=== PATIENT | male | born 1955 | race Caucasian/White ===

== ENCOUNTER 2017-06-12 09:38 | Inpatient (IN) | payer OTHER ==
[2017-06-12] MEDS ORDERED: MORPHINE SULFATE 4 MG/ML SYRINGE IV ONE (10:16)
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
[2017-06-12] MEDS ORDERED: LIDOCAINE 5% PATCH TOPICAL ONE (11:16)
[2017-06-12 11:45] LABS: Basophils # (A) 0.1 k/uL (0-0.2); Basophils % (A) 0 %; CH 30.8; Eosinophils # (A) 0.1 k/uL (0-0.7); Eosinophils % (A) 1 %; HCT 45.9 % (39.0-53.0); HDW 2.65; HGB 16.4 gm/dL (13.0-17.5); Luc # (Auto) 0.07; Luc % (Auto) 0; Lymphocytes # (A) 2.7 k/uL (1.0-4.8); Lymphocytes % (A) 15 %; MCH 31.5 pg (25.0-35.0); MCHC 35.7 g/dL (31.0-37.0); MCV 88.3 fL (80.0-100.0); Mean Platelet Volume 7.1; Monocytes # (A) 0.7 k/uL (0-1.0); Monocytes % (A) 4 %; Neutrophils # (A) 14.3 k/uL (1.3-7.7); Neutrophils % (A) 80 %; RBC 5.19 m/uL (4.30-5.90); RDW 13.2 % (11.5-15.5); WBC 17.8 k/uL (3.8-10.6); WBC (Perox) 17.15
[2017-06-12 11:48] LABS: AST 35 U/L (17-59); Alcohol <10 mg/dL; Alkaline Phosphatase 69 U/L (38-126); Anion Gap 11 mmol/L; Blood Urea Nitrogen 14 mg/dL (9-20); Calcium 9.3 mg/dL (8.4-10.2); Carbon Dioxide 24 mmol/L (22-30); Chloride 107 mmol/L (98-107); Glucose 148 mg/dL (74-99); Non-African American GFR(MDRD) >60 (>60 ml/min/1.73 sqM); Potassium 3.6 mmol/L (3.5-5.1); Sodium 142 mmol/L (137-145); Total Bilirubin 0.6 mg/dL (0.2-1.3); Total Protein 7.2 g/dL (6.3-8.2)
[2017-06-12 11:53] LABS: ALT 57 U/L (21-72)
[2017-06-12 11:55] LABS: Prothrombin Time 10.4 sec (9.0-12.0)
[2017-06-12] MEDS ORDERED: HYDROcodone/APAP 5-325MG 1 EACH TAB PO STA (12:07)
[2017-06-12 12:23] LABS: Partial Thromboplastin Time 20.5 sec (22.0-30.0)
[2017-06-12 12:57] LABS: Appearance,Urine Cloudy (Clear); Bacteria,Urine Rare /hpf; Bilirubin,Urine Negative (Negative); Glucose,Urine (UA) Negative (Negative); Ketones,Urine Negative (Negative); Leukocyte Esterase,Urine Negative (Negative); Mucus,Urine Moderate /hpf; Nitrite,Urine Negative (Negative); PH, Urine 5.5 (5.0-8.0); Particle Count 9436; Protein,Urine 2+ (Negative); RBC,Urine 83 /hpf (0-5); Specific Gravity,Urine 1.019 (1.001-1.035); UA Billing (MACRO vs. MICRO) MICRO; Urobilinogen,Urine <2.0 mg/dL (<2.0); WBC,Urine 5 /hpf (0-5)
[2017-06-12] MEDS ORDERED: ONDANSETRON 4 MG/2 ML VIAL IVP STA (14:08)
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
[2017-06-12] MEDS ORDERED: NALOXONE 0.4 MG/ML 1 ML VIAL IV PRN (15:45)
[2017-06-12] MEDS: MORPHINE SULFATE 4 MG/ML SYRINGE IV PRN ×2 (16:00→19:54)
[2017-06-12 16:11] LABS: Creatine Kinase 115 U/L (55-170)
[2017-06-12 16:25] LABS: Creatine Kinase MB 1.1 ng/mL (0.0-2.4); Troponin I <0.012 ng/mL (0.000-0.034)
[2017-06-12] MEDS: DEXTROSE 5%-0.45% NACL 1,000 ML IV SCH (17:11)
[2017-06-12] MEDS: HYDROcodone/APAP 5-325MG 1 EACH TAB PO PRN (17:39)
[2017-06-12] MEDS: HEPARIN SODIUM,PORCINE 5,000 UNIT/ML 1 ML VIAL SQ SCH (18:02)
[2017-06-12] MEDS: FAMOTIDINE 20 MG TAB PO SCH (19:56)
[2017-06-12 22:03] LABS: Basophils # (A) 0.1 k/uL (0-0.2); Basophils % (A) 0 %; CH 30.5; CHCM 33.3; Eosinophils % (A) 0 %; HCT 42.9 % (39.0-53.0); HDW 2.48; HGB 14.7 gm/dL (13.0-17.5); Luc # (Auto) 0.05; Luc % (Auto) 0; Lymphocytes # (A) 1.6 k/uL (1.0-4.8); Lymphocytes % (A) 12 %; MCH 31.6 pg (25.0-35.0); MCHC 34.4 g/dL (31.0-37.0); MCV 91.9 fL (80.0-100.0); Monocytes # (A) 0.5 k/uL (0-1.0); Monocytes % (A) 4 %; Neutrophils # (A) 11.1 k/uL (1.3-7.7); Neutrophils % (A) 84 %; RBC 4.67 m/uL (4.30-5.90); RDW 12.9 % (11.5-15.5); WBC 13.2 k/uL (3.8-10.6); WBC (Perox) 12.29
[2017-06-13] MEDS: MORPHINE SULFATE 4 MG/ML SYRINGE IV PRN ×6 (00:05→22:12)
[2017-06-13] MEDS: HEPARIN SODIUM,PORCINE 5,000 UNIT/ML 1 ML VIAL SQ SCH ×3 (00:06→20:56)
[2017-06-13] MEDS: HYDROcodone/APAP 5-325MG 1 EACH TAB PO PRN ×3 (01:48→13:30)
[2017-06-13] MEDS: DEXTROSE 5%-0.45% NACL 1,000 ML IV SCH ×2 (01:50→12:30)
[2017-06-13 06:51] LABS: Basophils % (A) 0 %; CH 30.7; CHCM 33.2; Eosinophils % (A) 0 %; HCT 42.4 % (39.0-53.0); HDW 2.48; HGB 14.3 gm/dL (13.0-17.5); Luc # (Auto) 0.09; Luc % (Auto) 1; Lymphocytes # (A) 2.3 k/uL (1.0-4.8); Lymphocytes % (A) 18 %; MCH 31.3 pg (25.0-35.0); MCHC 33.7 g/dL (31.0-37.0); MCV 92.9 fL (80.0-100.0); Mean Platelet Volume 6.9; Monocytes # (A) 0.7 k/uL (0-1.0); Monocytes % (A) 5 %; Neutrophils # (A) 9.3 k/uL (1.3-7.7); Neutrophils % (A) 75 %; RBC 4.56 m/uL (4.30-5.90); WBC 12.4 k/uL (3.8-10.6); WBC (Perox) 12.79
[2017-06-13 07:08] LABS: Partial Thromboplastin Time 22.5 sec (22.0-30.0); Prothrombin Time 10.5 sec (9.0-12.0)
[2017-06-13 07:09] LABS: ALT 53 U/L (21-72); AST 33 U/L (17-59); Alkaline Phosphatase 56 U/L (38-126); Anion Gap 10 mmol/L; Blood Urea Nitrogen 18 mg/dL (9-20); Carbon Dioxide 27 mmol/L (22-30); Chloride 100 mmol/L (98-107); Glucose 117 mg/dL (74-99); Non-African American GFR(MDRD) >60 (>60 ml/min/1.73 sqM); Potassium 4.3 mmol/L (3.5-5.1); Sodium 137 mmol/L (137-145); Total Bilirubin 0.8 mg/dL (0.2-1.3); Total Protein 6.5 g/dL (6.3-8.2)
--- NOTE | 2017-06-13 07:18 | XR ---
EXAMINATION TYPE: XR chest 2V DATE OF EXAM: 06/13/2017 COMPARISON: Chest x-ray from yesterday. HISTORY: Chest and back pain. TECHNIQUE: Frontal and lateral views of the chest are obtained. FINDINGS: There is worsening bibasilar atelectasis and/or infiltrate. Low lung volumes are redemonst rated. No large pleural effusion or pneumothorax is seen bilaterally. The cardiac silhouette size rem ains enlarged. Right-sided mid rib fractures are redemonstrated. IMPRESSION: Lung volumes and cardiomegaly redemonstrated with increasing bilateral lower lung atelec tasis and/or infiltrate seen.
[2017-06-13] MEDS: FAMOTIDINE 20 MG TAB PO SCH ×2 (08:04→20:56)
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
[2017-06-13] MEDS: LIDOCAINE 5% PATCH TOPICAL SCH (13:34)
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
[2017-06-13] MEDS: IPRATROPIUM-ALBUTEROL 3 ML NEB INHALATION SCH ×2 (15:47→19:53)
[2017-06-13] MEDS: BACLOFEN 10 MG TAB PO PRN (16:19)
[2017-06-13] MEDS: LISINOPRIL 10 MG TAB PO SCH (18:05)
[2017-06-13] MEDS: HYDROcodone/APAP 10-325MG 1 EACH TAB PO PRN (19:37)
[2017-06-13] MEDS: BUDESONIDE 0.5 MG/2 ML NEBU INHALATION SCH (19:53)
[2017-06-13] MEDS: ATORVASTATIN 20 MG TAB PO SCH (20:56)
[2017-06-13] MEDS: BISACODYL 5 MG TABLET.DR PO SCH (20:57)
[2017-06-14] MEDS: DEXTROSE 5%-0.45% NACL 1,000 ML IV SCH ×2 (01:07→07:17)
[2017-06-14] MEDS: HYDROcodone/APAP 10-325MG 1 EACH TAB PO PRN ×5 (02:16→23:56)
[2017-06-14] MEDS: LEVOTHYROXINE 50 MCG TAB PO SCH (06:37)
[2017-06-14 06:48] LABS: Basophils # (A) 0.1 k/uL (0-0.2); Basophils % (A) 1 %; CHCM 33.2; Eosinophils % (A) 0 %; HDW 2.57; HGB 14.2 gm/dL (13.0-17.5); Luc # (Auto) 0.09; Luc % (Auto) 1; Lymphocytes % (A) 9 %; MCV 93.9 fL (80.0-100.0); Mean Platelet Volume 7.2; Monocytes # (A) 0.5 k/uL (0-1.0); Monocytes % (A) 5 %; Neutrophils # (A) 8.8 k/uL (1.3-7.7); Neutrophils % (A) 84 %; RBC 4.58 m/uL (4.30-5.90); RDW 13.2 % (11.5-15.5); WBC 10.5 k/uL (3.8-10.6); WBC (Perox) 10.49
[2017-06-14 07:03] LABS: ALT 49 U/L (21-72); AST 38 U/L (17-59); Alkaline Phosphatase 59 U/L (38-126); Anion Gap 9 mmol/L; Blood Urea Nitrogen 13 mg/dL (9-20); Calcium 9.2 mg/dL (8.4-10.2); Carbon Dioxide 29 mmol/L (22-30); Chloride 98 mmol/L (98-107); Glucose 137 mg/dL (74-99); Non-African American GFR(MDRD) >60 (>60 ml/min/1.73 sqM); Potassium 5.1 mmol/L (3.5-5.1); Sodium 136 mmol/L (137-145); Total Bilirubin 0.9 mg/dL (0.2-1.3); Total Protein 6.7 g/dL (6.3-8.2)
[2017-06-14] MEDS: BISACODYL 5 MG TABLET.DR PO SCH ×2 (08:19→23:56)
[2017-06-14] MEDS: HEPARIN SODIUM,PORCINE 5,000 UNIT/ML 1 ML VIAL SQ SCH ×2 (08:19→21:38)
[2017-06-14] MEDS: FAMOTIDINE 20 MG TAB PO SCH ×2 (08:19→21:38)
[2017-06-14] MEDS: amLODIPine 5 MG TAB PO SCH (08:19)
[2017-06-14] MEDS: LIDOCAINE 5% PATCH TOPICAL SCH (08:19)
[2017-06-14] MEDS: PANTOPRAZOLE 40 MG TABLET PO SCH (08:20)
[2017-06-14] MEDS: BUDESONIDE 0.5 MG/2 ML NEBU INHALATION SCH ×2 (08:35→19:56)
[2017-06-14] MEDS: IPRATROPIUM-ALBUTEROL 3 ML NEB INHALATION SCH ×4 (08:36→19:56)
[2017-06-14] MEDS: BACLOFEN 10 MG TAB PO PRN ×3 (10:35→23:56)
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
--- NOTE | 2017-06-14 11:53 | XR ---
EXAMINATION TYPE: XR lumbar spine 2 or 3V DATE OF EXAM: 06/14/2017 CLINICAL HISTORY: Back pain after fall injury 2 days ago. TECHNIQUE: Frontal and lateral images of the lumbar spine are obtained. COMPARISON: CT abdomen and pelvis September 08, 2011 FINDINGS: There are 6 lumbar type vertebral bodies redemonstrated. The lumbar spine shows satisfact ory alignment without evidence of acute fracture or dislocation. There is mild disc space narrowing L 6 S1 level otherwise the Vertebral body heights and disk space heights are within normal limits. Fair ly moderate multilevel anterior and lateral spurring is present. The overlying soft tissue appears un remarkable. IMPRESSION: No acute fracture or dislocation is seen in the lumbar spine.
[2017-06-14] MEDS: GABAPENTIN 100 MG CAP PO SCH ×2 (12:11→21:39)
--- NOTE | 2017-06-14 13:51 | XR ---
EXAMINATION TYPE: XR chest 2V DATE OF EXAM: 06/14/2017 COMPARISON: 06/13/2017 HISTORY: Short of breath TECHNIQUE: Frontal and lateral views of the chest are obtained. FINDINGS: There is a poor aspiration with patchy atelectasis in the mid and lower lung porter. There are chest leads. There is mild pulmonary congestion. IMPRESSION: Moderate bilateral patchy atelectasis. Mild heart failure cannot be excluded. Inspiratio n is worse than last exam.
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
[2017-06-14] MEDS: MORPHINE SULFATE 4 MG/ML SYRINGE IV PRN ×3 (14:34→21:36)
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
[2017-06-14] MEDS: ATORVASTATIN 20 MG TAB PO SCH (21:38)
[2017-06-15] MEDS: BACLOFEN 10 MG TAB PO PRN ×3 (05:19→21:54)
[2017-06-15] MEDS: MORPHINE SULFATE 4 MG/ML SYRINGE IV PRN ×4 (05:20→23:56)
[2017-06-15] MEDS: LEVOTHYROXINE 50 MCG TAB PO SCH (06:51)
--- NOTE | 2017-06-15 07:43 | XR ---
EXAMINATION TYPE: XR chest 2V DATE OF EXAM: 06/15/2017 COMPARISON: 06/14/2017 HISTORY: Shortness of breath TECHNIQUE: Frontal and lateral views of the chest are obtained. FINDINGS: Scattered senescent parenchymal changes noted. Diminished lung volumes. No significant change in basilar atelectasis and/or infiltrates. Heart size is stable. Mediastinal structures are stable and grossly unremarkable. No evidence for hilar prominence. Degenerative changes dorsal spine. IMPRESSION: 1. No significant change in basilar atelectasis and/or infiltrates.
[2017-06-15] MEDS: LIDOCAINE 5% PATCH TOPICAL SCH (07:47)
[2017-06-15] MEDS: HEPARIN SODIUM,PORCINE 5,000 UNIT/ML 1 ML VIAL SQ SCH ×2 (07:48→21:54)
[2017-06-15] MEDS: LISINOPRIL 10 MG TAB PO SCH (07:49)
[2017-06-15] MEDS: GABAPENTIN 100 MG CAP PO SCH ×2 (07:49→21:54)
[2017-06-15] MEDS: PANTOPRAZOLE 40 MG TABLET PO SCH (07:49)
[2017-06-15] MEDS: FAMOTIDINE 20 MG TAB PO SCH ×2 (07:49→21:54)
[2017-06-15] MEDS: amLODIPine 5 MG TAB PO SCH (07:50)
[2017-06-15] MEDS: BISACODYL 5 MG TABLET.DR PO SCH ×2 (07:58→21:59)
[2017-06-15] MEDS: HYDROcodone/APAP 10-325MG 1 EACH TAB PO PRN ×3 (07:58→21:57)
[2017-06-15] MEDS: BUDESONIDE 0.5 MG/2 ML NEBU INHALATION SCH ×2 (08:50→20:49)
[2017-06-15] MEDS: IPRATROPIUM-ALBUTEROL 3 ML NEB INHALATION SCH ×4 (08:50→20:49)
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
[2017-06-15] MEDS: ATORVASTATIN 20 MG TAB PO SCH (21:53)
[2017-06-16] MEDS: HYDROcodone/APAP 10-325MG 1 EACH TAB PO PRN ×2 (03:06→08:34)
[2017-06-16] MEDS: LEVOTHYROXINE 50 MCG TAB PO SCH (05:49)
[2017-06-16] MEDS: MORPHINE SULFATE 4 MG/ML SYRINGE IV PRN (05:49)
[2017-06-16 07:05] VITALS: BP 162/87; TEMP 98
[2017-06-16] MEDS: IPRATROPIUM-ALBUTEROL 3 ML NEB INHALATION SCH ×2 (08:00→12:06)
[2017-06-16] MEDS: BUDESONIDE 0.5 MG/2 ML NEBU INHALATION SCH (08:00)
[2017-06-16] MEDS: HEPARIN SODIUM,PORCINE 5,000 UNIT/ML 1 ML VIAL SQ SCH (08:29)
[2017-06-16] MEDS: amLODIPine 5 MG TAB PO SCH (08:29)
[2017-06-16] MEDS: GABAPENTIN 100 MG CAP PO SCH (08:30)
[2017-06-16] MEDS: PANTOPRAZOLE 40 MG TABLET PO SCH (08:30)
[2017-06-16] MEDS: LISINOPRIL 10 MG TAB PO SCH (08:30)
[2017-06-16] MEDS: FAMOTIDINE 20 MG TAB PO SCH (08:30)
[2017-06-16] MEDS: BISACODYL 5 MG TABLET.DR PO SCH (08:34)
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
[2017-06-16 11:12] VITALS: RESP 16
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
--- NOTE | 2017-06-16 11:49 | P.DS ---
Providers Date of admission: 06/12/17 15:45 Attending physician: Elvia Soria Consults: 06/12/17 15:32 Consult Physician Routine Consulting Provider: Chun Osullivan Consult Reason/Comments: multiple rib fractures Do you want consulting provider notified?: Yes 06/13/17 08:41 Consult Physician Routine Consulting Provider: Felipe Dubon Consult Reason/Comments: Medical management Do you want consulting provider notified?: Yes Primary care physician: Umberto Urena Patient Condition at Discharge: Good Plan - Discharge Summary New Discharge Prescriptions: No Action Lidocaine 5% Patch [Lidoderm] 1 patch TOPICAL DAILY amLODIPine BESYLATE/BENAZEPRIL [Amlodipine-Benazepril 5-10 mg] 1 cap PO DAILY Pantoprazole Sodium 40 mg PO QAM Levothyroxine Sodium [Synthroid] 50 mcg PO QAM Simvastatin [Zocor] 40 mg PO HS Hydrocodone/Acetaminophen [[place] 10-325] 1 tab PO Q6H PRN PRN Reason: Pain Ibuprofen [Motrin] 800 mg PO Q8H PRN PRN Reason: Pain SUMAtriptan SUCCINATE [Imitrex] 100 mg PO DAILY PRN PRN Reason: Migraine Headache Discharge Medication List Levothyroxine Sodium [Synthroid] 50 mcg PO QAM 03/14/15 [History] Lidocaine 5% Patch [Lidoderm] 1 patch TOPICAL DAILY 03/14/15 [History] Pantoprazole Sodium 40 mg PO QAM 03/14/15 [History] Simvastatin [Zocor] 40 mg PO HS 03/14/15 [History] amLODIPine BESYLATE/BENAZEPRIL [Amlodipine-Benazepril 5-10 mg] 1 cap PO DAILY [History] Hydrocodone/Acetaminophen [[place] 10-325] 1 tab PO Q6H PRN 06/12/17 [History] Ibuprofen [Motrin] 800 mg PO Q8H PRN 06/12/17 [History] SUMAtriptan SUCCINATE [Imitrex] 100 mg PO DAILY PRN 06/12/17 [History] Follow up Appointment(s)/Referral(s): Umberto Urena DO [Primary Care Provider] - 1 Week Chun Osullivan DO [Doctor of Osteopathic Medicine] - 1 Week Elvia Soria MD [Emergency Provider] - 1 Week Activity/Diet/Wound Care/Special Instructions: use incentive spiromety Q 1 hour while awake dc if ok with medicine, and pulmonary do not drive until cleared by surgery or if taking narcotics Discharge Disposition: HOME SELF-CARE
[2017-06-16 12:10] VITALS: PULSE 84
[2017-06-16] MEDS: LIDOCAINE 5% PATCH TOPICAL SCH (12:27)
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
== END 2017-06-16 13:55 | disposition home or self-care (01) | DRG 184 ==
LOC: EC 09:38 → 6SEL 15:45 → 4MS4W 06-15 19:58
PROVIDERS: ADMIT Surgery; ATTEND Surgery
DX: S22.41XA Multiple fractures of ribs, right side, initial encounter for closed fracture (principal); S06.0X9A Concussion with loss of consciousness of unspecified duration, initial encounter; S27.329A Contusion of lung, unspecified, initial encounter; J98.11 Atelectasis; E03.9 Hypothyroidism, unspecified; E78.5 Hyperlipidemia, unspecified; I10 Essential (primary) hypertension; J44.9 Chronic obstructive pulmonary disease, unspecified; K21.9 Gastro-esophageal reflux disease without esophagitis; R09.02 Hypoxemia; G43.909 Migraine, unspecified, not intractable, without status migrainosus; M19.90 Unspecified osteoarthritis, unspecified site; M54.5 Low back pain; Z79.899 Other long term (current) drug therapy; Z87.891 Personal history of nicotine dependence; Z82.49 Family history of ischemic heart disease and other diseases of the circulatory system; W03.XXXA Other fall on same level due to collision with another person, initial encounter; Y92.007 Garden or yard of unspecified non-institutional (private) residence as the place of occurrence of the external cause
CPT/HCPCS: 36415; 70450; 71020; 72100; 72125; 80053; 80306; 80320; 81001; 82550; 82553; 84484; 85025; 85610; 85730; 86850; 86900; 86901; 93005; 94640; 94760; 96374; 96375; 96376; 99285

== ENCOUNTER → 2018-02-02 | Outpatient (CLI) | payer MEDICARE ==
[2018-02-02 11:10] LABS: Basophils # (A) 0.1 k/uL (0-0.2); Basophils % (A) 1 %; Eosinophils # (A) 0.4 k/uL (0-0.7); Eosinophils % (A) 4 %; HCT 44.5 % (39.0-53.0); HGB 15.4 gm/dL (13.0-17.5); Lymphocytes # (A) 3.1 k/uL (1.0-4.8); Lymphocytes % (A) 35 %; MCH 31.7 pg (25.0-35.0); MCHC 34.5 g/dL (31.0-37.0); MCV 91.7 fL (80.0-100.0); Mean Platelet Volume 6.5; Monocytes # (A) 0.3 k/uL (0-1.0); Monocytes % (A) 3 %; Neutrophils # (A) 4.8 k/uL (1.3-7.7); Neutrophils % (A) 56 %; Platelet Count 243 k/uL (150-450); RBC 4.85 m/uL (4.30-5.90); RDW 13.1 % (11.5-15.5); WBC 8.7 k/uL (3.8-10.6)
== END | disposition home or self-care (01) ==
LOC: LABWHC1 10:49
PROVIDERS: ATTEND Family Medicine
DX: R60.9 Edema, unspecified (principal)
CPT/HCPCS: 36415; 83880; 85025

== ENCOUNTER → 2018-02-09 | Outpatient (CLI) | payer MEDICARE ==
--- NOTE | 2018-02-09 15:24 | CT ---
EXAMINATION TYPE: CT chest w con DATE OF EXAM: 02/09/2018 COMPARISON: NONE HISTORY: SOB and cough x4 months CT DLP: 587 mGycm Automated exposure control for dose reduction was used. CONTRAST: CT scan of the chest is performed with IV Contrast, patient injected with 100 mL of Omnipaque 350. FINDINGS: LUNGS: The lungs are grossly clear, there is no concerning parenchymal mass or nodule identified. T here is no pleural effusion or pneumothorax seen. The tracheobronchial tree is patent. MEDIASTINUM: There are no greater than 1 cm hilar or mediastinal lymph nodes. No pericardial effusi on is seen. Thoracic aorta is of normal caliber. The heart is not enlarged. UPPER ABDOMEN: There is evidence of hepatic steatosis. OTHER: No additional significant abnormality is seen. IMPRESSION: 1. No evidence for underlying pneumonia, pulmonary nodule or mass.
== END | disposition home or self-care (01) ==
LOC: RADCTMAIN 14:30
PROVIDERS: ATTEND Family Medicine
DX: J18.9 Pneumonia, unspecified organism (principal)
CPT/HCPCS: 71260; Q9967

== ENCOUNTER → 2018-04-07 | Outpatient (CLI) | payer MEDICARE | END | disposition home or self-care (01) | LOC: LABWHC1 09:02 | PROVIDERS: ATTEND Family Medicine | DX: R60.9 Edema, unspecified (principal) | CPT/HCPCS: 36415; 85379 ==

== ENCOUNTER → 2018-04-22 | Outpatient (CLI) | payer MEDICARE ==
--- NOTE | 2018-04-22 15:11 | US ---
EXAMINATION TYPE: US venous doppler duplex LE DATE OF EXAM: 04/22/2018 2:38 PM COMPARISON: NONE CLINICAL HISTORY: M79.605 Pain In Left Leg. sob, left leg pain SIDE PERFORMED: bilateral TECHNIQUE: The lower extremity deep venous system is examined utilizing real time linear array sonog beni with graded compression, doppler sonography and color-flow sonography. VESSELS IMAGED: External Iliac Vein (EIV) Common Femoral Vein Deep Femoral Vein Greater Saphenous Vein * Femoral Vein Popliteal Vein Small Saphenous Vein * Proximal Calf Veins (* superficial vessels) Grayscale, color doppler, spectral doppler imaging performed of the deep veins of the lower extremiti es. There is normal flow, compressibility, vascular waveforms. Right Leg: neg for RLE dvt Left Leg: neg for LLE dvt IMPRESSION: No sonographic evidence of deep venous thrombosis within either lower extremity.
== END | disposition home or self-care (01) ==
LOC: RADUSWWP 14:10
PROVIDERS: ATTEND Family Medicine
DX: M79.605 Pain in left leg (principal)
CPT/HCPCS: 93970

== ENCOUNTER → 2019-04-11 | Outpatient (CLI) | payer MEDICARE ==
--- NOTE | 2019-04-11 09:49 | XR ---
EXAMINATION TYPE: XR chest 2V DATE OF EXAM: 04/11/2019 COMPARISON: 07/10/2017 TECHNIQUE: PA and lateral views submitted. HISTORY: Chest pain FINDINGS: Heart is enlarged. There is subsegmental changes involving both lungs. No pneumothorax. Biapical pleu ral thickening. Chronic rib deformities on the right. No pneumothorax. IMPRESSION: 1. Bilateral subsegmental areas of consolidation and atelectasis favored over infiltrate.
== END | disposition home or self-care (01) ==
LOC: RADXRMAIN 09:32
PROVIDERS: ATTEND Family Medicine
DX: R91.8 Other nonspecific abnormal finding of lung field (principal); J44.0 Chronic obstructive pulmonary disease with (acute) lower respiratory infection; I10 Essential (primary) hypertension; Z99.81 Dependence on supplemental oxygen
CPT/HCPCS: 71046

== ENCOUNTER → 2019-09-21 | Outpatient (CLI) | payer MEDICARE ==
--- NOTE | 2019-09-21 15:04 | CT ---
EXAMINATION TYPE: CT abdomen pelvis w con DATE OF EXAM: 09/21/2019 COMPARISON: CT 09/08/2011 HISTORY: Vomiting, nausea CT DLP: 1862 mGycm Automated exposure control for dose reduction was used. TECHNIQUE: Helical acquisition of images from the lung bases through the pelvis have been completed. CONTRAST: Performed with Oral Contrast and with IV Contrast, patient injected with 100 ml mL of Isovue 300. FINDINGS: There are some coronary artery calcifications present. Large calvarial fat pads are present . Patient is morbidly obese. LUNG BASES: No significant abnormality is appreciated. AORTA: No significant abnormality is appreciated. LIVER/GB: Liver shows low attenuation consistent with hepatic steatosis, the gallbladder is normal. PANCREAS: No significant abnormality is seen. SPLEEN: No significant abnormality is seen. ADRENALS: No significant abnormality is seen. KIDNEYS: No significant abnormality is seen. REPRODUCTIVE ORGANS: Prostate appears enlarged. BOWEL: No significant abnormality is seen. Previously identified appendicitis is no longer seen, gali pect interval appendectomy. FREE AIR: No Free Air visible. ASCITES: None visible. PELVIC ADENOPATHY: None visualized. RETROPERITONEAL ADENOPATHY: No Retroperitoneal Adenopathy visible. URINARY BLADDER: No significant abnormality is seen. OSSEOUS STRUCTURES: No significant abnormality is seen. IMPRESSION: NONSPECIFIC FINDINGS ABOVE, HEPATIC STEATOSIS, OBESITY, NO EVIDENT BOWEL OBSTRUCTION. POSTOP CHANGE. ADDITIONAL FINDINGS ABOVE.
== END | disposition home or self-care (01) ==
LOC: RADCTMAIN 12:55
PROVIDERS: ATTEND Family Medicine
DX: R11.10 Vomiting, unspecified (principal); R11.0 Nausea; K76.0 Fatty (change of) liver, not elsewhere classified
CPT/HCPCS: 74177; Q9967

== ENCOUNTER 2020-03-29 15:50 | Inpatient (IN) | payer MEDICARE ==
[2020-03-29] MEDS ORDERED: LORazepam 2 MG/ML INJ IV STA (15:53)
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
[2020-03-29 16:07] LABS: Basophils # (A) 0.1 k/uL (0-0.2); Basophils % (A) 1 %; Eosinophils # (A) 0.3 k/uL (0-0.7); Eosinophils % (A) 3 %; HCT 45.7 % (39.0-53.0); HGB 14.8 gm/dL (13.0-17.5); Lymphocytes # (A) 4.8 k/uL (1.0-4.8); Lymphocytes % (A) 38 %; MCH 31.8 pg (25.0-35.0); MCHC 32.4 g/dL (31.0-37.0); MCV 98.1 fL (80.0-100.0); Mean Platelet Volume 6.9; Monocytes # (A) 0.4 k/uL (0-1.0); Monocytes % (A) 3 %; Neutrophils # (A) 6.8 k/uL (1.3-7.7); Neutrophils % (A) 54 %; Platelet Count 340 k/uL (150-450); RBC 4.66 m/uL (4.30-5.90); RDW 14.3 % (11.5-15.5); WBC 12.5 k/uL (3.8-10.6)
[2020-03-29 16:21] LABS: ALT 49 U/L (4-49); AST 38 U/L (17-59); African American GFR (CKD) >90 (>60 ml/min/1.73 sqM); Albumin 3.9 g/dL (3.5-5.0); Alkaline Phosphatase 71 U/L (38-126); Anion Gap 6 mmol/L; Blood Urea Nitrogen 12 mg/dL (9-20); Calcium 9.1 mg/dL (8.4-10.2); Carbon Dioxide 32 mmol/L (22-30); Chloride 96 mmol/L (98-107); Creatine Kinase 48 U/L (55-170); Glucose 161 mg/dL (74-99); Non-African American GFR(CKD) >90 (>60 ml/min/1.73 sqM); Potassium 3.5 mmol/L (3.5-5.1); Sodium 134 mmol/L (137-145); Total Protein 6.7 g/dL (6.3-8.2)
[2020-03-29 16:22] LABS: INR 0.9 (<1.2); Prothrombin Time 9.7 sec (9.0-12.0)
[2020-03-29 16:26] LABS: Partial Thromboplastin Time 21.2 sec (22.0-30.0)
--- NOTE | 2020-03-29 16:28 | CT ---
EXAMINATION TYPE: CT brain wo con for TPA DATE OF EXAM: 03/29/2020 COMPARISON: 06/12/2017 INDICATION: Left sided weakness and confusion. DLP: 1220.8 mGycm, Automated exposure control for dose reduction was used. CONTRAST: None CT of the brain is performed utilizing 3 mm thick sections through the posterior fossa and 3 mm thick sections through the remaining calvarium. Study is performed within 24 hours of arrival to the hosp ital. No abnormal hyperdensity is present to suggest an acute intracranial hemorrhage. No mass lesion is evident. No acute infarcts are evident. Ventricles and sulci are appropriate for the patient age. The nasal sinuses within the [id number] are clear. There is fluid within the right mastoid air mary ls. Correlate for right mastoiditis. Septal destruction is not identified. Left mastoid air cells are clear. IMPRESSIONS: 1. No acute intracranial abnormality. 2. Clinical correlation recommended for acute right mastoiditis.
--- NOTE | 2020-03-29 16:30 | XR ---
EXAMINATION TYPE: XR chest 1V portable DATE OF EXAM: 03/29/2020 COMPARISON: 04/11/2019 INDICATION: Altered mental status TECHNIQUE: Single frontal view of the chest is obtained. FINDINGS: The heart size is borderline in size. The pulmonary vasculature is normal. There is some streak opacity within the right hilar region extending towards periphery most likely on the basis of atelectasis. Minimal fluid within the minor fissure could be considered. Some mild plat e like atelectasis or scarring is at the left base, present previously. IMPRESSION: 1. Streak atelectasis perihilar regions. Scarring may be present on the left.
[2020-03-29 16:32] LABS: Creatine Kinase MB 2.7 ng/mL (0.0-2.4); Troponin I <0.012 ng/mL (0.000-0.034)
--- NOTE | 2020-03-29 16:46 | CT ---
EXAMINATION TYPE: CT angio head neck DATE OF EXAM: 03/29/2020 HISTORY: Left sided weakness COMPARISON: None CT DLP: 760.8 mGycm. Automated Exposure Control for Dose Reduction was Utilized. TECHNIQUE: CTA scan of the neck is performed with IV Contrast, patient injected with 70 mL of Isovue 370, axial images are obtained, coronal and sagittal reformatted images are reviewed. Three-D recons tructed images are created on an independent workstation and reviewed. Source images are reviewed. FINDINGS: Carotid/Vascular Structures: There is a three-vessel arch. Vertebral arteries are codominant. Common carotid arteries bifurcate normally into internal and external carotid arteries. Internal carotid art eries are patent to the skull base Cervical of [place]: Vertebral basilar system appears normal. Posterior cerebral vasculature is unrema rkable. Internal carotid arteries bifurcate normally into A1 and M1 segments. A2 segments are normal. The anterior communicating artery appears patent.. Posterior communicating arteries are not clearly identified. IMPRESSION: 1. No flow-limiting stenosis bilateral carotid bifurcations. 2. Normal [place]
[2020-03-29] MEDS ORDERED: ASPIRIN 325 MG TAB PO STA (16:57)
[2020-03-29] MEDS: SODIUM CHLORIDE 0.9% 1,000 ML IV SCH (17:27)
[2020-03-29] MEDS: ACETAMINOPHEN TAB 325 MG TAB PO PRN (20:46)
[2020-03-29] MEDS ORDERED: BENZONATATE 100 MG CAP PO PRN (20:54)
[2020-03-29] MEDS ORDERED: LORATADINE 10 MG TAB PO PRN (20:54)
[2020-03-29] MEDS: FUROSEMIDE 40 MG TAB PO SCH (21:06)
[2020-03-29] MEDS: ATORVASTATIN 20 MG TAB PO SCH (21:06)
[2020-03-30] MEDS: SODIUM CHLORIDE 0.9% 1,000 ML IV SCH ×2 (02:59→08:40)
[2020-03-30] MEDS: LEVOTHYROXINE 50 MCG TAB PO SCH (06:16)
[2020-03-30] MEDS: PANTOPRAZOLE 40 MG TABLET PO SCH (06:16)
[2020-03-30 07:44] LABS: HGB 12.7 gm/dL (13.0-17.5); Hypochromasia Slight; MCH 31.3 pg (25.0-35.0); MCHC 31.1 g/dL (31.0-37.0); MCV 100.8 fL (80.0-100.0); Macrocytosis Slight; Mean Platelet Volume 6.7; Platelet Count 284 k/uL (150-450); RBC 4.06 m/uL (4.30-5.90); RDW 14.3 % (11.5-15.5); WBC 8.2 k/uL (3.8-10.6)
[2020-03-30 07:54] LABS: African American GFR (CKD) >90 (>60 ml/min/1.73 sqM); Anion Gap 5 mmol/L; Blood Urea Nitrogen 10 mg/dL (9-20); Calcium 8.3 mg/dL (8.4-10.2); Carbon Dioxide 33 mmol/L (22-30); Chloride 99 mmol/L (98-107); Cholesterol 180 mg/dL (<200); Glucose 121 mg/dL (74-99); HDL Cholesterol 44 mg/dL (40-60); LDL Cholesterol,Calculated 106 mg/dL (0-99); Non-African American GFR(CKD) >90 (>60 ml/min/1.73 sqM); Sodium 137 mmol/L (137-145); Triglycerides 152 mg/dL (<150)
[2020-03-30] MEDS ORDERED: LORazepam 2 MG/ML INJ IV STA (08:11)
[2020-03-30] MEDS: LOSARTAN 50 MG TAB PO SCH (08:39)
[2020-03-30] MEDS: POTASSIUM CHLORIDE ER 20 MEQ TAB.ER PO SCH (08:39)
[2020-03-30] MEDS: ACETAMINOPHEN TAB 325 MG TAB PO PRN (08:39)
[2020-03-30] MEDS: FUROSEMIDE 40 MG TAB PO SCH ×2 (08:40→21:02)
[2020-03-30] MEDS ORDERED: ASPIRIN 81 MG PO SCH (09:00)
--- NOTE | 2020-03-30 10:43 | ECHOF ---
Referral Reason:Thrombus MEASUREMENTS -------- HEIGHT: 175.3 cm WEIGHT: 113.9 kg BP: 125/75 RVIDd: 3.4 cm (< 3.3) IVSd: 1.4 cm (0.6 - 1.1) LVIDd: 3.9 cm (3.9 - 5.3) LVPWd: 1.3 cm (0.6 - 1.1) IVSs: 2.0 cm LVIDs: 2.5 cm LVPWs: 2.0 cm LA Diam: 3.6 cm (2.7 - 3.8) Ao Diam: 3.4 cm (2.0 - 3.7) AV Cusp: 2.1 cm (1.5 - 2.6) MV E Robb: 0.69 m/s MV DecT: 171 ms MV A Robb: 0.82 m/s MV E/A Ratio: 0.85 RAP: 5.00 mmHg RVSP: 27.32 mmHg FINDINGS -------- Sinus rhythm. This was a technically difficult study with suboptimal views. The left ventricular size is normal. There is moderate concentric left ventricular hypertrophy. O verall left ventricular systolic function is normal with, an EF between 60 - 65 %. The right ventricle is mildly enlarged. The left atrial size is normal. The right atrium is normal in size. 5.0mg of Lumason was utilized for enhancement of images The aortic valve is trileaflet and appears structurally normal. The mitral valve is normal. Mild tricuspid regurgitation present. Right ventricular systolic pressure is normal at < 35 mmHg. There is no pulmonic regurgitation present. The aortic root size is normal. The hepatic veins were not well visualized. There is no pericardial effusion. CONCLUSIONS -------- 1. Sinus rhythm. 2. This was a technically difficult study with suboptimal views. 3. The left ventricular size is normal. 4. There is moderate concentric left ventricular hypertrophy. 5. Overall left ventricular systolic function is normal with, an EF between 60 - 65 %. 6. The right ventricle is mildly enlarged. 7. The left atrial size is normal. 8. The right atrium is normal in size. 9. 5.0mg of Lumason was utilized for enhancement of images 10. The aortic valve is trileaflet and appears structurally normal. 11. The mitral valve is normal. 12. Mild tricuspid regurgitation present. 13. Right ventricular systolic pressure is normal at < 35 mmHg. 14. There is no pulmonic regurgitation present. 15. The aortic root size is normal. 16. The hepatic veins were not well visualized. 17. There is no pericardial effusion. ENGINE OILER: Xuan Riley RDCS
--- NOTE | 2020-03-30 11:54 | MR ---
EXAMINATION TYPE: MR brain wo con DATE OF EXAM: 03/30/2020 COMPARISON: CT brain dated 03/29/2020 and MRI dated 03/15/2015 HISTORY: Expressive aphasia, CVA/TIA TECHNIQUE: Multiplanar, multisequence images of the brain and brainstem is performed without IV contrast. FINDINGS: Diffusion weighted images demonstrate and punctate focus of restricted diffusion along the leroy-white matter interface of the right posterior parietal lobe. Focus of white matter changes seen at this location demonstrated as T2/FLAIR hyperintensity that is new from 2015. There is no extra-ax ial fluid collection. Mild FLAIR hyperintensity in the periventricular white matter most, and the bas is of chronic microangiopathy. The ventricular system and cisternal spaces are normal in size and iwona earance. The brain volume is age appropriate. Midline structures demonstrate normal morphology. The craniocervical junction appears within normal limits. The globes are intact. Near complete opacification of the right mastoid air cells, extensive with fluid seen in the right middle ear cavity. Partial opacification inferior aspect of the sphenoid air cells. Mild mucosal thickening in the maxillary sinuses seen on coronal T2 imaging. IMPRESSION: 1.There is a 6 mm focus of restricted diffusion and the leroy-white matter junction of the right poste rior parietal lobe indicating a punctate acute lacunar infarct. 2. Near complete opacification of the right mastoid air cells with fluid in the right middle ear cavi ty. Correlate for otomastoiditis. A Yellow level critical message alert has been initiated for Felipe Dubon MD via the [employer] Critical Results System on 03/30/2020 11:51 AM. This message alert has been sent to Felipe Dubon MD via the preferences provided by the clinician for the receipt of Radiology Critical Findings. Message ID [id number].
--- NOTE | 2020-03-30 12:38 | P.HPIM ---
History of Present Illness H&P Date: 03/30/20 Chief Complaint: aphasia This is a 65-year-old male patient of Dr. Urena with past medical history of hypertension, hyperlipidemia, hypothyroidism, gastroesophageal reflux disease, migraine headaches, remote history of tobacco use, chronic hypoxic respiratory failure. Patient states that he has chronic problems with insomnia and usually sleeps during the day. He states yesterday he went to bed at 5 in the morning and when he woke up at 2 in the afternoon he noticed that his speech was off and he was not able to open the refrigerator door. He was unable to use his hand. Patient denied having any balance issues. He denies having any one- sided weakness despite difficulty with using his hand. He states that he has had a headache for one week. He also states he has been off balance and fell getting out of the tub 2 days ago. He states he was able to catch himself and did not have any injuries. He does not have any history of TIA/CVA. His ended up calling ambulance and patient was brought in the hospital. Patient is also noted that for the past 6 months to one year he has had some memory loss. He had an episode of shortness of breath 2 nights ago and thought he needed to come in the hospital but this subsided on its own without treatment. He also states that for the past 2 weeks he has had trouble swallowing his pills. He has had no recent hospitalizations. Patient is on home O2 but denies COPD diagnosis. Patient presented to [facility] emergency center for evaluation. Patient was found to be afebrile, heart rate 104, blood pressure 140/83, pulse ox 94% on 2 L nasal cannula. EKG is a sinus tachycardia with no acute ST T wave changes. WBC 12.5, hemoglobin 14.8, platelet count 340, INR 0.9. Sodium 134, potassium 3.5, chloride 96, CO2 32, BUN 12 and creatinine 0.81. Troponin negative on 1 drug, CK 48. Triglycerides 152, cholesterol 180, LDL 106, HDL 44. Chest x-ray shows streaky atelectasis. Hilar region with scarring on the left side. CAT scan of the brain showed no acute intracranial abnormality. Possible acute right mastoiditis. CTA of the head and neck showed no flow limiting stenosis and bilateral carotid bifurcations. Normal [place] of [place]. Dr. Hairston was contacted. Patient was not a candidate for TPA. The patient had witnessed seizure activity involving the right upper extremity lasting approximately 1 minute while in the emergency center. He was noted to have expressive aphasia and slurred speech and complained of headache. Patient was admitted to the cardiac stepdown unit and consult with neurology, PT OT, speech therapy and echocardiogram ordered. Consult with cardiology added for TYSHAWN to rule out PFO. Echocardiogram reveals EF of 60-65%, mild tricuspid regurgitation. MRI of the brain reveals a 6 mm focus of restricted diffusion and leroy-white matter junction of the right posterior parietal lobe indicating a punctate acute lacunar infarct. Near complete face occasional the right mastoid. Review of Systems Constitutional: Reports daytime sleepiness, Reports fatigue, Reports weakness, Denies anorexia, Denies chills, Denies fever, Denies lethargy, Denies malaise, Denies poor appetite, Denies weight loss Eyes: denies blurred vision, denies pain Ears, nose, mouth and throat: Denies dysphagia, Denies headache, Denies nasal congestion, Denies nasal discharge, Denies sore throat, Denies vertigo Cardiovascular: Denies chest pain, Denies edema, Denies leg edema, Denies lightheadedness, Denies palpitations, Denies syncope Respiratory: Reports home oxygen, Denies cough, Denies cough with sputum, Denies dyspnea, Denies excessive sputum, Denies hemoptysis, Denies respiratory infections, Denies sleep apnea, Denies wheezing Gastrointestinal: Reports nausea, Denies abdominal pain, Denies diarrhea, Denies loss of appetite, Denies vomiting Genitourinary: Denies dysuria, Denies urinary frequency, Denies urinary retention Musculoskeletal: Reports gait dysfunction, Reports muscle weakness, Denies myalgias Integumentary: Denies pruritus, Denies rash, Denies wounds Neurological: Reports aphasia, Reports change in speech, Reports gait dysfunction, Reports seizures, Reports weakness, Denies change in mentation, Denies numbness, Denies syncope Psychiatric: Denies anxiety, Denies depression Endocrine: Denies fatigue, Denies weight change Past Medical History Past Medical History: Heart Failure, COPD, GERD/Reflux, Hyperlipidemia, Hypertension, Osteoarthritis (OA), Thyroid Disorder Additional Past Medical History / Comment(s): migraines, sinus problems, 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 2LNC home O2 r/t unknown lung disease History of Any Multi-Drug Resistant Organisms: None Reported Past Surgical History: Appendectomy, Hernia Repair, Orthopedic Surgery Additional Past Surgical History / Comment(s): rotator cuff x2 left side Past Anesthesia/Blood Transfusion Reactions: No Reported Reaction Additional Past Anesthesia/Blood Transfusion Reaction / Comment(s): clausterphobia-had to be sedated for mri Past Psychological History: No Psychological Hx Reported Additional Psychological History / Comment(s): pt lives with gavin in a single story home that has 2 proch steps. 2 pet cats. no medical equipment. no home care services. never served in the [employer]. 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 Patient uses lysis a cane for ambulation occasionally due to balance issues. Smoking Status: Former smoker Past Alcohol Use History: Occasional Additional Past Alcohol Use History / Comment(s): started smoking cigars at age 8 worked up to 6-7 per day and smoked for 25 years, quit february 2016. He drinks alcohol occasionally. He denies any marijuana or street drug use. Past Drug Use History: None Reported - Past Family History Father Family Medical History: Hyperlipidemia, Hypertension Additional Family Medical History / Comment(s): Father is alive at age 89 with no major medical problems. Mother Family Medical History: Cancer, Diabetes Mellitus, Hyperlipidemia, Hypertension, Thyroid Disorder Additional Family Medical History / Comment(s): Mother is from either a stomach or colon cancer. Brother(s) Additional Family Medical History / Comment(s): Patient has 2 brothers that have from's cystic fibrosis. One brother is alive with no major medical pr oblems. Sister(s) Additional Family Medical History / Comment(s): Patient has 2 sisters with no major medical problems. Daughter(s) Additional Family Medical History / Comment(s): Patient is total of 4 children with no major medical problems. Medications and Allergies Home Medications Medication Instructions Recorded Confirmed Type Levothyroxine Sodium [Synthroid] 50 mcg PO QAM 03/14/15 03/29/20 History Pantoprazole Sodium 40 mg PO QAM 03/14/15 03/29/20 History Simvastatin [Zocor] 40 mg PO HS 03/14/15 03/29/20 History Aspirin EC [Ecotrin Low Dose] 81 mg PO DAILY 03/29/20 03/29/20 History Benzonatate [Tessalon Perles] 100 mg PO TID PRN 03/29/20 03/29/20 History Cetirizine HCl 10 mg PO DAILY PRN 03/29/20 03/29/20 History Furosemide [Lasix] 40 mg PO BID 03/29/20 03/29/20 History LORazepam [Ativan] 1 mg PO TID PRN 03/29/20 03/29/20 History Losartan Potassium 100 mg PO DAILY 03/29/20 03/29/20 History Potassium Chloride [K-Tab ER] 20 meq PO DAILY 03/29/20 03/29/20 History predniSONE See Taper PO DAILY 03/29/20 03/29/20 History Allergies Allergy/AdvReac Type Severity Reaction Status Date / Time bee venom protein (honey bee) Allergy Anaphylaxis Verified 03/29/20 17:54 Physical Exam Vitals: Vital Signs Temp Pulse Pulse Resp BP BP Pulse Ox 03/30/20 03:05 98.7 F 82 16 125/75 97 03/29/20 23:00 98.1 F 87 18 106/67 94 L 03/29/20 20:00 98.4 F 99 18 122/78 97 03/29/20 19:00 91 18 110/75 93 L 03/29/20 18:46 98 F 98 18 105/85 93 L 03/29/20 18:22 96 18 110/82 94 L 03/29/20 18:00 96 18 112/66 94 L 03/29/20 17:00 104 H 18 116/75 92 L 03/29/20 16:14 98.8 F 103 H 18 136/84 93 L 03/29/20 15:53 98.8 F 104 H 18 140/93 94 L Intake and Output 03/29/20 03/30/20 03/30/20 22:59 06:59 14:59 Output Total 400 Balance -400 Output: Urine 400 Other: # Bowel Movements 1 Weight 111.584 kg 113.9 kg Gen: This is an obese 65-year-old male. Patient is resting in bed and appears to be comfortable and in no acute distress. HEENT: Head is atraumatic, normocephalic. Pupils equal, round. Sclerae is anicteric. NECK: Supple. No JVD. No lymphadenopathy. No thyromegaly. LUNGS: Clear to auscultation. No wheezes or rhonchi. No intercostal retractions. HEART: Regular rate and rhythm. Systolic murmur. ABDOMEN: Soft. Bowel sounds are present. No masses. No tenderness. EXTREMITIES: No pedal edema. No calf tenderness. NEUROLOGICAL: Patient is awake, alert and oriented x3. Cranial nerves 2 through 12 are grossly intact. Patient noted to have mild expressive aphasia. He states this is improved since admission. Weakness to the right upper and lower extremities noted 02/01. Results CBC & Chem 7: 03/30/20 07:03/30/20 07: Labs: Abnormal Lab Results - Last 24 Hours (Table) 03/29/20 03/29/20 03/29/20 Range/Units 16:01 16: 16: WBC 12.5 H (3.8-10.6) k/uL RBC (4.30-5.90) m/uL Hgb (13.0-17.5) gm/dL MCV (80.0-100.0) fL APTT (22.0-30.0) sec Sodium 134 L (137-145) mmol/L Chloride 96 L (98-107) mmol/L Carbon Dioxide 32 H (22-30) mmol/L Glucose 161 H (74-99) mg/dL Total Creatine Kinase 48 L (55-170) U/L CK-MB (CK-2) 2.7 H (0.0-2.4) ng/mL 03/29/20 03/30/20 Range/Units 16:01 07:01 WBC (3.8-10.6) k/uL RBC 4.06 L (4.30-5.90) m/uL Hgb 12.7 L (13.0-17.5) gm/dL MCV 100.8 H (80.0-100.0) fL APTT 21.2 L (22.0-30.0) sec Sodium (137-145) mmol/L Chloride (98-107) mmol/L Carbon Dioxide (22-30) mmol/L Glucose (74-99) mg/dL Total Creatine Kinase (55-170) U/L CK-MB (CK-2) (0.0-2.4) ng/mL Thrombosis Risk Factor Assmnt - DVT/VTE Prophylaxis DVT/VTE Prophylaxis: Pharmacologic Prophylaxis ordered - Choose All That Apply Any of the Below Risk Factors Present?: Yes Each Factor Represents 1 point: Abnormal pulmonary function (COPD), Obesity (BMI >25), Swollen legs (current) Each Risk Factor Represents 2 Points: Age 61-74 years Thrombosis Risk Factor Assessment Total Risk Factor Score: 5 Thrombosis Risk Factor Assessment Level: High Risk Assessment and Plan Plan: 1. Acute ischemic right lacunar CVA. Consult with neurology, echocardiogram as above, PT, OT, speech therapy evaluations. MRI of brain ordered. Continue aspirin, Lipitor. Consult with cardiology for TYSHAWN rule out PFO. Continue cardiac monitoring to rule out atrial fibrillation. 2. Witnessed seizure activity in the emergency center possibly due to CVA. EEG and neurology consult. 3. Hypertension. Lasix 40 mg twice daily, losartan 100 mg daily. 4. Hyperlipidemia. Continue statin. 5. Chronic headaches. 6. Gastroesophageal reflux disease and GI prophylaxis. Continue Protonix 40 mg daily 7. Hypothyroidism. Continue levothyroxine 50 g daily. Check TSH and free T4. 8. Chronic hypoxic respiratory failure most likely secondary to COPD the patient denies formal diagnosis. Continue oxygen therapy. 9. DVT prophylaxis. Heparin subcu. Patient will be admitted to the hospital for a minimum of 2 night stay. Discharge plan: Home with home care, Walker ordered per physical therapy recommendations Impression and plan of care have been directed as dictated by the signing physician. Kira Jara nurse practitioner acting as scribe for signing physician.
[2020-03-30] MEDS ORDERED: ASPIRIN 325 MG TAB PO SCH (17:00)
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
--- NOTE | 2020-03-30 20:53 | US ---
EXAMINATION TYPE: US venous doppler duplex LE DATE OF EXAM: 03/30/2020 6:48 PM COMPARISON: US 2018 CLINICAL HISTORY: eval for DVT bilaeral leg pain. Patient states no leg pain or swelling SIDE PERFORMED: Bilateral TECHNIQUE: The lower extremity deep venous system is examined utilizing real time linear array sonog beni with graded compression, doppler sonography and color-flow sonography. VESSELS IMAGED: External Iliac Vein (EIV) Common Femoral Vein Deep Femoral Vein Greater Saphenous Vein * Femoral Vein Popliteal Vein Small Saphenous Vein * Proximal Calf Veins (* superficial vessels) Right Leg: Appears negative for DVT Left Leg: Appears negative for DVT IMPRESSION: Normal exam. No sign of deep vein thrombosis in both legs.
[2020-03-30] MEDS: HEPARIN SODIUM,PORCINE 5,000 UNIT/ML 1 ML VIAL SQ SCH (21:02)
[2020-03-30] MEDS: ATORVASTATIN 20 MG TAB PO SCH (21:02)
--- NOTE | 2020-03-30 23:00 | EEG ---
ELECTROENCEPHALOGRAM REPORT DATE OF SERVICE: 03/30/2020 This is an inpatient EEG performed on a 65-year-old gentleman who for word- finding difficulty and while in the emergency room was thought to have had a brief seizure. However, his MRI confirmed that he had an acute ischemic infarct in the right parietal lobe. The patient has significant medical problems consisting of hypertension, dyslipidemia, untreated obstructive sleep apnea. The patient does not have any history for seizures. TECHNICAL REPORT: This is an inpatient EEG performed on the GeoIQ EEG monitor with electrodes placed according to the international 10-20 system and a single EKG channel. Simultaneous video EEG monitoring was performed. This EEG was reviewed in both longitudinal bipolar, common average referential and transverse montages. Photic stimulation was performed. Hyperventilation was not performed. The recording begins with the patient in quiet wakefulness. A well-modulated low to moderate amplitude, 9 to maximum 11 Hz posterior-dominant rhythm is present that attenuates with eye opening. Low amplitude beta activity is prominent over the anterior and central head regions. Intermittent muscle and movement artifacts contaminate the tracing along with frequent eye blinking. Photic stimulation was performed at various flash frequencies and fails to elicit consistent driving response. Following photic stimulation, the patient continues to transition between quiet wakefulness and drowsiness toward the end of the recording. Deeper stages of sleep were not achieved. Drowsiness consisted of the appearance of slow rolling eye movements and attenuation of the background rhythm into mixed theta frequencies between 6 and 7 Hz. Increase in beta was noted anteriorly and centrally. IMPRESSION: This is a normal wake drowsy only study. No epileptiform discharges, focal or hemispheric slowing was noted. No abnormalities were noted during photic stimulation. No abnormalities were noted in the EKG. CLINICAL CORRELATION: A normal wake drowsy EEG study does not preclude an underlying seizure tendency; thus further clinical correlation is needed. If clinically indicated, a more prolonged overnight study or serial EEGs could provide additional information. MMODL / IJN: [id number] / UYEN
[2020-03-31] MEDS: ACETAMINOPHEN TAB 325 MG TAB PO PRN ×2 (03:29→08:52)
[2020-03-31 03:41] VITALS: RESP 18
[2020-03-31] MEDS: LEVOTHYROXINE 50 MCG TAB PO SCH (06:28)
[2020-03-31] MEDS: PANTOPRAZOLE 40 MG TABLET PO SCH (06:28)
[2020-03-31 07:42] LABS: C Reactive Protein 12.1 mg/L (<10.0)
--- NOTE | 2020-03-31 08:31 | CT ---
EXAMINATION TYPE: CT mastoid wo con DATE OF EXAM: 03/31/2020 COMPARISON: HISTORY: Rt sided hearing loss and ear pain, abn CT and MR of mastoid, ostromastoiditis CT DLP: 312.3 mGycm. Automated Exposure Control for Dose Reduction was Utilized. TECHNIQUE: CT scan of internal auditory canal is performed without contrast, thin cut axial images ar e obtained, coronal reformatted images are also reviewed. FINDINGS: There is fluid throughout the right-sided mastoid air cells. No bony destruction is seen. T he left mastoids appear normal. The external auditory canal on the right is patent. There is fluid in the middle ear. Internal ear st ructures appear unremarkable. The ossicles are intact bilaterally. There is mild mucoperiosteal thickening involving the inferior aspect of the maxillary sinuses bilate rally. There is degenerative change in the temporomandibular joints, worse on the right than the left. IMPRESSION: 1. EVIDENCE OF ACUTE RIGHT-SIDED MASTOIDITIS. 2. EVIDENCE OF OTITIS MEDIA ON THE RIGHT. 3. EVIDENCE OF CHRONIC, BILATERAL, MAXILLARY SINUS MUCOSAL DISEASE. 4. DEGENERATIVE CHANGES IN THE TEMPOROMANDIBULAR JOINTS BILATERALLY, WORSE ON THE RIGHT THAN THE LEFT .
[2020-03-31] MEDS: POTASSIUM CHLORIDE ER 20 MEQ TAB.ER PO SCH (08:52)
[2020-03-31] MEDS: FUROSEMIDE 40 MG TAB PO SCH (08:52)
[2020-03-31] MEDS: LOSARTAN 50 MG TAB PO SCH (08:53)
[2020-03-31] MEDS: HEPARIN SODIUM,PORCINE 5,000 UNIT/ML 1 ML VIAL SQ SCH (08:53)
[2020-03-31] MEDS ORDERED: CLOPIDOGREL 75 MG TAB PO SCH (09:00)
[2020-03-31 10:24] LABS: Ferritin 411.3 ng/mL (22.0-322.0)
[2020-03-31 10:30] VITALS: BP 129/79; PULSE 81; TEMP 96.9
--- NOTE | 2020-03-31 11:17 | P.DS ---
Providers Date of admission: 03/29/20 16:58 Expected date of discharge: 03/31/20 Attending physician: Felipe Dubon Consults: 03/29/20 16:59 Consult Physician Urgent Consulting Provider: Laura Garcia Consult Reason/Comments: cva Do you want consulting provider notified?: Yes 03/30/20 08:52 Consult Physician Routine Consulting Provider: Ramírez Fan Consult Reason/Comments: TYSHAWN, CVA Do you want consulting provider notified?: Yes Primary care physician: Umberto Urena [facility] Course: This is a 65-year-old male patient of Dr. Urena with past medical history of hypertension, hyperlipidemia, hypothyroidism, gastroesophageal reflux disease, migraine headaches, remote history of tobacco use, chronic hypoxic respiratory failure. Patient states that he has chronic problems with insomnia and usually sleeps during the day. He states yesterday he went to bed at 5 in the morning and when he woke up at 2 in the afternoon he noticed that his speech was off and he was not able to open the refrigerator door. He was unable to use his hand. Patient denied having any balance issues. He denies having any one- sided weakness despite difficulty with using his hand. He states that he has had a headache for one week. He also states he has been off balance and fell getting out of the tub 2 days ago. He states he was able to catch himself and did not have any injuries. He does not have any history of TIA/CVA. His ended up calling ambulance and patient was brought in the hospital. Patient is also noted that for the past 6 months to one year he has had some memory loss. He had an episode of shortness of breath 2 nights ago and thought he needed to come in the hospital but this subsided on its own without treatment. He also states that for the past 2 weeks he has had trouble swallowing his pills. He has had no recent hospitalizations. Patient is on home O2 but denies COPD diagnosis. Patient presented to [facility] emergency center for evaluation. Patient was found to be afebrile, heart rate 104, blood pressure 140/83, pulse ox 94% on 2 L nasal cannula. EKG is a sinus tachycardia with no acute ST T wave changes. WBC 12.5, hemoglobin 14.8, platelet count 340, INR 0.9. Sodium 134, potassium 3.5, chloride 96, CO2 32, BUN 12 and creatinine 0.81. Troponin negative on 1 drug, CK 48. Triglycerides 152, cholesterol 180, LDL 106, HDL 44. Chest x-ray shows streaky atelectasis. Hilar region with scarring on the left side. CAT scan of the brain showed no acute intracranial abnormality. Possible acute right mastoiditis. CTA of the head and neck showed no flow limiting stenosis and bilateral carotid bifurcations. Normal [place] of [place]. Dr. Hairston was contacted. Patient was not a candidate for TPA. The patient had witnessed seizure activity involving the right upper extremity lasting approximately 1 minute while in the emergency center. He was noted to have expressive aphasia and slurred speech and complained of headache. Patient was admitted to the cardiac stepdown unit and consult with neurology, PT OT, speech therapy and echocardiogram ordered. Consult with cardiology added for TYSHAWN to rule out PFO. Echocardiogram reveals EF of 60-65%, mild tricuspid regurgitation. MRI of the brain reveals a 6 mm focus of restricted diffusion and leroy-white matter junction of the right posterior parietal lobe indicating a punctate acute lacunar infarct. Near complete face occasional the right mastoid. EEG was normal. Ultrasound of the bilateral lower extremity is negative for DVT 5/2: Patient has been started on Plavix by neurology and we will increase dose of simvastatin. Patient has been afebrile, heart rate 81, blood pressure 129/79, pulse ox 95% on 2 L nasal cannula. Sed rate 44, ferritin 411.3, C- reactive protein 12.1, vitamin D 13.9, TSH 2.120. PT has recommended home with homecare and [facility] home care has been arranged by manager rn case. Patient has a walker. Patient will be discharged home today in stable condition. Discharge diagnoses: 1. Acute ischemic right lacunar CVA. 2. Witnessed seizure activity in the emergency center possibly due to CVA. 3. Hypertension. 4. Hyperlipidemia. 5. Chronic headaches. 6. Gastroesophageal reflux disease. 7. Hypothyroidism. 8. Chronic hypoxic respiratory failure most likely secondary to COPD the patient denies formal diagnosis. Discharge plan: Home with home care, Walker ordered per physical therapy recommendations Impression and plan of care have been directed as dictated by the signing physician. Kira Jara nurse practitioner acting as scribe for signing physician. Plan - Discharge Summary Discharge Rx Participant: No New Discharge Prescriptions: New Clopidogrel [Plavix] 75 mg PO DAILY #30 tab Simvastatin 80 mg PO HS #30 tablet Continue Pantoprazole Sodium 40 mg PO QAM Levothyroxine Sodium [Synthroid] 50 mcg PO QAM Losartan Potassium 100 mg PO DAILY LORazepam [Ativan] 1 mg PO TID PRN PRN Reason: Anxiety Furosemide [Lasix] 40 mg PO BID Cetirizine HCl 10 mg PO DAILY PRN PRN Reason: allergies Benzonatate [Tessalon Perles] 100 mg PO TID PRN PRN Reason: Cough Potassium Chloride [K-Tab ER] 20 meq PO DAILY Discontinued Simvastatin [Zocor] 40 mg PO HS predniSONE See Taper PO DAILY Aspirin EC [Ecotrin Low Dose] 81 mg PO DAILY Discharge Medication List Levothyroxine Sodium [Synthroid] 50 mcg PO QAM 03/14/15 [History] Pantoprazole Sodium 40 mg PO QAM 03/14/15 [History] Benzonatate [Tessalon Perles] 100 mg PO TID PRN 03/29/20 [History] Cetirizine HCl 10 mg PO DAILY PRN 03/29/20 [History] Furosemide [Lasix] 40 mg PO BID 03/29/20 [History] LORazepam [Ativan] 1 mg PO TID PRN 03/29/20 [History] Losartan Potassium 100 mg PO DAILY 03/29/20 [History] Potassium Chloride [K-Tab ER] 20 meq PO DAILY 03/29/20 [History] Clopidogrel [Plavix] 75 mg PO DAILY #30 tab 03/31/20 [Rx] Simvastatin 80 mg PO HS #30 tablet 03/31/20 [Rx] Follow up Appointment(s)/Referral(s): Christiana Arellano MD [REFERRING] - 1 Week (Please call to make a follow up appointment when offices open Thursday) [facility], [NON-STAFF] - Umberto Urena DO [Primary Care Provider] - 1 Week (Please call to make a follow up appointment when offices open Thursday) Patient Instructions/Handouts: Ischemic Stroke (DC), Safe Use of Antiplatelet Medication (DC) Discharge Disposition: HOME WITH HOME HEALTH SERVICES
--- NOTE | 2020-03-31 13:18 | P.CRDCN ---
History of Present Illness Consult date: 03/31/20 Requesting physician: Felipe Dubon Chief complaint: Expressive aphasia and right-sided weakness History of present illness: This is a pleasant 65-year-old gentleman with documented history of hypertension, hyperlipidemia, hypothyroidism, GERD, history of migraines, history of nicotine dependence, insomnia, chronic respiratory failure, presented to the hospital with symptoms of expressive aphasia as well as inability to open the fridge door, he also had some right sided weakness, headache for approximately one week and felt off balance. A CAT scan of the brain did not reveal any acute findings, no evidence of bleed or midline shift. MRI of the brain showed a 6 mm focus of restricted diffusion at the posterior parietal lobe indicating an acute lacunar infarct. White blood cell count 12.5, hemoglobin 1 4.8, platelet count 340. Sed rate 44, sodium 137, potassium 4.0, chloride 99, CO2 33, BUN 10, creatinine 0.7. Troponins negative 3. CRP 12.1, Sahu virus not detected. Echocardiogram with Doppler study was performed which revealed a normal left ventricular systolic function. Blood pressure 130/78, heart rate in the 80s, 95% on 2 L of oxygen. At the time of my examination this morning, giuliana ent states that he still had some mild weakness on his right side and also felt mildly confused. But overall he states that he felt significantly better. A cardiology consultation was requested for a TYSHAWN. Based on the fact that this was a lacunar, likely secondary to small vessel disease. At this time we will not perform a TYSHAWN. We would recommend on discharge that the patient to have an event monitor for 30 days. We will follow him up in the office post discharge. 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 2LNC home O2 r/t unknown lung disease History of Any Multi-Drug Resistant Organisms: None Reported Past Surgical History: Appendectomy, Hernia Repair, Orthopedic Surgery Additional Past Surgical History / Comment(s): rotator cuff x2 left side Past Anesthesia/Blood Transfusion Reactions: No Reported Reaction Additional Past Anesthesia/Blood Transfusion Reaction / Comment(s): clausterphobia-had to be sedated for mri Past Psychological History: No Psychological Hx Reported Additional Psychological History / Comment(s): pt lives with gavin in a single story home that has 2 proch steps. 2 pet cats. no medical equipment. no home care services. never served in the [employer]. 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 Patient uses lysis a cane for ambulation occasionally due to balance issues. Smoking Status: Former smoker Past Alcohol Use History: Occasional Additional Past Alcohol Use History / Comment(s): started smoking cigars at age 8 worked up to 6-7 per day and smoked for 25 years, quit february 2016. He drinks alcohol occasionally. He denies any marijuana or street drug use. Past Drug Use History: None Reported - Past Family History Father Family Medical History: Hyperlipidemia, Hypertension Additional Family Medical History / Comment(s): Father is alive at age 89 with no major medical problems. Mother Family Medical History: Cancer, Diabetes Mellitus, Hyperlipidemia, Hypertension, Thyroid Disorder Additional Family Medical History / Comment(s): Mother is from either a stomach or colon cancer. Brother(s) Additional Family Medical History / Comment(s): Patient has 2 brothers that have from's cystic fibrosis. One brother is alive with no major medical problems. Sister(s) Additional Family Medical History / Comment(s): Patient has 2 sisters with no major medical problems. Daughter(s) Additional Family Medical History / Comment(s): Patient is total of 4 children with no major medical problems. Medications and Allergies Home Medications Medication Instructions Recorded Confirmed Type Levothyroxine Sodium [Synthroid] 50 mcg PO QAM 03/14/15 03/29/20 History Pantoprazole Sodium 40 mg PO QAM 03/14/15 03/29/20 History Benzonatate [Tessalon Perles] 100 mg PO TID PRN 03/29/20 03/29/20 History Cetirizine HCl 10 mg PO DAILY PRN 03/29/20 03/29/20 History Furosemide [Lasix] 40 mg PO BID 03/29/20 03/29/20 History LORazepam [Ativan] 1 mg PO TID PRN 03/29/20 03/29/20 History Losartan Potassium 100 mg PO DAILY 03/29/20 03/29/20 History Potassium Chloride [K-Tab ER] 20 meq PO DAILY 03/29/20 03/29/20 History Clopidogrel [Plavix] 75 mg PO DAILY #30 tab 03/31/20 Rx Simvastatin 80 mg PO HS #30 tablet 03/31/20 Rx Allergies Allergy/AdvReac Type Severity Reaction Status Date / Time bee venom protein (honey bee) Allergy Anaphylaxis Verified 03/29/20 17:54 Physical Exam Vitals: Vital Signs Temp Pulse Resp BP Pulse Ox 03/31/20 09:00 96.9 F L 81 18 129/79 95 03/31/20 03:39 97.8 F 88 18 125/69 94 L 03/31/20 00:00 98 F 87 20 98/70 93 L 03/30/20 20:00 97.6 F 98 20 115/71 94 L 03/30/20 16:00 97.6 F 93 18 115/64 96 03/30/20 15:06 85 18 03/30/20 15:04 98.1 F 18 96 Intake and Output 03/30/20 03/31/20 03/31/20 22:59 06:59 14:59 Intake Total 240 240 Output Total 275 300 Balance -35 -60 Intake: Oral 240 240 Output: Urine 275 300 Other: Voiding Method Toilet # Voids 1 1 1 # Bowel Movements 1 Weight 114.3 kg Gen: This is an obese 65-year-old male. Patient is resting in bed and appears to be comfortable and in no acute distress. HEENT: Head is atraumatic, normocephalic. Pupils equal, round. Sclerae is anicteric. NECK: Supple. No JVD. No lymphadenopathy. No thyromegaly. LUNGS: Clear to auscultation. No wheezes or rhonchi. No intercostal retractions. HEART: Regular rate and rhythm. Systolic murmur. ABDOMEN: Soft. Bowel sounds are present. No masses. No tenderness. EXTREMITIES: No pedal edema. No calf tenderness. NEUROLOGICAL: Patient is awake, alert and oriented x3. Cranial nerves 2 through 12 are grossly intact. Patient noted to have mild expressive aphasia. He states this is improved since admission. Weakness to the right upper and lower extremities noted 3/5. Results 03/30/20 07:01 03/30/20 07:01 Current Medications Generic Name Dose Route Start Last Admin Trade Name Freq PRN Reason Stop Dose Admin Acetaminophen 650 mg 03/29/20 20:35 03/31/20 08:52 Tylenol Tab PO 650 mg Q6HR PRN Administration Fever and/ or Pain Atorvastatin Calcium 20 mg 03/29/20 21:00 03/30/20 21:02 Lipitor PO 20 mg HS JENNIFER Administration Benzonatate 100 mg 03/29/20 20:54 Tessalon Perles PO TID PRN Cough Clopidogrel Bisulfate 75 mg 03/31/20 09:00 03/31/20 08:52 Plavix PO 75 mg DAILY JENNIFER Administration Furosemide 40 mg 03/29/20 21:00 03/31/20 08:52 Lasix PO 40 mg BID JENNIFER Administration Heparin Sodium (Porcine) 5,000 unit 03/30/20 21:00 03/31/20 08:53 Heparin SQ 5,000 unit Q12HR JENNIFER Administration Levothyroxine Sodium 50 mcg 03/30/20 06:30 03/31/20 06:28 Synthroid PO 50 mcg QAM@0630 JENNIFER Administration Loratadine 10 mg 03/29/20 20:54 Claritin PO DAILY PRN allergies Losartan Potassium 100 mg 03/30/20 09:00 03/31/20 08:53 Cozaar PO 100 mg DAILY JENNIFER Administration Pantoprazole Sodium 40 mg 03/30/20 07:30 03/31/20 06:28 Protonix PO 40 mg QAM@0730 JENNIFER Administration Potassium Chloride 20 meq 03/30/20 09:00 03/31/20 08:52 K-Dur 20 PO 20 meq DAILY JENNIFER Administration Intake and Output 03/30/20 03/31/20 03/31/20 22:59 06:59 14:59 Intake Total 240 240 Output Total 275 300 Balance -35 -60 Intake: Oral 240 240 Output: Urine 275 300 Other: Voiding Method Toilet # Voids 1 1 1 # Bowel Movements 1 Weight 114.3 kg 03/30/20 07:01 03/30/20 07:01 EKG Interpretations (text) EKG shows a normal sinus rhythm with no acute changes. Assessment and Plan Plan: Assessment and Plan: 1. Acute ischemic right lacunar CVA. 2. Chronic hypoxic respiratory failure 3. Hypertension. 4. Hyperlipidemia. 5. Chronic headaches. 6. Gastroesophageal reflux disease 7. Hypothyroidism. 8. History of nicotine dependence 9. Insomnia Plan Echocardiogram with Doppler study revealed a normal left ventricular systolic function. At this time it is our recommendation not to proceed with a transesophageal echocardiographic study, our recommendation would be that the patient be discharged home with a 30 day event monitor. Follow-up appointment in the office with Dr. Shen. DNP note has been reviewed, I agree with a documented findings and plan of care. Patient was seen and examined.
== END 2020-03-31 15:04 | disposition home health service (06) | DRG 65 ==
LOC: EC 15:50 → 3SCARD 16:58
PROVIDERS: ADMIT Internal Medicine Geriatric Medicine; ATTEND Internal Medicine Geriatric Medicine
DX: I63.81 Other cerebral infarction due to occlusion or stenosis of small artery (principal); G81.91 Hemiplegia, unspecified affecting right dominant side; J96.11 Chronic respiratory failure with hypoxia; J98.11 Atelectasis; R47.01 Aphasia; H70.90 Unspecified mastoiditis, unspecified ear; I11.0 Hypertensive heart disease with heart failure; I50.9 Heart failure, unspecified; R56.9 Unspecified convulsions; Z11.59 Encounter for screening for other viral diseases; R41.3 Other amnesia; R27.0 Ataxia, unspecified; R40.2363 Coma scale, best motor response, obeys commands, at hospital admission; R40.2133 Coma scale, eyes open, to sound, at hospital admission; R40.2253 Coma scale, best verbal response, oriented, at hospital admission; R29.707 NIHSS score 7; E03.9 Hypothyroidism, unspecified; E78.5 Hyperlipidemia, unspecified; G47.00 Insomnia, unspecified; G47.33 Obstructive sleep apnea (adult) (pediatric); I73.9 Peripheral vascular disease, unspecified; J44.9 Chronic obstructive pulmonary disease, unspecified; K21.9 Gastro-esophageal reflux disease without esophagitis; G43.909 Migraine, unspecified, not intractable, without status migrainosus; M19.90 Unspecified osteoarthritis, unspecified site; R13.10 Dysphagia, unspecified; I34.0 Nonrheumatic mitral (valve) insufficiency; E66.9 Obesity, unspecified; Z68.37 Body mass index [BMI] 37.0-37.9, adult; Z79.02 Long term (current) use of antithrombotics/antiplatelets; Z79.82 Long term (current) use of aspirin; Z79.890 Hormone replacement therapy; Z79.899 Other long term (current) drug therapy; Z91.030 Bee allergy status; Z90.49 Acquired absence of other specified parts of digestive tract; Z87.891 Personal history of nicotine dependence; Z99.81 Dependence on supplemental oxygen; Z80.0 Family history of malignant neoplasm of digestive organs; Z83.3 Family history of diabetes mellitus; Z82.49 Family history of ischemic heart disease and other diseases of the circulatory system; Z83.49 Family history of other endocrine, nutritional and metabolic diseases; Z84.89 Family history of other specified conditions
CPT/HCPCS: 36415; 70450; 70486; 70496; 70498; 70551; 71045; 80048; 80053; 80061; 82306; 82550; 82553; 82728; 84443; 84480; 84484; 85025; 85027; 85610; 85652; 85730; 86140; 87635; 93005; 93270; 93306; 93970; 95819; 96374; 99291

== ENCOUNTER 2020-04-24 14:23 | Emergency (ER) | payer MEDICARE ==
[2020-04-24] MEDS ORDERED: IPRATROPIUM-ALBUTEROL 3 ML NEB INHALATION STA ×2 (15:14→17:18)
--- NOTE | 2020-04-24 15:19 | ED ---
General Adult HPI - General Chief complaint: Shortness of Breath Stated complaint: Chest pain/SOB/Cough Time Seen by Provider: 04/24/20 14:57 Source: patient Mode of arrival: ambulatory - History of Present Illness Initial comments: Patient is 65-year-old male with history of heart failure, COPD and CVA presenting to the emergency department with a chief complaint of cough and shortness of breath and chest pain. States this started after he was discharged from the hospital (03/29/20) after having a stroke. Patient states symptoms have been gradually increasing in severity. Patient does report wheezing and increased shortness of breath on exertion. Patient states the cough exacerbates the sharp chest pain which she suspects the symptoms. No radiation of pain to the left upper extremity or any diaphoretic episodes. No lightheadedness or dizziness visual changes or headaches. Reports the cough has been progressively increasing severity and now she developed yellow/green sputum production. Denies any nausea vomiting diarrhea. Denies any night sweats fevers or chills. States he does use 2l of oxygen at home. - Related Data Home Medications Medication Instructions Recorded Confirmed Levothyroxine Sodium [Synthroid] 50 mcg PO QAM 03/14/15 03/29/20 Pantoprazole Sodium 40 mg PO QAM 03/14/15 03/29/20 Benzonatate [Tessalon Perles] 100 mg PO TID PRN 03/29/20 03/29/20 Cetirizine HCl 10 mg PO DAILY PRN 03/29/20 03/29/20 Furosemide [Lasix] 40 mg PO BID 03/29/20 03/29/20 LORazepam [Ativan] 1 mg PO TID PRN 03/29/20 03/29/20 Losartan Potassium 100 mg PO DAILY 03/29/20 03/29/20 Potassium Chloride [K-Tab ER] 20 meq PO DAILY 03/29/20 03/29/20 Previous Rx's Medication Instructions Recorded Clopidogrel [Plavix] 75 mg PO DAILY #30 tab 03/31/20 Simvastatin 80 mg PO HS #30 tablet 03/31/20 Allergies Allergy/AdvReac Type Severity Reaction Status Date / Time bee venom protein (honey bee) Allergy Anaphylaxis Verified 04/24/20 14:45 Review of Systems ROS Statement: Those systems with pertinent positive or pertinent negative responses have been documented in the HPI. ROS Other: All systems not noted in ROS Statement are negative. 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 2LNC home O2 r/t unknown lung disease History of Any Multi-Drug Resistant Organisms: None Reported Past Surgical History: Appendectomy, Hernia Repair, Orthopedic Surgery Additional Past Surgical History / Comment(s): rotator cuff x2 left side Past Anesthesia/Blood Transfusion Reactions: No Reported Reaction Additional Past Anesthesia/Blood Transfusion Reaction / Comment(s): clausterphobia-had to be sedated for mri Past Psychological History: No Psychological Hx Reported Smoking Status: Former smoker Past Alcohol Use History: Occasional Past Drug Use History: None Reported - Past Family History Father Family Medical History: Hyperlipidemia, Hypertension Additional Family Medical History / Comment(s): Father is alive at age 89 with no major medical problems. Mother Family Medical History: Cancer, Diabetes Mellitus, Hyperlipidemia, Hypertension, Thyroid Disorder Additional Family Medical History / Comment(s): Mother is from either a stomach or colon cancer. Brother(s) Additional Family Medical History / Comment(s): Patient has 2 brothers that have from's cystic fibrosis. One brother is alive with no major medical problems. Sister(s) Additional Family Medical History / Comment(s): Patient has 2 sisters with no major medical problems. Daughter(s) Additional Family Medical History / Comment(s): Patient is total of 4 children with no major medical problems. General Exam Limitations: no limitations General appearance: alert, in no apparent distress, obese Head exam: Present: atraumatic, normocephalic, normal inspection Eye exam: Present: normal appearance, PERRL, EOMI Pupils: Present: normal accommodation ENT exam: Present: normal exam, normal oropharynx, mucous membranes moist Neck exam: Present: normal inspection, full ROM Respiratory exam: Present: wheezes (Bilateral wheezing) Cardiovascular Exam: Present: regular rate, normal rhythm, normal heart sounds Extremities exam: Present: normal inspection, full ROM, pedal edema (+2 bila teral pitting edema). Absent: calf tenderness (Negative Homans bilaterally) Back exam: Present: normal inspection, full ROM Neurological exam: Present: alert, oriented X3 Psychiatric exam: Present: normal affect, normal mood Skin exam: Present: warm, dry, intact, normal color Course Vital Signs 04/24/20 04/24/20 04/24/20 14:40 16:14 16:22 Temperature 98.8 F Pulse Rate 98 97 106 H Respiratory 20 Rate Blood Pressure 135/78 O2 Sat by Pulse 97 Oximetry 04/24/20 04/24/20 04/24/20 17:01 17:48 17:59 Temperature Pulse Rate 92 100 104 H Respiratory 18 Rate Blood Pressure 146/89 O2 Sat by Pulse 98 Oximetry 04/24/20 20:10 Temperature 98.3 F Pulse Rate 93 Respiratory 20 Rate Blood Pressure 148/102 O2 Sat by Pulse 95 Oximetry Medical Decision Making - Medical Decision Making Patient is 65-year-old male with history of heart failure, COPD and CVA presenting to the emergency department with a chief complaint of cough, shortness of breath and chest pain. On exam patient has diffuse bilateral wheezing in continuous off with taking deep breaths or talking. Atypical chest pain. Considering the patient was hospitalized less than a month ago, d-dimer was obtained and was elevated 1.82. CT chest injury was obtained showing low probability for a pulmonary embolism, although due to patient positioning and ti me of injecting the contrast, the study cannot fully rule out a pulmonary embolism. VQ scan was obtained showing very low probability for PE. EKG shows a Q-wave in lead 3 which is similar to his most recent EKG. CBC and CMP are unremarkable. Initial troponin is unremarkable. Coags within normal limits. Patient was given 2 DuoNeb breathing treatments and 125 mg of Solu-Medrol. On reevaluation patient reports he is feeling much better, and is able to breathe and talk without coughing or shortness of breath. Patient is also clear on auscultation and the wheezing has resolved. Patient states he would like to go home. Return parameters were thoroughly discussed with patient was understa nding and agreeable. Case discussed with physician. - Lab Data Result diagrams: 04/24/20 15:04 04/24/20 15:04 Lab Results 04/24/20 04/24/20 04/24/20 Range/Units 15:04 15:04 15:04 WBC 9.7 (3.8-10.6) k/uL RBC 4.01 L (4.30-5.90) m/uL Hgb 13.1 (13.0-17.5) gm/dL Hct 38.5 L (39.0-53.0) % MCV 95.9 (80.0-100.0) fL MCH 32.6 (25.0-35.0) pg MCHC 34.0 (31.0-37.0) g/dL RDW 13.7 (11.5-15.5) % Plt Count 386 (150-450) k/uL Neutrophils % 66 % Lymphocytes % 24 % Monocytes % 4 % Eosinophils % 4 % Basophils % 1 % Neutrophils # 6.4 (1.3-7.7) k/uL Lymphocytes # 2.3 (1.0-4.8) k/uL Monocytes # 0.4 (0-1.0) k/uL Eosinophils # 0.4 (0-0.7) k/uL Basophils # 0.1 (0-0.2) k/uL PT 10.0 (9.0-12.0) sec INR 1.0 (<1.2) APTT 23.2 (22.0-30.0) sec D-Dimer 1.82 H (<0.60) mg/L FEU Sodium 134 L (137-145) mmol/L Potassium 3.8 (3.5-5.1) mmol/L Chloride 96 L (98-107) mmol/L Carbon Dioxide 30 (22-30) mmol/L Anion Gap 8 mmol/L BUN 10 (9-20) mg/dL Creatinine 0.67 (0.66-1.25) mg/dL Est GFR (CKD-EPI)AfAm >90 (>60 ml/min/1.73 sqM) Est GFR (CKD-EPI)NonAf >90 (>60 ml/min/1.73 sqM) Glucose 110 H (74-99) mg/dL Plasma Lactic Acid Joseph (0.7-2.0) mmol/L Calcium 9.4 (8.4-10.2) mg/dL Total Bilirubin 0.5 (0.2-1.3) mg/dL AST 40 (17-59) U/L ALT 39 (4-49) U/L Alkaline Phosphatase 53 (38-126) U/L Troponin I (0.000-0.034) ng/mL NT-Pro-B Natriuret Pep pg/mL Total Protein 6.6 (6.3-8.2) g/dL Albumin 4.0 (3.5-5.0) g/dL 04/24/20 04/24/20 04/24/20 Range/Units 15:04 15:04 15:24 WBC (3.8-10.6) k/uL RBC (4.30-5.90) m/uL Hgb (13.0-17.5) gm/dL Hct (39.0-53.0) % MCV (80.0-100.0) fL MCH (25.0-35.0) pg MCHC (31.0-37.0) g/dL RDW (11.5-15.5) % Plt Count (150-450) k/uL Neutrophils % % Lymphocytes % % Monocytes % % Eosinophils % % Basophils % % Neutrophils # (1.3-7.7) k/uL Lymphocytes # (1.0-4.8) k/uL Monocytes # (0-1.0) k/uL Eosinophils # (0-0.7) k/uL Basophils # (0-0.2) k/uL PT (9.0-12.0) sec INR (<1.2) APTT (22.0-30.0) sec D-Dimer (<0.60) mg/L FEU Sodium (137-145) mmol/L Potassium (3.5-5.1) mmol/L Chloride (98-107) mmol/L Carbon Dioxide (22-30) mmol/L Anion Gap mmol/L BUN (9-20) mg/dL Creatinine (0.66-1.25) mg/dL Est GFR (CKD-EPI)AfAm (>60 ml/min/1.73 sqM) Est GFR (CKD-EPI)NonAf (>60 ml/min/1.73 sqM) Glucose (74-99) mg/dL Plasma Lactic Acid Joseph 1.2 (0.7-2.0) mmol/L Calcium (8.4-10.2) mg/dL Total Bilirubin (0.2-1.3) mg/dL AST (17-59) U/L ALT (4-49) U/L Alkaline Phosphatase (38-126) U/L Troponin I <0.012 (0.000-0.034) ng/mL NT-Pro-B Natriuret Pep 37 pg/mL Total Protein (6.3-8.2) g/dL Albumin (3.5-5.0) g/dL Disposition Clinical Impression: Shortness of breath, COPD exacerbation, Cough Disposition: HOME SELF-CARE Condition: Good Instructions (If sedation given, give patient instructions): Pulmonary Embolism (ED), VQ Scan (Lung Ventilation and Perfusion) (DC) Additional Instructions: Follow-up with your field services manager or primary care doctor. Return to emergency department if symptoms worsen. Is patient prescribed a controlled substance at d/c from ED?: No Referrals: Umberto Urena DO [Primary Care Provider] - 1-2 days Time of Disposition: 20:28
[2020-04-24 15:25] LABS: Basophils # (A) 0.1 k/uL (0-0.2); Basophils % (A) 1 %; Eosinophils # (A) 0.4 k/uL (0-0.7); Eosinophils % (A) 4 %; HCT 38.5 % (39.0-53.0); HGB 13.1 gm/dL (13.0-17.5); Lymphocytes # (A) 2.3 k/uL (1.0-4.8); Lymphocytes % (A) 24 %; MCH 32.6 pg (25.0-35.0); MCV 95.9 fL (80.0-100.0); Monocytes # (A) 0.4 k/uL (0-1.0); Monocytes % (A) 4 %; Neutrophils # (A) 6.4 k/uL (1.3-7.7); Neutrophils % (A) 66 %; Platelet Count 386 k/uL (150-450); RBC 4.01 m/uL (4.30-5.90); RDW 13.7 % (11.5-15.5); WBC 9.7 k/uL (3.8-10.6)
[2020-04-24 15:31] LABS: ALT 39 U/L (4-49); AST 40 U/L (17-59); African American GFR (CKD) >90 (>60 ml/min/1.73 sqM); Alkaline Phosphatase 53 U/L (38-126); Anion Gap 8 mmol/L; Blood Urea Nitrogen 10 mg/dL (9-20); Calcium 9.4 mg/dL (8.4-10.2); Carbon Dioxide 30 mmol/L (22-30); Chloride 96 mmol/L (98-107); Glucose 110 mg/dL (74-99); Non-African American GFR(CKD) >90 (>60 ml/min/1.73 sqM); Potassium 3.8 mmol/L (3.5-5.1); Sodium 134 mmol/L (137-145); Total Bilirubin 0.5 mg/dL (0.2-1.3); Total Protein 6.6 g/dL (6.3-8.2)
--- NOTE | 2020-04-24 15:32 | XR ---
EXAMINATION TYPE: XR chest 2V DATE OF EXAM: 04/24/2020 COMPARISON: Prior chest 03/29/2020 HISTORY: Difficulty breathing, chest pain TECHNIQUE: Frontal and lateral views of the chest are obtained. FINDINGS: There is no interval change. Bandlike areas of increased attenuation likely reflects scarr ing. Cardiac mediastinal silhouette, pulmonary vascularity and fernanda are stable. Aorta is dense. No pn eumothorax or pleural effusion. IMPRESSION: No interval change, no acute abnormality evident
[2020-04-24 15:35] LABS: Partial Thromboplastin Time 23.2 sec (22.0-30.0)
[2020-04-24 15:39] LABS: D-Dimer 1.82 mg/L FEU (<0.60)
[2020-04-24] MEDS ORDERED: SODIUM CHLORIDE 0.9% 1,000 ML IV STA (15:46)
--- NOTE | 2020-04-24 17:04 | CT ---
EXAMINATION TYPE: CT chest angio for PE DATE OF EXAM: 04/24/2020 COMPARISON: NONE HISTORY: elevated d-dimer CT DLP: 831 mGycm. Automated Exposure Control for Dose Reduction was Utilized. CONTRAST: CTA scan of the thorax is performed with IV Contrast, patient injected with 75cc mL of Isovue 370, pu lmonary embolism protocol. MIP Images are created on CT scanner and reviewed. FINDINGS: Motion artifact limits the examination. LUNGS: Lingular nodular density measuring 1.2 cm is marked on image 86. There are multifocal areas of linear pleural parenchymal scarring and linear enhancing atelectasis in the right middle lobe. Subpl eural deposition of fat is seen along the posterior right upper lobe measuring 1.2 cm in greatest thi ckness. Subpleural deposition of fat is also seen at the left lung base. There is no pleural effusi on or pneumothorax seen. The tracheobronchial tree is patent. MEDIASTINUM: There is suboptimal enhancement of the pulmonary artery and its branches, there is no CT evidence for central pulmonary embolism. However there is equivocal evaluation of the segmental and subsegmental branches, particularly to the left lower lobe is marked on the images. There are no gre ater than 1 cm hilar or mediastinal lymph nodes. Prominent epicardial fat. No cardiomegaly or perica rdial effusion is seen. Mild coronary artery calcifications, limited by phase of contrast. No aneurys mal dilatation of the thoracic aorta. Mild atheromatous changes of the thoracic aorta. OTHER: Hepatic steatosis is seen, which limits evaluation for underlying hepatic masses. There is a s oft tissue attenuated structure in the left mid abdomen at the dorsal and inferior aspect of the panc reas. No current peripancreatic fat stranding change. This measures approximately 1.6 cm and appears new from the prior CT of 09/21/2019. Compression deformity of T5 is mild and overall age-indeterminat e but new from the prior of 02/09/2018. IMPRESSION: 1. No evidence of central pulmonary embolus. However there is limited evaluation of the segmental and subsegmental pulmonary arteries given patient motion and bolus timing, particularly of the left lowe r lobe. Correlate with d-dimer level, risk factors, and lower extremity ultrasound to determine the n eed for repeat bolus administration repeat scanning. 2. New soft tissue attenuated density dorsal and inferior to the pancreas. This could represent a austen ris-filled pseudocyst or new pancreatic mass. Follow-up [address] abdomen pancreatic mass protocol i s recommended for further evaluation on a nonemergent basis. 3. Lingular nodular density measuring 1.2 cm and may relate to atelectasis/pseudonodule or true pulmo nary nodule. This could be included in the follow-up suggested three-phase CT abdomen and reassessed. If improved this would favor atelectasis. 4. Age-indeterminate mild compression deformity of T5e. Correlate for point tenderness.
[2020-04-24] MEDS ORDERED: methylPREDNISolone SOD SUCCI 125 MG/2 ML VIAL IV STA (17:18)
--- NOTE | 2020-04-24 19:55 | NM ---
EXAMINATION TYPE: NM pul perfusion DATE OF EXAM: 04/24/2020 COMPARISON: Correlation radiograph and CT same day HISTORY: 65-year-old male positive dimer, indeterminate CT angiogram. TECHNIQUE: Following administration of 5.1 mCi Tc 99m MAA. Images obtained post injection. FINDINGS: There is normal perfusion throughout the lungs. No perfusion defects are identified. The patient was experiencing shortness of breath while lying flat and is claustrophobic. The patient chose to defer completion of the ventilation portion of the exam. IMPRESSION: Very low probability for pulmonary embolus based on the perfusion scan. The patient deferred the vent ilation portion of the exam due to claustrophobia and shortness of breath.
[2020-04-24 20:11] VITALS: BP 148/102; PULSE 93; RESP 20; TEMP 98.3
== END 2020-04-24 20:56 | disposition home or self-care (01) ==
LOC: EC 14:23
DX: J44.1 Chronic obstructive pulmonary disease with (acute) exacerbation (principal); I11.0 Hypertensive heart disease with heart failure; I50.9 Heart failure, unspecified; E07.9 Disorder of thyroid, unspecified; K21.9 Gastro-esophageal reflux disease without esophagitis; Z79.890 Hormone replacement therapy; Z79.899 Other long term (current) drug therapy; Z91.030 Bee allergy status; Z87.891 Personal history of nicotine dependence; Z86.73 Personal history of transient ischemic attack (TIA), and cerebral infarction without residual deficits
CPT/HCPCS: 36415; 94640; 93005; 85379; 83880; 80053; 83605; 84484; 85025; 85610; 85730; 71046; 71275; 78580; 99285; 96374; 96361; A9540; J2930; Q9967

== ENCOUNTER → 2020-05-30 | Outpatient (CLI) | payer MEDICARE | END | disposition home or self-care (01) | CPT/HCPCS: 94060; 94726; 94729 ==

== ENCOUNTER → 2020-05-31 | Outpatient (CLI) | payer MEDICARE ==
--- NOTE | 2020-05-31 10:05 | CT ---
EXAMINATION TYPE: CT chest abdomen w con DATE OF EXAM: 05/31/2020 COMPARISON: 04/24/2020 09/21/2019 HISTORY: Difficulty breathing and pancreatic mass. CT DLP: 1990.1 mGycm CONTRAST: CT scan of the chest, abdomen is performed without Oral Contrast and with IV Contrast, patient inject ed with 100 mL of Isovue 370. CT Chest: LUNGS: Pleural-based lingular nodule measures 1.4 cm versus 1.5 cm previously. Scattered areas of ate lectasis or parenchymal scarring. Mild bronchial wall thickening may reflect underlying bronchitis. N o focal pneumonia seen. No pleural effusion or CT evidence of interstitial lung disease. MEDIASTINUM: Thoracic aorta is of normal caliber. The heart is not enlarged. No evidence for media stinal mass or adenopathy. HILAR STRUCTURES: No evidence for mass. No hilar adenopathy is appreciated. OTHER: No significant abnormality. CONTRAST CT ABDOMEN AND PELVIS FINDINGS: LIVER/GB: There is fatty liver. No calcified gallstones. No space occupying hepatic lesion. Biliar y tree is of normal caliber. PANCREAS: 2 cm cystic lesion adjacent to the pancreatic tail may be of pancreatic origin. Cystic panc reatic neoplasm difficult to exclude versus pseudocyst. No additional pancreatic lesions seen. SPLEEN: No splenic enlargement. No lesion seen. ADRENALS: No nodule. No thickening. KIDNEYS/BLADDER: No hydronephrosis. No nephrolithiasis. No distinct renal mass. BOWEL: Normal appendix. Normal bowel caliber. No inflammation. GENITAL ORGANS: No gross abnormality. LYMPH NODES: No greater than 1cm abdominal or pelvic lymph nodes are appreciated. AORTA: No significant abnormality. OSSEOUS STRUCTURES: No significant abnormality is seen. OTHER: No significant additional abnormality is seen. IMPRESSION: 1. Cystic lesion adjacent to the pancreatic tail may reflect pancreatic neoplasm versus pseudocyst. C onsider MRI correlation. 2. Hepatic steatosis. 3. Stable pleural-based nodule left within the lingula. Continued follow-up in [address]
== END | disposition home or self-care (01) ==
LOC: RADCTMAIN 07:53
PROVIDERS: ATTEND Family Medicine
DX: R91.1 Solitary pulmonary nodule (principal); K86.2 Cyst of pancreas; K76.0 Fatty (change of) liver, not elsewhere classified; C25.4 Malignant neoplasm of endocrine pancreas
CPT/HCPCS: 82565; 84520; 71260; 74160; 36415; Q9967

== ENCOUNTER → 2020-08-13 | Day surgery (SDC) | payer MEDICARE ==
[2020-08-08 15:25] VITALS: BMI 33.2
[~2020-08-13] MED LIST: ACETAMINOPHEN TAB 325 MG TAB PO PRN; LIDOCAINE 1% INJ 10MG/ML (20 ML MDV) ONE; LIDOCAINE 1% INJ 10MG/ML (20 ML MDV) SQ ONE; MIDAZOLAM 2 MG/2 ML VIAL IV ONE; SODIUM CHLORIDE 0.9% 1,000 ML IV SCH; fentaNYL (PF) 50 MCG/ML 2 ML AMP IV ONE; fentaNYL (PF) 50 MCG/ML 2 ML AMP ONE
[2020-08-13 08:54] VITALS: BP 113/78; PULSE 90; RESP 18; TEMP 98.1
--- NOTE | 2020-08-13 09:25 | P.PCN ---
Date of Procedure: 08/13/20 Preoperative Diagnosis: Cryptogenic stroke Postoperative Diagnosis: The same Procedure(s) Performed: Loop recorder insertion Description of Procedure: This is a 65-year-old gentleman who recently had a stroke of uncertain etiology. Patient was felt to have cryptogenic stroke had event monitor as an outpatient which he did not reveal any evidence of atrial fibrillation. A loop recorder insertion is requested to assess and rule out possibility of atrial fibrillation as a cause of cryptogenic stroke. Patient was brought to the lab in a fasting state. He was prepped and draped in the usual fashion. He was given IV Versed 0.5 mg and fentanyl 12.5 g for sedation. The skin in the left third intercostal space was infiltrated with lidocaine. An incision was made with blade. The loop recorder was inserted in the usual fashion. Patient tolerated the procedure well. The incision was closed with single suture ensuing silk. Parameters: Bradycardia detection is programmed to a rate of below 30. Tachycardia detection is programmed to a rate of about 150. Pauses were programmed to be detected for more than 3 seconds. Patient tolerated the procedure well. No immediate complications. Patient will be discharged home in about a couple of hours. Follow-up in the office in one week. Patient will continue current medical therapy. He was given Keflex 500 mg to be taken 3 times a day along with home medications
== END | disposition home or self-care (01) ==
LOC: CATHEP 07:54
PROVIDERS: ATTEND Internal Medicine Cardiovascular Disease
DX: I63.9 Cerebral infarction, unspecified (principal); I10 Essential (primary) hypertension; E78.00 Pure hypercholesterolemia, unspecified; I27.81 Cor pulmonale (chronic); E78.5 Hyperlipidemia, unspecified; I47.1 Supraventricular tachycardia; Z86.73 Personal history of transient ischemic attack (TIA), and cerebral infarction without residual deficits; Z86.69 Personal history of other diseases of the nervous system and sense organs; Z79.02 Long term (current) use of antithrombotics/antiplatelets; Z79.899 Other long term (current) drug therapy; Z79.890 Hormone replacement therapy; Z82.49 Family history of ischemic heart disease and other diseases of the circulatory system
CPT/HCPCS: 33285; C1764; J2250; J0690; J2001; J3010

== ENCOUNTER → 2020-09-03 | Outpatient (CLI) | payer MEDICARE ==
[2020-09-03 12:01] LABS: African American GFR (CKD) >90 (>60 ml/min/1.73 sqM); Blood Urea Nitrogen 17 mg/dL (9-20); Non-African American GFR(CKD) 84 (>60 ml/min/1.73 sqM)
--- NOTE | 2020-09-03 12:55 | CT ---
EXAMINATION TYPE: CT abdomen w con DATE OF EXAM: 09/03/2020 COMPARISON: 05/31/2020 HISTORY: Pancreatic mass CT DLP: 1485 mGycm Automated exposure control for dose reduction was used. TECHNIQUE: Helical acquisition of images was performed from the lung bases through the top of iliac crest to include entire abdomen. CONTRAST: Performed with Oral Contrast and with IV Contrast, patient injected with 100 mL of Isovue 370. FINDINGS: LUNG BASES: Subsegmental changes at the lung bases. Typical of atelectasis. Nodular density in the li ngular segment left upper lobe subpleural is stable. LIVER/GB: Tiny hypodensities seen within the liver too small to characterize. They appear to be stabl e from prior exam. Changes of hepatic steatosis noted. PANCREAS: Stable 1.8 cm hypodensity within the pancreas too small to characterize. Does not meet the criteria of a simple cyst. Recommend MRI.. SPLEEN: No significant abnormality is seen. ADRENALS: No significant abnormality is seen. KIDNEYS: Subcentimeter hypodensity within the left kidney is too small to characterize but stable fro m prior exam. BOWEL: No significant abnormality is seen. LYMPH NODES: No significant abnormality is seen. OSSEOUS STRUCTURES: Diffuse osteopenia with degenerative changes spine. Chronic appearing endplate d eformity superiorly of L2. Right deformity of the rib cage. OTHER: Atherosclerotic changes aorta with no evidence of aneurysm. IMPRESSION: 1. Stable pancreatic lesion does not meet the criteria of a simple cyst. Recommend MRI. 2. Stable pleural-based nodule left upper lobe. 3. Stable tiny hepatic lesions too small to characterize but statistically most likely related to hep atic cysts.
== END | disposition home or self-care (01) ==
LOC: RADCTMAIN 11:21
PROVIDERS: ATTEND Family Medicine
DX: C25.4 Malignant neoplasm of endocrine pancreas (principal); K76.9 Liver disease, unspecified
CPT/HCPCS: 82565; 84520; 74160; 36415; Q9967

== ENCOUNTER → 2020-09-14 | Outpatient (CLI) | payer MEDICARE | END | disposition home or self-care (01) | LOC: LABWHC1 10:19 | PROVIDERS: ATTEND Family Medicine | DX: Z20.828 Contact with and (suspected) exposure to other viral communicable diseases (principal) | CPT/HCPCS: U0003; C9803 ==

== ENCOUNTER 2021-06-11 14:43 | Emergency (ER) | payer MEDICARE ==
[2021-06-11 14:48] VITALS: TEMP 97.2
[2021-06-11] MEDS ORDERED: SODIUM CHLORIDE 0.9% 500 ML 500 ML IV ONE (15:11)
--- NOTE | 2021-06-11 15:13 | ED ---
General Adult HPI - General Chief complaint: Recheck/Abnormal Lab/Rx Stated complaint: Low BP Time Seen by Provider: 06/11/21 14:45 Source: patient, RN notes reviewed, old records reviewed Mode of arrival: ambulatory Limitations: no limitations - History of Present Illness Initial comments: This is a 66-year-old male who presents emergency Department with a past medical history significant for high blood pressure and a previous stroke. Patient states today he had a low blood pressure reading at home and he was told to come to the emergency department to be evaluated. Patient states at the same time as low blood pressure reading he was lightheaded and also had a 6 out of 10 headache which is unusual for him. Patient states she did also have a headache yesterday as well. Patient denies any visual complaint. Patient denies any numbness or weakness. Patient denies any shortness of breath or chest pain. Patient said palpitations. Patient denies any recent fever chills or cough per patient denies any swelling to the legs or calf tenderness. Currently patient states she still has a little lightheadedness and headache. - Related Data Home Medications Medication Instructions Recorded Confirmed Levothyroxine Sodium [Synthroid] 50 mcg PO QAM 03/14/15 08/13/20 Pantoprazole Sodium 40 mg PO QAM 03/14/15 08/13/20 Losartan [Cozaar] 50 mg PO DAILY 08/08/20 08/13/20 Simvastatin 40 mg PO HS 08/08/20 08/13/20 Spironolactone 100 mg PO DAILY 08/08/20 08/13/20 Previous Rx's Medication Instructions Recorded Clopidogrel [Plavix] 75 mg PO DAILY #30 tab 03/31/20 Albuterol Nebulized [Ventolin 2.5 mg INHALATION QID PRN #125 nebu 04/24/20 Nebulized] Cephalexin [Keflex] 500 mg PO Q8HR 3 Days #9 cap 08/13/20 Allergies Allergy/AdvReac Type Severity Reaction Status Date / Time bee venom protein (honey bee) Allergy Anaphylaxis Verified 06/11/21 14:45 Review of Systems ROS Statement: Those systems with pertinent positive or pertinent negative responses have been documented in the HPI. ROS Other: All systems not noted in ROS Statement are negative. 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 2LNC home O2 around the clock, r/t unknown lung disease. Hx of fx ribs, lung "collapsed" states no chest tube History of Any Multi-Drug Resistant Organisms: None Reported Past Surgical History: Appendectomy, Hernia Repair, Orthopedic Surgery Additional Past Surgical History / Comment(s): rotator cuff x2 left shoulder, uvula removed Past Anesthesia/Blood Transfusion Reactions: Previous Problems w/ Anesthesia Additional Past Anesthesia/Blood Transfusion Reaction / Comment(s): woke up once during surgery, clausterphobia-had to be sedated for mri Past Psychological History: No Psychological Hx Reported Smoking Status: Former smoker Past Alcohol Use History: None Reported Past Drug Use History: None Reported - Past Family History Father Family Medical History: Hyperlipidemia, Hypertension Additional Family Medical History / Comment(s): Father is alive at age 89 with no major medical problems. Mother Family Medical History: Cancer, Diabetes Mellitus, Hyperlipidemia, Hypertension, Thyroid Disorder Additional Family Medical History / Comment(s): Mother is from either a stomach or colon cancer. Brother(s) Additional Family Medical History / Comment(s): Patient has 2 brothers that have from's cystic fibrosis. One brother is alive with no major medical problems. Sister(s) Additional Family Medical History / Comment(s): Patient has 2 sisters with no major medical problems. Daughter(s) Additional Family Medical History / Comment(s): Patient is total of 4 children with no major medical problems. General Exam - General Exam Comments Initial Comments: GENERAL: Patient is well-developed and well-nourished. Patient is nontoxic and well- hydrated and is in no acute distress. ENT: Neck is soft and supple. No significant lymphadenopathy is noted. Oropharynx is clear. Moist mucous membranes. Neck has full range of motion without eliciting any pain. EYES: The sclera were anicteric and conjunctiva were pink and moist. Extraocular movements were intact and pupils were equal round and reactive to light. Eyelids were unremarkable. PULMONARY: Unlabored respirations. Good breath sounds bilaterally. No audible rales rhonchi or wheezing was noted. CARDIOVASCULAR: There is a regular rate and rhythm without any murmurs gallops or rubs. ABDOMEN: Soft and nontender with normal bowel sounds. SKIN: Skin is clear with no lesions or rashes and otherwise unremarkable. NEUROLOGIC: Patient is alert and oriented x3. Cranial nerves II through XII are grossly intact. Motor and sensory are also intact. Normal speech, volume and content. Symmetrical smile. MUSCULOSKELETAL: Normal extremities with adequate strength and full range of motion. No lower extremity swelling or edema. No calf tenderness. LYMPHATICS: No significant lymphadenopathy is noted PSYCHIATRIC: Normal psychiatric evaluation. Limitations: no limitations Course Vital Signs 06/11/21 06/11/21 06/11/21 14:45 15:50 16:37 Temperature 97.2 F L Pulse Rate 111 H 96 90 Respiratory 16 20 18 Rate Blood Pressure 119/75 108/75 116/71 O2 Sat by Pulse 96 94 L 94 L Oximetry 06/11/21 18:22 Temperature Pulse Rate 98 Respiratory 18 Rate Blood Pressure 104/72 O2 Sat by Pulse 95 Oximetry Medical Decision Making - Medical Decision Making EKG shows sinus tachycardia at 106 bpm WI interval 142 QRS is 74 QT interval 316 QTC is 419. Patient's EKG shows no ST segment elevation or depression. The gifty mendoza's blood pressure throughout the ED stay was within normal range patient was much more asymptomatic as far as lightheadedness but still had a headache. Patient's CAT scan of the head showed no acute normalities. Dr. Urena will be seeing the patient tomorrow. Patient also has a stress test on with cardiology. Patient prefers to go home as opposed being in the hospital this evening. I instructed the patient to hold the blood pressure medication tomorrow was systolic blood pressure was above 150 - Lab Data Result diagrams: 06/11/21 15:14 06/11/21 15:14 Lab Results 06/11/21 06/11/21 06/11/21 Range/Units 15:14 15:14 16:34 WBC 16.7 H (3.8-10.6) k/uL RBC 5.11 (4.30-5.90) m/uL Hgb 15.8 (13.0-17.5) gm/dL Hct 47.4 (39.0-53.0) % MCV 92.7 (80.0-100.0) fL MCH 30.8 (25.0-35.0) pg MCHC 33.2 (31.0-37.0) g/dL RDW 14.4 (11.5-15.5) % Plt Count 318 (150-450) k/uL MPV 6.6 Neutrophils % 64 % Lymphocytes % 29 % Monocytes % 4 % Eosinophils % 1 % Basophils % 0 % Neutrophils # 10.7 H (1.3-7.7) k/uL Lymphocytes # 4.9 H (1.0-4.8) k/uL Monocytes # 0.7 (0-1.0) k/uL Eosinophils # 0.1 (0-0.7) k/uL Basophils # 0.1 (0-0.2) k/uL Sodium 134 L (137-145) mmol/L Potassium 5.2 H (3.5-5.1) mmol/L Chloride 102 (98-107) mmol/L Carbon Dioxide 22 (22-30) mmol/L Anion Gap 10 mmol/L BUN 30 H (9-20) mg/dL Creatinine 1.09 (0.66-1.25) mg/dL Est GFR (CKD-EPI)AfAm 81 (>60 ml/min/1.73 sqM) Est GFR (CKD-EPI)NonAf 70 (>60 ml/min/1.73 sqM) Glucose 124 H (74-99) mg/dL Calcium 9.4 (8.4-10.2) mg/dL Magnesium 1.9 (1.6-2.3) mg/dL Total Bilirubin 0.7 (0.2-1.3) mg/dL AST 29 (17-59) U/L ALT 31 (4-49) U/L Alkaline Phosphatase 65 (38-126) U/L Total Protein 6.7 (6.3-8.2) g/dL Albumin 4.1 (3.5-5.0) g/dL Urine Color Yellow Urine Appearance Clear (Clear) Urine pH 5.0 (5.0-8.0) Ur Specific Baxter 1.017 (1.001-1.035) Urine Protein Negative (Negative) Urine Glucose (UA) Negative (Negative) Urine Ketones Negative (Negative) Urine Blood Trace H (Negative) Urine Nitrite Negative (Negative) Urine Bilirubin Negative (Negative) Urine Urobilinogen <2.0 (<2.0) mg/dL Ur Leukocyte Esterase Negative (Negative) Urine RBC <1 (0-5) /hpf Urine WBC 1 (0-5) /hpf Hyaline Casts 8 H (0-2) /lpf Urine Mucus Rare H (None) /hpf Disposition Clinical Impression: Hypotension, Lightheadedness, Cephalgia Disposition: HOME SELF-CARE Condition: Good Instructions (If sedation given, give patient instructions): General Headache (ED) Is patient prescribed a controlled substance at d/c from ED?: No Referrals: Umberto Urena DO [Primary Care Provider] - 1-2 days Time of Disposition: 18:32
[2021-06-11 15:33] LABS: Basophils # (A) 0.1 k/uL (0-0.2); Basophils % (A) 0 %; Eosinophils # (A) 0.1 k/uL (0-0.7); Eosinophils % (A) 1 %; HCT 47.4 % (39.0-53.0); HGB 15.8 gm/dL (13.0-17.5); Lymphocytes # (A) 4.9 k/uL (1.0-4.8); Lymphocytes % (A) 29 %; MCH 30.8 pg (25.0-35.0); MCHC 33.2 g/dL (31.0-37.0); MCV 92.7 fL (80.0-100.0); Mean Platelet Volume 6.6; Monocytes # (A) 0.7 k/uL (0-1.0); Monocytes % (A) 4 %; Neutrophils # (A) 10.7 k/uL (1.3-7.7); Neutrophils % (A) 64 %; Platelet Count 318 k/uL (150-450); RBC 5.11 m/uL (4.30-5.90); RDW 14.4 % (11.5-15.5); WBC 16.7 k/uL (3.8-10.6)
[2021-06-11 15:45] LABS: Albumin 4.1 g/dL (3.5-5.0); Calcium 9.4 mg/dL (8.4-10.2); Magnesium 1.9 mg/dL (1.6-2.3); Potassium 5.2 mmol/L (3.5-5.1); Total Bilirubin 0.7 mg/dL (0.2-1.3); Total Protein 6.7 g/dL (6.3-8.2)
--- NOTE | 2021-06-11 16:05 | CT ---
EXAMINATION TYPE: CT brain wo con DATE OF EXAM: 06/11/2021 COMPARISON: CT brain 03/29/2020 HISTORY: headache, low blood pressure CT DLP: 1099.4 mGycm Automated exposure control for dose reduction was used. Helical imaging through the brain. FINDINGS: There is no interval change. Mild fluid attenuation noted in the mastoid air cells on the right simil ar to prior exam. Periventricular white matter shows patchy low attenuation. IMPRESSION: NO ACUTE BRAIN ABNORMALITY. Nonspecific white matter demyelination.
[2021-06-11 16:37] VITALS: RESP 18
--- NOTE | 2021-06-11 16:45 | XR ---
EXAMINATION TYPE: XR chest 2V DATE OF EXAM: 06/11/2021 COMPARISON: 04/24/2020. HISTORY: Difficulty breathing. TECHNIQUE: Frontal and lateral views of the chest are obtained. FINDINGS: There is no focal air space opacity, pleural effusion, or pneumothorax seen. The cardiac silhouette size is enlarged. The osseous structures are intact. Loop recorder is noted. IMPRESSION: No acute cardiopulmonary process.
[2021-06-11 17:07] LABS: Appearance,Urine Clear (Clear); Bilirubin,Urine Negative (Negative); Blood,Urine Trace (Negative); Color,Urine Yellow; Glucose,Urine (UA) Negative (Negative); Hyaline Casts,Urine 8 /lpf (0-2); Ketones,Urine Negative (Negative); Leukocyte Esterase,Urine Negative (Negative); Mucus,Urine Rare /hpf; Nitrite,Urine Negative (Negative); Protein,Urine Negative (Negative); RBC,Urine <1 /hpf (0-5); Specific Gravity,Urine 1.017 (1.001-1.035); Urobilinogen,Urine <2.0 mg/dL (<2.0); WBC,Urine 1 /hpf (0-5)
[2021-06-11 18:22] VITALS: BP 104/72; PULSE 98
== END 2021-06-11 18:42 | disposition home or self-care (01) ==
LOC: EC 14:43
DX: I95.9 Hypotension, unspecified (principal); R51.9 Headache, unspecified; E78.5 Hyperlipidemia, unspecified; K21.9 Gastro-esophageal reflux disease without esophagitis; M19.90 Unspecified osteoarthritis, unspecified site; Z86.73 Personal history of transient ischemic attack (TIA), and cerebral infarction without residual deficits; Z87.891 Personal history of nicotine dependence
CPT/HCPCS: 36415; 70450; 71046; 80053; 81001; 83735; 85025; 93005; 96360; 96361; 99285

== ENCOUNTER 2021-07-08 05:53 | Day surgery (SDC) | payer MEDICARE ==
[~2021-07-08 05:53] MED LIST changes: -ACETAMINOPHEN TAB 325 MG TAB PO PRN; +ALPRAZolam 0.25 MG TAB PO PRN; +ALPRAZolam 0.5 MG TAB PO PRN; -LIDOCAINE 1% INJ 10MG/ML (20 ML MDV) ONE; -LIDOCAINE 1% INJ 10MG/ML (20 ML MDV) SQ ONE; -MIDAZOLAM 2 MG/2 ML VIAL IV ONE; +NITROGLYCERIN SL TABS 0.4 MG TAB SUBLINGUAL PRN; -SODIUM CHLORIDE 0.9% 1,000 ML IV SCH; +SODIUM CHLORIDE 0.9% 1,000 ML in EMPTY BAG 1 BAG IV ONE; -fentaNYL (PF) 50 MCG/ML 2 ML AMP IV ONE; -fentaNYL (PF) 50 MCG/ML 2 ML AMP ONE
[2021-07-08 06:38] LABS: Basophils # (A) 0.1 k/uL (0-0.2); Basophils % (A) 1 %; Eosinophils # (A) 0.2 k/uL (0-0.7); Eosinophils % (A) 2 %; HCT 47.2 % (39.0-53.0); HGB 15.8 gm/dL (13.0-17.5); Lymphocytes # (A) 4.9 k/uL (1.0-4.8); Lymphocytes % (A) 34 %; MCH 32.4 pg (25.0-35.0); MCHC 33.4 g/dL (31.0-37.0); MCV 97.1 fL (80.0-100.0); Mean Platelet Volume 7.1; Monocytes # (A) 0.6 k/uL (0-1.0); Monocytes % (A) 4 %; Neutrophils # (A) 8.3 k/uL (1.3-7.7); Neutrophils % (A) 58 %; Platelet Count 345 k/uL (150-450); RBC 4.86 m/uL (4.30-5.90); RDW 14.8 % (11.5-15.5); WBC 14.3 k/uL (3.8-10.6)
[2021-07-08] MEDS ORDERED: ASPIRIN 325 MG TAB PO ONE (07:00)
[2021-07-08] MEDS ORDERED: HEPARIN SODIUM,PORCINE 2,500 UNIT in SODIUM CHLORIDE 0.9% 250 ML IRRIGATION PRN (07:00)
[2021-07-08] MEDS ORDERED: ATORVASTATIN 80 MG TAB PO ONE (07:00)
[2021-07-08] MEDS ORDERED: VERAPAMIL 2.5 MG/ML 2 ML AMP ONE (07:26)
[2021-07-08] MEDS ORDERED: LIDOCAINE 1% INJ 10MG/ML (20 ML MDV) ONE (07:26)
[2021-07-08] MEDS ORDERED: HEPARIN SODIUM 1,000 UN/ML (10ML VL) ONE (07:26)
[2021-07-08] MEDS ORDERED: fentaNYL (PF) 50 MCG/ML 2 ML AMP ONE (07:27)
[2021-07-08] MEDS: MIDAZOLAM 2 MG/2 ML VIAL IV ONE ×2 (07:48→08:21)
[2021-07-08] MEDS ORDERED: fentaNYL (PF) 50 MCG/ML 2 ML AMP IV ONE (07:48)
[2021-07-08] MEDS ORDERED: LIDOCAINE 1% INJ 10MG/ML (20 ML MDV) SQ ONE (07:50)
[2021-07-08] MEDS: VERAPAMIL SYRINGE (5 MG/10 ML) INTRAARTER ONE ×2 (07:57→08:34)
[2021-07-08] MEDS: HEPARIN SODIUM 1,000 UN/ML (10ML VL) IV ONE ×2 (07:59→08:19)
--- NOTE | 2021-07-08 08:22 | P.CARDCATH ---
Date of Procedure: 07/08/21 Preoperative Diagnosis: Positive stress test Postoperative Diagnosis: Critical lesion involving the circumflex Procedure(s) Performed: Left heart catheterization without left ventriculography Description of Procedure: HISTORY: This is a 66-year-old gentleman with history of hypertension, hyperlipidemia and family history of ischemic heart disease who had the pleasure stress test recently and was found to have ischemia in the lateral wall and anterolateral wall. Patient is advised to have cardiac catheterization for definitive diagnosis CONSENT:I have discussed the risks, benefits and alternative therapies for the above-mentioned procedure and for both sedation/analgesia as well as necessary blood product administration, if indicated, as they pertain to this patient. The patient has indicated understanding and acceptance of the risks and procedures discussed. PROCEDURE: Patient was brought to the lab in a fasting state. Patient was given some IV sedation. The right wrist is infiltrated with lidocaine and right radial artery was entered using Seldinger technique. A 6-Estonian catheter was left in place and selective coronary arteriography was performed. Patient tolerated the procedure well. Patient went on to have stent placement by Drs. Estrada. No immediate complications were noted and patient was transferred to [facility] in a stable condition Conscious Sedation: Versed 1mg Fentanyl 25 g Duration 20minutes HEMODYNAMICS: The aortic pressure 130/74. Left ventricle end-diastolic pressure is about 10. There was no gradient across the aortic valve SELECTIVE CORONARY ARTERIOGRAPHY: LEFT MAIN: Normal length and free of any occlusive disease THE LEFT ANTERIOR DESCENDING CORONARY ARTERY: Good caliber vessel giving rise to 2 diagonal and septal branches. There is mild intimal plaque in the LAD without any significant focal lesions THE LEFT CIRCUMFLEX AND IS CORONARY ARTERY:. This is a good caliber vessel with about 90% stenosis in the midportion of the first OM branch THE RIGHT CORONARY ARTERY:. This is dominant vessel giving rise good-sized PDA and PLV and free of any occlusive disease LEFT VENTRICULOGRAPHY:. Not performed FINAL IMPRESSION:. Critical lesion involving mid circumflex. Mild disease in the LAD PLAN: Stent placement of the circumflex to be done by Dr. Estrada PROGNOSIS: Fair
[2021-07-08] MEDS: NITROGLYCERIN 1000MCG/10ML SYRINGE INTRACORON ONE ×2 (08:27→08:34)
[2021-07-08] MEDS ORDERED: CLOPIDOGREL 75 MG TAB ONE (08:30)
[2021-07-08] MEDS ORDERED: CLOPIDOGREL 75 MG TAB PO ONE (08:33)
[2021-07-08] MEDS ORDERED: IOPAMIDOL-370 125ML BTL INJ ONE (08:35)
[2021-07-08] MEDS ORDERED: RX INFO: IV CONTRAST WAS GIVEN 1 EACH MISC MISCELLANE PRN (08:39)
[2021-07-08] MEDS ORDERED: MAG HYDROX/AL HYDROX/SIMETH 30 ML CUP PO PRN (08:39)
[2021-07-08] MEDS ORDERED: NITROGLYCERIN SL TABS 0.4 MG TAB SUBLINGUAL PRN (08:39)
[2021-07-08] MEDS ORDERED: ATROPINE SULFATE 0.1 MG/ML 10ML SYRINGE IV PRN (08:39)
[2021-07-08] MEDS ORDERED: SODIUM CHLORIDE 0.9% 1,000 ML IV SCH (08:45)
[2021-07-08] MEDS ORDERED: ONDANSETRON 4 MG/2 ML VIAL ONE (08:47)
--- NOTE | 2021-07-08 09:51 | PTCA ---
PERCUTANEOUSTRANS CORORONARY ANGIOGRAPHY DATE OF SERVICE: July 08, 2021 PERFORMING PHYSICIAN: Gurpreet Colin MD. PROCEDURE PERFORMED: Successful stenting of the mid left circumflex using 3.25 x 15 mm Xience drug-eluting stent with an excellent angiographic result and reduction of stenosis from 90% to 0%. INDICATION: This is a very pleasant 66-year-old gentleman who sees Dr. Shen in the office who was experiencing symptoms of chest discomfort and underwent myocardial perfusion imaging stress test and that came in to be abnormal showing lateral ischemia. He underwent a heart catheterization by Dr. Shen and was found to have critical disease involving the mid left circumflex coronary artery. APPROACH: Right radial artery. COMPLICATION: None. LEVEL OF SEDATION: Moderate with a sedation length of 17 minutes. PROCEDURE DESCRIPTION: Please refer to diagnostic heart catheterization that was performed by Dr. Shen earlier today. Anticoagulation was achieved using heparin with continuous ACT monitoring throughout the procedure. Subsequently, I did engage the left main using JL3.5 guiding catheter. I did wire the left circumflex using a Whisper wire. After that, I did balloon angioplasty using 2.5 x 12 mm balloon before I deployed 3. 25 x 15 mm Xience drug-eluting stent where the stent was positioned under fluoroscopy guidance and deployed under its nominal pressure. The following angiogram showed excellent angiographic results and the procedure was completed without any complication. POSTPROCEDURE MANAGEMENT: 1. Dual anti-platelet therapy. 2. Aggressive cholesterol control. 3. Risk factor modifications. 4. Follow up with the patient. MMODL / IJN: [id number] /
[2021-07-08 14:25] VITALS: BMI 34.0
[2021-07-08] MEDS ORDERED: ZOLPIDEM 5 MG TAB PO PRN (21:00)
[2021-07-08] MEDS ORDERED: LORATADINE 10 MG TAB PO SCH (21:00)
[2021-07-09] MEDS ORDERED: ACETAMINOPHEN TAB 325 MG TAB PO PRN (01:32)
[2021-07-09] MEDS ORDERED: LEVOTHYROXINE 50 MCG TAB PO SCH (06:30)
[2021-07-09 06:34] LABS: Basophils # (A) 0.1 k/uL (0-0.2); Basophils % (A) 1 %; Eosinophils # (A) 0.3 k/uL (0-0.7); Eosinophils % (A) 2 %; HCT 43.1 % (39.0-53.0); HGB 13.9 gm/dL (13.0-17.5); Lymphocytes # (A) 2.4 k/uL (1.0-4.8); Lymphocytes % (A) 22 %; MCH 32.2 pg (25.0-35.0); MCHC 32.4 g/dL (31.0-37.0); MCV 99.4 fL (80.0-100.0); Macrocytosis Slight; Mean Platelet Volume 6.8; Monocytes # (A) 0.5 k/uL (0-1.0); Monocytes % (A) 4 %; Neutrophils # (A) 7.6 k/uL (1.3-7.7); Neutrophils % (A) 70 %; Platelet Count 294 k/uL (150-450); RBC 4.33 m/uL (4.30-5.90); RDW 14.4 % (11.5-15.5); WBC 10.8 k/uL (3.8-10.6)
[2021-07-09 06:43] LABS: African American GFR (CKD) >90 (>60 ml/min/1.73 sqM); Anion Gap 8 mmol/L; Blood Urea Nitrogen 13 mg/dL (9-20); Calcium 8.9 mg/dL (8.4-10.2); Carbon Dioxide 25 mmol/L (22-30); Chloride 102 mmol/L (98-107); Glucose 124 mg/dL (74-99); Non-African American GFR(CKD) >90 (>60 ml/min/1.73 sqM); Potassium 3.9 mmol/L (3.5-5.1); Sodium 135 mmol/L (137-145)
[2021-07-09 07:56] VITALS: BP 109/77; PULSE 72; RESP 17; TEMP 97.6
[2021-07-09] MEDS ORDERED: CLOPIDOGREL 75 MG TAB PO SCH (09:00)
[2021-07-09] MEDS ORDERED: ASPIRIN 81 MG PO SCH (09:00)
[2021-07-09] MEDS ORDERED: PANTOPRAZOLE 40 MG TABLET PO SCH (09:00)
[2021-07-09] MEDS ORDERED: LOSARTAN 25 MG TAB PO SCH (09:00)
[2021-07-09] MEDS ORDERED: SPIRONOLACTONE 25 MG TAB PO SCH (09:00)
[2021-07-09] MEDS ORDERED: ATORVASTATIN 20 MG TAB PO SCH (21:00)
--- NOTE | 2021-07-11 08:30 | P.DS ---
Providers Date of admission: 07/08/2021 Attending physician: Mariann Shen Consults: 07/08/21 08:39 Consult Physician Routine Consulting Provider: [facility] Consult Reason/Comments: Post Interventional patient Do you want consulting provider notified?: Already Contacted Primary care physician: Umberto Urena - Discharge Diagnosis(es) (1) CAD (coronary artery disease) Status: Acute (2) S/P coronary artery stent placement Status: Acute (3) COPD (chronic obstructive pulmonary disease) Status: Acute Hospital Course: This 66-year-old gentleman was brought as an outpatient for cardiac catheterization because of positive stress test. He was found have a critical lesion in the circumflex system. Patient had successful stent placement by Dr. Estrada. Patient of mine stable. The puncture site is healing well and radial pulses bounding. Lungs are clear. Heart is regular. Patient is tolerating activity. He is being discharged home in stable condition. He'll continue Plavix and aspirin. Rest of the medication. He will provide any strenuous activity with the right wrist. Patient will followed in the office in one week. Plan - Discharge Summary Discharge Rx Participant: No New Discharge Prescriptions: New Nitroglycerin Sl Tabs [Nitrostat] 0.4 mg SUBLINGUAL Q5M PRN tab PRN Reason: Chest Pain Nitroglycerin Sl Tabs [Nitrostat] 0.4 mg SUBLINGUAL Q5M PRN 15 Days #15 tab PRN Reason: Chest Pain Aspirin 81 mg PO DAILY chew Continue Pantoprazole Sodium 40 mg PO QAM Levothyroxine Sodium [Synthroid] 50 mcg PO QAM Clopidogrel [Plavix] 75 mg PO DAILY #30 tab Losartan [Cozaar] 25 mg PO DAILY Spironolactone 100 mg PO DAILY Simvastatin 40 mg PO HS Cetirizine HCl [Zyrtec] 10 mg PO HS Discharge Medication List Levothyroxine Sodium [Synthroid] 50 mcg PO QAM 03/14/15 [History] Pantoprazole Sodium 40 mg PO QAM 03/14/15 [History] Clopidogrel [Plavix] 75 mg PO DAILY #30 tab 03/31/20 [Rx] Losartan [Cozaar] 25 mg PO DAILY 08/08/20 [History] Simvastatin 40 mg PO HS 08/08/20 [History] Spironolactone 100 mg PO DAILY 08/08/20 [History] Cetirizine HCl [Zyrtec] 10 mg PO HS 07/03/21 [History] Aspirin 81 mg PO DAILY chew 07/09/21 [Rx] Nitroglycerin Sl Tabs [Nitrostat] 0.4 mg SUBLINGUAL Q5M PRN tab 07/09/21 [Rx] Nitroglycerin Sl Tabs [Nitrostat] 0.4 mg SUBLINGUAL Q5M PRN 15 Days #15 tab 07/09/21 [Rx] Follow up Appointment(s)/Referral(s): Mariann Shen MD [STAFF PHYSICIAN] - 07/15/21 2:30 pm ([facility] LOCATION FOR APPOINTMENT.) Patient Instructions/Handouts: After Radial Heart Catheterization (GEN) Discharge Disposition: HOME SELF-CARE
== END 2021-07-09 14:10 | disposition home or self-care (01) ==
LOC: CATHCVL 05:53 → 6NMEDSUR 08:34 → CATHCVL 07-09 14:10
PROVIDERS: ATTEND Internal Medicine Cardiovascular Disease
DX: I25.10 Atherosclerotic heart disease of native coronary artery without angina pectoris (principal); I99.8 Other disorder of circulatory system; Z01.818 Encounter for other preprocedural examination
CPT/HCPCS: 93458; 80048; 85025 ×2; C9600; C1769; C1887; C1894; C1725; C1874; J2250; J2405; J2001; J3010; J1644; Q9967

== ENCOUNTER → 2022-03-14 | Outpatient (CLI) | payer MEDICARE | END | disposition home or self-care (01) | LOC: LABWHC1 09:12 | PROVIDERS: ATTEND Family Medicine | DX: J20.9 Acute bronchitis, unspecified (principal) | CPT/HCPCS: 36415; 83880; 85379 ==

== ENCOUNTER → 2022-03-18 | Outpatient (CLI) | payer MEDICARE ==
--- NOTE | 2022-03-18 11:16 | US ---
EXAMINATION TYPE: US venous doppler duplex LE DATE OF EXAM: 03/18/2022 11:03 AM COMPARISON: NONE CLINICAL HISTORY: R79.1 elevated d dimer. SIDE PERFORMED: TECHNIQUE: The lower extremity deep venous system is examined utilizing real time linear array sonog beni with graded compression, doppler sonography and color-flow sonography. VESSELS IMAGED: Common Femoral Vein Deep Femoral Vein Greater Saphenous Vein * Femoral Vein Popliteal Vein Small Saphenous Vein * Proximal Calf Veins (* superficial vessels) Technically difficult due to extensive swelling and poor venous return. Right Leg: Negative for DVT Left Leg: Negative for DVT IMPRESSION: 1. Bilateral lower extremity ultrasound negative for deep venous thrombosis.
== END | disposition home or self-care (01) ==
LOC: RADUSWWP 10:23
PROVIDERS: ATTEND Family Medicine
DX: R79.1 Abnormal coagulation profile (principal)
CPT/HCPCS: 93970

== ENCOUNTER → 2022-08-08 | Outpatient (CLI) | payer MEDICARE ==
--- NOTE | 2022-08-08 09:58 | XR ---
EXAMINATION TYPE: XR abdomen 1V DATE OF EXAM: 08/08/2022 COMPARISON: NONE HISTORY: Pain TECHNIQUE: One view abdominal series FINDINGS: The osseous structures are intact. The bowel gas pattern is nonspecific. Lung bases are clear. Mahesh l gas pattern demonstrates extensive retained fecal regions throughout the colon. Hypertrophic and de generative changes of the spine and arthropathy of the hips. Calcifications are likely vascular IMPRESSION: 1. Nonspecific abdomen. Correlate with patient. If symptoms persist consider CT scanning.
== END | disposition home or self-care (01) ==
LOC: RADXRMAIN 08:04
PROVIDERS: ATTEND Family Medicine
DX: R10.9 Unspecified abdominal pain (principal)
CPT/HCPCS: 74018

== ENCOUNTER → 2022-09-01 | Outpatient (CLI) | payer MEDICARE ==
[2022-09-01 10:56] LABS: ALT 29 U/L (10-49); AST 18 U/L (14-35); Chol/HDL Ratio 4.07 Ratio; LDL Cholesterol,Calculated 154.3 mg/dL (0.0-131.0)
== END | disposition home or self-care (01) ==
LOC: LABWHC1 07:10
PROVIDERS: ATTEND Internal Medicine
DX: E78.2 Mixed hyperlipidemia (principal)
CPT/HCPCS: 36415; 80061; 84450; 84460

== ENCOUNTER → 2022-10-09 | Outpatient (CLI) | payer MEDICARE ==
--- NOTE | 2022-10-09 09:26 | XR ---
EXAMINATION TYPE: XR chest 2V DATE OF EXAM: 10/09/2022 COMPARISON: 06/11/2021 TECHNIQUE: PA and lateral views submitted. HISTORY: Cough FINDINGS: The lungs are clear and there is no pneumothorax or pleural effusion. Bilateral subsegmental areas o f consolidation. Heart is prominent with no overt failure. Biapical pleural thickening. Hypertrophic changes of the spine correlated for dish. IMPRESSION: 1. Bilateral atelectasis or interval rate correlate clinically. 2. Cardiomegaly
== END | disposition home or self-care (01) ==
LOC: RADXRMAIN 08:51
PROVIDERS: ATTEND Family Medicine
DX: J98.11 Atelectasis (principal); J18.9 Pneumonia, unspecified organism; I51.7 Cardiomegaly
CPT/HCPCS: 71046

== ENCOUNTER → 2022-10-09 | Outpatient (CLI) | payer MEDICARE | END | disposition home or self-care (01) | LOC: LABWHC1 07:38 | PROVIDERS: ATTEND Family Medicine | DX: J18.9 Pneumonia, unspecified organism (principal) | CPT/HCPCS: 36415; 85379 ==

== ENCOUNTER 2022-10-29 10:27 | Emergency (ER) | payer MEDICARE ==
[2022-10-29 10:51] VITALS: TEMP 98.4
[2022-10-29] MEDS ORDERED: MORPHINE SULFATE 4 MG/ML SYRINGE IV STA (10:59)
[2022-10-29] MEDS ORDERED: KETOROLAC 15 MG/ML 1 ML VIAL IVP STA (10:59)
[2022-10-29] MEDS ORDERED: METOCLOPRAMIDE 5 MG/ML 2 ML VIAL IVP STA (10:59)
[2022-10-29] MEDS ORDERED: SODIUM CHLORIDE 0.9% 1,000 ML IV STA (10:59)
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
[2022-10-29 12:07] LABS: Basophils # (A) 0.1 k/uL (0-0.2); Basophils % (A) 0 %; Eosinophils # (A) 0.1 k/uL (0-0.7); Eosinophils % (A) 1 %; HCT 43.3 % (39.0-53.0); HGB 14.7 gm/dL (13.0-17.5); Lymphocytes # (A) 2.2 k/uL (1.0-4.8); Lymphocytes % (A) 16 %; MCH 31.8 pg (25.0-35.0); MCV 93.7 fL (80.0-100.0); Mean Platelet Volume 7.9; Monocytes # (A) 0.6 k/uL (0-1.0); Monocytes % (A) 4 %; Neutrophils # (A) 10.6 k/uL (1.3-7.7); Neutrophils % (A) 77 %; Platelet Count 287 k/uL (150-450); RBC 4.62 m/uL (4.30-5.90); RDW 14.4 % (11.5-15.5); WBC 13.8 k/uL (3.8-10.6)
[2022-10-29 12:25] LABS: Albumin 4.2 g/dL (3.5-5.0); Amylase 68 U/L (30-110); Anion Gap 9 mmol/L; Carbon Dioxide 29 mmol/L (22-30); Chloride 95 mmol/L (98-107); Glucose 113 mg/dL (74-99); Potassium 4.9 mmol/L (3.5-5.1); Sodium 133 mmol/L (137-145); Total Protein 6.6 g/dL (6.3-8.2)
[2022-10-29 12:26] LABS: ALT 41 U/L (4-49); AST 30 U/L (17-59); African American GFR (CKD) >90 (>60 ml/min/1.73 sqM); Alkaline Phosphatase 69 U/L (38-126); Blood Urea Nitrogen 32 mg/dL (9-20); Calcium 9.1 mg/dL (8.4-10.2); Lipase 212 U/L (23-300); Non-African American GFR(CKD) 88 (>60 ml/min/1.73 sqM); Total Bilirubin 0.9 mg/dL (0.2-1.3)
[2022-10-29 12:40] LABS: Appearance,Urine Cloudy (Clear); Bilirubin,Urine Negative (Negative); Blood,Urine Small (Negative); Color,Urine Yellow; Glucose,Urine (UA) Negative (Negative); Ketones,Urine 2+ (Negative); Leukocyte Esterase,Urine Negative (Negative); Mucus,Urine Rare /hpf; Nitrite,Urine Negative (Negative); PH, Urine 5.5 (5.0-8.0); Protein,Urine Trace (Negative); RBC,Urine 3 /hpf (0-5); Specific Gravity,Urine 1.024 (1.001-1.035); Urobilinogen,Urine <2.0 mg/dL (<2.0); WBC,Urine 1 /hpf (0-5)
--- NOTE | 2022-10-29 13:37 | CT ---
EXAMINATION TYPE: CT abdomen pelvis w con DATE OF EXAM: 10/29/2022 COMPARISON: CT abdomen 09/03/2020 HISTORY: 67-year-old male lower Abdominal pain. Additional back pain for one week. TECHNIQUE: Contiguous axial scanning of the abdomen and pelvis following administration of 100 ml Iso juliana 300 IV contrast. Delayed images through the kidneys and coronal/sagittal reconstructions perform ed. CT DLP: 3549.4 mGycm Automated exposure control for dose reduction was used. FINDINGS: Large patient body habitus. Heart normal size. Trace anterior pericardial fluid. Strandy atelectasis in the lower lungs. There may be some underlying scarring and mild basilar bronchiolectasis. Tiny 7 mm mid hepatic dome cyst. There may be mild fatty infiltration of the liver. Portal venous sy stem is patent. No biliary ductal dilatation. Mild hydropic gallbladder at 4.1 cm wide but without any wall thickening or surrounding inflammation. Adrenal glands, right kidney, spleen within normal limits. There is a 1.4 cm cortical cyst lower pole left kidney. Symmetric uptake and excretion of contrast fr om both kidneys. There is a nonspecific cystic appearing lesion measuring 8 mm at the junction of the pancreatic tail and body, axial image 22. Review of the patient's 09/03/2020 CT shows an adjacent exophytic nodular ar ea which has now resolved. Unclear if this is a new cystic lesion of the pancreas. Six-month follow-u p MRI recommended to reassess. Mild prostatic calcifications infrarenal abdominal aorta without aneurysm. No dilated small bowel, free fluid, or free air. No mesenteric or retroperitoneal lymphadenopathy. Some surgical material in the right lower quadrant suggesting prior appendectomy. There is mild stool burden. Occasional left-sided colonic diverticulosis. No pericolonic inflammatory change seen. Markedly protuberant abdomen secondary to extensive fat within the intra-abdominal cavity. Bladder partially distended. Pelvic phleboliths. Prostate gland mildly enlarged at 4.4 cm wide. Patul ous left inguinal canal. No abnormal fluid collection in the pelvis or pelvic lymphadenopathy. Bones: Mild degenerative change of the hips. Facet arthropathy mid to lower lumbar spine. Superior endplate deformity of T12 is new from 09/03/2020 but age indeterminate. Suspect either subacute or chronic given the lack of significant surrounding soft tissue swelling. Correlate for focal pain at this level. There is dish in the lower thoracic spi ne. IMPRESSION: 1. MILD SUPERIOR ENDPLATE DEFORMITY OF T12 IS NEW FROM 09/03/2020 BUT REMAINS AGE INDETERMINATE. SUSPE CT EITHER SUBACUTE OR CHRONIC ENDPLATE FRACTURE. CORRELATE FOR TENDERNESS AT THIS LEVEL. DISH IN THE LOWER THORACIC SPINE. 2. LARGE BODY HABITUS WITH SEVERE FAT DEPOSITION WITHIN THE INTRA-ABDOMINAL CAVITY. 3. SUSPECT SOME HEPATIC STEATOSIS. MILDLY HYDROPIC GALLBLADDER PROBABLY DUE TO FASTING STATE. NO ANCI LLARY FINDINGS OF ACUTE CHOLECYSTITIS. 4. AN 8 MM CYSTIC LESION AT THE JUNCTION OF THE PANCREATIC TAIL AND BODY NOT CLEARLY SEEN IN 2020. SI X-MONTH FOLLOW-UP PANCREAS MRI TO REASSESS. 5. OCCASIONAL LEFT-SIDED COLONIC DIVERTICULOSIS WITHOUT ACUTE DIVERTICULITIS.
[2022-10-29 14:15] VITALS: RESP 18
[2022-10-29 15:33] VITALS: BP 132/89; PULSE 97
== END 2022-10-29 15:33 | disposition home or self-care (01) ==
LOC: EC 10:27
DX: K59.00 Constipation, unspecified (principal); R00.0 Tachycardia, unspecified; K21.9 Gastro-esophageal reflux disease without esophagitis; I10 Essential (primary) hypertension; E78.5 Hyperlipidemia, unspecified; M19.90 Unspecified osteoarthritis, unspecified site; E07.9 Disorder of thyroid, unspecified; Z86.73 Personal history of transient ischemic attack (TIA), and cerebral infarction without residual deficits; Z87.891 Personal history of nicotine dependence; Z91.030 Bee allergy status; Z79.890 Hormone replacement therapy; Z79.899 Other long term (current) drug therapy
CPT/HCPCS: 51798; 36415; 93005; 80053; 82150; 83690; 84484; 85025; 81001; 74177; 99284; 96374; 96375; 96361; J2270; J2765; J1885; Q9967

== ENCOUNTER → 2022-11-17 | Outpatient (CLI) | payer MEDICARE | END | disposition home or self-care (01) | LOC: LABPAT 07:01 | PROVIDERS: ATTEND Orthopaedic Surgery | DX: Z01.812 Encounter for preprocedural laboratory examination (principal); Z22.322 Carrier or suspected carrier of Methicillin resistant Staphylococcus aureus ==

== ENCOUNTER 2022-11-25 07:15 | Inpatient (IN) | payer MEDICARE ==
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
[~2022-11-25 07:15] MED LIST changes: +ACETAMINOPHEN TAB 500 MG TAB PO PRN; -ALPRAZolam 0.25 MG TAB PO PRN; -ALPRAZolam 0.5 MG TAB PO PRN; +DEXAMETHASONE SOD PHOSPHATE 4 MG/ML 1 ML VIAL IV ONE; +GABAPENTIN 300 MG CAP PO PRN; +LIDOCAINE 1% (10MG/ML) FOR IV START INTRADERMA PRN; -NITROGLYCERIN SL TABS 0.4 MG TAB SUBLINGUAL PRN; +ONDANSETRON 4 MG/2 ML VIAL IVP ONE; +ONDANSETRON 4 MG/2 ML VIAL IVP PRN; -SODIUM CHLORIDE 0.9% 1,000 ML in EMPTY BAG 1 BAG IV ONE; +TRANEXAMIC ACID IN NACL,ISO-OS 1,000 MG in SALINE 1 100ML.BAG IVPB PRN
[2022-11-25] MEDS: LACTATED RINGERS 1,000 ML IV SCH (08:40)
[2022-11-25] MEDS ORDERED: PROPOFOL 10 MG/ML 20 ML VIAL IV ONE (10:26)
[2022-11-25] MEDS ORDERED: fentaNYL (PF) 50 MCG/ML 2 ML AMP ONE (10:26)
[2022-11-25] MEDS ORDERED: SUCCINYLCHOLINE CHLORIDE 200 MG/10 ML VIAL IV ONE (10:26)
[2022-11-25] MEDS ORDERED: PHENYLEPHRINE-0.9% NACL SYG 1,000 MCG/10 ML SYRINGE ONE (10:26)
[2022-11-25] MEDS ORDERED: LIDOCAINE 2% INJ 20 MG/ML (2 ML VIAL) ONE (10:26)
[2022-11-25] MEDS ORDERED: ePHEDrine 50 MG/ML 1 ML VIAL ONE (10:26)
[2022-11-25] MEDS ORDERED: TRANEXAMIC ACID IN NACL,ISO-OS 1,000 MG/100 ML BAG ONE (10:26)
[2022-11-25] MEDS ORDERED: MIDAZOLAM 2 MG/2 ML VIAL ONE (10:26)
[2022-11-25] MEDS ORDERED: IOPAMIDOL M200 10 ML VIAL MISCELLANE ONE (11:29)
[2022-11-25] MEDS ORDERED: LACTATED RINGERS 1,000 ML IV ONE (11:32)
[2022-11-25] MEDS ORDERED: HYDROmorphone 0.5 MG/0.5 ML SYRINGE IVP PRN (12:41)
[2022-11-25] MEDS ORDERED: HYDROcodone/APAP 5-325MG 1 EACH TAB PO PRN (12:41)
[2022-11-25] MEDS ORDERED: SENNOSIDES-DOCUSATE SODIUM 1 EACH TAB PO PRN (12:41)
[2022-11-25] MEDS ORDERED: MAGNESIUM HYDROXIDE 2,400 MG/10 ML CUP PO PRN (12:41)
[2022-11-25] MEDS: HYDROmorphone 0.5 MG/0.5 ML SYRINGE IVP PRN ×3 (13:12→14:41)
--- NOTE | 2022-11-25 13:18 | XR ---
EXAMINATION TYPE: XR thoracic spine 2V, FL guidance operating room DATE OF EXAM: 11/25/2022 COMPARISON: NONE HISTORY: 67-year-old male T12 kyphoplasty FINDINGS: Procedural fluoroscopy during T11-L1 fusion with T12 kyphoplasty. FLUOROSCOPY Fluoroscopy time of 1 minute 18 seconds seconds was used during lower thoracic kyphoplasty infusion. 7 image/s document/s the procedure. IMPRESSION: Procedural fluoroscopy as above.
[2022-11-25] MEDS: ACETAMINOPHEN TAB 325 MG TAB PO SCH (17:46)
[2022-11-25] MEDS ORDERED: NITROGLYCERIN SL TABS 0.4 MG TAB SUBLINGUAL PRN (18:00)
--- NOTE | 2022-11-25 18:10 | CT ---
EXAMINATION TYPE: CT thoracic spine wo con CT DLP: 2557.2 mGycm, Automated exposure control for dose reduction was used. DATE OF EXAM: 11/25/2022 5:16 PM COMPARISON: 10/29/2022 CLINICAL INDICATION:Male, 67 years old with history of, s/p thoracolumbar stabilization TECHNIQUE: Axial images of the thoracic spine were obtained without contrast. Coronal and sagittal re formats were performed. FINDINGS: Postsurgical changes at T12, L1 and L2. Vertebroplasty cement these levels is also present. Hardware appears intact. Subcutaneous gas in the surgical bed is present. The remainder of the thor acic vertebral bodies have preserved heights and alignment. Anterior wedging of the T4 vertebral body with at least 25% height loss anteriorly. No significant retropulsion. Remainder of the spinal canal and neural foramen appear patent. Scattered disc bulging and the visualized lumbar spine. I do not see any evidence of extradural defects nor significant spinal canal narrowing at any thoraci c vertebral body level. Bilateral streaky atelectasis present. Scattered atherosclerosis of the arterial vasculature. IMPRESSION: 1. Postsurgical changes with hardware in appropriate position. Hardware appears intact. Vertebroplas ty cement appears within the vertebral bodies. 2. Remote T4 compression fracture anteriorly with out significant spinal canal stenosis. 3. No evidence of significant spinal canal neural foraminal stenosis.
[2022-11-25 19:27] LABS: ALT 44 U/L (4-49); AST 34 U/L (17-59); African American GFR (CKD) >90 (>60 ml/min/1.73 sqM); Albumin 3.7 g/dL (3.5-5.0); Albumin/Globulin Ratio 1.6; Alkaline Phosphatase 94 U/L (38-126); Anion Gap 6 mmol/L; Blood Urea Nitrogen 15 mg/dL (9-20); Calcium 8.6 mg/dL (8.4-10.2); Carbon Dioxide 28 mmol/L (22-30); Chloride 97 mmol/L (98-107); Globulin 2.3 g/dL; Glucose 182 mg/dL (74-99); Non-African American GFR(CKD) >90 (>60 ml/min/1.73 sqM); Potassium 4.7 mmol/L (3.5-5.1); Sodium 131 mmol/L (137-145); Total Bilirubin 0.6 mg/dL (0.2-1.3)
[2022-11-25 19:46] LABS: Basophils % (A) 0 %; Eosinophils % (A) 0 %; HCT 39.8 % (39.0-53.0); HGB 13.3 gm/dL (13.0-17.5); Lymphocytes # (A) 0.5 k/uL (1.0-4.8); Lymphocytes % (A) 3 %; MCH 32.8 pg (25.0-35.0); MCHC 33.4 g/dL (31.0-37.0); MCV 98.2 fL (80.0-100.0); Mean Platelet Volume 8.3; Monocytes # (A) 0.5 k/uL (0-1.0); Monocytes % (A) 3 %; Neutrophils # (A) 16.5 k/uL (1.3-7.7); Neutrophils % (A) 94 %; Platelet Count 288 k/uL (150-450); RBC 4.06 m/uL (4.30-5.90); WBC 17.6 k/uL (3.8-10.6)
[2022-11-25] MEDS: LORATADINE 10 MG TAB PO SCH (20:22)
[2022-11-25] MEDS: METOPROLOL TARTRATE 25 MG TAB PO SCH (20:22)
[2022-11-25] MEDS: ATORVASTATIN 10 MG TAB PO SCH (20:22)
[2022-11-25] MEDS: POTASSIUM CHLORIDE ER 20 MEQ TAB.ER PO SCH (20:22)
[2022-11-25] MEDS: SPIRONOLACTONE 25 MG TAB PO SCH (20:26)
[2022-11-26] MEDS: ACETAMINOPHEN TAB 325 MG TAB PO SCH ×5 (00:08→22:59)
[2022-11-26] MEDS: CYCLOBENZAPRINE 5 MG TAB PO PRN ×2 (01:13→09:46)
[2022-11-26] MEDS: HYDROcodone/APAP 7.5-325MG 1 EACH TAB PO PRN ×4 (01:13→20:55)
--- NOTE | 2022-11-26 01:32 | CONS ---
CONSULTATION REASON FOR CONSULTATION: Advice regarding hypertension and multiple medical issues requested by Orthopedic surgery. HISTORY OF PRESENT ILLNESS: A 67-year-old gentleman with past medical history of hypertension and hyperlipidemia, multiple medical issues, underwent a T12 kyphoplasty. The patient has some tremors, feeling cold. There is no history of any fever, rigors, or chills at this time. The patient is hard of hearing on the right ear. PAST MEDICAL HISTORY: Reviewed, include hypertension, hyperlipidemia, DJD. The rest of the history and rest of the chart is reviewed. HOME MEDICATIONS: Reviewed include Lasix, doses and rest of medications reviewed. ALLERGIES: Bee venom. FAMILY HISTORY: Reviewed multiple including diabetes, hypertension, and hyperlipidemia. SOCIAL HISTORY: Previous history of smoking. REVIEW OF SYSTEMS: A 14-point review is negative as mentioned. PHYSICAL EXAMINATION: VITAL SIGNS: Pulse 103, blood pressure 119/80, and respirations 18. HEENT: Conjunctivae normal. NECK: No jugular venous distention. RESPIRATIONS: Breath sounds diminished at the bases. ABDOMEN: Soft, nontender. LEGS: No edema. No swelling. NERVOUS SYSTEM: No focal deficit. BACK: Status post surgery. LABORATORY DATA: Labs are not available. ASSESSMENT: 1. Status post T12 kyphoplasty. 2. Positive mild hypothermia. 3. Cerebrovascular accident. 4. Hypertension. 5. Hyperlipidemia. 6. History of degenerative joint disease. RECOMMENDATIONS: Recommended to continue current management and plan. Recommended stat labs and UA with micro, 1 blanket. Monitor IV fluids, monitor temperature closely. I would also recommend a TSH also. Further recommendations to follow. Resume rest of the home medications. MMODL / IJN: [id number] / UYEN
[2022-11-26] MEDS: LACTATED RINGERS 1,000 ML IV SCH (06:28)
[2022-11-26] MEDS: PANTOPRAZOLE 40 MG TABLET PO SCH (06:35)
[2022-11-26] MEDS: LEVOTHYROXINE 50 MCG TAB PO SCH (06:36)
--- NOTE | 2022-11-26 08:13 | P.OP ---
Date of Procedure: 11/25/22 Preoperative Diagnosis: 1. T12 progressive compression fracture, burst fracture 2. Mechanical back pain, inability to ambulate 3. Complex medical patient Postoperative Diagnosis: 1. T12 progressive compression fracture, burst fracture 2. Mechanical back pain, inability to ambulate 3. Complex medical patient Procedure(s) Performed: 1. ORIF and stabilization of T12 fracture (52106) 2. T11-L1 stabilization and fusion for T12 fracture (58191, 54126, 57730) 3. T12 kyphoplasty with biopsy (29801) 4. Needle localization of T12 for biopsy under flouroscopic guidance (35287) 4. Use of SentiOne 3D navigation for screw placement (57337) Use of IONM Implants: -Holt Imperial screw and hudson system -Holt Cement -MagnatOs Anesthesia: GETA Surgeon: Asif Tidwell Estimated Blood Loss (ml): 50 IV fluids (ml): 400 Urine output (ml): 320 Pathology: other (T12 Vertebral body) Condition: stable Disposition: PACU Indications for Procedure: Mr. Pelayo is presenting for evaluation of severe back pain and difficulty with ambulation. It was my pleasure to have seen and examined Mr. Pelayo. In our visit today we have had a chance to go over subjective complaints, physical examination findings and treatments including the natural course history without intervention and various interventional options. The patients imaging demonstrates [facility] of abdomen, pelvis, Lumbar, Thoracic/ Spine: Images reviewed with patient and demonstrated a T12 vertebral compression fracture which is 30% compressed wedge type anteriorly. It was read as age indeterminant, howevere minimal scleortic fatures about the fracture indicate that it is likey more acute. There is acute kyphosis at this level secondary to the fracture with a vertebral body height of around 17 mm. NO other fractures noted. Minimal if any retropulsion. XRay Thoracic AP/lateral 2 views taken at [facility] on 11/10/22 of Thoracic Spine: Images reviewedwith the patient shows acute progression of the T12 VCF to an unstable burst type fracture wth near 3 column involvement. There is now near 70% compression with a vertebral body height at most 12 mm. There is increased kyphosis about this area measuring around 36 deg now vs [address] scan. No other fractures noted. Flattened thoracic kyphosis noted. No lesions. . On physical exam, demonstrates exquisite tenderness over the fractured area midline with difficulty with ambulation near inability to ambulate secondary to pain.. I have explained to the patient that as their condition progresses it will cause further neurological deficits and eventual paralysis. Based on the patients imaging, physical exam, and the rapid progression and disabling nature of their symptoms, at this time I recommend surgery in the form or a: T12 kyphoplasty with T11 through L1 stabilization . I discussed the risk and benefits of this procedure at length with Mr. Pelayo. The patient [significant other] agreed to considered pursuing the procedure abovementioned. Prior to surgery, she should follow up with her PCP (Cardio, ID, IM etc) for clearance. Questions were invited and answered, and the patient wishes to proceed as outlined below. Currently, I am recommendin.URGENT T12 kyphoplasty with T11 through L1 stabilization Description of Procedure: The patient was seen and examined in the preoperative area. All preoperative protocols were followed. Informed consent was obtained risks and benefits of the procedure were discussed at length. Risks including bleeding infection damage to the surrounding tissue and risk of reoperation were discussed with the patient. Risk of anesthesia up to and including was a discussed with the patient. These are outlined in the risk review. They were willing to accept these risks and all of the risks of surgery. The patient was given a weight- based dose of antibiotics in the form of 2 g Ancef. The patient was seen and evaluated by the anesthesia team who deemed them fit for surgery. The site was marked, the patient was willing to proceed with the procedure. The patient was transferred to the operative suite by the Department of anesthesia. They were then drifted off to sleep by the department anesthesia and GETA was performed. The patient tolerated this well. [Darby catheter was placed by nursing staff, atraumatically]. Once confirmation of lines and ventilation the patient was transferred to a [prone Tani table very carefully]. All bony prominences including wrists, elbows, axilla, chest, hips, and thighs, and feet were padded very well. Special attention was paid to the genitalia and these were padded accordingly. SCDs were placed on bilateral lower extremities and were connected. Arms were well padded and placed [on arm boards up and out in the 90/90 position]. Once in position, again we confirmed good ventilation capabilities and that lines were running appropriately. The patient's thoracolumbar spine was then exposed. 1010s were placed outlining the incision site. Standard alcohol was used to clean the incision site and allowed to dry. C-arm was used to needle localized and then biomark the patient and conf irm level for incision which was marked with a skin marker. Operative briefing was performed with all teams and everyone in agreement to proceed. The patient was then prepped and draped in a normal sterile fashion. Timeout was then performed and all parties were in agreement with the procedure to be performed. needle was then placed again sterilely at the T12 region and skin were then made over the PSIS for the pins for the trackers these were drilled into the PSIS stabilized and the track was secured to this. It was then draped in a 3-D C-arm spent was obtained of the area of interest for Holt navigation. Once then was registered and confirmed to be accurate navigated Jamshidi was placed into bilateral pedicles at T11 followed by a wire and Jamshidi was removed we then placed him she is in to L1 bilaterally and then placed wires and the void. AP and lateral imaging confirmed good placement of wires. We then navigated screws over these wires into position in the levels indicated. The screws were tested and all tested above 20 mA. AP and lateral confirmed good placement of screws. We then proceeded with biopsy and kyphoplasty of T12 Burt was removed and a Jamshidi was introduced into T12 was advanced the vertebral body. We then performed a biopsy of the vertebral body using biopsy needle. We then performed drilling and curetting and balloon kyphoplasty of T12. We did obtain increase in the superior endplate was reduced 3-4 mm back in the position. We then fill this void with cement. All screws were then cemented into position through the cement cannulas. The patient remained stable throughout cementation and there was no cement extravasation angiogram a myelogram. We then sized and selected rods for the area rods were then placed subfascially through the tulips of each screw. Set screws were then placed and all screws to secure the rods bilaterally. Set screws were then final tightened and tabs broken off the screws. Final imaging confirmed good placement of rods and screws good reduction and stabilization. Posterior laterally we placed magna toss. We irrigated the wounds thoroughly with normal sterile saline. The deep fascia was closed with 0 Vicryl superficial subcu closed with 2-0 Vicryl and skin closed with skin harriet the wound edges approximated very well. wounds were then cleaned and sterilely dressed without dressings. The patient was transferred back to their hospital bed atraumatically. Patient was then awakened and extubated by the department of anesthesia having tolerated the procedure very well with no complications. They were transferred to the postoperative care unit in stable condition.
[2022-11-26 08:57] LABS: Basophils # (A) 0.02 X 10*3/uL (0.00-0.10); Basophils % (A) 0.1 %; Eosinophils # (A) 0 X 10*3/uL (0.04-0.35); Eosinophils % (A) 0 %; HCT 37.2 % (39.6-50.0); HGB 11.6 g/dL (13.0-17.0); Immature Grans, Automated 0.7 %; Lymphocytes # (A) 0.93 X 10*3/uL (0.90-5.00); Lymphocytes % (A) 6.8 %; MCH 31.7 pg (27.0-32.0); MCHC 31.2 g/dL (32.0-37.0); MCV 101.6 fL (80.0-97.0); Mean Platelet Volume 10.1 fL (9.5-12.2); Monocytes % (A) 6.6 %; NRBC Per 100 WBC 0 /100 WBCS (0.0-0.0); Neutrophils # (A) 11.73 X 10*3/uL (1.80-7.70); Neutrophils % (A) 85.8 %; Platelet Count 240 X 10*3/uL (140-440); RBC 3.66 X 10*6/uL (4.40-5.60); RDW 14.1 % (11.5-14.5); WBC 13.67 X 10*3/uL (4.50-10.00)
--- NOTE | 2022-11-26 08:57 | P.PN ---
Subjective Progress Note Date: 11/26/22 Principal diagnosis: Progression of T12 vertebral compression fracture Patient seen and examined this morning. Patient was resting in bed and tolerating breakfast well. Surgical dressing is clean dry and intact. Patient states he has not been up with physical therapy, yet today. Instructed patient that he needs to be up to chair for all meals. Informed him that PT OT will be in to work with him. Patient reports that he may need rehab. Patient denies any numbness tingling to bilateral upper or lower extremities. He has been afebrile, denies nausea/vomiting or chest pain. Objective - Vital Signs Vital signs: Vital Signs Temp 98.2 F 11/26/22 08:00 Pulse 93 11/26/22 08:00 Resp 15 11/26/22 08:00 BP 128/85 11/26/22 08:00 Pulse Ox 94 L 11/26/22 08:00 FiO2 Intake & Output 11/25/22 11/26/22 11/26/22 18:59 06:59 18:59 Intake Total 2650 Output Total 190 Balance 2460 Weight 105.9 kg Intake: IV 2650 Output: Urine 140 Estimated Blood Loss 50 Other: Voiding Method Indwelling Catheter Indwelling Catheter # Voids 4 - Exam Physical Examination General: The patient is awake and alert, in no acute distress Skin: Skin is warm and dry with no obvious rashes or lesions. Hairy patches absent, no dorsal skin dimples, no cafe au lait spots. Surgical incision to the thoracic region, Dressing CDI. Eye: Pupils are equal, round and reactive to light, extra-ocular movements are intact; there is normal conjunctiva bilaterally. Neck: The neck is supple, there is no tenderness and ROM intact. Cardiovascular: There is a regular rate and rhythm. No murmur, rub or gallop is appreciated. Respiratory: Lungs are clear to auscultation, respirations are non-labored, breath sounds are equal. Gastrointestinal: Soft, non-distended, non-tender abdomen. Back: There is no tenderness to palpation in the midline, paralumbar, pa rathoracic or buttocks region. There is no obvious deformity . Musculoskeletal: ROM limited secondary to pain and stiffness from surgical procedure. Muscle strength in all major muscle groups of bilateral upper extremities 5/5, bilateral lower extremities 4/5. Neurological: CN 2-12 intact. There are no obvious motor or sensory deficits. Movement and coordination equal and intact. Sensory exam to light touch intact C5-T1 and intact from L2-S1. Reflexes 2/4 in bilateral upper and lower extremiti es. Negative Hoffmans, babinski, and clonus signs. Psychiatric: Cooperative, appropriate mood & affect, normal judgment. - Labs CBC & Chem 7: 11/25/22 18:28 11/25/22 18:28 Labs: Abnormal Lab Results - Last 24 Hours (Table) 11/25/22 11/25/22 Range/Units 18:28 18:28 WBC 17.6 H (3.8-10.6) k/uL RBC 4.06 L (4.30-5.90) m/uL Neutrophils # 16.5 H (1.3-7.7) k/uL Lymphocytes # 0.5 L (1.0-4.8) k/uL Sodium 131 L (137-145) mmol/L Chloride 97 L (98-107) mmol/L Glucose 182 H (74-99) mg/dL Total Protein 6.0 L (6.3-8.2) g/dL Assessment and Plan Assessment: Post-Op Day 1: T12 kyphoplasty with T11-L1 stabilization Progression of T12 vertebral compression fracture Plan: -Appreciate [employer] consultant and team management. -Activity: Ambulate QID, OOB all meals, up and about, limit lifting bending twisting to less than 5 lbs. Use walker or cane if needed for stability. -Daily PT/OT, increase ambulation strength and balance. -Pain control: Adequate at this time -Meds: reviewed -GI ppx: senna, Miralax -DC daily when up and about, bedside commode if needed -DVT PPX: OK to restart Heparin tonight -Hygiene: Shower today. Maintain dressing clean and dry. -Encourage IS 10x/hr -Dispo: Anticipate discharge home tomorrow with homecare vs [facility] *I reviewed and discussed this case with my attending Dr. Tidwell, whom has reviewed this chart and films and is in agreement with assessment and plan of care as outlined above. I have personally seen and examined the patient, performed the documentation and the assessment and plan as written. Number of minutes spent on the visit: 15m.
[2022-11-26 09:23] LABS: African American GFR (CKD) 89.9 (60.0-200.0); Anion Gap 11.2 mmol/L (10.00-18.00); BUN/Creat Ratio 14.5 Ratio (12.00-20.00); Blood Urea Nitrogen 14.5 mg/dL (9.0-27.0); Calcium 8.6 mg/dL (8.7-10.3); Carbon Dioxide 23.8 mmol/L (20.0-27.5); Non-African American GFR(CKD) 77.5 (60.0-200.0); Potassium 5.2 mmol/L (3.5-5.5)
--- NOTE | 2022-11-26 09:29 | CDI ---
Documentation Clarification Form Date: 11/26/2022 09:16:16 AM From: Doris León RN CCDS Admit Date: 11/25/2022 07:15:00 AM Patient Name: Arcadio Pelayo Visit Number: [id number] Discharge Date: ATTENTION: The Clinical Documentation Specialists (CDI) and [facility] Coding Staff appreciate your assistance in clarifying documentation. Please respond to the clarification below the line at the bottom and electronically sign. The CDI & [facility] Coding staff will review the response and follow-up if needed. Please note: Queries are made part of the Legal Health Record. If you have any questions, please contact the author of this message via ITS. Dr. Mary Bray Your patient is receiving the following: Lasix, 11/26; Lopressor, 11/25; Aldactone 11/25 Please clarify what condition/diagnosis is being treated. History/Risk Factors:67-year-old male presents to [facility] for elective Kyphoplasty after a fall in the bathtub Thoracic T12 fracture. Medical History: HLD, HTN and DJD. Clinical Indicators: VS/Pulse OX: 11/25 B/P 123/73; HR 102; Temp 97% F Temporal; RR 16; sPo2 3l nc Echocardiogram Results: 03/30/2020 EF 60-65%; Right ventricle mildly enlarged. Mild tricuspid regurgitation. Treatment: 11/26 Lasix 20mg PO BID; 11/25 Lopressor 25mg PO BID; 11/25 Aldactone 100mg PO Daily What diagnosis are you treating with [treatment]? [ ] Chronic Diastolic Heart Failure (preserved EF) [ ] Other, please specify [ ] Unable to determine (Template Last Revised: December 2020) Unable to determine MTDD
[2022-11-26] MEDS: SPIRONOLACTONE 25 MG TAB PO SCH (09:45)
[2022-11-26] MEDS: ASPIRIN 81 MG PO SCH (09:45)
[2022-11-26] MEDS: POTASSIUM CHLORIDE ER 20 MEQ TAB.ER PO SCH ×2 (09:46→20:55)
[2022-11-26] MEDS: LOSARTAN 25 MG TAB PO SCH (09:46)
[2022-11-26] MEDS: METOPROLOL TARTRATE 25 MG TAB PO SCH ×2 (09:46→20:55)
[2022-11-26] MEDS: FUROSEMIDE 20 MG TAB PO SCH ×2 (09:46→15:36)
[2022-11-26 12:22] VITALS: BMI 34.4
[2022-11-26 20:16] LABS: Appearance,Urine Clear (Clear); Bilirubin,Urine Negative (Negative); Blood,Urine Trace (Negative); Color,Urine Colorless; Glucose,Urine (UA) Negative (Negative); Ketones,Urine Negative (Negative); Leukocyte Esterase,Urine Negative (Negative); Mucus,Urine Rare /hpf; Nitrite,Urine Negative (Negative); Protein,Urine Negative (Negative); RBC,Urine 2 /hpf (0-5); Specific Gravity,Urine 1.008 (1.001-1.035); Urobilinogen,Urine <2.0 mg/dL (<2.0); WBC,Urine 1 /hpf (0-5)
[2022-11-26] MEDS: LORATADINE 10 MG TAB PO SCH (20:55)
[2022-11-26] MEDS: ATORVASTATIN 10 MG TAB PO SCH (20:55)
[2022-11-26] MEDS: ONDANSETRON 4 MG/2 ML VIAL IVP PRN (23:40)
--- NOTE | 2022-11-27 01:30 | PN ---
PROGRESS NOTE DATE OF SERVICE: 11/26/2022 SUBJECTIVE: This 67-year-old gentleman, who was admitted after T12 kyphoplasty, is improving significantly. No chest pain. No palpitations. No fever. OBJECTIVE: VITAL SIGNS: Pulse is 93, blood pressure 118/82, respirations 15. CHEST: Clear to auscultation. CARDIOVASCULAR: S1, S2. ABDOMEN: Soft. NERVOUS SYSTEM: Nonfocal. LABORATORY DATA: Reviewed. ASSESSMENT: 1. Status post T12 kyphoplasty. 2. Mild hypothermia, postop improved. 3. Cerebrovascular accident. 4. Hypertension. 5. Hyperlipidemia. 6. History of degenerative joint disease. RECOMMENDATIONS: I recommend to continue current medications and symptomatic treatment. Otherwise, resume the home medications. Continue to monitor. White count is slightly elevated. I would recommend UA with micro also. Further recommendations to follow. MMODL / IJN: [id number] /
[2022-11-27] MEDS: LACTATED RINGERS 1,000 ML IV SCH (06:49)
[2022-11-27] MEDS: ACETAMINOPHEN TAB 325 MG TAB PO SCH ×3 (07:02→17:23)
[2022-11-27] MEDS: LEVOTHYROXINE 50 MCG TAB PO SCH (07:02)
[2022-11-27] MEDS: PANTOPRAZOLE 40 MG TABLET PO SCH (07:02)
[2022-11-27] MEDS: FUROSEMIDE 20 MG TAB PO SCH ×2 (08:26→15:48)
[2022-11-27] MEDS: CYCLOBENZAPRINE 5 MG TAB PO PRN (08:26)
[2022-11-27] MEDS: METOPROLOL TARTRATE 25 MG TAB PO SCH ×2 (08:26→20:55)
[2022-11-27] MEDS: ASPIRIN 81 MG PO SCH (08:26)
[2022-11-27] MEDS: SPIRONOLACTONE 25 MG TAB PO SCH (08:26)
[2022-11-27] MEDS: LOSARTAN 25 MG TAB PO SCH (08:26)
[2022-11-27] MEDS: POTASSIUM CHLORIDE ER 20 MEQ TAB.ER PO SCH ×2 (08:26→20:55)
[2022-11-27] MEDS: ONDANSETRON 4 MG/2 ML VIAL IVP PRN (08:26)
--- NOTE | 2022-11-27 09:20 | P.PN ---
Subjective Progress Note Date: 11/27/22 Principal diagnosis: Progression of T12 vertebral compression fracture Patient seen and examined this morning. Patient is sitting up in bed and tolerating breakfast. TLSO brace is present. Surgical dressing is clean dry and intact. Patient states that he worked with physical therapy yesterday, and he felt he was very shaky and weak in his lower extremities. Patient agrees that he will need to go to subacute rehab prior to going home. Patient may be discharged today when bed available. Prescriptions have been left in his chart. Patient denies any numbness tingling to bilateral upper or lower extremities. He has been afebrile, denies nausea/vomiting or chest pain. Objective - Vital Signs Vital signs: Vital Signs Temp 97.5 F L 11/27/22 01:44 Pulse 92 11/27/22 01:44 Resp 19 11/27/22 01:44 BP 133/82 11/27/22 01:44 Pulse Ox 95 11/27/22 01:44 FiO2 Intake & Output 11/26/22 11/27/22 11/27/22 18:59 06:59 18:59 Intake Total 50 Output Total 250 Balance -200 Weight 105.9 kg Intake: Intake, IV Titration 50 Amount ceFAZolin 2 gm In Sodium 50 Chloride 0.9% 50 ml @ 100 mls/hr IVPB Q8H [facility] Rx#: [id number] Output: Urine 250 Other: Voiding Method Indwelling Catheter Indwelling Catheter # Voids 5 - Exam Physical Examination General: The patient is awake and alert, in no acute distress Skin: Skin is warm and dry with no obvious rashes or lesions. Hairy patches absent, no dorsal skin dimples, no cafe au lait spots. Surgical incision to the thoracic region, Dressing CDI. Eye: Pupils are equal, round and reactive to light, extra-ocular movements are intact; there is normal conjunctiva bilaterally. Neck: The neck is supple, there is no tenderness and ROM intact. Cardiovascular: There is a regular rate and rhythm. No murmur, rub or gallop is appreciated. Respiratory: Lungs are clear to auscultation, respirations are non-labored, breath sounds are equal. Gastrointestinal: Soft, non-distended, non-tender abdomen. Back: There is no tenderness to palpation in the midline, paralumbar, parathoracic or buttocks region. There is no obvious deformity . Musculoskeletal: ROM limited secondary to pain and stiffness from surgical procedure. Muscle strength in all major muscle groups of bilateral upper extremities 5/5, bilateral lower extremities 4/5. Neurological: CN 2-12 intact. There are no obvious motor or sensory deficits. Movement and coordination equal and intact. Sensory exam to light touch intact C5-T1 and intact from L2-S1. Reflexes 2/4 in bilateral upper and lower extremities. Negative Hoffmans, babinski, and clonus signs. Psychiatric: Cooperative, appropriate mood & affect, normal judgment. - Labs CBC & Chem 7: 11/26/22 04:46 11/26/22 04:46 Labs: Abnormal Lab Results - Last 24 Hours (Table) 11/26/22 11/26/22 11/26/22 Range/Units 04:46 04:46 19:50 WBC 13.67 H (4.50-10.00) X 10*3/uL RBC 3.66 L (4.40-5.60) X 10*6/uL Hgb 11.6 L (13.0-17.0) g/dL Hct 37.2 L (39.6-50.0) % MCV 101.6 H (80.0-97.0) fL MCHC 31.2 L (32.0-37.0) g/dL Immature Gran # 0.09 H (0.00-0.04) X 10*3/uL Neutrophils # 11.73 H (1.80-7.70) X 10*3/uL Eosinophils # 0 L (0.04-0.35) X 10*3/uL Sodium 130 L (135-145) mmol/L Chloride 95 L (96-109) mmol/L Glucose 139 H (70-110) mg/dL Calcium 8.6 L (8.7-10.3) mg/dL Urine Blood Trace H (Negative) Urine Mucus Rare H (None) /hpf Assessment and Plan Assessment: Post-Op Day 2: T12 kyphoplasty with T11-L1 stabilization Progression of T12 vertebral compression fracture Plan: -Appreciate warehouse consultant and team management. -Activity: Ambulate QID, OOB all meals, up and about, limit lifting bending twisting to less than 5 lbs. Use walker or cane if needed for stability. -Daily PT/OT, increase ambulation strength and balance. -TLSO brace is needed when up and about, not needed in bed or chair. -Pain control: Adequate at this time -Meds: reviewed -GI ppx: senna, Miralax -DVT PPX: OK to restart Heparin tonight -Hygiene: Shower today. Maintain dressing clean and dry. -Encourage IS 10x/hr -Dispo: Anticipate discharge home today to [facility] when bed available *I reviewed and discussed this case with my attending Dr. Tidwell, whom has r eviewed this chart and films and is in agreement with assessment and plan of care as outlined above. I have personally seen and examined the patient, performed the documentation and the assessment and plan as written. Number of minutes spent on the visit: 15m.
--- NOTE | 2022-11-27 09:21 | P.DS ---
Providers Date of admission: 11/25/22 07:15 Expected date of discharge: 11/27/22 Attending physician: Asif Tidwell DO Consults: 11/25/22 12:43 Consult Physician Routine Consulting Provider: Mary Bray Reason/Comments: Medical Management Do you want consulting provider notified?: Yes Primary care physician: [facility] Course: Hospital Course: The patient was evaluated preoperatively and found to have the diagnosis of progression of T12 compression fracture. They underwent appropriate preoperative care and were willing to undergo the intended procedure. They underwent a successful T 12 kyphoplasty with T11-L1 stabilization, were recovered appropriately and sent to the floor. While on the floor they worked with physical therapy, occupational therapy and nursing to enhance their recovery experience. Their pain was well controlled through their stay and they were started on appropriate medications, DVT ppx modalities, activity and dietary needs. Daily labs were monitored closely, and transfusions were only used when necessary. Medicine as well as other consulting services have made their input and have helped with our team approach and multidisciplinary care. PT milestones have been met and passed and they have made the recommendation of subacute rehab for this patient and treating providers agree with this care path. The patient will be discharged home with appropriate medications, instructions and follow-up information and in stable condition. Patient Condition at Discharge: Good Plan - Discharge Summary Discharge Rx Participant: Yes New Discharge Prescriptions: New Cyclobenzaprine [Flexeril] 5 mg PO TID #90 tablet Sennosides/Docusate Sodium [Senna Plus 8.6-50 mg Tablet] 1 each PO DAILY PRN #20 tablet PRN Reason: Constipation cefaDROXiL [Duricef] 500 mg PO Q12HR 3 Days #6 cap Gabapentin 300 mg PO TID #90 cap HYDROcodone/APAP 7.5-325MG [Bovey 7.5] 1 each PO Q4-6H PRN #56 tab PRN Reason: Pain No Action Pantoprazole Sodium 40 mg PO DAILY Levothyroxine Sodium [Synthroid] 50 mcg PO DAILY Losartan [Cozaar] 25 mg PO DAILY Spironolactone 100 mg PO DAILY Cetirizine HCl [Zyrtec] 10 mg PO HS Nitroglycerin Sl Tabs [Nitrostat] 0.4 mg SUBLINGUAL Q5M PRN 15 Days #15 tab PRN Reason: Chest Pain Furosemide [Lasix] 20 mg PO BID Aspirin 81 mg PO DAILY chew Metoprolol Tartrate [Lopressor] 25 mg PO BID Potassium Chloride ER [K-Dur 20] 20 meq PO BID Rosuvastatin Calcium 5 mg PO HS Discharge Medication List Levothyroxine Sodium [Synthroid] 50 mcg PO DAILY 03/14/15 [History] Pantoprazole Sodium 40 mg PO DAILY 03/14/15 [History] Losartan [Cozaar] 25 mg PO DAILY 08/08/20 [History] Spironolactone 100 mg PO DAILY 08/08/20 [History] Cetirizine HCl [Zyrtec] 10 mg PO HS 07/03/21 [History] Aspirin 81 mg PO DAILY chew 07/09/21 [Rx] Nitroglycerin Sl Tabs [Nitrostat] 0.4 mg SUBLINGUAL Q5M PRN 15 Days #15 tab 07/09/21 [Rx] Furosemide [Lasix] 20 mg PO BID 10/29/22 [History] Metoprolol Tartrate [Lopressor] 25 mg PO BID 10/29/22 [History] Potassium Chloride ER [K-Dur 20] 20 meq PO BID 10/29/22 [History] Rosuvastatin Calcium 5 mg PO HS 10/29/22 [History] Cyclobenzaprine [Flexeril] 5 mg PO TID #90 tablet 11/27/22 [Rx] Gabapentin 300 mg PO TID #90 cap 11/27/22 [Rx] HYDROcodone/APAP 7.5-325MG [Bovey 7.5] 1 each PO Q4-6H PRN #56 tab 11/27/22 [Rx] Sennosides/Docusate Sodium [Senna Plus 8.6-50 mg Tablet] 1 each PO DAILY PRN #20 tablet 11/27/22 [Rx] cefaDROXiL [Duricef] 500 mg PO Q12HR 3 Days #6 cap 11/27/22 [Rx] Follow up Appointment(s)/Referral(s): Umberto Urena DO [Primary Care Provider] - 12/03/22 1:00 pm Asif Tidwell DO [Doctor of Osteopathic Medicine] - 12/11/22 11:00 am Activity/Diet/Wound Care/Special Instructions: Spine Discharge and Recovery Instructions Date of Surgery: 11/25/2022 Diagnosis: Progression of T12 compression fracture Procedure: T12 kyphoplasty with T11-L1 stabilization Medications: See medication list All medication refills should be obtained through your primary care doctor or your clinic spine surgeon. Please discuss prescription refills at your follow up appointment. Do not call the hospital for medication refills. Dressing: Leave your dressing in place for a total of 5 days post operatively. Then you may remove your dressing and leave open to air. Keep the area clean and if not able to keep area clean, then cover with sterile gauze and tape. Showering: You may shower 3 days after your procedure allowing soap and water to run over incision. Do not scrub. Do not soak. Blot dry. Follow up: Please confirm a follow up appointment with your surgeon 3 weeks post operatively. Please make an appointment to follow up with your PCP in 1-2 weeks after surgery for evaluation 3 phase, 3-week plan POST OP WEEKS 1-3 1. Lifting/carrying/pushing/pulling limited to less than 5 pounds. 2. Do not sit for longer than 15 minutes at one time. Get up and walk around. Prolonged sitting is NOT advised. If you lay down, see if you can tolerate laying down on you front (belly side) 3. Walk for periods of 15 minutes = 1 mile but no longer; do it multiple times times each day. 4. Ice your low back after activity. POST OP WEEKS 3-6 1. Lifting limited to less than 20 pounds. 2. Do not sit for longer than 30 minutes at a time. Frequently change positions. Use a sit-to stand workstation or take frequent breaks from sitting if you have returned to work. 3. Walk for 30 minutes each day. If possible, do these three or more times a day POST OP WEEKS 6+ At your 6-week appointment we will give you a physical therapy referral to focus on a core stabilization and strengthening program. You should also work on leg & buttock strengthening, hamstring & quadriceps stretching, and continue a low impact aerobic activity program such as swimming, walking, or riding a stationary bicycle. During the initial 6 weeks after your surgery, you are at the highest risk of re-injuring your spine. You should generally avoid BLTs (bending, lifting and twisting combination motions) and follow the above guidelines to reduce the chance of reinjury. You can anticipate post op appointments in our office at approximately 3 weeks and 6 weeks after your surgery. INCISION CARE: If your incision is not draining you do NOT need to cover it with a dressing. Keep your incision clean, dry and intact. In most cases, we apply skin glue, harriet or sutures to the incision at the time of surgery. This will be like a crust or have the appearance of a scab and will fall off in time on its own. The stitches or harriet need to be removed at 3 weeks post op appointment. You may begin to shower 3 days after surgery (this allows the glue to dominguez well). However, please avoid scrubbing the incision site or peeling off any of the skin glue. This will ensure optimal healing of your incision. Also, during this time avoid soaking the incision area in water - this includes swimming pools, hot tubs or baths. No ointments, lotions or oils on the incision until your surgeon allows. Leave harriet, sutures or glue in place. Neurological dysfunction that comes on suddenly can also be a sign of a stroke. Below some common symptoms of a stroke are listed: B - balance difficulty such as sudden onset walking or leaning to one side - NEW E - eye problem such as sudden double vision or trouble seeing on one side - NEW F - Facial weakness or numbness on one side - NEW A - Arm or leg weakness or numbness on one side - NEW S - Slurred speech or difficulty with word finding - NEW T - Time is BRAIN! Call 911 as soon as you recognize these symptoms Diet: Consume a regular diet rich in vegetables and lean protein such as chicken or fish. You should consume in a ratio of approximately 20% fats|40% carbohydrates|40%protein. Vegetables, sweet potatoes, brown rice or quinoa are examples of good carbohydrates. Chips, white bread, cookies and sweets/sugar are examples of bad carbohydrates. Limit your bad carbs, go wild with good carbs. "Life's Simple 7" Guidelines as per [place] [employer] These will help you reclaim your life after surgery and card cutter helper in your recovery, keeping in mind your restrictions. (1) Get Active. Physical activity can help people lose weight, control high blood pressure and cholesterol, feel emotionally better, and sleep better. (2) Control Cholesterol. Avoid a diet high in saturated fat, trans fat, & cholesterol. Limit whole milk & cream, ice cream, butter, egg yolks, processed meats (like sausage and hot dogs), and fatty meats. Choose healthy foods that are low in saturated fat, trans fat and cholesterol which include: Fruits and vegetables, fiber rich grain products (like whole grain pasta and brown rice), lean meat such as chicken, fish, nuts, seeds, and legumes. (3) Eat Better. Eat small portions. Shop at the grocery with a list and do not stray from it. Tips for a healthy diet include: Limit sodium intake to less than 1500mg daily, avoid prepackaged, processed, and fast foods, choose a diet rich in fruits, vegetables, and whole grain, high fiber foods, and limit saturated & cholesterol in your diet. (4) Manage Blood Pressure. If you have high blood pressure, you should have a cuff at home so that you can check your blood pressure regularly. Be sure you have a good cuff. An arm one is generally better than a wrist one. Bring the cuff to a doctor's appointment to validate that the measurements that your cuff are taking are accurate. Take your blood pressure twice daily when you are sitting down and relaxing. Record the numbers in a log and bring this log with you to your doctors' appointments. (5) Lose Weight if your BMI is above 25. A healthy BMI is between 19-25. To calculate Your BMI, you may use a Standard BMI Calculator on the NIH BMI website: <www.nhlbi.nih.gov/guidelines/obesity/BMI/bmicalc.htm>. Weigh oneself daily. If you are overweight, set a goal to lose weight. A pound a week loss if needed is a good target. (6) Reduce Blood Sugar. Limit foods and liquids with "added sugars." (Added sugars include sucrose, fructose, glucose, maltose, dextrose, high fructose corn syrup, corn syrup, concentrated fruit juice and honey). (7) Stop Smoking. If you smoke, quitting smoking is one of the best things that you can do for your health. Smoking increases your risk of heart attack, stroke, and peripheral vascular disease, which is a build-up of plaque in your arteries. Please discard all the cigarettes and lighters in your house. Have a plan for what you will do when you have the urge to smoke. Direct and second- hand smoke shortens your life as well as the lives of your family, friends and others around you. For your health and the health of those around you, please c onsider quitting! Proper Bending Body Mechanics: Maintain a wide stance with one foot slightly in front of the other. Keep your back straight. Bend utilizing the strength in your hips and knees. Do not bend at the waist. Maintain the lifted object at your waist-level close to your body. Avoid lifting weight that causes immediately pain or pain anywhere in the body afterwards. Smoking/Nicotine If there was ever one thing that you could do to increase your overall health, decrease your risk of cardiovascular problems by about 39% the second you make the choice, it is to STOP SMOKING. Your body's most instant gratification is the second you stop smoking. We have all heard the studies, read the articles but it is true, smoking is extremely bad for your overall health, and moreover it is detrimental to your bone health. Nicotine, IN ANY FORM, kills bone cells, prevents your body from healing fractures, and significantly prolongs healing after surgery. In spine surgery specifically, it increases your risk of not healing your bones to create a fusion and increases your risk of having a revision surgery due to this up to 60%. I know it is hard. I know it feels impossible. But there are ways. Take control of your life. We are here to help you through it. And when you are ready, ask us and we can direct you to help if you desire. Use the START Plan to Quit Smoking (please visit the Helpguide.org website listed below for more information): S = Set a quit date. Choose a date within the next 2 weeks, so you have enough time to prepare without losing your motivation to quit. If you mainly smoke at work, quit on the weekend, so you have a few days to adjust to the change. T = Tell family, friends, and co-workers that you plan to quit. Let your friends and family in on your plan to quit smoking and tell them you need their support and encouragement to stop. Look for a quit evelia who wants to stop smoking as well. You can help each other get through the rough times. A = Anticipate and plan for the challenges you'll face while quitting. Most people who begin smoking again do so within the first 3 months. You can help yourself make it through by preparing ahead for common challenges, such as nicotine withdrawal and cigarette cravings. R = Remove cigarettes and other tobacco products from your home, car, and work. Throw away all your cigarettes (no emergency pack!), lighters, ashtrays, and matches. Wash your clothes and freshen up anything that smells like smoke. Shampoo your car, clean your drapes and carpet, and steam your furniture. T = Talk to your doctor about getting help to quit. Your doctor can prescribe medication to help with withdrawal and suggest other alternatives. If you can't see a doctor, you can get many products over the counter at your local pharmacy or grocery store, including the nicotine patch, nicotine lozenges, and nicotine gum. Resources for Quitting Smoking: <https://www.[place].gov/documents/catholic health/Quit_Tobacco_Resources_for_patients_313 480_7.pdf> Supplementation: Take recommended dosages of Vitamin D and Calcium to help fortify your bones and help them to heal. See your health maintenance packet for dosages and rec ommended levels. DVT/VTE prophylaxis: You will be given compression stockings from the hospital. Wear these daily for the first two weeks after surgery. You may take them off at night. You may be prescribed a medication to help thin your blood. Take this as directed. If you are not prescribed this medication, early and frequent ambulation has been shown to be the best prophylaxis to deep vein thrombosis and sequelae related to this event. Discharge Disposition: TRANSFER TO SNF/ECF
--- NOTE | 2022-11-27 15:08 | P.PN ---
Subjective This is a pleasant 67 years old male with past medical history of hypertension, hyperlipidemia, osteoarthritis, GERD, CVA/TIA. Patient admitted under orthopedic service and he underwent kyphoplasty for T 11-L1, today is postop day #1. Patient clinically doing well, he complains from mild pain at the surgical site and constipation, no other complaint, no chest pain or dyspnea, no abdominal pain vomiting or diarrhea. No urinary complaints. Patient thinks his lower extremity weakness is improving but not completely resolved. Also he has some evidence of progression of T12 compression fracture. Patient has postop anemia which is expected with hemoglobin 11.6 also has mild leukocytosis which is trending down 17,000 down to 30,000 most likely reactive. Vital signs stable. Labs reviewed. Sodium 1:30, patient was counseled about fluid restriction and he agrees Upon discharge recommend patient follow up with PCP Dr. Urena in one week, patient was instructed with the same and he agrees Objective - Vital Signs Vital signs: Vital Signs Temp 97.6 F 11/27/22 08:00 Pulse 88 11/27/22 08:00 Resp 20 11/27/22 08:00 BP 125/85 11/27/22 08:00 Pulse Ox 96 11/27/22 08:00 FiO2 Intake & Output 11/26/22 11/27/22 11/27/22 18:59 06:59 18:59 Intake Total 50 50 Output Total 250 Balance -200 50 Weight 105.9 kg Intake: Intake, IV Titration 50 50 Amount ceFAZolin 2 gm In Sodium 50 50 Chloride 0.9% 50 ml @ 100 mls/hr IVPB Q8H [facility] Rx#: [id number] Output: Urine 250 Other: Voiding Method Indwelling Catheter Indwelling Catheter # Voids 5 - Exam GENERAL: The patient is alert and oriented x3, not in any acute distress. Well developed, well nourished. HEENT: Pupils are round and equally reacting to light. EOMI. No scleral icterus. No conjunctival pallor. Normocephalic, atraumatic. No pharyngeal erythema. No t hyromegaly. CARDIOVASCULAR: S1 and S2 present. No murmurs, rubs, or gallops. PULMONARY: Chest is clear to auscultation, no wheezing or crackles. ABDOMEN: Soft, nontender, nondistended, normoactive bowel sounds. No palpable organomegaly. -MUSCULOSKELETAL: No joint swelling or deformity. Back surgical wound with a Place, rest of exam was deferred to surgery team EXTREMITIES: No cyanosis, clubbing, or pedal edema. NEUROLOGICAL: Gross neurological examination did not reveal any focal deficits. SKIN: No rashes. no petechiae. - Labs CBC & Chem 7: 11/26/22 04:46 11/26/22 04:46 Labs: Abnormal Lab Results - Last 24 Hours (Table) 11/26/22 Range/Units 19:50 Urine Blood Trace H (Negative) Urine Mucus Rare H (None) /hpf Assessment and Plan Assessment: Progressive T12 progressive compression fraction is status post kyphoplasty of T11-L1 Postop anemia, expected Reactive leukocytosis, secondary to above. Improving. No evidence of infection, no need for antibiotics Constipation, could be related to pain medication. Hypertension Hyperlipidemia History of osteoarthritis Obesity with BMI of 34.5 Plan: Continue with home medication including oral Lasix Continue with pain medication and DVT prophylaxis per surgery team will follow the patient closely Monitored wbc, monitor hemoglobin Monitor sodium, patient was instructed for fluid restriction and he agrees. Patient is medically stable Labs and medication were reviewed.. Continue same treatment. Continue with symptomatic treatment. Resume home medication. Monitor labs and vitals. DVT and GI prophylaxis. Further recommendations as per clinical course of the patient DVT prophylaxis: Deferred to surgery team GI Prophylaxis: Ppi Thank you for consulting us, on follow-up with the
[2022-11-27] MEDS: ATORVASTATIN 10 MG TAB PO SCH (20:40)
[2022-11-27] MEDS: LORATADINE 10 MG TAB PO SCH (20:55)
[2022-11-27] MEDS: HYDROcodone/APAP 7.5-325MG 1 EACH TAB PO PRN (20:56)
[2022-11-28] MEDS: ACETAMINOPHEN TAB 325 MG TAB PO SCH ×3 (00:39→12:16)
[2022-11-28] MEDS: LEVOTHYROXINE 50 MCG TAB PO SCH (05:20)
[2022-11-28] MEDS: PANTOPRAZOLE 40 MG TABLET PO SCH (08:33)
[2022-11-28] MEDS: SPIRONOLACTONE 25 MG TAB PO SCH (08:33)
[2022-11-28] MEDS: METOPROLOL TARTRATE 25 MG TAB PO SCH (08:33)
[2022-11-28] MEDS: LOSARTAN 25 MG TAB PO SCH (08:33)
[2022-11-28] MEDS: POTASSIUM CHLORIDE ER 20 MEQ TAB.ER PO SCH (08:33)
[2022-11-28] MEDS: HYDROcodone/APAP 7.5-325MG 1 EACH TAB PO PRN (08:34)
[2022-11-28] MEDS: FUROSEMIDE 20 MG TAB PO SCH (08:34)
[2022-11-28] MEDS: ASPIRIN 81 MG PO SCH (08:34)
[2022-11-28 09:00] VITALS: BP 122/81; PULSE 91; RESP 19; TEMP 97.5
[2022-11-28] MEDS ORDERED: polyethylene glycoL 3350 17 GM POWD.PACK PO STA (09:26)
--- NOTE | 2022-11-28 12:30 | P.PN ---
Subjective This is a pleasant 67 years old male with past medical history of hypertension, hyperlipidemia, osteoarthritis, GERD, CVA/TIA. Patient admitted under orthopedic service and he underwent kyphoplasty for T 11-L1, today is postop day #1. Patient clinically doing well, he complains from mild pain at the surgical site and constipation, no other complaint, no chest pain or dyspnea, no abdominal pain vomiting or diarrhea. No urinary complaints. Patient thinks his lower extremity weakness is improving but not completely resolved. Also he has some evidence of progression of T12 compression fracture. Patient has postop anemia which is expected with hemoglobin 11.6 also has mild leukocytosis which is trending down 17,000 down to 30,000 most likely reactive. Vital signs stable. Labs reviewed. Sodium 1:30, patient was counseled about fluid restriction and he agrees Upon discharge recommend patient follow up with PCP Dr. Urena in one week, patient was instructed with the same and he agrees 11/28/2022 Patient sitting in chair looks comfortable with the brace on, reports improvement in his back pain type 5/10 today. Patient feels improvement in his legs after he had the back surgery however he still needs subacute rehab upon discharge and patient looks agreeable. A patient is on home oxygen at 3 L/m and currently he is saturating 94%, no dyspnea or chest pain or coughing. No other respiratory symptoms. His main complaint today is constipation, MiraLAX time on his provided for him He has some mild postoperative anemia and postop leukocytosis is improving, no signs or symptoms of infection, need for antibiotics for now however was still recommend close monitoring of WBC and hemoglobin. Objective - Vital Signs Vital signs: Vital Signs Temp 97.5 F L 11/28/22 07:16 Pulse 91 11/28/22 07:16 Resp 19 11/28/22 07:16 BP 122/81 11/28/22 07:16 Pulse Ox 94 L 11/28/22 08:30 FiO2 Intake & Output 11/27/22 11/28/22 11/28/22 18:59 06:59 18:59 Intake Total 50 Balance 50 Intake: Intake, IV Titration 50 Amount ceFAZolin 2 gm In Sodium 50 Chloride 0.9% 50 ml @ 100 mls/hr IVPB Q8H [facility] Rx#: [id number] Other: # Voids 7 1 - Exam GENERAL: The patient is alert and oriented x3, not in any acute distress. Well developed, well nourished. HEENT: Pupils are round and equally reacting to light. EOMI. No scleral icterus. No conjunctival pallor. Normocephalic, atraumatic. No pharyngeal erythema. No thyromegaly. CARDIOVASCULAR: S1 and S2 present. No murmurs, rubs, or gallops. PULMONARY: Chest is clear to auscultation, no wheezing or crackles. ABDOMEN: Soft, nontender, nondistended, normoactive bowel sounds. No palpable or ganomegaly. -MUSCULOSKELETAL: No joint swelling or deformity. Back surgical wound with a Place, rest of exam was deferred to surgery team EXTREMITIES: No cyanosis, clubbing, or pedal edema. NEUROLOGICAL: Gross neurological examination did not reveal any focal deficits. SKIN: No rashes. no petechiae. - Labs CBC & Chem 7: 11/26/22 04:46 11/26/22 04:46 Assessment and Plan Assessment: Progressive T12 progressive compression fraction is status post kyphoplasty of T11-L1 Postop anemia, expected Reactive leukocytosis, secondary to above. Improving. No evidence of infection, no need for antibiotics Constipation, could be related to pain medication. Hypertension Hyperlipidemia History of osteoarthritis Obesity with BMI of 34.5 Plan: Continue with home medication including oral Lasix Continue with pain medication and DVT prophylaxis per surgery team will follow the patient closely Monitored wbc, monitor hemoglobin MiraLAX time 1 Monitor sodium, patient was instructed for fluid restriction and he agrees. Patient is medically stable Labs and medication were reviewed.. Continue same treatment. Continue with symptomatic treatment. Resume home medication. Monitor labs and vitals. DVT and GI prophylaxis. Further recommendations as per clinical course of the patient DVT prophylaxis: Deferred to surgery team GI Prophylaxis: Ppi Thank you for consulting us, on follow-up with the recommend patient follow up with PCP Dr. Urena and one week, patient was instructed with the same
== END 2022-11-28 13:26 | DRG 478 ==
LOC: 2ORMAIN 07:15 → EEVIPCON 10:30 → 4SSUR 15:33
PROVIDERS: ADMIT Orthopaedic Surgery; ATTEND Orthopaedic Surgery
PROC: 0PS434Z Reposition Thoracic Vertebra with Internal Fixation Device, Percutaneous Approach (ICD-10-PCS; 2022-11-25)
PROC: 8E0WXBZ Computer Assisted Procedure of Trunk Region (ICD-10-PCS; 2022-11-25)
PROC: 0PB43ZX Excision of Thoracic Vertebra, Percutaneous Approach, Diagnostic (ICD-10-PCS; principal; 2022-11-25 10:30)
PROC: 0PU43JZ Supplement Thoracic Vertebra with Synthetic Substitute, Percutaneous Approach (ICD-10-PCS; 2022-11-25 10:30)
DX: S22.082A Unstable burst fracture of T11-T12 vertebra, initial encounter for closed fracture (principal); D62 Acute posthemorrhagic anemia; Z99.81 Dependence on supplemental oxygen; Z68.34 Body mass index [BMI] 34.0-34.9, adult; E66.9 Obesity, unspecified; I10 Essential (primary) hypertension; E78.5 Hyperlipidemia, unspecified; M40.204 Unspecified kyphosis, thoracic region; R25.1 Tremor, unspecified; H91.91 Unspecified hearing loss, right ear; R68.0 Hypothermia, not associated with low environmental temperature; M19.90 Unspecified osteoarthritis, unspecified site; K21.9 Gastro-esophageal reflux disease without esophagitis; J98.4 Other disorders of lung; D72.828 Other elevated white blood cell count; K59.03 Drug induced constipation; T40.605A Adverse effect of unspecified narcotics, initial encounter; W18.2XXA Fall in (into) shower or empty bathtub, initial encounter; Z87.891 Personal history of nicotine dependence; Z86.73 Personal history of transient ischemic attack (TIA), and cerebral infarction without residual deficits; Z89.421 Acquired absence of other right toe(s); Z79.899 Other long term (current) drug therapy; Z79.890 Hormone replacement therapy; Z79.82 Long term (current) use of aspirin; Z91.030 Bee allergy status; Z95.5 Presence of coronary angioplasty implant and graft; Z95.818 Presence of other cardiac implants and grafts
CPT/HCPCS: 72070; 72128; 80048; 80053; 81001; 84443; 85025; 86850; 86900; 86901; 87070; 88307; 94760

== ENCOUNTER 2022-12-10 09:30 | Inpatient (IN) | payer MEDICARE ==
[2022-12-10] MEDS ORDERED: SODIUM CHLORIDE 0.9% 1,000 ML IV STA ×2 (09:35→14:05)
[2022-12-10] MEDS ORDERED: SODIUM CHLORIDE 0.9% 500 ML 500 ML IV STA (09:35)
--- NOTE | 2022-12-10 09:38 | ED ---
Recheck HPI - General Chief Complaint: Recheck/Abnormal Lab/Rx Stated Complaint: abn labs Time Seen by Provider: 12/10/22 09:30 Source: patient, EMS, RN notes reviewed, old records reviewed Mode of arrival: EMS Limitations: physical limitation - History of Present Illness Initial Comments: 67-year-old male history of multiple medical issues including frequent falls and a recent T11-T12 fracture for which she is getting rehab at this time who is had frequent [facility] is at the last one being 2 days ago he normally is on 3 L of oxygen every day he refused uses CPAP at night who is brought in today because of a low sodium phone on a blood draw was done on the of this month. It was 109. Patient was awake and alert this morning somewhat somnolent per paramedics upon arrival. Patient does arouse to verbal stimulation and is conversant. No other current complaints modifying factors MD Complaint: abnormal lab - Related Data Home Medications Medication Instructions Recorded Confirmed Levothyroxine Sodium [Synthroid] 50 mcg PO DAILY@0600 03/14/15 12/10/22 Losartan [Cozaar] 25 mg PO DAILY 08/08/20 12/10/22 Cetirizine HCl [Zyrtec] 10 mg PO HS 07/03/21 12/10/22 Furosemide [Lasix] 20 mg PO DAILY 10/29/22 12/10/22 Metoprolol Tartrate [Lopressor] 25 mg PO BID 10/29/22 12/10/22 Potassium Chloride ER [K-Dur 20] 20 meq PO BID 10/29/22 12/10/22 Ammonium Lactate Cream [Lac-Hydrin 1 applic TOPICAL HS 12/10/22 12/10/22 12% Cream] Atorvastatin [Lipitor] 10 mg PO HS 12/10/22 12/10/22 Clotrimazole Cream [Lotrimin Cream] 1 applic TOPICAL BID 12/10/22 12/10/22 Cyclobenzaprine [Flexeril] 5 mg PO TID@0600,1400,2200 12/10/22 12/10/22 Gabapentin 300 mg PO TID@0600,1400,2200 12/10/22 12/10/22 HYDROcodone/APAP 7.5-325MG [[place] 1 tab PO Q4H PRN 12/10/22 12/10/22 7.5] Hydrocortisone Cream 0.5% 1 applic TOPICAL BID 12/10/22 12/10/22 Omeprazole [PriLOSEC] 20 mg PO DAILY@0600 12/10/22 12/10/22 Sennosides/Docusate Sodium [Senna 1 tab PO DAILY PRN 12/10/22 12/10/22 Plus 8.6-50 mg Tablet] Sennosides/Docusate Sodium [Senna 2 tab PO DAILY 12/10/22 12/10/22 Plus 8.6-50 mg Tablet] Spironolactone [Aldactone] 50 mg PO DAILY 12/10/22 12/10/22 Triad Cream 1 applic TOPICAL DAILY PRN 12/10/22 12/10/22 Triad Cream 1 applic TOPICAL Q12H 12/10/22 12/10/22 bisacodyL [Dulcolax] 10 mg RECTAL DAILY PRN 12/10/22 12/10/22 polyethylene glycoL 3350 [Miralax] 17 gm PO DAILY 12/10/22 12/10/22 Previous Rx's Medication Instructions Recorded Aspirin 81 mg PO DAILY chew 07/09/21 Nitroglycerin Sl Tabs [Nitrostat] 0.4 mg SUBLINGUAL Q5M PRN 15 Days 07/09/21 #15 tab Allergies Allergy/AdvReac Type Severity Reaction Status Date / Time bee venom protein (honey bee) Allergy Anaphylaxis Verified 12/10/22 10:29 Review of Systems ROS Statement: Those systems with pertinent positive or pertinent negative responses have been documented in the HPI. ROS Other: All systems not noted in ROS Statement are negative. 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 2LNC home O2 around the clock, r/t unknown lung disease. Hx of fx ribs, lung "collapsed" states no chest tube History of Any Multi-Drug Resistant Organisms: None Reported Past Surgical History: Appendectomy, Hernia Repair, Orthopedic Surgery Additional Past Surgical History / Comment(s): rotator cuff x2 left shoulder, uvula removed Past Anesthesia/Blood Transfusion Reactions: Previous Problems w/ Anesthesia Additional Past Anesthesia/Blood Transfusion Reaction / Comment(s): woke up once during surgery, clausterphobia-had to be sedated for mri Date of Last Stent Placement:: Jun 2021 Past Psychological History: No Psychological Hx Reported Past Drug Use History: None Reported - Past Family History Father Family Medical History: Diabetes Mellitus, Hyperlipidemia, Hypertension Additional Family Medical History / Comment(s): at age 86 Mother Family Medical History: Cancer, Diabetes Mellitus, Hyperlipidemia, Hypertension, Thyroid Disorder Additional Family Medical History / Comment(s): Mother is from either a stomach or colon cancer. Brother(s) Additional Family Medical History / Comment(s): Patient has 2 brothers that have from's cystic fibrosis. One brother is alive with no major medical problems. Sister(s) Additional Family Medical History / Comment(s): Patient has 2 sisters with no major medical problems. Daughter(s) Additional Family Medical History / Comment(s): Patient is total of 4 children with no major medical problems. General Exam - General Exam Comments Initial Comments: oriented 4 male Limitations: physical limitation General appearance: alert, lethargic Head exam: Present: atraumatic, normocephalic, normal inspection Eye exam: Present: normal appearance, PERRL, EOMI. Absent: scleral icterus, conjunctival injection, periorbital swelling ENT exam: Present: mucous membranes dry Neck exam: Present: normal inspection. Absent: tenderness, meningismus, lymph adenopathy Respiratory exam: Present: normal lung sounds bilaterally. Absent: respiratory distress, wheezes, rales, rhonchi, stridor Cardiovascular Exam: Present: regular rate, normal rhythm, normal heart sounds. Absent: systolic murmur, diastolic murmur, rubs, gallop, clicks GI/Abdominal exam: Present: soft, normal bowel sounds. Absent: distended, tenderness, guarding, rebound, rigid Extremities exam: Present: normal inspection, full ROM, normal capillary refill. Absent: tenderness, pedal edema, joint swelling, calf tenderness Back exam: Present: normal inspection Neurological exam: Present: alert, oriented X3, CN II-XII intact Psychiatric exam: Present: normal affect, normal mood Skin exam: Present: warm, dry, intact, normal color. Absent: rash Course Vital Signs 12/10/22 12/10/22 12/10/22 09:31 09:35 09:36 Temperature 98.3 F Pulse Rate 94 Pulse Rate [ 95 Metal Tester ] Respiratory 18 Rate Blood Pressure 126/81 O2 Sat by Pulse 97 96 Oximetry 12/10/22 12/10/22 12/10/22 09:40 09:50 10:00 Temperature Pulse Rate 102 H 101 H Pulse Rate [ Metal Tester ] Respiratory 18 16 Rate Blood Pressure 126/81 126/81 126/81 O2 Sat by Pulse 96 96 83 L Oximetry 12/10/22 12/10/22 12/10/22 10:10 10:30 10:40 Temperature Pulse Rate 100 102 H 99 Pulse Rate [ Metal Tester ] Respiratory 14 14 16 Rate Blood Pressure 126/81 126/81 126/81 O2 Sat by Pulse 98 98 Oximetry 12/10/22 12/10/22 12/10/22 10:50 11:00 11:10 Temperature Pulse Rate 100 96 101 H Pulse Rate [ Metal Tester ] Respiratory 18 16 18 Rate Blood Pressure 126/81 126/81 O2 Sat by Pulse 99 98 96 Oximetry 12/10/22 12/10/22 12/10/22 11:20 11:30 11:40 Temperature Pulse Rate 98 96 98 Pulse Rate [ Metal Tester ] Respiratory 18 18 18 Rate Blood Pressure 124/79 124/74 O2 Sat by Pulse 96 98 94 L Oximetry 12/10/22 12/10/22 12/10/22 11:50 12:00 12:10 Temperature Pulse Rate 102 H 99 Pulse Rate [ Metal Tester ] Respiratory 18 18 18 Rate Blood Pressure 124/79 111/66 111/66 O2 Sat by Pulse 96 99 98 Oximetry 12/10/22 12/10/22 12/10/22 12:20 12:30 12:40 Temperature Pulse Rate 102 H 105 H 103 H Pulse Rate [ Metal Tester ] Respiratory 18 14 16 Rate Blood Pressure 111/66 111/66 111/66 O2 Sat by Pulse 97 97 98 Oximetry 12/10/22 12/10/22 12:50 13:00 Temperature Pulse Rate 102 H 102 H Pulse Rate [ Metal Tester ] Respiratory 18 18 Rate Blood Pressure 111/66 111/66 O2 Sat by Pulse 97 96 Oximetry - Reevaluation(s) Reevaluation #1: 12/10/22 14:59 I did reevaluate patient on multiple occasions no clinical change noted. I did have multiple discussions with the patient's also. She relates that this for several days where he stated decreased mental status. He received for things that weren't there. Medical Decision Making - Medical Decision Making I did discuss findings with patient and with his family patient's clinical stat us has remained status quo. Patient does demonstrate hyponatremia and hypo- chloride. Patient be admitted ICU the case discussed with Dr. phillip who did come see the patient as well as with Dr. Smith and with Dr. Jang Was pt. sent in by a medical professional or institution (, PA, MICROBIOLOGICAL LAB TECHNICIAN, urgent care, hospital, or penitentiary...) When possible be specific @ S penitentiary -[No] Did you speak to anyone other than the patient for history (EMS, parent, family, police, friend...)? What history was obtained from this source @ -[No] Did you review nursing and triage notes (agree or disagree)? Why? @ Yes and agree-[I reviewed and agree with nursing and triage notes] Were old charts reviewed (outside hosp., previous admission, EMS record, old EKG, old radiological studies, urgent care reports/EKG's, penitentiary records)? Report findings @ Yes-[No old charts were reviewed] Differential Diagnosis (chest pain, altered mental status, abdominal pain women, abdominal pain men, vaginal bleeding, weakness, fever, dyspnea, syncope, headache, dizziness, GI bleed, back pain, seizure, CVA, palpatations, mental health)? @ EKG interpreted by me (3pts min.). @ Yes no acute process-[As above] X-rays interpreted by me (1pt min.). @ No acute process tenderness -[None done] CT interpreted by me (1pt min.). @ CT no acute process -[None done] U/S interpreted by me (1pt. min.). @ -[None done] What testing was considered but not performed or refused? (CT, X-rays, U/S, labs)? Why? @ -[None] What meds were considered but not given or refused? Why? @ -[None] Did you discuss the management of the patient with other professionals (professionals i.e. , PA, MICROBIOLOGICAL LAB TECHNICIAN, lab, RT, psych nurse, medical social worker, digital advertising specialist, teacher, bank secrecy act officer, case finisher)? Give summary @ Dr. phillip, Dr. Smith, Dr. Jang-[] Was smoking cessation discussed for >3mins.? @ -[No] Was critical care preformed (if so, how long)? @ Is 45 minutes-[No] Were there social determinants of health that impacted care today? How? (Homelessness, low income, unemployed, alcoholism, drug addiction, transportation, low edu. Level, literacy, decrease access to med. care, long term, rehab)? @ -[No] Was there de-escalation of care discussed even if they declined (Discuss DNR or withdrawal of care, Hospice)? DNR status @ -[No] What co-morbidities impacted this encounter? (DM, HTN, Smoking, COPD, CAD, Cancer, CVA, ARF, Chemo, Hep., AIDS, mental health diagnosis, sleep apnea, morbid obesity)? @ -[None] Was patient admitted / discharged? Hospital course, mention meds given and r oute, prescriptions, significant lab abnormalities, going to OR and other pertinent info. @ Patient was admitted to intensive care unit -[hospital course] Undiagnosed new problem with uncertain prognosis? @ -[No] Drug Therapy requiring intensive monitoring for toxicity (Heparin, Nitro, Insulin, Cardizem)? @ -[No] Were any procedures done? @ -[No] Diagnosis/symptom? @ Altered mental status, hyponatremia, hypochloremia, dehydration-[default] Acute, or Chronic, or Acute on Chronic? @ Acute -[default] Uncomplicated (without systemic symptoms) or Complicated (systemic symptoms)? @ Complicated was systemic symptoms of altered mental status-[default] Side effects of treatment? @ -[No] Exacerbation, Progression, or Severe Exacerbation? @ -[No] Poses a threat to life or bodily function? How? (Chest pain, [place], [place], pneumonia, PE, COPD, DKA, ARF, appy, cholecystitis, CVA, Diverticulitis, Homicidal, Suicidal, threat to staff... and all critical care pts) @ Yes if not treated-[No] - Lab Data Result diagrams: 12/10/22 10:06 12/10/22 10:06 Lab Results 12/10/22 12/10/22 12/10/22 Range/Units 09:47 10:06 10:06 WBC 13.5 H (3.8-10.6) k/uL RBC 4.12 L (4.30-5.90) m/uL Hgb 13.2 (13.0-17.5) gm/dL Hct 36.6 L (39.0-53.0) % MCV 88.9 D (80.0-100.0) fL MCH 32.0 (25.0-35.0) pg MCHC 35.9 (31.0-37.0) g/dL RDW 14.5 (11.5-15.5) % Plt Count 351 (150-450) k/uL MPV 7.2 Neutrophils % (Manual) 77 % Band Neuts % (Manual) 1 % Lymphocytes % (Manual) 10 % Monocytes % (Manual) 7 % Eosinophils % (Manual) 5 % Metamyelocytes % 2 % Myelocytes % 1 % Neutrophils # (Manual) 10.50 H (1.3-7.7) k/uL Lymphocytes # (Manual) 1.35 (1.0-4.8) k/uL Monocytes # (Manual) 0.95 (0-1.0) k/uL Eosinophils # (Manual) 0.68 (0-0.7) k/uL Metamyelocytes # (Man) 0.27 H (0) k/uL Myelocytes # (Manual) 0.14 H (0) k/uL Nucleated RBCs 0 (0-0) /100 WBC Manual Slide Review Performed Hyperchromasia Slight Anisocytosis (manual) Present PT 10.0 (9.0-12.0) sec INR 0.9 (<1.2) APTT 23.7 (22.0-30.0) sec Sodium (137-145) mmol/L Potassium (3.5-5.1) mmol/L Chloride (98-107) mmol/L Carbon Dioxide (22-30) mmol/L Anion Gap mmol/L BUN (9-20) mg/dL Creatinine (0.66-1.25) mg/dL Est GFR (CKD-EPI)AfAm (>60 ml/min/1.73 sqM) Est GFR (CKD-EPI)NonAf (>60 ml/min/1.73 sqM) Glucose (74-99) mg/dL POC Glucose (mg/dL) 194 H (70-110) mg/dL POC Glu Laboratory Tester ID Kishore Ambrocio Osmolality (280-301) mosm/kg Plasma Lactic Acid Joseph (0.7-2.0) mmol/L Calcium (8.4-10.2) mg/dL Magnesium (1.6-2.3) mg/dL Total Bilirubin (0.2-1.3) mg/dL AST (17-59) U/L ALT (4-49) U/L Alkaline Phosphatase (38-126) U/L Troponin I (0.000-0.034) ng/mL NT-Pro-B Natriuret Pep pg/mL Total Protein (6.3-8.2) g/dL Albumin (3.5-5.0) g/dL Urine Color Urine Appearance (Clear) Urine pH (5.0-8.0) Ur Specific [place] (1.001-1.035) Urine Protein (Negative) Urine Glucose (UA) (Negative) Urine Ketones (Negative) Urine Blood (Negative) Urine Nitrite (Negative) Urine Bilirubin (Negative) Urine Urobilinogen (<2.0) mg/dL Ur Leukocyte Esterase (Negative) 12/10/22 12/10/22 12/10/22 Range/Units 10:06 10:06 10:06 WBC (3.8-10.6) k/uL RBC (4.30-5.90) m/uL Hgb (13.0-17.5) gm/dL Hct (39.0-53.0) % MCV (80.0-100.0) fL MCH (25.0-35.0) pg MCHC (31.0-37.0) g/dL RDW (11.5-15.5) % Plt Count (150-450) k/uL MPV Neutrophils % (Manual) % Band Neuts % (Manual) % Lymphocytes % (Manual) % Monocytes % (Manual) % Eosinophils % (Manual) % Metamyelocytes % % Myelocytes % % Neutrophils # (Manual) (1.3-7.7) k/uL Lymphocytes # (Manual) (1.0-4.8) k/uL Monocytes # (Manual) (0-1.0) k/uL Eosinophils # (Manual) (0-0.7) k/uL Metamyelocytes # (Man) (0) k/uL Myelocytes # (Manual) (0) k/uL Nucleated RBCs (0-0) /100 WBC Manual Slide Review Hyperchromasia Anisocytosis (manual) PT (9.0-12.0) sec INR (<1.2) APTT (22.0-30.0) sec Sodium 105 L* (137-145) mmol/L Potassium 5.8 H (3.5-5.1) mmol/L Chloride 70 L* (98-107) mmol/L Carbon Dioxide 31 H (22-30) mmol/L Anion Gap 4 mmol/L BUN 9 (9-20) mg/dL Creatinine 0.74 (0.66-1.25) mg/dL Est GFR (CKD-EPI)AfAm >90 (>60 ml/min/1.73 sqM) Est GFR (CKD-EPI)NonAf >90 (>60 ml/min/1.73 sqM) Glucose 116 H (74-99) mg/dL POC Glucose (mg/dL) (70-110) mg/dL POC Glu Laboratory Tester ID Osmolality (280-301) mosm/kg Plasma Lactic Acid Joseph 1.0 (0.7-2.0) mmol/L Calcium 8.8 (8.4-10.2) mg/dL Magnesium 1.8 (1.6-2.3) mg/dL Total Bilirubin 0.8 (0.2-1.3) mg/dL AST 65 H (17-59) U/L ALT 70 H (4-49) U/L Alkaline Phosphatase 145 H (38-126) U/L Troponin I <0.012 (0.000-0.034) ng/mL NT-Pro-B Natriuret Pep pg/mL Total Protein 6.0 L (6.3-8.2) g/dL Albumin 3.7 (3.5-5.0) g/dL Urine Color Urine Appearance (Clear) Urine pH (5.0-8.0) Ur Specific [place] (1.001-1.035) Urine Protein (Negative) Urine Glucose (UA) (Negative) Urine Ketones (Negative) Urine Blood (Negative) Urine Nitrite (Negative) Urine Bilirubin (Negative) Urine Urobilinogen (<2.0) mg/dL Ur Leukocyte Esterase (Negative) 12/10/22 12/10/22 12/10/22 Range/Units 10:06 10:06 12:03 WBC (3.8-10.6) k/uL RBC (4.30-5.90) m/uL Hgb (13.0-17.5) gm/dL Hct (39.0-53.0) % MCV (80.0-100.0) fL MCH (25.0-35.0) pg MCHC (31.0-37.0) g/dL RDW (11.5-15.5) % Plt Count (150-450) k/uL MPV Neutrophils % (Manual) % Band Neuts % (Manual) % Lymphocytes % (Manual) % Monocytes % (Manual) % Eosinophils % (Manual) % Metamyelocytes % % Myelocytes % % Neutrophils # (Manual) (1.3-7.7) k/uL Lymphocytes # (Manual) (1.0-4.8) k/uL Monocytes # (Manual) (0-1.0) k/uL Eosinophils # (Manual) (0-0.7) k/uL Metamyelocytes # (Man) (0) k/uL Myelocytes # (Manual) (0) k/uL Nucleated RBCs (0-0) /100 WBC Manual Slide Review Hyperchromasia Anisocytosis (manual) PT (9.0-12.0) sec INR (<1.2) APTT (22.0-30.0) sec Sodium (137-145) mmol/L Potassium (3.5-5.1) mmol/L Chloride (98-107) mmol/L Carbon Dioxide (22-30) mmol/L Anion Gap mmol/L BUN (9-20) mg/dL Creatinine (0.66-1.25) mg/dL Est GFR (CKD-EPI)AfAm (>60 ml/min/1.73 sqM) Est GFR (CKD-EPI)NonAf (>60 ml/min/1.73 sqM) Glucose (74-99) mg/dL POC Glucose (mg/dL) (70-110) mg/dL POC Glu Laboratory Tester ID Osmolality 231 L* (280-301) mosm/kg Plasma Lactic Acid Joseph (0.7-2.0) mmol/L Calcium (8.4-10.2) mg/dL Magnesium (1.6-2.3) mg/dL Total Bilirubin (0.2-1.3) mg/dL AST (17-59) U/L ALT (4-49) U/L Alkaline Phosphatase (38-126) U/L Troponin I (0.000-0.034) ng/mL NT-Pro-B Natriuret Pep 97 pg/mL Total Protein (6.3-8.2) g/dL Albumin (3.5-5.0) g/dL Urine Color Yellow Urine Appearance Clear (Clear) Urine pH 6.0 (5.0-8.0) Ur Specific [place] 1.013 (1.001-1.035) Urine Protein Negative (Negative) Urine Glucose (UA) Negative (Negative) Urine Ketones 1+ H (Negative) Urine Blood Negative (Negative) Urine Nitrite Negative (Negative) Urine Bilirubin Negative (Negative) Urine Urobilinogen <2.0 (<2.0) mg/dL Ur Leukocyte Esterase Negative (Negative) - EKG Data -: EKG Interpreted by Me EKG Comments: EKG interpreted by me sinus rhythm of 96. Interval 1 69, P QRS 88 QT since QTC through 5 sensory 58 low-voltage no acute ST-T wave changes - Radiology Data Interpreted by me: Imaging interpreted by me no evidence of acute processes seen. Critical Care Time Critical Care Time: Yes Total Critical Care Time: 45 Disposition Clinical Impression: Altered mental status, Hyponatremia syndrome, Hypochloremia, Dehydration Disposition: ADMITTED IP TO THIS [facility] Condition: Critical Referrals: Umberto Urena DO [Primary Care Provider] - 1-2 days Decision Date: 12/10/22 Decision Time: 14:00
[2022-12-10 09:49] LABS: Glucose,Whole Blood 194 mg/dL (70-110)
[2022-12-10 10:23] LABS: HCT 36.6 % (39.0-53.0); HGB 13.2 gm/dL (13.0-17.5); Hyperchromasia Slight; MCHC 35.9 g/dL (31.0-37.0); Mean Platelet Volume 7.2; Platelet Count 351 k/uL (150-450); RBC 4.12 m/uL (4.30-5.90); RDW 14.5 % (11.5-15.5); WBC 13.5 k/uL (3.8-10.6)
--- NOTE | 2022-12-10 10:32 | XR ---
EXAMINATION TYPE: XR chest 2V DATE OF EXAM: 12/10/2022 COMPARISON: 10/09/2022 TECHNIQUE: PA and lateral views submitted. HISTORY: Shortness of breath FINDINGS: There is limited inspiration with changes of AC joint arthropathy. Bilateral areas of subsegmental co nsolidation are stable. No sizable pleural effusion or pneumothorax. Atherosclerotic change aorta. Po stoperative changes in the vertebral column. IMPRESSION: Bilateral areas of subsegmental atelectasis favored over pneumonia correlate clinically.
[2022-12-10 10:34] LABS: INR 0.9 (<1.2); Partial Thromboplastin Time 23.7 sec (22.0-30.0)
[2022-12-10 10:49] LABS: ALT 70 U/L (4-49); AST 65 U/L (17-59); African American GFR (CKD) >90 (>60 ml/min/1.73 sqM); Albumin 3.7 g/dL (3.5-5.0); Alkaline Phosphatase 145 U/L (38-126); Anion Gap 4 mmol/L; Blood Urea Nitrogen 9 mg/dL (9-20); Calcium 8.8 mg/dL (8.4-10.2); Carbon Dioxide 31 mmol/L (22-30); Glucose 116 mg/dL (74-99); Magnesium 1.8 mg/dL (1.6-2.3); Non-African American GFR(CKD) >90 (>60 ml/min/1.73 sqM); Potassium 5.8 mmol/L (3.5-5.1); Total Bilirubin 0.8 mg/dL (0.2-1.3)
[2022-12-10 11:09] LABS: Chloride 70 mmol/L (98-107); Sodium 105 mmol/L (137-145)
[2022-12-10 11:38] LABS: MCV 88.9 fL (80.0-100.0)
[2022-12-10 11:45] LABS: Band Neutrophils % 1 %; Eosinophils # (M) 0.68 k/uL (0-0.7); Lymphocytes # (M) 1.35 k/uL (1.0-4.8); Metamyelocytes # (M) 0.27 k/uL (0); Metamyelocytes % 2 %; Monocytes # (M) 0.95 k/uL (0-1.0); Myelocytes # (M) 0.14 k/uL (0); Myelocytes % 1 %; Neutrophils % (M) 77 %; Nucleated Red Blood Cells 0 /100 WBC (0-0); Total Cells Counted 200
[2022-12-10 11:46] LABS: Anisocytosis (M) Present
--- NOTE | 2022-12-10 11:52 | CT ---
EXAMINATION TYPE: CT brain wo con DATE OF EXAM: 12/10/2022 COMPARISON: 06/11/2021 INDICATION: Altered mental status DLP: 1247.4 mGycm, Automated exposure control for dose reduction was used. CONTRAST: None CT of the brain is performed utilizing 3 mm thick sections through the posterior fossa and 3 mm thick sections through the remaining calvarium. Study is performed within 24 hours of arrival to the hosp [place]. No abnormal hyperdensity is present to suggest an acute intracranial hemorrhage. No mass lesion is evident. No acute infarcts are evident. Minimal white matter change may remain present. No significant change from comparison is evident. Ventricles and sulci are appropriate for the patient age. Paranasal sinuses and mastoid air cells within the [id number] are clear. IMPRESSIONS: 1. No suspicious acute intracranial changes. Findings appear stable from comparison. Follow-up MRI can be performed as clinically indicated
[2022-12-10] MEDS ORDERED: SODIUM CHLORIDE 0.9% 500 ML 500 ML IV ONE (14:00)
[2022-12-10] MEDS: SODIUM CHLORIDE 0.9% 1,000 ML IV STA ×2 (14:15→17:08)
[2022-12-10 14:45] LABS: Appearance,Urine Clear (Clear); Bilirubin,Urine Negative (Negative); Blood,Urine Negative (Negative); Color,Urine Yellow; Glucose,Urine (UA) Negative (Negative); Ketones,Urine 1+ (Negative); Leukocyte Esterase,Urine Negative (Negative); Nitrite,Urine Negative (Negative); Protein,Urine Negative (Negative); Specific Gravity,Urine 1.013 (1.001-1.035); Urobilinogen,Urine <2.0 mg/dL (<2.0)
[2022-12-10] MEDS ORDERED: NALOXONE 0.4 MG/ML 1 ML VIAL IV PRN (15:06)
[2022-12-10 16:52] LABS: Glucose,Whole Blood 120 mg/dL (70-110)
[2022-12-10 17:11] LABS: ALT 60 U/L (4-49); AST 57 U/L (17-59); African American GFR (CKD) >90 (>60 ml/min/1.73 sqM); Albumin 2.9 g/dL (3.5-5.0); Alkaline Phosphatase 111 U/L (38-126); Anion Gap 4 mmol/L; Blood Urea Nitrogen 8 mg/dL (9-20); Calcium 7.8 mg/dL (8.4-10.2); Carbon Dioxide 27 mmol/L (22-30); Chloride 76 mmol/L (98-107); Glucose 103 mg/dL (74-99); Non-African American GFR(CKD) >90 (>60 ml/min/1.73 sqM); Potassium 5.6 mmol/L (3.5-5.1); Total Bilirubin 0.7 mg/dL (0.2-1.3)
[2022-12-10 17:19] LABS: Sodium 107 mmol/L (137-145)
[2022-12-10] MEDS: SODIUM CHLORIDE 3%(HYPERTONIC) 500 ML IV SCH (18:06)
[2022-12-10] MEDS ORDERED: NITROGLYCERIN SL TABS 0.4 MG TAB SUBLINGUAL PRN (18:28)
[2022-12-10] MEDS ORDERED: bisacodyL 10 MG SUPP RECTAL PRN (18:28)
[2022-12-10] MEDS ORDERED: HYDROcodone/APAP 7.5-325MG 1 EACH TAB PO PRN (18:28)
[2022-12-10] MEDS: LORATADINE 10 MG TAB PO SCH (22:08)
[2022-12-10] MEDS: METOPROLOL TARTRATE 25 MG TAB PO SCH (22:08)
[2022-12-10] MEDS: ATORVASTATIN 10 MG TAB PO SCH (22:08)
[2022-12-10] MEDS: GABAPENTIN 300 MG CAP PO SCH (22:08)
[2022-12-10] MEDS: CYCLOBENZAPRINE 5 MG TAB PO SCH (22:08)
[2022-12-10] MEDS: AMMONIUM LACTATE 12% CREAM 140 GM TUBE TOPICAL SCH (22:09)
[2022-12-11 03:58] LABS: Basophils # (A) 0.1 k/uL (0-0.2); Basophils % (A) 1 %; Eosinophils # (A) 0.3 k/uL (0-0.7); Eosinophils % (A) 4 %; HCT 34.8 % (39.0-53.0); HGB 12.1 gm/dL (13.0-17.5); Hyperchromasia Slight; Lymphocytes # (A) 1.2 k/uL (1.0-4.8); Lymphocytes % (A) 14 %; MCHC 34.8 g/dL (31.0-37.0); Mean Platelet Volume 6.9; Monocytes # (A) 0.7 k/uL (0-1.0); Monocytes % (A) 8 %; Neutrophils % (A) 72 %; Platelet Count 302 k/uL (150-450); RBC 3.91 m/uL (4.30-5.90); RDW 14.2 % (11.5-15.5); WBC 8.4 k/uL (3.8-10.6)
[2022-12-11 04:19] LABS: African American GFR (CKD) >90 (>60 ml/min/1.73 sqM); Anion Gap 3 mmol/L; Blood Urea Nitrogen 5 mg/dL (9-20); Calcium 7.6 mg/dL (8.4-10.2); Carbon Dioxide 29 mmol/L (22-30); Chloride 78 mmol/L (98-107); Glucose 92 mg/dL (74-99); Non-African American GFR(CKD) >90 (>60 ml/min/1.73 sqM); Potassium 5.2 mmol/L (3.5-5.1)
[2022-12-11 04:22] LABS: Sodium 110 mmol/L (137-145)
[2022-12-11] MEDS: GABAPENTIN 300 MG CAP PO SCH ×3 (06:45→20:05)
[2022-12-11] MEDS: LEVOTHYROXINE 50 MCG TAB PO SCH (06:45)
[2022-12-11] MEDS: PANTOPRAZOLE 40 MG TABLET PO SCH (06:45)
[2022-12-11] MEDS: CYCLOBENZAPRINE 5 MG TAB PO SCH ×3 (06:45→20:05)
--- NOTE | 2022-12-11 08:16 | P.CNOR ---
History of Present Illness - HPI Consult date: 12/11/22 History of present illness: 67 yo male on 11/26/22 underwent T11-L1 stabilization with T12 kyphoplasty for T12 fracture. He did well after surgery and has been in [facility]. He reported that he fell 1-2 times and this last time he fell and had bad shoulder pain in the left shoulder as well as back pain. He states right now his back feels OK. He states pain in his left shoulder. No radiation. No bowel or bladder issues. No other weaknesses. States he thing surgery was very successful and is happy with results so far. He is unsure why he fell. Denies any f/c/sob/cp/MORRELL/N/V. Review of Systems 14 points review of systems completed and as stated in HPI, all other systems reviewed are negative. 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 2[facility] home O2 around the clock, r/t unknown lung disease. Hx of fx ribs, lung "collapsed" states no chest tube History of Any Multi-Drug Resistant Organisms: None Reported Past Surgical History: Appendectomy, Hernia Repair, Orthopedic Surgery Additional Past Surgical History / Comment(s): rotator cuff x2 left shoulder, uvula removed Past Anesthesia/Blood Transfusion Reactions: Previous Problems w/ Anesthesia Additional Past Anesthesia/Blood Transfusion Reaction / Comm: woke up once during surgery, clausterphobia-had to be sedated for mri Date of Last Stent Placement:: Jun 2021 Past Psychological History: No Psychological Hx Reported Past Drug Use History: None Reported - Past Family History Father Family Medical History: Diabetes Mellitus, Hyperlipidemia, Hypertension Additional Family Medical History / Comment(s): at age 86 Mother Family Medical History: Cancer, Diabetes Mellitus, Hyperlipidemia, Hypertension, Thyroid Disorder Additional Family Medical History / Comment(s): Mother is from either a stomach or colon cancer. Brother(s) Additional Family Medical History / Comment(s): Patient has 2 brothers that have from's cystic fibrosis. One brother is alive with no major medical problems. Sister(s) Additional Family Medical History / Comment(s): Patient has 2 sisters with no major medical problems. Daughter(s) Additional Family Medical History / Comment(s): Patient is total of 4 children with no major medical problems. Medications and Allergies Home Medications Medication Instructions Recorded Confirmed Type Levothyroxine Sodium [Synthroid] 50 mcg PO DAILY@0600 03/14/15 12/10/22 History Losartan [Cozaar] 25 mg PO DAILY 08/08/20 12/10/22 History Cetirizine HCl [Zyrtec] 10 mg PO HS 07/03/21 12/10/22 History Aspirin 81 mg PO DAILY chew 07/09/21 12/10/22 Rx Nitroglycerin Sl Tabs [Nitrostat] 0.4 mg SUBLINGUAL Q5M PRN 15 Days 07/09/21 12/10/22 Rx #15 tab Furosemide [Lasix] 20 mg PO DAILY 10/29/22 12/10/22 History Metoprolol Tartrate [Lopressor] 25 mg PO BID 10/29/22 12/10/22 History Potassium Chloride ER [K-Dur 20] 20 meq PO BID 10/29/22 12/10/22 History Ammonium Lactate Cream [Lac-Hydrin 1 applic TOPICAL HS 12/10/22 12/10/22 History 12% Cream] Atorvastatin [Lipitor] 10 mg PO HS 12/10/22 12/10/22 History Clotrimazole Cream [Lotrimin Cream] 1 applic TOPICAL BID 12/10/22 12/10/22 History Cyclobenzaprine [Flexeril] 5 mg PO TID@0600,1400,2200 12/10/22 12/10/22 History Gabapentin 300 mg PO TID@0600,1400,2200 12/10/22 12/10/22 History HYDROcodone/APAP 7.5-325MG [[place] 1 tab PO Q4H PRN 12/10/22 12/10/22 History 7.5] Hydrocortisone Cream 0.5% 1 applic TOPICAL BID 12/10/22 12/10/22 History Omeprazole [PriLOSEC] 20 mg PO DAILY@0600 12/10/22 12/10/22 History Sennosides/Docusate Sodium [Senna 1 tab PO DAILY PRN 12/10/22 12/10/22 History Plus 8.6-50 mg Tablet] Sennosides/Docusate Sodium [[place]enna 2 tab PO DAILY 12/10/22 12/10/22 History Plus 8.6-50 mg Tablet] Spironolactone [Aldactone] 50 mg PO DAILY 12/10/22 12/10/22 History Triad Cream 1 applic TOPICAL DAILY PRN 12/10/22 12/10/22 History Triad Cream 1 applic TOPICAL Q12H 12/10/22 12/10/22 History bisacodyL [Dulcolax] 10 mg RECTAL DAILY PRN 12/10/22 12/10/22 History polyethylene glycoL 3350 [Miralax] 17 gm PO DAILY 12/10/22 12/10/22 History Allergies Allergy/AdvReac Type Severity Reaction Status Date / Time bee venom protein (honey bee) Allergy Anaphylaxis Verified 12/10/22 10:29 Physical Examination Osteopathic Statement: *. No significant issues noted on an osteopathic structural exam other than those noted in the History and Physical/Consult. Physical Exam: -Patient is alert and oriented 3 appears well-nourished well-hydrated is in no acute distress. They do not appear septic. -There is TTP about the left shoulder with pain with motion as well as around the incisions however minimal -Incision is CDI, no EEE, no drainage -Upper extremities show 4+ out of 5 strength in all major muscle groups. Left shoulder abduction due to pain -Lower extremities with 4- out of 5 strength in all major muscle groups -There is [FROM] that is [painless] of the b/l UE and LE in all major joints. Log roll negative bilaterally negative straight leg raise -They are intact to light touch sensation in C5 to T1 and L2 to S1 nerve distribution. -DTR [2]/4 all upper and lower extremities -Patient has palpable distal pulses all 4 ext -Compartments are soft and compressible. -Patient shows a negative Marilyn's [-Neg Hoffmans b/l] [-Neg Clonus b/l] [-Neg babinski b/l] Cranial nerves II through XII are grossly intact. Results X-rays of the lumbar and thoracic spine as well as left shoulder are pending - Labs Labs: Abnormal Lab Results - Last 24 Hours (Table) 12/10/22 12/10/22 12/10/22 Range/Units 09:47 10:06 10:06 WBC 13.5 H (3.8-10.6) k/uL RBC 4.12 L (4.30-5.90) m/uL Hgb (13.0-17.5) gm/dL Hct 36.6 L (39.0-53.0) % Neutrophils # (Manual) 10.50 H (1.3-7.7) k/uL Metamyelocytes # (Man) 0.27 H (0) k/uL Myelocytes # (Manual) 0.14 H (0) k/uL Sodium 105 L* (137-145) mmol/L Potassium 5.8 H (3.5-5.1) mmol/L Chloride 70 L* (98-107) mmol/L Carbon Dioxide 31 H (22-30) mmol/L BUN (9-20) mg/dL Creatinine (0.66-1.25) mg/dL Glucose 116 H (74-99) mg/dL POC Glucose (mg/dL) 194 H (70-110) mg/dL Osmolality (280-301) mosm/kg Calcium (8.4-10.2) mg/dL AST 65 H (17-59) U/L ALT 70 H (4-49) U/L Alkaline Phosphatase 145 H (38-126) U/L Total Protein 6.0 L (6.3-8.2) g/dL Albumin (3.5-5.0) g/dL Urine Ketones (Negative) 12/10/22 12/10/22 12/10/22 Range/Units 10:06 12:03 16:38 WBC (3.8-10.6) k/uL RBC (4.30-5.90) m/uL Hgb (13.0-17.5) gm/dL Hct (39.0-53.0) % Neutrophils # (Manual) (1.3-7.7) k/uL Metamyelocytes # (Man) (0) k/uL Myelocytes # (Manual) (0) k/uL Sodium 107 L* (137-145) mmol/L Potassium 5.6 H (3.5-5.1) mmol/L Chloride 76 L (98-107) mmol/L Carbon Dioxide (22-30) mmol/L BUN 8 L (9-20) mg/dL Creatinine 0.62 L (0.66-1.25) mg/dL Glucose 103 H (74-99) mg/dL POC Glucose (mg/dL) (70-110) mg/dL Osmolality 231 L* (280-301) mosm/kg Calcium 7.8 L (8.4-10.2) mg/dL AST (17-59) U/L ALT 60 H (4-49) U/L Alkaline Phosphatase (38-126) U/L Total Protein 5.0 L (6.3-8.2) g/dL Albumin 2.9 L (3.5-5.0) g/dL Urine Ketones 1+ H (Negative) 12/10/22 12/10/22 12/10/22 Range/Units 16:49 20:12 22:04 WBC (3.8-10.6) k/uL RBC (4.30-5.90) m/uL Hgb (13.0-17.5) gm/dL Hct (39.0-53.0) % Neutrophils # (Manual) (1.3-7.7) k/uL Metamyelocytes # (Man) (0) k/uL Myelocytes # (Manual) (0) k/uL Sodium 106 L* 109 L* (137-145) mmol/L Potassium (3.5-5.1) mmol/L Chloride (98-107) mmol/L Carbon Dioxide (22-30) mmol/L BUN (9-20) mg/dL Creatinine (0.66-1.25) mg/dL Glucose (74-99) mg/dL POC Glucose (mg/dL) 120 H (70-110) mg/dL Osmolality (280-301) mosm/kg Calcium (8.4-10.2) mg/dL AST (17-59) U/L ALT (4-49) U/L Alkaline Phosphatase (38-126) U/L Total Protein (6.3-8.2) g/dL Albumin (3.5-5.0) g/dL Urine Ketones (Negative) 12/10/22 12/11/22 12/11/22 Range/Units 23:51 01:52 03:44 WBC (3.8-10.6) k/uL RBC (4.30-5.90) m/uL Hgb (13.0-17.5) gm/dL Hct (39.0-53.0) % Neutrophils # (Manual) (1.3-7.7) k/uL Metamyelocytes # (Man) (0) k/uL Myelocytes # (Manual) (0) k/uL Sodium 108 L* 109 L* 110 L* (137-145) mmol/L Potassium 5.2 H (3.5-5.1) mmol/L Chloride 78 L (98-107) mmol/L Carbon Dioxide (22-30) mmol/L BUN 5 L (9-20) mg/dL Creatinine 0.61 L (0.66-1.25) mg/dL Glucose (74-99) mg/dL POC Glucose (mg/dL) (70-110) mg/dL Osmolality (280-301) mosm/kg Calcium 7.6 L (8.4-10.2) mg/dL AST (17-59) U/L ALT (4-49) U/L Alkaline Phosphatase (38-126) U/L Total Protein (6.3-8.2) g/dL Albumin (3.5-5.0) g/dL Urine Ketones (Negative) 12/11/22 12/11/22 Range/Units 03:44 07:05 WBC (3.8-10.6) k/uL RBC 3.91 L (4.30-5.90) m/uL Hgb 12.1 L (13.0-17.5) gm/dL Hct 34.8 L (39.0-53.0) % Neutrophils # (Manual) (1.3-7.7) k/uL Metamyelocytes # (Man) (0) k/uL Myelocytes # (Manual) (0) k/uL Sodium 111 L* (137-145) mmol/L Potassium (3.5-5.1) mmol/L Chloride (98-107) mmol/L Carbon Dioxide (22-30) mmol/L BUN (9-20) mg/dL Creatinine (0.66-1.25) mg/dL Glucose (74-99) mg/dL POC Glucose (mg/dL) (70-110) mg/dL Osmolality (280-301) mosm/kg Calcium (8.4-10.2) mg/dL AST (17-59) U/L ALT (4-49) U/L Alkaline Phosphatase (38-126) U/L Total Protein (6.3-8.2) g/dL Albumin (3.5-5.0) g/dL Urine Ketones (Negative) H & H 12/10/22 12/11/22 Range/Units 10:06 03:44 Hgb 13.2 12.1 L (13.0-17.5) gm/dL Hct 36.6 L 34.8 L (39.0-53.0) % Coagulation 12/10/22 Range/Units 10:06 INR 0.9 (<1.2) Result Diagrams: 12/11/22 03:44 12/11/22 07:05 Assessment and Plan Assessment: 67-year-old male status post T 11 to L1 stabilization with T12 kyphoplasty Status post multiple falls at rehab Left shoulder pain Plan: -Appreciate alliances consultant and team management. -Activity: Ambulate QID, OOB all meals, up and about, limit lifting bending twisting to less than 5 lbs. Use walker or cane if needed for stability. -Daily PT/OT, increase ambulation strength and balance. -Brace when up and about, not needed in bed or chair -Pain control: Adequate at this time -Meds: reviewed -GI ppx: senna, Miralax -DC daily when up and about, bedside commode if needed -DVT PPX: Okay for mechanical and chemo prophylaxis -Hygiene: Shower today. Maintain dressing clean and dry. Meticulous cleaning after BMs away from incision site -Xray of left shoulder and T/L spine due to fall and recent surgery with shoulder pain -Encourage IS 10x/hr -Dispo: Pending
[2022-12-11] MEDS ORDERED: PANTOPRAZOLE 40 MG/10 ML VIAL IV SCH (09:00)
[2022-12-11] MEDS: METOPROLOL TARTRATE 25 MG TAB PO SCH ×2 (09:11→20:05)
[2022-12-11] MEDS: ENOXAPARIN 40 MG/0.4 ML SYRINGE SQ SCH (09:11)
[2022-12-11] MEDS: ASPIRIN 81 MG PO SCH (09:11)
[2022-12-11] MEDS: SODIUM CHLORIDE 3%(HYPERTONIC) 500 ML IV SCH ×2 (09:12→23:14)
[2022-12-11] MEDS: LOSARTAN 25 MG TAB PO SCH (09:12)
[2022-12-11] MEDS ORDERED: FUROSEMIDE 10 MG/ML 2 ML VIAL IV ONE (10:19)
[2022-12-11] MEDS: MICONAZOLE NITRATE 2% CREAM 14 GM TUBE TOPICAL SCH ×2 (10:54→20:04)
--- NOTE | 2022-12-11 10:59 | P.NPCON ---
History of Present Illness - Reason for Consult hyponatremia - History of Present Illness Reason for consultation: Hyponatremia History of present illness: Patient is a 67-year-old male seen in consultation for hyponatremia. Patient had blood work done outpatient and was sent to the hospital due to low sodium level. Patient's sodium level as of 12/10/2022 at 12:15 AM was 107. Patient received 1 L bolus of normal saline and was then started on normal saline at 75 mL an hour. Sodium level dropped to 105-106 range and he was subsequently then started on 3% saline. Patient received 3% saline overnight for sodium level up to 111 this morning. Patient's resting in bed. Blood pressure stable. Non oliguric. GFR at baseline. He was taking Lasix as well as spironolactone outpatient. I don't see any nonsteroidals and his home medication list. Patient is currently resting in bed. He is quite lethargic. Not a reliable historian. Patient underwent T1 to L1 stabilization with T12 kyphoplasty and is currently residing at a rehab facility. Vital signs are stable. General: Resting in bed. HEENT: Head exam is unremarkable. On nasal cannula. LUNGS: Breath sounds decreased. HEART: Rate and Rhythm are regular. ABDOMEN: Soft, no distention. EXTREMITITES: No edema. 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 2[facility] home O2 around the clock, r/t unknown lung disease. Hx of fx ribs, lung "collapsed" states no chest tube History of Any Multi-Drug Resistant Organisms: None Reported Past Surgical History: Appendectomy, Hernia Repair, Orthopedic Surgery Additional Past Surgical History / Comment(s): rotator cuff x2 left shoulder, uvula removed Past Anesthesia/Blood Transfusion Reactions: Previous Problems w/ Anesthesia Additional Past Anesthesia/Blood Transfusion Reaction / Comment(s): woke up once during surgery, clausterphobia-had to be sedated for mri Date of Last Stent Placement:: Jun 2021 Past Psychological History: No Psychological Hx Reported Past Drug Use History: None Reported - Past Family History Father Family Medical History: Diabetes Mellitus, Hyperlipidemia, Hypertension Additional Family Medical History / Comment(s): at age 86 Mother Family Medical History: Cancer, Diabetes Mellitus, Hyperlipidemia, Hypertension, Thyroid Disorder Additional Family Medical History / Comment(s): Mother is from either a stomach or colon cancer. Brother(s) Additional Family Medical History / Comment(s): Patient has 2 brothers that have from's cystic fibrosis. One brother is alive with no major medical problems. Sister(s) Additional Family Medical History / Comment(s): Patient has 2 sisters with no major medical problems. Daughter(s) Additional Family Medical History / Comment(s): Patient is total of 4 children with no major medical problems. Medications and Allergies Home Medications Medication Instructions Recorded Confirmed Type Levothyroxine Sodium [Synthroid] 50 mcg PO DAILY@0600 03/14/15 12/10/22 History Losartan [Cozaar] 25 mg PO DAILY 08/08/20 12/10/22 History Cetirizine HCl [Zyrtec] 10 mg PO HS 07/03/21 12/10/22 History Aspirin 81 mg PO DAILY chew 07/09/21 12/10/22 Rx Nitroglycerin Sl Tabs [Nitrostat] 0.4 mg SUBLINGUAL Q5M PRN 15 Days 07/09/21 12/10/22 Rx #15 tab Furosemide [Lasix] 20 mg PO DAILY 10/29/22 12/10/22 History Metoprolol Tartrate [Lopressor] 25 mg PO BID 10/29/22 12/10/22 History Potassium Chloride ER [K-Dur 20] 20 meq PO BID 10/29/22 12/10/22 History Ammonium Lactate Cream [Lac-Hydrin 1 applic TOPICAL HS 12/10/22 12/10/22 History 12% Cream] Atorvastatin [Lipitor] 10 mg PO HS 12/10/22 12/10/22 History Clotrimazole Cream [Lotrimin Cream] 1 applic TOPICAL BID 12/10/22 12/10/22 History Cyclobenzaprine [Flexeril] 5 mg PO TID@0600,1400,2200 12/10/22 12/10/22 History Gabapentin 300 mg PO TID@0600,1400,2200 12/10/22 12/10/22 History HYDROcodone/APAP 7.5-325MG [[place] 1 tab PO Q4H PRN 12/10/22 12/10/22 History 7.5] Hydrocortisone Cream 0.5% 1 applic TOPICAL BID 12/10/22 12/10/22 History Omeprazole [PriLOSEC] 20 mg PO DAILY@0600 12/10/22 12/10/22 History Sennosides/Docusate Sodium [Senna 1 tab PO DAILY PRN 12/10/22 12/10/22 History Plus 8.6-50 mg Tablet] Sennosides/Docusate Sodium [Senna 2 tab PO DAILY 12/10/22 12/10/22 History Plus 8.6-50 mg Tablet] Spironolactone [Aldactone] 50 mg PO DAILY 12/10/22 12/10/22 History Triad Cream 1 applic TOPICAL DAILY PRN 12/10/22 12/10/22 History Triad Cream 1 applic TOPICAL Q12H 12/10/22 12/10/22 History bisacodyL [Dulcolax] 10 mg RECTAL DAILY PRN 12/10/22 12/10/22 History polyethylene glycoL 3350 [Miralax] 17 gm PO DAILY 12/10/22 12/10/22 History Allergies Allergy/AdvReac Type Severity Reaction Status Date / Time bee venom protein (honey bee) Allergy Anaphylaxis Verified 12/10/22 10:29 Physical Exam Vitals: Vital Signs Temp Pulse Resp BP Pulse Ox 12/11/22 10:00 83 13 119/59 91 L 12/11/22 09:00 98 14 110/65 94 L 12/11/22 08:00 99.0 F 105 H 18 90/68 95 12/11/22 07:00 101 H 17 113/72 96 12/11/22 06:00 98 19 119/72 94 L 12/11/22 05:00 98 15 101/73 94 L 12/11/22 04:00 98.5 F 98 16 103/78 97 12/11/22 03:00 93 14 110/76 97 12/11/22 02:00 93 22 121/81 95 12/11/22 01:00 88 15 120/77 97 12/11/22 00:00 98.8 F 86 17 106/78 98 12/10/22 23:00 87 20 126/79 98 12/10/22 22:00 99 20 114/77 96 12/10/22 21:00 96 13 121/71 95 12/10/22 20:00 98.7 F 102 H 17 129/70 93 L 12/10/22 19:00 100 21 95 12/10/22 18:30 101 H 19 125/74 92 L 12/10/22 18:00 99 18 125/74 96 12/10/22 17:30 102 H 18 121/72 94 L 12/10/22 17:00 97.9 F 101 H 17 137/77 95 12/10/22 13:00 102 H 18 111/66 96 12/10/22 12:50 102 H 18 111/66 97 12/10/22 12:40 103 H 16 111/66 98 12/10/22 12:30 105 H 14 111/66 97 12/10/22 12:20 102 H 18 111/66 97 12/10/22 12:10 18 111/66 98 12/10/22 12:00 99 18 111/66 99 12/10/22 11:50 102 H 18 124/79 96 12/10/22 11:40 98 18 124/74 94 L 12/10/22 11:30 96 18 98 12/10/22 11:20 98 18 124/79 96 12/10/22 11:10 101 H 18 96 12/10/22 11:00 96 16 126/81 98 12/10/22 10:50 100 18 126/81 99 Intake and Output 12/10/22 12/11/22 12/11/22 22:59 06:59 14:59 Intake Total 210 280 105 Output Total 265 375 110 Balance -55 -95 -5 Intake: IV 210 280 105 Sodium Chloride 0.9% 500 75 ml 500 ml @ 999 mls/hr IV .Q31M [facility] Rx#:[id number] Sodium Chloride 3%( 135 280 105 Hypertonic) 500 ml @ 35 mls/hr IV .[id number] [facility] Rx #:[id number] Output: Urine 265 375 110 Other: Voiding Method Indwelling Catheter Indwelling Catheter Indwelling Catheter Weight 107 kg 108 kg 108 kg Results - Lab Results Most recent lab results Calcium 7.6 mg/dL (8.4-10.2) L 12/11/22 03:44 Magnesium 1.8 mg/dL (1.6-2.3) 12/10/22 10:06 12/11/22 03:44 12/11/22 07:05 Assessment and Plan Plan: Assessment: 1. Hyponatremia. Patient appears fairly euvolemic. 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 Sodium level 107 dated 12/10/2022 at 12:15 AM. Currently maintained on 3% saline. Urine osmolality 592. TSH normal. 2. Status post T11 to L1 stabilization with T12 kyphoplasty on 11/18/2022. 3. Benign hypertension. Controlled. Plan: Maintain 3% saline. 20 mg IV Lasix once now. Follow-up urine sodium level. Check cortisol level. Goal rate of correction 6-8 mEq per 24 hours. Continue to monitor sodium level every 2 hours. Thank you for the consultation. I will continue to follow the patient with you during his hospital stay.
[2022-12-11 11:52] LABS: Glucose,Whole Blood 87 mg/dL (70-110)
--- NOTE | 2022-12-11 13:15 | P.CNPUL ---
History of Present Illness Consult date: 12/11/22 Requesting physician: Christine Meléndez Reason for consult: other (severe hyponatremia admitted to ICU) Chief complaint: recurrent falls History of present illness: this is a 67-year-old white male with history of multiple medical problems including hypertension, degenerative joint disease, hypothyroidism,previous CVA,recent T11-T12 fracture for which she had surgery, and he was sent to rehabilitation patient is maintained on 3 L oxygen on outpatient basis, has been refusing to use his CPAP at this facility. Brought in to the ER yesterday for recurrent falls, and he was noted to have low sodium as low as 105.urine osmolality was high at 592, urine sodium was 62,patient was placed on 3% saline, I was notified by the ER physician about the patient, and considering his low sodium, I recommended admission to the ICU and to continue 3% saline. His follow-up sodium today is 113, hence most likely the patient will be off 3% saline in the next few hours. Patient has been on diuretics including Aldactone and Lasix on outpatient basis, this is likely a picture of hypovolemic hyponatremia,mostly because of the clinical history being on diuretics. although euvolemic hyponatremia is not entirely ruled out,SIADH is a possibility, again his sodium is being addressed by nephrology on the case.chest x-ray showed mostly by basilar atelectasis. No clear-cut evidence of pneumonia or malignancy.CT of the brain showed no suspicious acute intracranial change. Review of Systems constitutional: Generalized weakness and recurrent falls, no fever no chills. HEENT: Negative Pulmonary: Negative Cardiac: Negative GI: Negative Genitourinary: Negative Hematologic: Negative Neurologic: Mostly weakness and recurrent falls. 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 2LNC home O2 around the clock, r/t unknown lung disease. Hx of fx ribs, lung "collapsed" states no chest tube History of Any Multi-Drug Resistant Organisms: None Reported Past Surgical History: Appendectomy, Hernia Repair, Orthopedic Surgery Additional Past Surgical History / Comment(s): rotator cuff x2 left shoulder, uvula removed Past Anesthesia/Blood Transfusion Reactions: Previous Problems w/ Anesthesia Additional Past Anesthesia/Blood Transfusion Reaction / Comment(s): woke up once during surgery, clausterphobia-had to be sedated for mri Date of Last Stent Placement:: Jun 2021 Past Psychological History: No Psychological Hx Reported Past Drug Use History: None Reported - Past Family History Father Family Medical History: Diabetes Mellitus, Hyperlipidemia, Hypertension Additional Family Medical History / Comment(s): at age 86 Mother Family Medical History: Cancer, Diabetes Mellitus, Hyperlipidemia, Hypertension, Thyroid Disorder Additional Family Medical History / Comment(s): Mother is from either a stomach or colon cancer. Brother(s) Additional Family Medical History / Comment(s): Patient has 2 brothers that have from's cystic fibrosis. One brother is alive with no major medical problems. Sister(s) Additional Family Medical History / Comment(s): Patient has 2 sisters with no major medical problems. Daughter(s) Additional Family Medical History / Comment(s): Patient is total of 4 children with no major medical problems. Medications and Allergies Home Medications Medication Instructions Recorded Confirmed Type Levothyroxine Sodium [Synthroid] 50 mcg PO DAILY@0600 03/14/15 12/10/22 History Losartan [Cozaar] 25 mg PO DAILY 08/08/20 12/10/22 History Cetirizine HCl [Zyrtec] 10 mg PO HS 07/03/21 12/10/22 History Aspirin 81 mg PO DAILY chew 07/09/21 12/10/22 Rx Nitroglycerin Sl Tabs [Nitrostat] 0.4 mg SUBLINGUAL Q5M PRN 15 Days 07/09/21 12/10/22 Rx #15 tab Furosemide [Lasix] 20 mg PO DAILY 10/29/22 12/10/22 History Metoprolol Tartrate [Lopressor] 25 mg PO BID 10/29/22 12/10/22 History Potassium Chloride ER [K-Dur 20] 20 meq PO BID 10/29/22 12/10/22 History Ammonium Lactate Cream [Lac-Hydrin 1 applic TOPICAL 12/10/22 12/10/22 History 12% Cream] Atorvastatin [Lipitor] 10 mg PO HS 12/10/22 12/10/22 History Clotrimazole Cream [Lotrimin Cream] 1 applic TOPICAL BID 12/10/22 12/10/22 History Cyclobenzaprine [Flexeril] 5 mg PO TID@0600,1400,2200 12/10/22 12/10/22 History Gabapentin 300 mg PO TID@0600,1400,2200 12/10/22 12/10/22 History HYDROcodone/APAP 7.5-325MG [[place] 1 tab PO Q4H PRN 12/10/22 12/10/22 History 7.5] Hydrocortisone Cream 0.5% 1 applic TOPICAL BID 12/10/22 12/10/22 History Omeprazole [PriLOSEC] 20 mg PO DAILY@0600 12/10/22 12/10/22 History Sennosides/Docusate Sodium [Senna 1 tab PO DAILY PRN 12/10/22 12/10/22 History Plus 8.6-50 mg Tablet] Sennosides/Docusate Sodium [Senna 2 tab PO DAILY 12/10/22 12/10/22 History Plus 8.6-50 mg Tablet] Spironolactone [Aldactone] 50 mg PO DAILY 12/10/22 12/10/22 History Triad Cream 1 applic TOPICAL DAILY PRN 12/10/22 12/10/22 History Triad Cream 1 applic TOPICAL Q12H 12/10/22 12/10/22 History bisacodyL [Dulcolax] 10 mg RECTAL DAILY PRN 12/10/22 12/10/22 History polyethylene glycoL 3350 [Miralax] 17 gm PO DAILY 12/10/22 12/10/22 History Allergies Allergy/AdvReac Type Severity Reaction Status Date / Time bee venom protein (honey bee) Allergy Anaphylaxis Verified 12/10/22 10:29 Physical Exam Vitals: Vital Signs Temp Pulse Resp BP Pulse Ox FiO2 12/11/22 12:12 50 12/11/22 12:04 50 12/11/22 12:00 98.4 F 87 10 L 94/60 95 50 12/11/22 11:00 86 14 84/62 94 L 12/11/22 10:00 83 13 119/59 91 L 12/11/22 09:00 98 14 110/65 94 L 12/11/22 08:00 99.0 F 105 H 18 90/68 95 12/11/22 07:00 101 H 17 113/72 96 12/11/22 06:00 98 19 119/72 94 L 12/11/22 05:00 98 15 101/73 94 L 12/11/22 04:00 98.5 F 98 16 103/78 97 12/11/22 03:00 93 14 110/76 97 12/11/22 02:00 93 22 121/81 95 12/11/22 01:00 88 15 120/77 97 12/11/22 00:00 98.8 F 86 17 106/78 98 12/10/22 23:00 87 20 126/79 98 12/10/22 22:00 99 20 114/77 96 12/10/22 21:00 96 13 121/71 95 12/10/22 20:00 98.7 F 102 H 17 129/70 93 L 12/10/22 19:00 100 21 95 12/10/22 18:30 101 H 19 125/74 92 L 12/10/22 18:00 99 18 125/74 96 12/10/22 17:30 102 H 18 121/72 94 L 12/10/22 17:00 97.9 F 101 H 17 137/77 95 12/10/22 13:00 102 H 18 111/66 96 Intake and Output 12/10/22 12/11/22 12/11/22 22:59 06:59 14:59 Intake Total 210 280 245 Output Total 265 375 880 Balance -38 -75 -827 Intake: IV 210 280 245 Sodium Chloride 0.9% 500 75 ml 500 ml @ 999 mls/hr IV .Q31M [facility] Rx#:[id number] Sodium Chloride 3%( 135 280 245 Hypertonic) 500 ml @ 35 mls/hr IV .[id number] [facility] Rx #:[id number] Output: Urine 265 375 880 Other: Voiding Method Indwelling Catheter Indwelling Catheter Indwelling Catheter Weight 107 kg 108 kg 108 kg Physical Exam: Revealed a 67-year-old white male in no distress, patient is on 2 L nasal cannula. HEENT:[Neck is supple.] [No neck masses.] [No thyromegaly.] [No JVD.] Chest: [diminished breath sounds at the bases no crackles or rhonchi or wheezes] Cardiac Exam: [Normal S1 and S2, no S3 gallop, no murmur.] Abdomen: [Soft, nontender, no megaly, no rebound, no guarding, normal bowel sounds.] Extremities: [No clubbing, no edema, no cyanosis.] Neurological Exam: [No focal neurologic deficit.]alert and oriented 3, patient is a bit slow. Psychiatric: Normal mood affect and normal mental status examination. Skin: Multiple circular erythematous lesions noted on both lower extremities, with clearance in the center of the lesions, highly suspicious for ringworm dermatitis. Results - Laboratory Findings CBC and BMP: 12/11/22 03:44 12/11/22 10:58 PT/INR, D-dimer PT 10.0 sec (9.0-12.0) 12/10/22 10:06 INR 0.9 (<1.2) 12/10/22 10:06 Abnormal lab findings: Abnormal Labs 12/10/22 12/10/22 12/10/22 09:47 10:06 10:06 WBC 13.5 H RBC 4.12 L Hgb Hct 36.6 L Neutrophils # (Manual) 10.50 H Metamyelocytes # (Man) 0.27 H Myelocytes # (Manual) 0.14 H Sodium 105 L* Potassium 5.8 H Chloride 70 L* Carbon Dioxide 31 H BUN Creatinine Glucose 116 H POC Glucose (mg/dL) 194 H Osmolality Calcium AST 65 H ALT 70 H Alkaline Phosphatase 145 H Total Protein 6.0 L Albumin Urine Ketones 12/10/22 12/10/22 12/10/22 10:06 12:03 16:38 WBC RBC Hgb Hct Neutrophils # (Manual) Metamyelocytes # (Man) Myelocytes # (Manual) Sodium 107 L* Potassium 5.6 H Chloride 76 L Carbon Dioxide BUN 8 L Creatinine 0.62 L Glucose 103 H POC Glucose (mg/dL) Osmolality 231 L* Calcium 7.8 L AST ALT 60 H Alkaline Phosphatase Total Protein 5.0 L Albumin 2.9 L Urine Ketones 1+ H 12/10/22 12/10/22 12/10/22 16:49 20:12 22:04 WBC RBC Hgb Hct Neutrophils # (Manual) Metamyelocytes # (Man) Myelocytes # (Manual) Sodium 106 L* 109 L* Potassium Chloride Carbon Dioxide BUN Creatinine Glucose POC Glucose (mg/dL) 120 H Osmolality Calcium AST ALT Alkaline Phosphatase Total Protein Albumin Urine Ketones 12/10/22 12/11/22 12/11/22 23:51 01:52 03:44 WBC RBC Hgb Hct Neutrophils # (Manual) Metamyelocytes # (Man) Myelocytes # (Manual) Sodium 108 L* 109 L* 110 L* Potassium 5.2 H Chloride 78 L Carbon Dioxide BUN 5 L Creatinine 0.61 L Glucose POC Glucose (mg/dL) Osmolality Calcium 7.6 L AST ALT Alkaline Phosphatase Total Protein Albumin Urine Ketones 12/11/22 12/11/22 12/11/22 03:44 07:05 10:58 WBC RBC 3.91 L Hgb 12.1 L Hct 34.8 L Neutrophils # (Manual) Metamyelocytes # (Man) Myelocytes # (Manual) Sodium 111 L* 113 L* Potassium Chloride Carbon Dioxide BUN Creatinine Glucose POC Glucose (mg/dL) Osmolality Calcium AST ALT Alkaline Phosphatase Total Protein Albumin Urine Ketones - Diagnostic Findings Chest x-ray: image reviewed (Mostly by basilar atelectasis.) Assessment and Plan Assessment: impression: Severe hyponatremia, patient is normally on diuretics in the form of Lasix and Aldactone, I believe the hyponatremia is most likely hypovolemic in nature. Although euvolemic hyponatremia is not entirely ruled out. Nonetheless the patient is responding well to treatment, and we have to be cautious not to overcorrect his sodium rapidly. The goal is 8 mEq in 24 hours hence we could stop his 3% saline nowsince the sodium went up from 105 on admission to 113 at present. History of T11 to L1 stabilization and T12 kyphoplasty back in October of 2022 hence SIADH from recent surgery is a possibility. Benign essential hypertension possible ringworm dermatitis involving lower extremities. Hence we'll treat with miconazole. Cream. history of CVA. Degenerative joint disease. History of hypothyroidism. Dyslipidemia. Benign essential hypertension. recommendation: Continue present treatment plan, Discontinue 3% saline, consider D5W for now to avoid rapid correction of hyponatremia. Diuretics may actually worsen his hyponatremia Resume home medications. Continue to monitor in the ICU until sodium is up to 121, then could possibly transfer out of the ICU to regular medical floor. We will continue to follow while in ICU Time with Patient: Greater than 30
--- NOTE | 2022-12-11 13:36 | P.PN ---
Progress Note - Text Progress Note Date: 12/11/22 Patient was seen at bedside this morning lying semirecumbent position. Patient is 2 weeks s/p T11-L1 stabilization with T12 kyphoplasty for T12 fracture. optifoam dressings removed and harriet removed at bedside this morning. incision appears to be healing well at this time. Negative for any active drainage. ABDs and foam tape placed over incisions.
[2022-12-11] MEDS ORDERED: SENNOSIDES-DOCUSATE SODIUM 1 EACH TAB PO PRN (13:39)
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
--- NOTE | 2022-12-11 13:46 | P.PN ---
Subjective Progress Note Date: 12/11/22 HISTORY OF PRESENT ILLNESS This is a 67-year-old male patient of Dr. Urena with past medical history of hypertension, hyperlipidemia, coronary artery disease with stent in the mid circumflex 2020, chronic hypoxic respiratory failure on home O2, right lacunar CVA in 2019, seasonal ALLERGIES, COPD, obstructive sleep apnea on CPAP, hypothyroidism, gastroesophageal reflux disease. Patient gives history of a fall 3 or more weeks ago in the bathtub when he heard a pop in his back. He also had a second injury picking up a bag of trash and twisted with significant increase in pain. He had sharp pain in the lower thoracic area into his legs and buttocks. He initially presented to emergency center on 10/29 and was treated for constipation. He has subsequently followed up with Dr. Tidwell. CT of the spine revealed a T12 vertebral compression fracture. Patient was brought into the hospital and underwent ORIF and stabilization of T12 fracture. T11-L1 stabilization and fusion for T12 fracture and T12 kyphoplasty with biopsy. During his hospitalization, sodium was 130 and patient was on a fluid restriction. Patient was discharged to [facility] on 11/28. Patient was seen on [facility] rehab unit and adjustments were made to decrease his Lasix and Aldactone and repeat blood work was ordered for this week. Nursing staff noted the patient had a drop in his pulse ox and encourage patient to utilize his CPAP. Patient had mild changes in mental status. Sodium surprisingly came back at 107. Patient was then transferred to [facility] for further evaluation. On arrival, sodium 105. Potassium 5.8, chloride 70, CO2 31, BUN 19 creatinine 0.74. WBC 13.5, hemoglobin 13.2 platelet count 351. Liver function tests were elevated with AST is 65, ALT 70 and alkaline phosphatase 145. Troponin negative 1. Blood sugar 116. Albumin 3.7. Urinalysis negative. CAT scan of the brain revealed no suspicious acute intracranial changes. Chest x-ray reveals bilateral areas of subsegmental atelectasis favored over pneumonia. Patient was admitted into the intensive care unit and consult in place with nephrology, purchase order checker and orthopedic spine. Patient was provided 2-1/2 liters of IV fluids in the emergency center. Subsequently, IV fluids changed to 3%. 11/30: Patient remains in the intensive care unit. He is on 3% saline at 35 mL per hour per nephrology. He did receive 1 dose of IV Lasix 20 mg this morning. Patient is followed by pulmonary medicine, nephrology and orthopedic spine. Patient was on BiPAP during the night. Repeat blood work today reveals sodium of 110, potassium 5.2, chloride 78, CO2 29, BUN 5 and creatinine 0.61. WBC 8.4 and hemoglobin 12.1. Urine osmolality 592. Urine sodium 62. Serum osmolality 231. REVIEW OF SYSTEMS Constitutional: No fever, no chills, no night sweats. No weight change. No weakness, fatigue or lethargy. No daytime sleepiness. EENT: No headache. No blurred vision or double vision, no loss of vision. No loss of Hearing, no ringing in the ears, no dizziness. No nasal drainage or congestion. No epistaxis. No sore throat. Lungs: No shortness of breath, cough, no sputum production. No wheezing. Chronic oxygen use. Cardiovascular: No chest pain, no lower extremity edema. No palpitations. No paroxysmal nocturnal dyspnea. No orthopnea. No lightheadedness or dizziness. No syncopal episodes. Abdominal: No abdominal pain. No nausea, vomiting. No diarrhea. Reports constipation. No bloody or tarry stools. No loss of appetite. Genitourinary: No dysuria, increased frequency, urgency. No urinary retention. Musculoskeletal: No myalgias. No muscle weakness, no gait dysfunction, no frequent falls. Reports thoracic back discomfort. No neck pain. Integumentary: No wounds, positive healing surgical wound to his back no lesions. No rash or pruritus. No unusual bruising. No change in hair or na ils. Neurologic: No aphasia. No facial droop. No change in mentation. No head injury. No headache. No paralysis. No paresthesia. Psychiatric: No depression. No anxiety. No mood swings. Endocrine: No abnormal blood sugars. No weight change. No excessive sweating or thirst. No cold intolerance. PHYSICAL EXAMINATION Gen: This is an obese 67-year-old male. He is resting in ICU and a ppears to be comfortable. HEENT: Head is atraumatic, normocephalic. Pupils equal, round. Sclerae is anicteric. NECK: Supple. No JVD. No lymphadenopathy. No thyromegaly. LUNGS: Diminished breath sounds at the bases. No intercostal retractions. HEART: Regular rate and rhythm. No murmur. ABDOMEN: Soft. Bowel sounds are present. No masses. No tenderness. Darby catheter in place. EXTREMITIES: No pedal edema. No calf tenderness. Skin tears to the bilateral elbows. BACK: Monroe in place to the low thoracic and also mid lumbar regions with wound edges well approximated, no erythema, no drainage. NEUROLOGICAL: Patient is awake, alert and oriented x3. Cranial nerves 2 through 12 are grossly intact. ASSESSMENT AND PLAN 1. Severe hyponatremia most likely hypovolemic hyponatremic. Continue care in the intensive care unit. Consult in place with purchase order checker and nephrology appreciated. Continue to monitor electrolytes closely and continue plan per nephrology. 2. T 12 compression fracture status post kyphoplasty and T11-L1 stabilization. Consult Dr. Tidwell. Continue current pain management with [place] 7.5 one every 4 hours, gabapentin 300 mg every 8 hours, Flexeril 5 mg 1 every 8 hours. 3. Hypertension. Continue metoprolol tartrate 25 mg twice daily, losartan 25 mg daily, Aldactone and Lasix discontinued 4. Constipation. Patient started on Senokot S2 tablets daily, MiraLAX 17 g daily. 5. Hyperlipidemia. Continue atorvastatin 10 mg daily. 6. History of coronary artery disease with previous stent. Continue aspirin 81 mg daily, metoprolol tartrate 25 mg daily. 7. Chronic hypoxic respiratory failure on home O2. Continue oxygen therapy. 8. COPD without exacerbation. 9. Hypothyroidism. Continue levothyroxine 50 g daily. 10. Obstructive sleep apnea. Continue CPAP machine. 11. Gastroesophageal reflux disease. Continue Protonix 40 mg mg daily. 12. CVA. Continue patient on aspirin, Lipitor. 13. Seasonal ALLERGIES. Continue Zyrtec 10 mg daily. CODE STATUS: No code Impression and plan of care have been directed as dictated by the signing physician. Kira Jara nurse practitioner acting as scribe for signing physician. Objective - Vital Signs Vital signs: Vital Signs Temp 99.0 F 12/11/22 08:00 Pulse 98 12/11/22 09:00 Resp 14 12/11/22 09:00 BP 110/65 12/11/22 09:00 Pulse Ox 94 L 12/11/22 09:00 FiO2 Intake & Output 12/10/22 12/11/22 12/11/22 18:59 06:59 18:59 Intake Total 1220 390 105 Output Total 1290 550 110 Balance -70 -160 -5 Weight 107 kg 108 kg Intake: IV 1100 390 105 Sodium Chloride 0.9% 500 1075 ml 500 ml @ 999 mls/hr IV .[id number] [facility] Rx#:[id number] Sodium Chloride 3%( 25 390 105 Hypertonic) 500 ml @ 35 mls/hr IV .[id number] [facility] Rx #:[id number] Oral 120 Output: Urine 1290 550 110 Uretheral (Darby) 600 Other: Voiding Method Indwelling Catheter - Labs CBC & Chem 7: 12/11/22 03:44 12/11/22 10:58 Labs: Abnormal Lab Results - Last 24 Hours (Table) 12/10/22 12/10/22 12/10/22 Range/Units 10:06 10:06 10:06 WBC 13.5 H (3.8-10.6) k/uL RBC 4.12 L (4.30-5.90) m/uL Hgb (13.0-17.5) gm/dL Hct 36.6 L (39.0-53.0) % Neutrophils # (Manual) 10.50 H (1.3-7.7) k/uL Metamyelocytes # (Man) 0.27 H (0) k/uL Myelocytes # (Manual) 0.14 H (0) k/uL Sodium 105 L* (137-145) mmol/L Potassium 5.8 H (3.5-5.1) mmol/L Chloride 70 L* (98-107) mmol/L Carbon Dioxide 31 H (22-30) mmol/L BUN (9-20) mg/dL Creatinine (0.66-1.25) mg/dL Glucose 116 H (74-99) mg/dL POC Glucose (mg/dL) (70-110) mg/dL Osmolality (280-301) mosm/kg Calcium (8.4-10.2) mg/dL AST 65 H (17-59) U/L ALT 70 H (4-49) U/L Alkaline Phosphatase 145 H (38-126) U/L Total Protein 6.0 L (6.3-8.2) g/dL Albumin (3.5-5.0) g/dL Urine Ketones 1+ H (Negative) 12/10/22 12/10/22 12/10/22 Range/Units 12:03 16:38 16:49 WBC (3.8-10.6) k/uL RBC (4.30-5.90) m/uL Hgb (13.0-17.5) gm/dL Hct (39.0-53.0) % Neutrophils # (Manual) (1.3-7.7) k/uL Metamyelocytes # (Man) (0) k/uL Myelocytes # (Manual) (0) k/uL Sodium 107 L* (137-145) mmol/L Potassium 5.6 H (3.5-5.1) mmol/L Chloride 76 L (98-107) mmol/L Carbon Dioxide (22-30) mmol/L BUN 8 L (9-20) mg/dL Creatinine 0.62 L (0.66-1.25) mg/dL Glucose 103 H (74-99) mg/dL POC Glucose (mg/dL) 120 H (70-110) mg/dL Osmolality 231 L* (280-301) mosm/kg Calcium 7.8 L (8.4-10.2) mg/dL AST (17-59) U/L ALT 60 H (4-49) U/L Alkaline Phosphatase (38-126) U/L Total Protein 5.0 L (6.3-8.2) g/dL Albumin 2.9 L (3.5-5.0) g/dL Urine Ketones (Negative) 12/10/22 12/10/22 12/10/22 Range/Units 20:12 22:04 23:51 WBC (3.8-10.6) k/uL RBC (4.30-5.90) m/uL Hgb (13.0-17.5) gm/dL Hct (39.0-53.0) % Neutrophils # (Manual) (1.3-7.7) k/uL Metamyelocytes # (Man) (0) k/uL Myelocytes # (Manual) (0) k/uL Sodium 106 L* 109 L* 108 L* (137-145) mmol/L Potassium (3.5-5.1) mmol/L Chloride (98-107) mmol/L Carbon Dioxide (22-30) mmol/L BUN (9-20) mg/dL Creatinine (0.66-1.25) mg/dL Glucose (74-99) mg/dL POC Glucose (mg/dL) (70-110) mg/dL Osmolality (280-301) mosm/kg Calcium (8.4-10.2) mg/dL AST (17-59) U/L ALT (4-49) U/L Alkaline Phosphatase (38-126) U/L Total Protein (6.3-8.2) g/dL Albumin (3.5-5.0) g/dL Urine Ketones (Negative) 12/11/22 12/11/22 12/11/22 Range/Units 01:52 03:44 03:44 WBC (3.8-10.6) k/uL RBC 3.91 L (4.30-5.90) m/uL Hgb 12.1 L (13.0-17.5) gm/dL Hct 34.8 L (39.0-53.0) % Neutrophils # (Manual) (1.3-7.7) k/uL Metamyelocytes # (Man) (0) k/uL Myelocytes # (Manual) (0) k/uL Sodium 109 L* 110 L* (137-145) mmol/L Potassium 5.2 H (3.5-5.1) mmol/L Chloride 78 L (98-107) mmol/L Carbon Dioxide (22-30) mmol/L BUN 5 L (9-20) mg/dL Creatinine 0.61 L (0.66-1.25) mg/dL Glucose (74-99) mg/dL POC Glucose (mg/dL) (70-110) mg/dL Osmolality (280-301) mosm/kg Calcium 7.6 L (8.4-10.2) mg/dL AST (17-59) U/L ALT (4-49) U/L Alkaline Phosphatase (38-126) U/L Total Protein (6.3-8.2) g/dL Albumin (3.5-5.0) g/dL Urine Ketones (Negative) 12/11/22 Range/Units 07:05 WBC (3.8-10.6) k/uL RBC (4.30-5.90) m/uL Hgb (13.0-17.5) gm/dL Hct (39.0-53.0) % Neutrophils # (Manual) (1.3-7.7) k/uL Metamyelocytes # (Man) (0) k/uL Myelocytes # (Manual) (0) k/uL Sodium 111 L* (137-145) mmol/L Potassium (3.5-5.1) mmol/L Chloride (98-107) mmol/L Carbon Dioxide (22-30) mmol/L BUN (9-20) mg/dL Creatinine (0.66-1.25) mg/dL Glucose (74-99) mg/dL POC Glucose (mg/dL) (70-110) mg/dL Osmolality (280-301) mosm/kg Calcium (8.4-10.2) mg/dL AST (17-59) U/L ALT (4-49) U/L Alkaline Phosphatase (38-126) U/L Total Protein (6.3-8.2) g/dL Albumin (3.5-5.0) g/dL Urine Ketones (Negative)
--- NOTE | 2022-12-11 17:42 | XR ---
EXAMINATION TYPE: XR chest 1V portable DATE OF EXAM: 12/11/2022 5:29 PM COMPARISON: Chest radiographs from 12/10/2022 TECHNIQUE: XR chest 1V portable Portable AP radiograph of the chest. CLINICAL INDICATION:Male, 67 years old with history of shortness of breath; FINDINGS: Lungs/Pleura: Low lung volumes are present. There is no evidence of pleural effusion, focal consolida tion, or pneumothorax. Pulmonary vascularity: Unremarkable. Heart/mediastinum: Cardiomediastinal silhouette is enlarged and stable. A loop recorder projects over the left thorax over the heart. Musculoskeletal: No acute osseous pathology. IMPRESSION: No acute cardiopulmonary disease/process. No significant change from prior.
--- NOTE | 2022-12-11 17:43 | XR ---
EXAMINATION TYPE: XR shoulder complete LT DATE OF EXAM: 12/11/2022 5:29 PM INDICATION: Patient age:Male; 67 years old; Reason for study: s/p T11-L1 stabilization, recent fall; COMPARISON: 06/05/2015 TECHNIQUE: The right shoulder was examined in AP, internally rotated and scapular Y projections. . FINDINGS: No evidence of acute osseous pathology, joint dislocation, or soft tissue swelling. The remaining por tions of the visualized chest are unremarkable. IMPRESSION: No acute osseous pathology.
--- NOTE | 2022-12-11 17:44 | XR ---
EXAMINATION TYPE: XR thoraco lumbar junction DATE OF EXAM: 12/11/2022 5:29 PM INDICATION: Patient age:Male; 67 years old; Reason for study: s/p T11-L1 stabilization, recent fall; COMPARISON: None TECHNIQUE: Frontal, lateral and coned in L5-S1 lateral views of the spine. FINDINGS: Post fixation changes to the T12-L1 and L2 vertebral bodies with vertebroplasty cement pres ent. Hardware appears intact. Multilevel disc degeneration changes throughout the spine. No evidence of any acute osseous pathology. Scattered facet joint arthropathy osteophyte formation is present. IMPRESSION: Postsurgical changes to the spine with hardware in appropriate position. Alignment appears satisfacto ry.
[2022-12-11] MEDS ORDERED: SODIUM CHLORIDE 3%(HYPERTONIC) 500 ML IV SCH (18:00)
[2022-12-11] MEDS: AMMONIUM LACTATE 12% CREAM 140 GM TUBE TOPICAL SCH (20:04)
[2022-12-11] MEDS: ATORVASTATIN 10 MG TAB PO SCH (20:05)
[2022-12-11] MEDS: LORATADINE 10 MG TAB PO SCH (20:05)
[2022-12-12 02:32] LABS: Glucose,Whole Blood 92 mg/dL (70-110)
[2022-12-12] MEDS ORDERED: FUROSEMIDE 10 MG/ML 2 ML VIAL IV ONE (04:57)
[2022-12-12] MEDS: GABAPENTIN 300 MG CAP PO SCH ×3 (05:05→22:18)
[2022-12-12] MEDS: PANTOPRAZOLE 40 MG TABLET PO SCH (05:05)
[2022-12-12] MEDS: CYCLOBENZAPRINE 5 MG TAB PO SCH ×3 (05:05→22:18)
[2022-12-12] MEDS: LEVOTHYROXINE 50 MCG TAB PO SCH (05:05)
[2022-12-12 05:57] LABS: Sodium 117 mmol/L (137-145)
[2022-12-12 08:03] LABS: HGB 12.9 gm/dL (13.0-17.5); MCH 31.5 pg (25.0-35.0); MCHC 33.9 g/dL (31.0-37.0); Mean Platelet Volume 7.5; Platelet Count 324 k/uL (150-450); RBC 4.08 m/uL (4.30-5.90); RDW 14.5 % (11.5-15.5); WBC 9.6 k/uL (3.8-10.6)
[2022-12-12 08:19] LABS: African American GFR (CKD) >90 (>60 ml/min/1.73 sqM); Anion Gap 6 mmol/L; Blood Urea Nitrogen 4 mg/dL (9-20); Calcium 7.9 mg/dL (8.4-10.2); Carbon Dioxide 23 mmol/L (22-30); Chloride 88 mmol/L (98-107); Glucose 86 mg/dL (74-99); Non-African American GFR(CKD) >90 (>60 ml/min/1.73 sqM)
[2022-12-12 08:22] LABS: Potassium 4.7 mmol/L (3.5-5.1)
[2022-12-12] MEDS ORDERED: COSYNTROPIN 0.25 MG VIAL IVP ONE (10:00)
[2022-12-12] MEDS: ASPIRIN 81 MG PO SCH (10:32)
[2022-12-12] MEDS: ENOXAPARIN 40 MG/0.4 ML SYRINGE SQ SCH (10:32)
[2022-12-12] MEDS: METOPROLOL TARTRATE 25 MG TAB PO SCH ×2 (10:32→20:29)
[2022-12-12] MEDS: polyethylene glycoL 3350 17 GM POWD.PACK PO SCH (10:34)
[2022-12-12] MEDS: MICONAZOLE NITRATE 2% CREAM 14 GM TUBE TOPICAL SCH ×2 (10:35→20:29)
--- NOTE | 2022-12-12 10:39 | P.PN ---
Subjective Patient is seen in follow-up for hyponatremia. Sodium level gradually improving. Most recent sodium level 119. Patient currently on 3% saline. U rine output was low last night and received a dose of IV Lasix with improvement in urine output. Resting in bed. On nasal cannula. Lethargic. Vital signs are stable. General: Sitting up in bed. Lethargic. HEENT: Head exam is unremarkable. On nasal cannula. LUNGS: Breath sounds decreased. HEART: Rate and Rhythm are regular. ABDOMEN: Soft, no distention. Obese. EXTREMITITES: No edema. Objective - Vital Signs Vital signs: Vital Signs Temp 98.7 F 12/12/22 08:00 Pulse 100 12/12/22 09:00 Resp 13 12/12/22 09:00 BP 82/57 12/12/22 09:00 Pulse Ox 96 12/12/22 09:00 FiO2 50 12/11/22 12:12 Intake & Output 12/11/22 12/12/22 12/12/22 18:59 06:59 18:59 Intake Total 1170 315 105 Output Total 1260 415 450 Balance -90 -100 -345 Weight 108 kg 105.7 kg 105.7 kg Intake: IV 420 315 105 Sodium Chloride 3%( 420 315 105 Hypertonic) 500 ml @ 35 mls/hr IV .[id number] [facility] Rx #:[id number] Oral 750 Output: Urine 1260 415 450 Other: Voiding Method Indwelling Catheter Indwelling Catheter - Labs CBC & Chem 7: 12/12/22 05:32 12/12/22 10:02 Labs: Abnormal Lab Results - Last 24 Hours (Table) 12/11/22 12/11/22 12/11/22 Range/Units 10:58 12:42 15:09 RBC (4.30-5.90) m/uL Hgb (13.0-17.5) gm/dL Hct (39.0-53.0) % Sodium 113 L* 114 L* 114 L* (137-145) mmol/L Chloride (98-107) mmol/L BUN (9-20) mg/dL Creatinine (0.66-1.25) mg/dL Calcium (8.4-10.2) mg/dL 12/11/22 12/11/22 12/11/22 Range/Units 17:51 20:08 22:09 RBC (4.30-5.90) m/uL Hgb (13.0-17.5) gm/dL Hct (39.0-53.0) % Sodium 116 L* 115 L* 115 L* (137-145) mmol/L Chloride (98-107) mmol/L BUN (9-20) mg/dL Creatinine (0.66-1.25) mg/dL Calcium (8.4-10.2) mg/dL 12/12/22 12/12/22 12/12/22 Range/Units 00:09 03:36 05:32 RBC (4.30-5.90) m/uL Hgb (13.0-17.5) gm/dL Hct (39.0-53.0) % Sodium 116 L* 117 L* 117 L* (137-145) mmol/L Chloride 88 L (98-107) mmol/L BUN 4 L (9-20) mg/dL Creatinine 0.53 L (0.66-1.25) mg/dL Calcium 7.9 L (8.4-10.2) mg/dL 12/12/22 12/12/22 Range/Units 05:32 10:02 RBC 4.08 L (4.30-5.90) m/uL Hgb 12.9 L (13.0-17.5) gm/dL Hct 38.0 L (39.0-53.0) % Sodium 119 L* (137-145) mmol/L Chloride (98-107) mmol/L BUN (9-20) mg/dL Creatinine (0.66-1.25) mg/dL Calcium (8.4-10.2) mg/dL Assessment and Plan Plan: Assessment: 1. Hyponatremia. Patient appears fairly euvolemic. 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 Cortisol level low at 4. Sodium level 107 dated 12/10/2022 at 12:15 AM - 119 this morning. Currently maintained on 3% saline. Urine osmolality 592. Urine sodium 62. TSH normal. 2. Status post T11 to L1 stabilization with T12 kyphoplasty on 11/18/2022. 3. Benign hypertension. Blood pressure in the lower side. Plan: Hold 3% saline. Status post IV Lasix this morning. Goal rate of correction 6-8 mEq per 24 hours. Continue to monitor sodium level closely. Check cosyntropin stimulation test. Solu-Medrol added by ICU team. To be started after cosyntropin stimulation test completed.
[2022-12-12] MEDS: LOSARTAN 25 MG TAB PO SCH (11:22)
--- NOTE | 2022-12-12 12:35 | P.PN ---
Subjective Progress Note Date: 12/12/22 Principal diagnosis: severe hyponatremia this is a 67-year-old white male with history of multiple medical problems including hypertension, degenerative joint disease, hypothyroidism,previous CVA,recent T11-T12 fracture for which she had surgery, and he was sent to rehabilitation patient is maintained on 3 L oxygen on outpatient basis, has been refusing to use his CPAP at this facility. Brought in to the ER yesterday for recurrent falls, and he was noted to have low sodium as low as 105.urine osmolality was high at 592, urine sodium was 62,patient was placed on 3% saline, I was notified by the ER physician about the patient, and considering his low sodium, I recommended admission to the ICU and to continue 3% saline. His follow-up sodium today is 113, hence most likely the patient will be off 3% saline in the next few hours. Patient has been on diuretics including Aldactone and Lasix on outpatient basis, this is likely a picture of hypovolemic hyponatremia,mostly because of the clinical history being on diuretics. although euvolemic hyponatremia is not entirely ruled out,SIADH is a possibility, again his sodium is being addressed by nephrology on the case.chest x-ray showed mostly by basilar atelectasis. No clear-cut evidence of pneumonia or malignancy.CT of the brain showed no suspicious acute intracranial change. reevaluated today , patient remains in the ICU, remains on 3% saline, his sodium today is 117. Surprisingly his cortisol level is 4 today., that by itself considering the presentation is consistent with adrenal insufficiency.gifty reji needs to be on Solu-Cortef, however considering the sql report writer went ahead and ordered a Cortrosyn stimulation test, will wait until the Cortrosyn stimulation test is done, nonetheless the patient will need to be on Solu-Cortef 100 mg IV push 3 times a day for now, and will likely need to be on Cortef on outpatient basis.his CBC is relatively unremarkable, his potassium is normal. His sodium is 119 this morning, and will need to come off 3% saline. Objective - Vital Signs Vital signs: Vital Signs Temp 98.2 F 12/12/22 12:00 Pulse 94 12/12/22 12:00 Resp 17 12/12/22 12:00 BP 79/52 12/12/22 12:00 Pulse Ox 95 12/12/22 12:00 FiO2 50 12/11/22 12:12 Intake & Output 12/11/22 12/12/22 12/12/22 18:59 06:59 18:59 Intake Total 1170 315 140 Output Total 1260 415 675 Balance -90 -100 -535 Weight 108 kg 105.7 kg 105.7 kg Intake: IV 420 315 140 Sodium Chloride 3%( 420 315 140 Hypertonic) 500 ml @ 35 mls/hr IV .[id number] [facility] Rx #:[id number] Oral 750 Output: Urine 1260 415 675 Other: Voiding Method Indwelling Catheter Indwelling Catheter - Exam Physical Exam: Revealed a 67-year-old white male in no distress, patient is on 2 L nasal cannula.patient seems to be quite sleepy, hence I recommended that the patient goes on BiPAP, ABG showed a relative hypercapnia with a pCO2 of 50 HEENT:[Neck is supple.] [No neck masses.] [No thyromegaly.] [No JVD.] Chest: [diminished breath sounds at the bases no crackles or rhonchi or wheezes] Cardiac Exam: [Normal S1 and S2, no S3 gallop, no murmur.] Abdomen: [Soft, nontender, no megaly, no rebound, no guarding, normal bowel sounds.] Extremities: [No clubbing, no edema, no cyanosis.] Neurological Exam: [No focal neurologic deficit.]alert and oriented 3, patient is a bit slow. Psychiatric: Normal mood affect and normal mental status examination. Skin: Multiple circular erythematous lesions noted on both lower extremities, with clearance in the center of the lesions, highly suspicious for ringworm dermatitis. - Labs CBC & Chem 7: 12/12/22 05:32 12/12/22 10:02 Labs: Abnormal Lab Results - Last 24 Hours (Table) 12/11/22 12/11/22 12/11/22 Range/Units 12:42 15:09 17:51 RBC (4.30-5.90) m/uL Hgb (13.0-17.5) gm/dL Hct (39.0-53.0) % Sodium 114 L* 114 L* 116 L* (137-145) mmol/L Chloride (98-107) mmol/L BUN (9-20) mg/dL Creatinine (0.66-1.25) mg/dL Calcium (8.4-10.2) mg/dL 12/11/22 12/11/22 12/12/22 Range/Units 20:08 22:09 00:09 RBC (4.30-5.90) m/uL Hgb (13.0-17.5) gm/dL Hct (39.0-53.0) % Sodium 115 L* 115 L* 116 L* (137-145) mmol/L Chloride (98-107) mmol/L BUN (9-20) mg/dL Creatinine (0.66-1.25) mg/dL Calcium (8.4-10.2) mg/dL 12/12/22 12/12/22 12/12/22 Range/Units 03:36 05:32 05:32 RBC 4.08 L (4.30-5.90) m/uL Hgb 12.9 L (13.0-17.5) gm/dL Hct 38.0 L (39.0-53.0) % Sodium 117 L* 117 L* (137-145) mmol/L Chloride 88 L (98-107) mmol/L BUN 4 L (9-20) mg/dL Creatinine 0.53 L (0.66-1.25) mg/dL Calcium 7.9 L (8.4-10.2) mg/dL 12/12/22 Range/Units 10:02 RBC (4.30-5.90) m/uL Hgb (13.0-17.5) gm/dL Hct (39.0-53.0) % Sodium 119 L* (137-145) mmol/L Chloride (98-107) mmol/L BUN (9-20) mg/dL Creatinine (0.66-1.25) mg/dL Calcium (8.4-10.2) mg/dL Assessment and Plan Assessment: impression: Severe hyponatremia, seems to be most likely secondary to acute at the insufficiency. Patient was found to have extremely low serum cortisol, and his Cortrosyn stimulation test is pending. History of T11 to L1 stabilization and T12 kyphoplasty back in October of 2022 Benign essential hypertension possible ringworm dermatitis involving lower extremities. Hence we'll treat with miconazole. Cream. history of CVA. Degenerative joint disease. History of hypothyroidism. Dyslipidemia. Benign essential hypertension. chronic hypercapnic respiratory failureWith obstructive sleep apnea syndrome, noncompliant with his CPAP at home. recommendation: start patient on Solu-Cortef,the initial report on his Cortrosyn stimulation test showed an increase of cortisol of less than 9 after half hour of giving him ACTH. This is again consistent with adrenal insufficiency. Continue present treatment plan, Discontinue 3% saline, use BiPAP as needed Resume home medications. transfer out of the ICU in the next 24 hours Time with Patient: Less than 30
[2022-12-12] MEDS: HYDROCORTISONE SUCCINATE 100 MG/2 ML VIAL IV SCH ×3 (13:14→22:18)
--- NOTE | 2022-12-12 13:50 | P.PN ---
Subjective Progress Note Date: 12/12/22 HISTORY OF PRESENT ILLNESS This is a 67-year-old male patient of Dr. Urena with past medical history of hypertension, hyperlipidemia, coronary artery disease with stent in the mid circumflex 2020, chronic hypoxic respiratory failure on home O2, right lacunar CVA in 2019, seasonal ALLERGIES, COPD, obstructive sleep apnea on CPAP, hypothyroidism, gastroesophageal reflux disease. Patient gives history of a fall 3 or more weeks ago in the bathtub when he heard a pop in his back. He also had a second injury picking up a bag of trash and twisted with significant increase in pain. He had sharp pain in the lower thoracic area into his legs and buttocks. He initially presented to emergency center on 10/29 and was treated for constipation. He has subsequently followed up with Dr. Tidwell. CT of the spine revealed a T12 vertebral compression fracture. Patient was brought into the hospital and underwent ORIF and stabilization of T12 fracture. T11-L1 stabilization and fusion for T12 fracture and T12 kyphoplasty with biopsy. During his hospitalization, sodium was 130 and patient was on a fluid restriction. Patient was discharged to [facility] on 11/28. [facility] and adjustments were made to decrease his Lasix and Aldactone and repeat blood work was ordered for this week. Nursing staff noted the patient had a drop in his pulse ox and encourage patient to utilize his CPAP. Patient had mild changes in mental status. Sodium surprisingly came back at 107. Patient was then transferred to [facility] for further evaluation. On arrival, sodium 105. Potassium 5.8, chloride 70, CO2 31, BUN 19 creatinine 0.74. WBC 13.5, hemoglobin 13.2 platelet count 351. Liver function tests were elevated with AST is 65, ALT 70 and alkaline phosphatase 145. Troponin negative 1. Blood sugar 116. Albumin 3.7. Urinalysis negative. CAT scan of the brain revealed no suspicious acute intracranial changes. Chest x-ray reveals bilateral areas of subsegmental atelectasis favored over pneumonia. Patient was admitted into the intensive care unit and consult in place with nephrology, clearance center manager and orthopedic spine. Patient was provided 2-1/2 liters of IV fluids in the emergency center. Subsequently, IV fluids changed to 3%. 12/11: Patient remains in the intensive care unit. He is on 3% saline at 35 mL per hour per nephrology. He did receive 1 dose of IV Lasix 20 mg this morning. Patient is followed by pulmonary medicine, nephrology and orthopedic spine. Patient was on BiPAP during the night. Repeat blood work today reveals sodium o f 110, potassium 5.2, chloride 78, CO2 29, BUN 5 and creatinine 0.61. WBC 8.4 and hemoglobin 12.1. Urine osmolality 592. Urine sodium 62. Serum osmolality 231. 12/12: Patient remains in the intensive care unit. Sodium level is slowly improving. He had low urine output last night and received a dose of IV Lasix with improvement. Sodium is 119. Nephrology has discontinued saline 3%. Cosyntropin stimulation test has been ordered. Brokerage Branch Manager has added Solu- Cortef to start following cosyntropin stimulation testing. clinical research monitor sinus rhythm. Patient noted to have mental status changes today. Left shoulder x-ray no acute osseous pathology Chest x-ray: No acute cardio pulmonary process. Thoracic and lumbar junction x-rays reveals postsurgical changes to the spine with hardware in appropriate position. Alignment appears satisfactory. REVIEW OF SYSTEMS Constitutional: No fever, no chills, no night sweats. No weight change. Noted weakness, noted fatigue noted lethargy. Noted daytime sleepiness. EENT: No headache. No loss of vision. No loss of Hearing, no ringing in the ears, no dizziness. No nasal drainage or congestion. No epistaxis. No sore throat. Lungs: No shortness of breath, cough, no sputum production. No wheezing. Chronic oxygen use. Cardiovascular: No chest pain, no lower extremity edema. No palpitations. No paroxysmal nocturnal dyspnea. No orthopnea. No lightheadedness or dizziness. No syncopal episodes. Abdominal: No abdominal pain. No nausea, vomiting. No diarrhea. Reports constipation. No bloody or tarry stools. No loss of appetite. Genitourinary: No dysuria, increased frequency, urgency. No urinary retention. Musculoskeletal: No myalgias. No muscle weakness, no gait dysfunction, no frequent falls. Reports thoracic back discomfort. No neck pain. Integumentary: No wounds, positive healing surgical wound to his back no lesio ns. No rash or pruritus. No unusual bruising. No change in hair or nails. Neurologic: No aphasia. No facial droop. Noted mild change in mentation. No head injury. No headache. No paralysis. No paresthesia. Psychiatric: No depression. No anxiety. No mood swings. Endocrine: No abnormal blood sugars. No weight change. No excessive sweating or thirst. No cold intolerance. PHYSICAL EXAMINATION Gen: This is an obese 67-year-old male. He is resting in ICU and appears to be comfortable. HEENT: Head is atraumatic, normocephalic. Pupils equal, round. Sclerae is anicteric. NECK: Supple. No JVD. No lymphadenopathy. No thyromegaly. LUNGS: Diminished breath sounds at the bases. No intercostal retractions. HEART: Regular rate and rhythm. No murmur. ABDOMEN: Soft. Bowel sounds are present. No masses. No tenderness. Darby catheter in place. EXTREMITIES: No pedal edema. No calf tenderness. Skin tears to the bilateral elbows. BACK: Nitza in place to the low thoracic and also mid lumbar regions with wound edges well approximated, no erythema, no drainage. NEUROLOGICAL: Patient is awake, alert and oriented. Cranial nerves 2 through 12 are grossly intact. ASSESSMENT AND PLAN 1. Severe hyponatremia most likely hypovolemic hyponatremic. Continue care in the intensive care unit. Consult in place with clearance center manager and nephrology appreciated. Continue to monitor electrolytes closely and continue plan per nephrology. 2. T 12 compression fracture status post kyphoplasty and T11-L1 stabilization. Consult Dr. Tidwell. Continue current pain management with Silt 7.5 one every 4 hours, gabapentin 300 mg every 8 hours, Flexeril 5 mg 1 every 8 hours. 3. Adrenal insufficiency. Patient is started on Solu Cortef. 4. Metabolic encephalopathy secondary to severe hyponatremia. Continue to monitor closely. 5. Hypertension. Continue metoprolol tartrate 25 mg twice daily, losartan 25 mg daily, Aldactone and Lasix discontinued 6. Constipation. Patient started on Senokot S2 tablets daily, MiraLAX 17 g daily. 7. Hyperlipidemia. Continue atorvastatin 10 mg daily. 8. History of coronary artery disease with previous stent. Continue aspirin 81 mg daily, metoprolol tartrate 25 mg daily. 9. Chronic hypoxic respiratory failure on home O2. Continue oxygen therapy. 10. COPD without exacerbation. 11. Hypothyroidism. Continue levothyroxine 50 g daily. 12. Obstructive sleep apnea. Continue CPAP machine. 13. Gastroesophageal reflux disease. Continue Protonix 40 mg mg daily. 14. History of CVA. Continue patient on aspirin, Lipitor. 15. Seasonal ALLERGIES. Continue Zyrtec 10 mg daily. CODE STATUS: No code Impression and plan of care have been directed as dictated by the signing physician. Kira Jara nurse practitioner acting as scribe for signing physician. Objective - Vital Signs Vital signs: Vital Signs Temp 98.2 F 12/12/22 12:00 Pulse 94 12/12/22 12:00 Resp 17 12/12/22 12:00 BP 79/52 12/12/22 12:00 Pulse Ox 95 12/12/22 12:00 FiO2 50 12/11/22 12:12 Intake & Output 12/11/22 12/12/22 12/12/22 18:59 06:59 18:59 Intake Total 1170 315 140 Output Total 1260 415 675 Balance -90 -100 -535 Weight 108 kg 105.7 kg 105.7 kg Intake: IV 420 315 140 Sodium Chloride 3%( 420 315 140 Hypertonic) 500 ml @ 35 mls/hr IV .[id number] [facility] Rx #:[id number] Oral 750 Output: Urine 1260 415 675 Other: Voiding Method Indwelling Catheter Indwelling Catheter - Labs CBC & Chem 7: 12/12/22 05:32 12/12/22 10:02 Labs: Abnormal Lab Results - Last 24 Hours (Table) 12/11/22 12/11/22 12/11/22 Range/Units 12:42 15:09 17:51 RBC (4.30-5.90) m/uL Hgb (13.0-17.5) gm/dL Hct (39.0-53.0) % Sodium 114 L* 114 L* 116 L* (137-145) mmol/L Chloride (98-107) mmol/L BUN (9-20) mg/dL Creatinine (0.66-1.25) mg/dL Calcium (8.4-10.2) mg/dL 12/11/22 12/11/22 12/12/22 Range/Units 20:08 22:09 00:09 RBC (4.30-5.90) m/uL Hgb (13.0-17.5) gm/dL Hct (39.0-53.0) % Sodium 115 L* 115 L* 116 L* (137-145) mmol/L Chloride (98-107) mmol/L BUN (9-20) mg/dL Creatinine (0.66-1.25) mg/dL Calcium (8.4-10.2) mg/dL 12/12/22 12/12/22 12/12/22 Range/Units 03:36 05:32 05:32 RBC 4.08 L (4.30-5.90) m/uL Hgb 12.9 L (13.0-17.5) gm/dL Hct 38.0 L (39.0-53.0) % Sodium 117 L* 117 L* (137-145) mmol/L Chloride 88 L (98-107) mmol/L BUN 4 L (9-20) mg/dL Creatinine 0.53 L (0.66-1.25) mg/dL Calcium 7.9 L (8.4-10.2) mg/dL 12/12/22 Range/Units 10:02 RBC (4.30-5.90) m/uL Hgb (13.0-17.5) gm/dL Hct (39.0-53.0) % Sodium 119 L* (137-145) mmol/L Chloride (98-107) mmol/L BUN (9-20) mg/dL Creatinine (0.66-1.25) mg/dL Calcium (8.4-10.2) mg/dL
--- NOTE | 2022-12-12 14:37 | P.PN ---
Subjective Progress Note Date: 12/12/22 Principal diagnosis: status post T 11 to L1 stabilization with T12 kyphoplasty Status post multiple falls at rehab Left shoulder pain Patient seen at bedside this morning lying semirecumbent position in bed in ICU. Patient says he has not been up since coming into the hospital. Patient is still unsure why he fell. Patient mentions he is still having some left shoulder pain at this time. Patient denies any pain in the back of this time. Patient says he is willing to work with physical therapy. Patient denies chest pain, fever, shortness breath, nausea, vomiting, change in vision, loss of bowel/bladder control. Objective - Vital Signs Vital signs: Vital Signs Temp 98.7 F 12/12/22 08:00 Pulse 100 12/12/22 09:00 Resp 13 12/12/22 09:00 BP 82/57 12/12/22 09:00 Pulse Ox 96 12/12/22 09:00 FiO2 50 12/11/22 12:12 Intake & Output 12/11/22 12/12/22 12/12/22 18:59 06:59 18:59 Intake Total 1170 315 105 Output Total 1260 415 450 Balance -90 -100 -345 Weight 108 kg 105.7 kg 105.7 kg Intake: IV 420 315 105 Sodium Chloride 3%( 420 315 105 Hypertonic) 500 ml @ 35 mls/hr IV .[id number] [facility] Rx #:[id number] Oral 750 Output: Urine 1260 415 450 Other: Voiding Method Indwelling Catheter Indwelling Catheter - Exam [place] taken out yesterday at bedside. Incision appears to be healing well. ABD pad and foam tape present over incisions on spine. May for any open fractur es, significant erythema/ecchymosis. Sensation is equal, symmetric, bilaterally intact throughout the upper and lower extremity. Patient does have some limited range of motion in the left shoulder and forward elevation since fall and due to pain. Patient has full range of motion in all other major milligrams in bilateral upper extremities. Patient does have some limited range of motion in the bilateral hips and flexion/extension due to weakness. Patient has full range of motion all other major motor groups in bilateral lower extremities. Motor exam - 5/5 in all major motor groups in bilateral upper extremities. 4/5 in all major motor groups in bilateral lower extremities. Neurovascular status is intact. Radial pulses intact bilaterally 2+. Cap refill under 3 seconds in digits upper extremities. DP pulses intact bilaterally. Negative Homans bilaterally. - Labs CBC & Chem 7: 12/12/22 05:32 12/12/22 12:19 Labs: Abnormal Lab Results - Last 24 Hours (Table) 12/11/22 12/11/22 12/11/22 Range/Units 12:42 15:09 17:51 RBC (4.30-5.90) m/uL Hgb (13.0-17.5) gm/dL Hct (39.0-53.0) % Sodium 114 L* 114 L* 116 L* (137-145) mmol/L Chloride (98-107) mmol/L BUN (9-20) mg/dL Creatinine (0.66-1.25) mg/dL Calcium (8.4-10.2) mg/dL 12/11/22 12/11/22 12/12/22 Range/Units 20:08 22:09 00:09 RBC (4.30-5.90) m/uL Hgb (13.0-17.5) gm/dL Hct (39.0-53.0) % Sodium 115 L* 115 L* 116 L* (137-145) mmol/L Chloride (98-107) mmol/L BUN (9-20) mg/dL Creatinine (0.66-1.25) mg/dL Calcium (8.4-10.2) mg/dL 12/12/22 12/12/22 12/12/22 Range/Units 03:36 05:32 05:32 RBC 4.08 L (4.30-5.90) m/uL Hgb 12.9 L (13.0-17.5) gm/dL Hct 38.0 L (39.0-53.0) % Sodium 117 L* 117 L* (137-145) mmol/L Chloride 88 L (98-107) mmol/L BUN 4 L (9-20) mg/dL Creatinine 0.53 L (0.66-1.25) mg/dL Calcium 7.9 L (8.4-10.2) mg/dL 12/12/22 Range/Units 10:02 RBC (4.30-5.90) m/uL Hgb (13.0-17.5) gm/dL Hct (39.0-53.0) % Sodium 119 L* (137-145) mmol/L Chloride (98-107) mmol/L BUN (9-20) mg/dL Creatinine (0.66-1.25) mg/dL Calcium (8.4-10.2) mg/dL - Imaging and Cardiology X-ray of the thoracolumbar spine does show hardware that is stable and well aligned at this time. Negative for any fractures/loosening. X-ray of the left shoulder does not demonstrate any fractures/dislocations. Assessment and Plan Assessment: 1. 67-year-old male status post T 11 to L1 stabilization with T12 kyphoplasty Status post multiple falls at rehab Left shoulder pain Plan: 1. Left shoulder pain; h/o T 11 to L1 stabilization with T12 kyphoplasty - patient stable at bedside this morning in ICU. Nitza were removed from incision on lumbar spine yesterday. X-ray of the thoracolumbar spine does show hardware that is stable and well aligned at this time. Negative for any fractures/loosening. X-ray of the left shoulder does not demonstrate any fractures/dislocations. Patient is stable from an orthopedic standpoint for discharge. We will continue to be available as needed. At this time orthopedics is signing off. Please do not hesitate to contact us for any further questions. 2. Appreciate medical management 3. Pain management - [place] Flexeril; gabapentin 4. DVT prophylaxis - aspirin 5. GI prophylaxis - MiraLAX; Protonix; senna 6. PT/OT - weightbearing as tolerated with walker and assistance 7. Appreciate consult Time with Patient: Less than 30
[2022-12-12] MEDS ORDERED: FUROSEMIDE 10 MG/ML 4 ML VIAL IV STA (17:51)
[2022-12-12] MEDS: LORATADINE 10 MG TAB PO SCH (20:29)
[2022-12-12] MEDS: ATORVASTATIN 10 MG TAB PO SCH (20:29)
[2022-12-12] MEDS: AMMONIUM LACTATE 12% CREAM 140 GM TUBE TOPICAL SCH (20:29)
[2022-12-13] MEDS: SODIUM CHLORIDE 3%(HYPERTONIC) 500 ML IV SCH ×2 (01:00→11:30)
[2022-12-13] MEDS: PANTOPRAZOLE 40 MG TABLET PO SCH (06:21)
[2022-12-13] MEDS: GABAPENTIN 300 MG CAP PO SCH ×3 (06:21→22:21)
[2022-12-13] MEDS: CYCLOBENZAPRINE 5 MG TAB PO SCH ×3 (06:21→22:21)
[2022-12-13] MEDS: LEVOTHYROXINE 50 MCG TAB PO SCH (06:21)
[2022-12-13 06:22] LABS: HCT 34.8 % (39.0-53.0); HGB 11.4 gm/dL (13.0-17.5); MCH 30.6 pg (25.0-35.0); MCHC 32.8 g/dL (31.0-37.0); Mean Platelet Volume 7.2; Platelet Count 379 k/uL (150-450); RBC 3.74 m/uL (4.30-5.90); RDW 14.4 % (11.5-15.5); WBC 8.3 k/uL (3.8-10.6)
[2022-12-13 06:32] LABS: African American GFR (CKD) >90 (>60 ml/min/1.73 sqM); Anion Gap 1 mmol/L; Blood Urea Nitrogen 9 mg/dL (9-20); Carbon Dioxide 34 mmol/L (22-30); Chloride 87 mmol/L (98-107); Glucose 144 mg/dL (74-99); Non-African American GFR(CKD) >90 (>60 ml/min/1.73 sqM); Potassium 4.7 mmol/L (3.5-5.1); Sodium 122 mmol/L (137-145)
--- NOTE | 2022-12-13 08:42 | P.PN ---
Subjective Progress Note Date: 12/13/22 Principal diagnosis: This is a 67-year-old male admitted because of hyponatremia sodium level on 12/10/2022 was 107. With IV saline it further dropped to 105. He was started on 3% saline. Slowly the sodium is coming up. Most recent sodium is 122. Serum cortisol was low but he was on steroids - a cosyntropin test is pending His urine osmolality was 592 and a urine sodium was 62 consistent with SIADH. His blood pressure is 100/68 to 116/80. Currently on losartan and metoprolol. This morning he is awake and alert and denies any complaints is on nasal cannula oxygen which she uses at home as well. He is eating about 50%. He is on a 1500 mL fluid restriction. Objective - Vital Signs Vital signs: Vital Signs Temp 98.0 F 12/13/22 04:00 Pulse 91 12/13/22 07:00 Resp 15 12/13/22 07:00 BP 116/80 12/13/22 07:00 Pulse Ox 98 12/13/22 08:16 FiO2 50 12/11/22 12:12 Intake & Output 12/12/22 12/13/22 12/13/22 18:59 06:59 18:59 Intake Total 175 615 Output Total 860 1590 25 Balance -685 -975 -25 Weight 105.7 kg 106.7 kg Intake: IV 175 315 Sodium Chloride 3%( 175 315 Hypertonic) 500 ml @ 35 mls/hr IV .[id number] [facility] Rx #:[id number] Oral 300 Output: Urine 860 1590 25 Other: Voiding Method Indwelling Catheter Indwelling Catheter Awake alert oriented 3 HEENT exam no JVP neck is supple Lungs clear to auscultation good air entry Heart sounds unremarkable normal sinus rhythm Abdomen soft nontender Extremity exam no edema of the neurologically awake alert oriented. - Labs CBC & Chem 7: 12/13/22 05:53 12/13/22 05:53 Labs: Abnormal Lab Results - Last 24 Hours (Table) 12/12/22 12/12/22 12/12/22 Range/Units 10:02 12:19 16:08 RBC (4.30-5.90) m/uL Hgb (13.0-17.5) gm/dL Hct (39.0-53.0) % Sodium 119 L* 119 L* 117 L* (137-145) mmol/L Chloride (98-107) mmol/L Carbon Dioxide (22-30) mmol/L Glucose (74-99) mg/dL Calcium (8.4-10.2) mg/dL 12/12/22 12/12/22 12/13/22 Range/Units 19:05 21:56 01:32 RBC (4.30-5.90) m/uL Hgb (13.0-17.5) gm/dL Hct (39.0-53.0) % Sodium 116 L* 119 L* 119 L* (137-145) mmol/L Chloride (98-107) mmol/L Carbon Dioxide (22-30) mmol/L Glucose (74-99) mg/dL Calcium (8.4-10.2) mg/dL 12/13/22 12/13/22 12/13/22 Range/Units 03:50 05:53 05:53 RBC 3.74 L (4.30-5.90) m/uL Hgb 11.4 L (13.0-17.5) gm/dL Hct 34.8 L (39.0-53.0) % Sodium 121 L 122 L (137-145) mmol/L Chloride 87 L (98-107) mmol/L Carbon Dioxide 34 H (22-30) mmol/L Glucose 144 H (74-99) mg/dL Calcium 8.0 L (8.4-10.2) mg/dL Assessment and Plan Assessment: Impression 1. 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 Other causes of ascites not clear. Currently improved with 3% saline which is on hold since 5 AM this morning. Sodium is 122, correction is at goal. 2. Blood pressure slightly low on metoprolol and losartan Medication 1. Stop the valsartan 2. Check urine osmolality to see if he is correcting as well as call the results of Labs at 10 AM so that we can reassess need for 3%. 3. High protein diet and maintain fluid restriction. 4. We may start him on salt tablets based on the next blood draw
[2022-12-13] MEDS: LOSARTAN 25 MG TAB PO SCH (09:48)
[2022-12-13] MEDS: ASPIRIN 81 MG PO SCH (09:53)
[2022-12-13] MEDS: HYDROCORTISONE SUCCINATE 100 MG/2 ML VIAL IV SCH ×2 (09:53→15:26)
[2022-12-13] MEDS: ENOXAPARIN 40 MG/0.4 ML SYRINGE SQ SCH (09:53)
[2022-12-13] MEDS: METOPROLOL TARTRATE 25 MG TAB PO SCH ×2 (09:54→20:23)
[2022-12-13] MEDS: MICONAZOLE NITRATE 2% CREAM 14 GM TUBE TOPICAL SCH ×2 (09:55→20:24)
[2022-12-13] MEDS: polyethylene glycoL 3350 17 GM POWD.PACK PO SCH (09:55)
[2022-12-13] MEDS: SODIUM CHLORIDE 0.9% 1,000 ML IV SCH (11:16)
[2022-12-13] MEDS ORDERED: SODIUM CHLORIDE 3%(HYPERTONIC) 500 ML IV SCH ×2 (12:00→15:00)
[2022-12-13] MEDS: SODIUM CHLORIDE TAB 1 GM TAB PO SCH ×3 (12:23→22:23)
--- NOTE | 2022-12-13 12:54 | XR ---
EXAMINATION TYPE: XR abdomen 2V DATE OF EXAM: 12/13/2022 12:42 PM INDICATION: Patient age:Male; 67 years old; Reason for study: constipation, distended abdomen; COMPARISON: 08/08/2022. TECHNIQUE: Two views of the abdomen were obtained. FINDINGS: Postsurgical changes of the spine. Hardware appears intact. The bowel gas pattern is nonspe cific without dilated loops of small or large bowel. There is no evidence for organomegaly or pneumop eritoneum. The osseous structures are intact. No abnormal calcifications are present. Fecal materia l and gas are demonstrated throughout the colon and rectum. Darby catheter suspected to be in place. Pelvic phlebolith are present. IMPRESSION: Nonspecific bowel gas pattern without radiographic evidence for acute process.
--- NOTE | 2022-12-13 13:24 | P.PN ---
Subjective Progress Note Date: 12/13/22 Principal diagnosis: severe hyponatremia this is a 67-year-old white male with history of multiple medical problems including hypertension, degenerative joint disease, hypothyroidism,previous CVA,recent T11-T12 fracture for which she had surgery, and he was sent to rehabilitation patient is maintained on 3 L oxygen on outpatient basis, has been refusing to use his CPAP at this facility. Brought in to the ER yesterday for recurrent falls, and he was noted to have low sodium as low as 105.urine osmolality was high at 592, urine sodium was 62,patient was placed on 3% saline, I was notified by the ER physician about the patient, and considering his low sodium, I recommended admission to the ICU and to continue 3% saline. His follow-up sodium today is 113, hence most likely the patient will be off 3% saline in the next few hours. Patient has been on diuretics including Aldactone and Lasix on outpatient basis, this is likely a picture of hypovolemic hyponatremia,mostly because of the clinical history being on diuretics. although euvolemic hyponatremia is not entirely ruled out,SIADH is a possibility, again his sodium is being addressed by nephrology on the case.chest x-ray showed mostly by basilar atelectasis. No clear-cut evidence of pneumonia or malignancy.CT of the brain showed no suspicious acute intracranial change. reevaluated today , patient remains in the ICU, remains on 3% saline, his sodium today is 117. Surprisingly his cortisol level is 4 today., that by itself considering the presentation is consistent with adrenal insufficiency.gifty reji needs to be on Solu-Cortef, however considering the police detention attendant went ahead and ordered a Cortrosyn stimulation test, will wait until the Cortrosyn stimulation test is done, nonetheless the patient will need to be on Solu-Cortef 100 mg IV push 3 times a day for now, and will likely need to be on Cortef on outpatient basis.his CBC is relatively unremarkable, his potassium is normal. His sodium is 119 this morning, and will need to come off 3% saline. Patient was reevaluated today on 12/13/22, patient is doing great today, he is definitely more awake, he is more perked up, his initial serum cortisol level was low, 30 minutes after his initial cortisol level, repeat serum cortisol after given ACTH, showed slight increase, but not enough to call the test as normal, the rise in serum cortisol was actually less than 9, and that basically diagnostic of adrenal insufficiency. Patient is responding extremely well clinically to his Solu-Cortef which I will continue, his repeat sodium level today was low, and I believe nephrology is planning to place him back on 3% saline, and maintain him on 1500 mL fluid restriction.overall the patient is doing well, and once he is off the 3% saline , could be transferred to a regular medical floor Objective - Vital Signs Vital signs: Vital Signs Temp 97.6 F 12/13/22 09:00 Pulse 90 12/13/22 11:00 Resp 12 12/13/22 11:00 BP 106/64 12/13/22 11:00 Pulse Ox 95 12/13/22 11:00 FiO2 50 12/11/22 12:12 Intake & Output 12/12/22 12/13/22 12/13/22 18:59 06:59 18:59 Intake Total 175 615 500 Output Total 860 1590 95 Balance -685 -975 405 Weight 105.7 kg 106.7 kg Intake: IV 175 315 40 Sodium Chloride 0.9% 1, 25 000 ml @ 50 mls/hr IV . Q20H JENN[facility]ER Rx#:[id number] Sodium Chloride 3%( 175 315 15 Hypertonic) 500 ml @ 35 mls/hr IV .[id number] J[facility] Rx #:[id number] Oral 300 460 Output: Urine 860 1590 95 Other: Voiding Method Indwelling Catheter Indwelling Catheter - Exam Physical Exam: Revealed a 67-year-old white male in no distress, much more awake today compared to the last couple of days. HEENT:[Neck is supple.] [No neck masses.] [No thyromegaly.] [No JVD.] Chest: [diminished breath sounds at the bases no crackles or rhonchi or wheezes] Cardiac Exam: [Normal S1 and S2, no S3 gallop, no murmur.] Abdomen: [Soft, nontender, no megaly, no rebound, no guarding, normal bowel sounds.] Extremities: [No clubbing, no edema, no cyanosis.] Neurological Exam: [No focal neurologic deficit.]alert and oriented 3, patient is a bit slow. Psychiatric: Normal mood affect and normal mental status examination. Skin: Multiple circular erythematous lesions noted on both lower extremities, with clearance in the center of the lesions, highly suspicious for ringworm dermatitis. - Labs CBC & Chem 7: 12/13/22 05:53 12/13/22 10:11 Labs: Abnormal Lab Results - Last 24 Hours (Table) 12/12/22 12/12/22 12/12/22 Range/Units 12:19 16:08 19:05 RBC (4.30-5.90) m/uL Hgb (13.0-17.5) gm/dL Hct (39.0-53.0) % Sodium 119 L* 117 L* 116 L* (137-145) mmol/L Chloride (98-107) mmol/L Carbon Dioxide (22-30) mmol/L Glucose (74-99) mg/dL Calcium (8.4-10.2) mg/dL 12/12/22 12/13/22 12/13/22 Range/Units 21:56 01:32 03:50 RBC (4.30-5.90) m/uL Hgb (13.0-17.5) gm/dL Hct (39.0-53.0) % Sodium 119 L* 119 L* 121 L (137-145) mmol/L Chloride (98-107) mmol/L Carbon Dioxide (22-30) mmol/L Glucose (74-99) mg/dL Calcium (8.4-10.2) mg/dL 12/13/22 12/13/22 12/13/22 Range/Units 05:53 05:53 10:11 RBC 3.74 L (4.30-5.90) m/uL Hgb 11.4 L (13.0-17.5) gm/dL Hct 34.8 L (39.0-53.0) % Sodium 122 L 119 L* (137-145) mmol/L Chloride 87 L (98-107) mmol/L Carbon Dioxide 34 H (22-30) mmol/L Glucose 144 H (74-99) mg/dL Calcium 8.0 L (8.4-10.2) mg/dL Assessment and Plan Assessment: impression: Severe hyponatremia, seems to be most likely secondary to acute adrenal insufficiency Patient was found to have extremely low serum cortisol, and his Cortrosyn stimulation test is equivocal, [id number] minutes after the ACTH given, the cortisol level did not go up enough which is above 9 hence I'm recommending that the patient remains on Solu-Cortef.not to mention the clinical improvement noted with Solu-Cortef since this was started. History of T11 to L1 stabilization and T12 kyphoplasty back in October of 2022 Benign essential hypertension possible ringworm dermatitis involving lower extremities. Hence we'll treat with miconazole. Cream. history of CVA. Degenerative joint disease. History of hypothyroidism. Dyslipidemia. Benign essential hypertension. chronic hypercapnic respiratory failureWith obstructive sleep apnea syndrome, noncompliant with his CPAP at home. recommendation: continue Solu-Cortef. Continue to monitor sodium Continue present treatment plan, Resume home medications. transfer out of the ICU once the patient is off 3% saline which is not truly necessary at this point considering his sodium level is now 119 Time with Patient: Less than 30
[2022-12-13] MEDS: LORATADINE 10 MG TAB PO SCH (20:23)
[2022-12-13] MEDS: ATORVASTATIN 10 MG TAB PO SCH (20:23)
[2022-12-13] MEDS: AMMONIUM LACTATE 12% CREAM 140 GM TUBE TOPICAL SCH (20:23)
[2022-12-14 06:02] LABS: HCT 31.8 % (39.0-53.0); HGB 10.6 gm/dL (13.0-17.5); MCH 31.1 pg (25.0-35.0); MCHC 33.4 g/dL (31.0-37.0); MCV 93.2 fL (80.0-100.0); Platelet Count 372 k/uL (150-450); RBC 3.41 m/uL (4.30-5.90); RDW 14.3 % (11.5-15.5); WBC 7.7 k/uL (3.8-10.6)
[2022-12-14 06:12] LABS: African American GFR (CKD) >90 (>60 ml/min/1.73 sqM); Anion Gap 0 mmol/L; Blood Urea Nitrogen 14 mg/dL (9-20); Calcium 7.8 mg/dL (8.4-10.2); Carbon Dioxide 30 mmol/L (22-30); Chloride 96 mmol/L (98-107); Glucose 143 mg/dL (74-99); Non-African American GFR(CKD) >90 (>60 ml/min/1.73 sqM); Potassium 4.3 mmol/L (3.5-5.1); Sodium 126 mmol/L (137-145)
[2022-12-14] MEDS: PANTOPRAZOLE 40 MG TABLET PO SCH (06:30)
[2022-12-14] MEDS: LEVOTHYROXINE 50 MCG TAB PO SCH (06:30)
[2022-12-14] MEDS: GABAPENTIN 300 MG CAP PO SCH ×3 (06:30→21:00)
[2022-12-14] MEDS: CYCLOBENZAPRINE 5 MG TAB PO SCH ×3 (06:30→21:01)
[2022-12-14] MEDS: HYDROCORTISONE SUCCINATE 100 MG/2 ML VIAL IV SCH ×3 (08:14→16:32)
[2022-12-14] MEDS: SODIUM CHLORIDE TAB 1 GM TAB PO SCH ×3 (08:15→21:01)
[2022-12-14] MEDS: METOPROLOL TARTRATE 25 MG TAB PO SCH ×2 (08:15→21:01)
[2022-12-14] MEDS: ASPIRIN 81 MG PO SCH (08:15)
[2022-12-14] MEDS: ENOXAPARIN 40 MG/0.4 ML SYRINGE SQ SCH (08:15)
[2022-12-14] MEDS: MICONAZOLE NITRATE 2% CREAM 14 GM TUBE TOPICAL SCH ×2 (08:20→21:01)
[2022-12-14] MEDS: polyethylene glycoL 3350 17 GM POWD.PACK PO SCH (08:42)
--- NOTE | 2022-12-14 08:48 | P.PN ---
Subjective Progress Note Date: 12/14/22 Principal diagnosis: This is a 67-year-old male admitted because of hyponatremia, deemed to be from SIADH. This sodium level on 12/10/2022 was 107. With IV saline it further drop ped to 105. He was started on 3% saline. Slowly the sodium is coming up. Yesterday off of the 3% and his sodium is 126 as of this morning. His 3% and was again discontinued. Serum cortisol was low but he was on steroids - a cosyntropin test is pending His urine osmolality was 592 and a urine sodium was 62 consistent with SIADH, and yesterday a repeat urine osmolality was 492, suggesting continuation of high ADH level. His losartan was discontinued yesterday because of slightly low blood pressure in the 100 range This morning he is awake and alert and denies any complaints is on nasal cannula oxygen which she uses at home as well. Blood pressure is improved in the 110s to 129 range. He is eating about 50%. He is on a 1500 mL fluid restriction. 24 hour urine output is 13 65 mL intake is 1735 Objective - Vital Signs Vital signs: Vital Signs Temp 97.6 F 12/14/22 04:00 Pulse 101 H 12/14/22 07:00 Resp 22 12/14/22 07:00 BP 129/75 12/14/22 07:00 Pulse Ox 96 12/14/22 08:04 FiO2 50 12/11/22 12:12 Intake & Output 12/13/22 12/14/22 12/14/22 18:59 06:59 18:59 Intake Total 745 990 Output Total 565 800 20 Balance 180 190 -20 Weight 109 kg Intake: IV 285 140 Sodium Chloride 0.9% 1, 60 000 ml @ 50 mls/hr IV . Q20H [facility] Rx#:[id number] Sodium Chloride 3%( 225 140 Hypertonic) 500 ml @ 35 mls/hr IV .[id number] [facility] Rx #:[id number] Oral 460 850 Output: Urine 565 800 20 Other: Voiding Method Indwelling Catheter Indwelling Catheter # Bowel Movements 1 Awake alert oriented 3 HEENT exam no JVP neck is supple Lungs clear to auscultation good air entry Heart sounds unremarkable normal sinus rhythm Abdomen soft nontender Extremity exam no edema of the neurologically awake alert oriented. - Labs CBC & Chem 7: 12/14/22 05:40 12/14/22 05:40 Labs: Abnormal Lab Results - Last 24 Hours (Table) 12/13/22 12/13/22 12/13/22 Range/Units 10:11 15:28 21:43 RBC (4.30-5.90) m/uL Hgb (13.0-17.5) gm/dL Hct (39.0-53.0) % Sodium 119 L* 121 L 125 L (137-145) mmol/L Chloride (98-107) mmol/L Creatinine (0.66-1.25) mg/dL Glucose (74-99) mg/dL Calcium (8.4-10.2) mg/dL 12/14/22 12/14/22 Range/Units 05:40 05:40 RBC 3.41 L (4.30-5.90) m/uL Hgb 10.6 L (13.0-17.5) gm/dL Hct 31.8 L (39.0-53.0) % Sodium 126 L (137-145) mmol/L Chloride 96 L (98-107) mmol/L Creatinine 0.57 L (0.66-1.25) mg/dL Glucose 143 H (74-99) mg/dL Calcium 7.8 L (8.4-10.2) mg/dL Assessment and Plan Assessment: Impression 1. 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 Other causes of SIADH not clear. Currently improved with 3% saline which is on hold 10 PM last night this morning. Sodium is improved to 126. The cosyntropin test is normal therefore no adrenal insufficiency and cortisol level was 13 and went up to 24 2. Blood pressure slightly low on metoprolol and losartan, improved with discontinuation of losartan Medication 1. Continue 2 g salt diet 3 times a day fluid restriction 1500 mL and high- protein diet 2. Redo labs in about 8 hours from last lab draw
[2022-12-14] MEDS: LOSARTAN 25 MG TAB PO SCH (10:28)
--- NOTE | 2022-12-14 10:59 | P.PN ---
Subjective Progress Note Date: 12/14/22 Principal diagnosis: severe hyponatremia this is a 67-year-old white male with history of multiple medical problems including hypertension, degenerative joint disease, hypothyroidism,previous CVA,recent T11-T12 fracture for which she had surgery, and he was sent to rehabilitation patient is maintained on 3 L oxygen on outpatient basis, has been refusing to use his CPAP at this facility. Brought in to the ER yesterday for recurrent falls, and he was noted to have low sodium as low as 105.urine osmolality was high at 592, urine sodium was 62,patient was placed on 3% saline, I was notified by the ER physician about the patient, and considering his low sodium, I recommended admission to the ICU and to continue 3% saline. His follow-up sodium today is 113, hence most likely the patient will be off 3% saline in the next few hours. Patient has been on diuretics including Aldactone and Lasix on outpatient basis, this is likely a picture of hypovolemic hyponatremia,mostly because of the clinical history being on diuretics. although euvolemic hyponatremia is not entirely ruled out,SIADH is a possibility, again his sodium is being addressed by nephrology on the case.chest x-ray showed mostly by basilar atelectasis. No clear-cut evidence of pneumonia or malignancy.CT of the brain showed no suspicious acute intracranial change. reevaluated today , patient remains in the ICU, remains on 3% saline, his sodium today is 117. Surprisingly his cortisol level is 4 today., that by itself considering the presentation is consistent with adrenal insufficiency.gifty reji needs to be on Solu-Cortef, however considering the programming specialist went ahead and ordered a Cortrosyn stimulation test, will wait until the Cortrosyn stimulation test is done, nonetheless the patient will need to be on Solu-Cortef 100 mg IV push 3 times a day for now, and will likely need to be on Cortef on outpatient basis.his CBC is relatively unremarkable, his potassium is normal. His sodium is 119 this morning, and will need to come off 3% saline. Patient was reevaluated today on 12/13/22, patient is doing great today, he is definitely more awake, he is more perked up, his initial serum cortisol level was low, 30 minutes after his initial cortisol level, repeat serum cortisol after given ACTH, showed slight increase, but not enough to call the test as normal, the rise in serum cortisol was actually less than 9, and that basically diagnostic of adrenal insufficiency. Patient is responding extremely well clinically to his Solu-Cortef which I will continue, his repeat sodium level today was low, and I believe nephrology is planning to place him back on 3% saline, and maintain him on 1500 mL fluid restriction.overall the patient is doing well, and once he is off the 3% saline , could be transferred to a regular medical floor Reevaluated today on 12/14/22, patient is doing well, relatively asymptomatic, his sodium is up to 126. Remains on Solu-Cortef and I'm cutting down the dose to 50 mg IV push 3 times a day, will eventually need to be changed to Cortef orally and should have follow-up on outpatient basis with endocrinology. Clinically however the patient has made a significant improvement since his Solu-Cortef was started. Patient is hemodynamically stable, and he is off the 3% saline, he remains on fluid restrictions, I believe the patient could be transferred out of the ICU to a regular medical floor today in the meantime on cutting down his Solu-Cortef to 50 mg IV push 3 times a day and eventually transition to oral Cortef Objective - Vital Signs Vital signs: Vital Signs Temp 98.7 F 12/14/22 08:00 Pulse 92 12/14/22 10:00 Resp 13 12/14/22 10:00 BP 120/67 12/14/22 10:00 Pulse Ox 95 12/14/22 10:00 FiO2 50 12/11/22 12:12 Intake & Output 12/13/22 12/14/22 12/14/22 18:59 06:59 18:59 Intake Total 745 990 Output Total 565 800 45 Balance 180 190 -45 Weight 109 kg Intake: IV 285 140 Sodium Chloride 0.9% 1, 60 000 ml @ 50 mls/hr IV . Q20H [facility] Rx#:[id number] Sodium Chloride 3%( 225 140 Hypertonic) 500 ml @ 35 mls/hr IV .[id number] [facility] Rx #:[id number] Oral 460 850 Output: Urine 565 800 45 Other: Voiding Method Indwelling Catheter Indwelling Catheter Indwelling Catheter # Bowel Movements 1 - Exam Physical Exam: Revealed a 67-year-old white male in no distress HEENT:[Neck is supple.] [No neck masses.] [No thyromegaly.] [No JVD.] Chest: [diminished breath sounds at the bases no crackles or rhonchi or wheezes] Cardiac Exam: [Normal S1 and S2, no S3 gallop, no murmur.] Abdomen: [Soft, nontender, no megaly, no rebound, no guarding, normal bowel sounds.] Extremities: [No clubbing, no edema, no cyanosis.] Neurological Exam: [No focal neurologic deficit.]alert and oriented 3, patient is a bit slow. Psychiatric: Normal mood affect and normal mental status examination. Skin: Multiple circular erythematous lesions noted on both lower extremities, with clearance in the center of the lesions, highly suspicious for ringworm dermatitis. - Labs CBC & Chem 7: 12/14/22 05:40 12/14/22 05:40 Labs: Abnormal Lab Results - Last 24 Hours (Table) 12/13/22 12/13/22 12/14/22 Range/Units 15:28 21:43 05:40 RBC 3.41 L (4.30-5.90) m/uL Hgb 10.6 L (13.0-17.5) gm/dL Hct 31.8 L (39.0-53.0) % Sodium 121 L 125 L (137-145) mmol/L Chloride (98-107) mmol/L Creatinine (0.66-1.25) mg/dL Glucose (74-99) mg/dL Calcium (8.4-10.2) mg/dL 12/14/22 Range/Units 05:40 RBC (4.30-5.90) m/uL Hgb (13.0-17.5) gm/dL Hct (39.0-53.0) % Sodium 126 L (137-145) mmol/L Chloride 96 L (98-107) mmol/L Creatinine 0.57 L (0.66-1.25) mg/dL Glucose 143 H (74-99) mg/dL Calcium 7.8 L (8.4-10.2) mg/dL Assessment and Plan Assessment: impression: Severe hyponatremia, seems to be most likely secondary to acute adrenal insuf ficiency Patient was found to have extremely low serum cortisol, and his Cortrosyn stimulation test is equivocal, [id number] minutes after the ACTH given, the cortisol level did not go up enough which is above 9 hence I'm recommending that the patient remains on Solu-Cortef.not to mention the clinical improvement noted with Solu-Cortef since this was started. History of T11 to L1 stabilization and T12 kyphoplasty back in October of 2022 Benign essential hypertension possible ringworm dermatitis involving lower extremities. Hence we'll treat with miconazole. Cream. history of CVA. Degenerative joint disease. History of hypothyroidism. Dyslipidemia. Benign essential hypertension. chronic hypercapnic respiratory failureWith obstructive sleep apnea syndrome, noncompliant with his CPAP at home. recommendation: continue Solu-Cortef. However cut down the dose to 50 mg IV push 3 times a day and eventually transition to oral Cortef before discharge Continue to monitor sodium, his sodium today is 126, patient remains on fluid restriction Continue present treatment plan, Resume home medications. transfer out of the ICU to a regular medical floor. Possible discharge planning in the next 24 hours Time with Patient: Less than 30
--- NOTE | 2022-12-14 11:28 | P.PN ---
Subjective Progress Note Date: 12/13/22 HISTORY OF PRESENT ILLNESS This is a 67-year-old male patient of Dr. Urena with past medical history of hypertension, hyperlipidemia, coronary artery disease with stent in the mid circumflex 2020, chronic hypoxic respiratory failure on home O2, right lacunar CVA in 2019, seasonal ALLERGIES, COPD, obstructive sleep apnea on CPAP, hypothyroidism, gastroesophageal reflux disease. Patient gives history of a fall 3 or more weeks ago in the bathtub when he heard a pop in his back. He also had a second injury picking up a bag of trash and twisted with significant increase in pain. He had sharp pain in the lower thoracic area into his legs and buttocks. He initially presented to emergency center on 10/29 and was treated for constipation. He has subsequently followed up with Dr. Tidwell. CT of the spine revealed a T12 vertebral compression fracture. Patient was brought into the hospital and underwent ORIF and stabilization of T12 fracture. T11-L1 stabilization and fusion for T12 fracture and T12 kyphoplasty with biopsy. During his hospitalization, sodium was 130 and patient was on a fluid restriction. Patient was [facility] to [facility] on 11/[facility]. [facility] and adjustments were made to decrease his Lasix and Aldactone and repeat blood work was ordered for this week. Nursing staff noted the patient had a drop in his pulse ox and encourage patient to utilize his CPAP. Patient had mild changes in mental status. Sodium surprisingly came back at 107. Patient was then transferred to [facility] for further evaluation. On arrival, sodium 105. Potassium 5.8, chloride 70, CO2 31, BUN 19 creatinine 0.74. WBC 13.5, hemoglobin 13.2 platelet count 351. Liver function tests were elevated with AST is 65, ALT 70 and alkaline phosphatase 145. Troponin negative 1. Blood sugar 116. Albumin 3.7. Urinalysis negative. CAT scan of the brain revealed no suspicious acute intracranial changes. Chest x-ray reveals bilateral areas of subsegmental atelectasis favored over pneumonia. Patient was admitted into the intensive care unit and consult in place with nephrology, cobbler sole and orthopedic spine. Patient was provided 2-1/2 liters of IV fluids in the emergency center. Subsequently, IV fluids changed to 3%. 12/11: Patient remains in the intensive care unit. He is on 3% saline at 35 mL per hour per nephrology. He did receive 1 dose of IV Lasix 20 mg this morning. Patient is followed by pulmonary medicine, nephrology and orthopedic spine. Patient was on BiPAP during the night. Repeat blood work today reveals sodium o f 110, potassium 5.2, chloride 78, CO2 29, BUN 5 and creatinine 0.61. WBC 8.4 and hemoglobin 12.1. Urine osmolality 592. Urine sodium 62. Serum osmolality 231. 12/12: Patient remains in the intensive care unit. Sodium level is slowly improving. He had low urine output last night and received a dose of IV Lasix with improvement. Sodium is 119. Nephrology has discontinued saline 3%. Cosyntropin stimulation test has been ordered. Skating Rink Manager has added Solu- Cortef to start following cosyntropin stimulation testing. lunchroom monitor sinus rhythm. Patient noted to have mental status changes today. Left shoulder x-ray no acute osseous pathology Chest x-ray: No acute cardio pulmonary process. Thoracic and lumbar junction x-rays reveals postsurgical changes to the spine with hardware in appropriate position. Alignment appears satisfactory. 12/13: Patient is sitting up in bed in no apparent distress, answering a lot better today, he continues to have significant distention in his abdomen, he has not had a bowel movement, is passing some gas, he would receive a Dulcolax suppository, we will obtain abdominal x-rays 2 views to rule out any ileus, his sodium level is 122, he is feeling better. REVIEW OF SYSTEMS Constitutional: No fever, no chills, no night sweats. No weight change. Noted weakness, noted fatigue noted lethargy. Noted daytime sleepiness. EENT: No headache. No loss of vision. No loss of Hearing, no ringing in the ears, no dizziness. No nasal drainage or congestion. No epistaxis. No sore throat. Lungs: No shortness of breath, cough, no sputum production. No wheezing. Chronic oxygen use. Cardiovascular: No chest pain, no lower extremity edema. No palpitations. No paroxysmal nocturnal dyspnea. No orthopnea. No lightheadedness or dizziness. No syncopal episodes. Abdominal: No abdominal pain. No nausea, vomiting. No diarrhea. Reports constipation. No bloody or tarry stools. No loss of appetite. Genitourinary: No dysuria, increased frequency, urgency. No urinary retention. Musculoskeletal: No myalgias. No muscle weakness, no gait dysfunction, no frequent falls. Reports thoracic back discomfort. No neck pain. Integumentary: No wounds, positive healing surgical wound to his back no lesions. No rash or pruritus. No unusual bruising. No change in hair or nails. Neurologic: No aphasia. No facial droop. Noted mild change in mentation. No head injury. No headache. No paralysis. No paresthesia. Psychiatric: No depression. No anxiety. No mood swings. Endocrine: No abnormal blood sugars. No weight change. No excessive sweating or thirst. No cold intolerance. PHYSICAL EXAMINATION Gen: This is an obese 67-year-old male. He is resting in ICU and appears to be comfortable. HEENT: Head is atraumatic, normocephalic. Pupils equal, round. Sclerae is anicteric. NECK: Supple. No JVD. No lymphadenopathy. No thyromegaly. LUNGS: Diminished breath sounds at the bases. No intercostal retractions. HEART: Regular rate and rhythm. No murmur. ABDOMEN: Soft. Bowel sounds are present. No masses. No tenderness. Darby catheter in place. EXTREMITIES: No pedal edema. No calf tenderness. Skin tears to the bilateral e lbows. BACK: Lancing in place to the low thoracic and also mid lumbar regions with wound edges well approximated, no erythema, no drainage. NEUROLOGICAL: Patient is awake, alert and oriented. Cranial nerves 2 through 12 are grossly intact. ASSESSMENT AND PLAN 1. Severe hyponatremia most likely hypovolemic hyponatremic. Continue care in the intensive care unit. Consult in place with cobbler sole and nephrology appreciated. Continue to monitor electrolytes closely and continue plan per nephrology. 2. T 12 compression fracture status post kyphoplasty and T11-L1 stabilization. Consult Dr. Tidwell. Continue current pain management with Isabella 7.5 one every 4 hours, gabapentin 300 mg every 8 hours, Flexeril 5 mg 1 every 8 hours. 3. Adrenal insufficiency. Patient is started on Solu Cortef. 4. Metabolic encephalopathy secondary to severe hyponatremia. Continue to monitor closely. 5. Hypertension. Continue metoprolol tartrate 25 mg twice daily, losartan 25 mg daily, Aldactone and Lasix discontinued 6. Constipation. Patient started on Senokot S2 tablets daily, MiraLAX 17 g daily. 7. Hyperlipidemia. Continue atorvastatin 10 mg daily. 8. History of coronary artery disease with previous stent. Continue aspirin 81 mg daily, metoprolol tartrate 25 mg daily. 9. Chronic hypoxic respiratory failure on home O2. Continue oxygen therapy. 10. COPD without exacerbation. 11. Hypothyroidism. Continue levothyroxine 50 g daily. 12. Obstructive sleep apnea. Continue CPAP machine. 13. Gastroesophageal reflux disease. Continue Protonix 40 mg mg daily. 14. History of CVA. Continue patient on aspirin, Lipitor. 15. Seasonal ALLERGIES. Continue Zyrtec 10 mg daily. 16. Abdominal distention with possible medical Illeus. Obtain 2 views of the abdomen, start the patient on Dulcolax suppository 10 mg 1. 17. DO NOT RESUSCITATE. Objective - Vital Signs Vital signs: Vital Signs Temp 98.0 F 12/13/22 04:00 Pulse 91 12/13/22 07:00 Resp 15 12/13/22 07:00 BP 116/80 12/13/22 07:00 Pulse Ox 95 12/13/22 07:00 FiO2 50 12/11/22 12:12 Intake & Output 12/12/22 12/13/22 12/13/22 18:59 06:59 18:59 Intake Total 175 615 Output Total 860 1590 25 Balance -685 -975 -25 Weight 105.7 kg 106.7 kg Intake: IV 175 315 Sodium Chloride 3%( 175 315 Hypertonic) 500 ml @ 35 mls/hr IV .[id number] [facility] Rx #:[id number] Oral 300 Output: Urine 860 1590 25 Other: Voiding Method Indwelling Catheter Indwelling Catheter - Labs CBC & Chem 7: 12/14/22 05:40 12/14/22 05:40 Labs: Abnormal Lab Results - Last 24 Hours (Table) 12/12/22 12/12/22 12/12/22 Range/Units 05:32 10:02 12:19 RBC (4.30-5.90) m/uL Hgb (13.0-17.5) gm/dL Hct (39.0-53.0) % Sodium 119 L* 119 L* (137-145) mmol/L Chloride 88 L (98-107) mmol/L Carbon Dioxide (22-30) mmol/L BUN 4 L (9-20) mg/dL Creatinine 0.53 L (0.66-1.25) mg/dL Glucose (74-99) mg/dL Calcium 7.9 L (8.4-10.2) mg/dL 12/12/22 12/12/22 12/12/22 Range/Units 16:08 19:05 21:56 RBC (4.30-5.90) m/uL Hgb (13.0-17.5) gm/dL Hct (39.0-53.0) % Sodium 117 L* 116 L* 119 L* (137-145) mmol/L Chloride (98-107) mmol/L Carbon Dioxide (22-30) mmol/L BUN (9-20) mg/dL Creatinine (0.66-1.25) mg/dL Glucose (74-99) mg/dL Calcium (8.4-10.2) mg/dL 12/13/22 12/13/22 12/13/22 Range/Units 01:32 03:50 05:53 RBC (4.30-5.90) m/uL Hgb (13.0-17.5) gm/dL Hct (39.0-53.0) % Sodium 119 L* 121 L 122 L (137-145) mmol/L Chloride 87 L (98-107) mmol/L Carbon Dioxide 34 H (22-30) mmol/L BUN (9-20) mg/dL Creatinine (0.66-1.25) mg/dL Glucose 144 H (74-99) mg/dL Calcium 8.0 L (8.4-10.2) mg/dL 12/13/22 Range/Units 05:53 RBC 3.74 L (4.30-5.90) m/uL Hgb 11.4 L (13.0-17.5) gm/dL Hct 34.8 L (39.0-53.0) % Sodium (137-145) mmol/L Chloride (98-107) mmol/L Carbon Dioxide (22-30) mmol/L BUN (9-20) mg/dL Creatinine (0.66-1.25) mg/dL Glucose (74-99) mg/dL Calcium (8.4-10.2) mg/dL
[2022-12-14] MEDS: SODIUM CHLORIDE 0.9% 1,000 ML IV SCH (12:16)
[2022-12-14] MEDS: ATORVASTATIN 10 MG TAB PO SCH (21:00)
[2022-12-14] MEDS: AMMONIUM LACTATE 12% CREAM 140 GM TUBE TOPICAL SCH (21:01)
[2022-12-14] MEDS: LORATADINE 10 MG TAB PO SCH (21:01)
[2022-12-15] MEDS: HYDROCORTISONE SUCCINATE 100 MG/2 ML VIAL IV SCH ×3 (00:19→15:29)
[2022-12-15] MEDS: SODIUM CHLORIDE 0.9% 1,000 ML IV SCH (06:01)
[2022-12-15] MEDS: LEVOTHYROXINE 50 MCG TAB PO SCH (06:05)
[2022-12-15] MEDS: PANTOPRAZOLE 40 MG TABLET PO SCH (06:05)
[2022-12-15] MEDS: GABAPENTIN 300 MG CAP PO SCH ×3 (06:06→21:35)
[2022-12-15] MEDS: CYCLOBENZAPRINE 5 MG TAB PO SCH ×3 (06:06→21:35)
[2022-12-15 06:25] LABS: African American GFR (CKD) >90 (>60 ml/min/1.73 sqM); Anion Gap -2 mmol/L; Blood Urea Nitrogen 20 mg/dL (9-20); Calcium 8.1 mg/dL (8.4-10.2); Carbon Dioxide 34 mmol/L (22-30); Chloride 96 mmol/L (98-107); Glucose 109 mg/dL (74-99); Non-African American GFR(CKD) >90 (>60 ml/min/1.73 sqM); Potassium 4.6 mmol/L (3.5-5.1); Sodium 128 mmol/L (137-145)
[2022-12-15] MEDS: ENOXAPARIN 40 MG/0.4 ML SYRINGE SQ SCH (08:02)
[2022-12-15] MEDS: ASPIRIN 81 MG PO SCH (08:03)
[2022-12-15] MEDS: LOSARTAN 25 MG TAB PO SCH (08:03)
[2022-12-15] MEDS: SODIUM CHLORIDE TAB 1 GM TAB PO SCH ×3 (08:04→21:35)
[2022-12-15] MEDS: MICONAZOLE NITRATE 2% CREAM 14 GM TUBE TOPICAL SCH ×2 (08:04→21:37)
[2022-12-15] MEDS: METOPROLOL TARTRATE 25 MG TAB PO SCH ×2 (08:04→21:38)
[2022-12-15] MEDS: polyethylene glycoL 3350 17 GM POWD.PACK PO SCH (08:05)
--- NOTE | 2022-12-15 10:07 | P.PN ---
Subjective Patient is seen for follow-up for hyponatremia secondary to SIADH. Status post 3% saline. Sodium level has been slowly increasing. Patient is maintained on sodium chloride tabs 2 g every 8 hours. No significant complaints today Sodium of 128 today. Blood pressure is not elevated No shortness of breath. Objective - Vital Signs Vital signs: Vital Signs Temp 97.0 F L 12/15/22 08:00 Pulse 88 12/15/22 08:00 Resp 19 12/15/22 08:00 BP 127/78 12/15/22 08:00 Pulse Ox 96 12/15/22 08:00 FiO2 50 12/11/22 12:12 Intake & Output 12/14/22 12/15/22 12/15/22 18:59 06:59 18:59 Intake Total 600 240 Output Total 335 660 40 Balance 265 -660 200 Weight 108.7 kg Intake: Oral 240 Tube Feeding 600 Output: Urine 335 660 40 Other: Voiding Method Indwelling Catheter Indwelling Catheter Indwelling Catheter # Bowel Movements 1 1 - Exam Awake, comfortable, in no acute distress Examination of the heart S1 and S2 Examination of the lungs bilateral breath sounds are heard Abdomen is soft nontender Examination of lower extremities shows no significant edema PARTITION 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 Other causes of SIADH not clear. Status post 3% saline. Sodium has improved to 128 today. Maintained on sodium chloride tabs. The cosyntropin test is normal therefore no adrenal insufficiency and cortisol level was 13 and went up to 24 2. Blood pressure slightly low on metoprolol and losartan, improved with discontinuation of losartan 3. Hypothyroidism maintained on supplementation Plan: Continue with sodium chloride tabs Recheck sodium in about 6-8 hours
--- NOTE | 2022-12-15 10:22 | P.PN ---
Subjective Progress Note Date: 12/15/22 Principal diagnosis: Hyponatremia this is a 67-year-old white male with history of multiple medical problems including hypertension, degenerative joint disease, hypothyroidism,previous CVA,recent T11-T12 fracture for which she had surgery, and he was sent to rehabilitation patient is maintained on 3 L oxygen on outpatient basis, has been refusing to use his CPAP at this facility. Brought in to the ER yesterday for recurrent falls, and he was noted to have low sodium as low as 105.urine osmolality was high at 592, urine sodium was 62,patient was placed on 3% saline, I was notified by the ER physician about the patient, and considering his low sodium, I recommended admission to the ICU and to continue 3% saline. His follow-up sodium today is 113, hence most likely the patient will be off 3% saline in the next few hours. Patient has been on diuretics including Aldactone and Lasix on outpatient basis, this is likely a picture of hypovolemic hyponatremia,mostly because of the clinical history being on diuretics. although euvolemic hyponatremia is not entirely ruled out,SIADH is a possibility, again his sodium is being addressed by nephrology on the case.chest x-ray showed mostly by basilar atelectasis. No clear-cut evidence of pneumonia or malignancy.CT of the brain showed no suspicious acute intracranial change. reevaluated today , patient remains in the ICU, remains on 3% saline, his sodium today is 117. Surprisingly his cortisol level is 4 today., that by itself considering the presentation is consistent with adrenal insufficiency.patient needs to be on Solu-Cortef, however considering the match up worker went ahead and ordered a Cortrosyn stimulation test, will wait until the Cortrosyn stimulation test is done, nonetheless the patient will need to be on Solu-Cortef 100 mg IV push 3 times a day for now, and will likely need to be on Cortef on outpatient basis.his CBC is relatively unremarkable, his potassium is normal. His sodium is 119 this morning, and will need to come off 3% saline. Patient was reevaluated today on 12/13/22, patient is doing great today, he is definitely more awake, he is more perked up, his initial serum cortisol level was low, 30 minutes after his initial cortisol level, repeat serum cortisol after given ACTH, showed slight increase, but not enough to call the test as normal, the rise in serum cortisol was actually less than 9, and that basically diagnostic of adrenal insufficiency. Patient is responding extremely well clinically to his Solu-Cortef which I will continue, his repeat sodium level today was low, and I believe nephrology is planning to place him back on 3% saline, and maintain him on 1500 mL fluid restriction.overall the patient is doing well, and once he is off the 3% saline , could be transferred to a regular medical floor Reevaluated today on 12/14/22, patient is doing well, relatively asymptomatic, his sodium is up to 126. Remains on Solu-Cortef and I'm cutting down the dose to 50 mg IV push 3 times a day, will eventually need to be changed to Cortef orally and should have follow-up on outpatient basis with endocrinology. Clinically however the patient has made a significant improvement since his Solu-Cortef was started. Patient is hemodynamically stable, and he is off the 3% saline, he remains on fluid restrictions, I believe the patient could be transferred out of the ICU to a regular medical floor today in the meantime on cutting down his Solu-Cortef to 50 mg IV push 3 times a day and eventually transition to oral Cortef Evaluating this patient on 12/15/2022 in follow-up in the intensive care unit as a MedSurg overflow patient. Patient is sitting up in bed, on 3 liters nasal cannula, in no acute distress. Patient was originally admitted 10/19/2023 with a sodium of 105, and the patient's sodium is up to 128 today. he continues to receive Solu-Cortef 50 mg 3 times a day and sodium chloride tablets. no IV maintenance fluids infusing. patient has a 1500 ML oral fluid restriction. nephrology is following the case. no new chest x-ray to review today. patient's BMP from today shows a sodium of 128, potassium 4.6, chloride 96, serum CO2 34, BUN 20, creatinine 0.56, glucose 109. No new CBC today. vital signs remain stable. Patient will be transferred to a general medical floor once bed available. Objective - Vital Signs Vital signs: Vital Signs Temp 97.0 F L 12/15/22 08:00 Pulse 88 12/15/22 08:00 Resp 19 12/15/22 08:00 BP 127/78 12/15/22 08:00 Pulse Ox 96 12/15/22 08:00 FiO2 50 12/11/22 12:12 Intake & Output 12/14/22 12/15/22 12/15/22 18:59 06:59 18:59 Intake Total 600 240 Output Total 335 660 40 Balance 265 -660 200 Weight 108.7 kg Intake: Oral 240 Tube Feeding 600 Output: Urine 335 660 40 Other: Voiding Method Indwelling Catheter Indwelling Catheter Indwelling Catheter # Bowel Movements 1 1 - Exam Physical Exam: Revealed a 67-year-old, white male, in no distress HEENT:Neck is supple. No neck masses. No thyromegaly. No JVD. Chest: diminished breath sounds at the bases no crackles or rhonchi or wheezes. on 3 L nasal cannula. No conversational dyspnea or accessory muscle use Cardiac Exam: Normal S1 and S2, no S3 gallop, no murmur. no extra heart sounds Abdomen: Soft, nontender, no megaly, no rebound, no guarding, normal bowel sounds. Extremities: No clubbing, no edema, no cyanosis. Neurological Exam: No focal neurologic deficit. alert and oriented 3 Psychiatric: Normal mood affect and normal mental status examination. Skin: Multiple circular erythematous lesions noted on both lower extremities, with clearance in the center of the lesions. - Labs CBC & Chem 7: 12/14/22 05:40 12/15/22 05:39 Labs: Abnormal Lab Results - Last 24 Hours (Table) 12/14/22 12/15/22 Range/Units 14:43 05:39 Sodium 127 L 128 L (137-145) mmol/L Chloride 96 L (98-107) mmol/L Carbon Dioxide 34 H (22-30) mmol/L Creatinine 0.56 L (0.66-1.25) mg/dL Glucose 109 H (74-99) mg/dL Calcium 8.1 L (8.4-10.2) mg/dL Assessment and Plan Assessment: Severe hyponatremia, seems to be most likely secondary to acute adrenal insufficiency Patient was found to have extremely low serum cortisol, and his Cortrosyn stimulation test is equivocal, however 30 minutes after the ACTH given, the cortisol level did not go up enough which is above 9 hence I'm recommending that the patient remains on Solu-Cortef. not to mention the clinical improvement noted with Solu-Cortef since this was started. Benign essential hypertension possible ringworm dermatitis involving lower extremities. no apparent improvement as yet, we will continue with miconazole Cream for now History of T11 to L1 stabilization and T12 kyphoplasty back in October of 2022 history of CVA. Degenerative joint disease. History of hypothyroidism. Dyslipidemia. Benign essential hypertension. chronic hypercapnic respiratory failure with obstructive sleep apnea syndrome, noncompliant with his CPAP at home. Plan: continue IVP Solu-Cortef. transition to oral Cortef before discharge Continue to monitor sodium, his sodium today is 128, patient remains on fluid restriction. on oral sodium chloride tablets. nephrology continues to follow continue supplemental oxygen to maintain oxygen saturation of 92% or greater. discharge in the next 24-48 hours We will continue to follow I have personally seen and examined the patient, performed the documentation and the assessment and plan as written. Number of minutes spent on the visit: . 10 Time with Patient: Less than 30
[2022-12-15 11:25] VITALS: BMI 35.4
--- NOTE | 2022-12-15 15:07 | P.PN ---
Subjective Progress Note Date: 12/15/22 HISTORY OF PRESENT ILLNESS This is a 67-year-old male patient of Dr. Urena with past medical history of hypertension, hyperlipidemia, coronary artery disease with stent in the mid circumflex 2020, chronic hypoxic respiratory failure on home O2, right lacunar CVA in 2019, seasonal ALLERGIES, COPD, obstructive sleep apnea on CPAP, hypothyroidism, gastroesophageal reflux disease. Patient gives history of a fall 3 or more weeks ago in the bathtub when he heard a pop in his back. He also had a second injury picking up a bag of trash and twisted with significant increase in pain. He had sharp pain in the lower thoracic area into his legs and buttocks. He initially presented to emergency center on 10/29 and was treated for constipation. He has subsequently followed up with Dr. Tidwell. CT of the spine revealed a T12 vertebral compression fracture. Patient was brought into the hospital and underwent ORIF and stabilization of T12 fracture. T11-L1 stabilization and fusion for T12 fracture and T12 kyphoplasty with biopsy. During his hospitalization, sodium was 130 and patient was on a fluid restriction. Patient was discharged to [facility] on 11/28. Patient [facility] and adjustments were made to decrease his Lasix and Aldactone and repeat blood work was ordered for this week. Nursing staff noted the patient had a drop in his pulse ox and encourage patient to utilize his CPAP. Patient had mild changes in mental status. Sodium surprisingly came back at 107. Patient was then transferred to [facility] for further evaluation. On arrival, sodium 105. Potassium 5.8, chloride 70, CO2 31, BUN 19 creatinine 0.74. WBC 13.5, hemoglobin 13.2 platelet count 351. Liver function tests were elevated with AST is 65, ALT 70 and alkaline phosphatase 145. Troponin negative 1. Blood sugar 116. Albumin 3.7. Urinalysis negative. CAT scan of the brain revealed no suspicious acute intracranial changes. Chest x-ray reveals bilateral areas of subsegmental atelectasis favored over pneumonia. Patient was admitted into the intensive care unit and consult in place with nephrology, inventory auditor and orthopedic spine. Patient was provided 2-1/2 liters of IV fluids in the emergency center. Subsequently, IV fluids changed to 3%. 12/11: Patient remains in the intensive care unit. He is on 3% saline at 35 mL per hour per nephrology. He did receive 1 dose of IV Lasix 20 mg this morning. Patient is followed by pulmonary medicine, nephrology and orthopedic spine. Patient was on BiPAP during the night. Repeat blood work today reveals sodium o f 110, potassium 5.2, chloride 78, CO2 29, BUN 5 and creatinine 0.61. WBC 8.4 and hemoglobin 12.1. Urine osmolality 592. Urine sodium 62. Serum osmolality 231. 12/12: Patient remains in the intensive care unit. Sodium level is slowly improving. He had low urine output last night and received a dose of IV Lasix with improvement. Sodium is 119. Nephrology has discontinued saline 3%. Cosyntropin stimulation test has been ordered. Ct Scan Technologist has added Solu- Cortef to start following cosyntropin stimulation testing. disc pad plate filler sinus rhythm. Patient noted to have mental status changes today. Left shoulder x-ray no acute osseous pathology Chest x-ray: No acute cardio pulmonary process. Thoracic and lumbar junction x-rays reveals postsurgical changes to the spine with hardware in appropriate position. Alignment appears satisfactory. 12/13: Patient is sitting up in bed in no apparent distress, answering a lot better today, he continues to have significant distention in his abdomen, he has not had a bowel movement, is passing some gas, he would receive a Dulcolax suppository, we will obtain abdominal x-rays 2 views to rule out any ileus, his sodium level is 122, he is feeling better. 12/15: Patient remains in the intensive care unit but he is now waiting for a MedSurg room. Sodium is at 128. Potassium 4.6, chloride 96, CO2 34, BUN 20 creatinine 0.56. He is continued on SoluCortef, sodium chloride tablets and fluid restriction per nephrology. Patient has been seen by physical therapy with recommendations for subacute rehab. Consult for OT added. Social work is following for discharge planning. REVIEW OF SYSTEMS Constitutional: No fever, no chills, no night sweats. No weight change. Noted weakness, noted fatigue no lethargy. Noted daytime sleepiness. EENT: No headache. No loss of vision. No loss of Hearing, no ringing in the ears, no dizziness. No nasal drainage or congestion. No epistaxis. No sore throat. Lungs: No shortness of breath, cough, no sputum production. No wheezing. Chronic oxygen use. Cardiovascular: No chest pain, no lower extremity edema. No palpitations. No paroxysmal nocturnal dyspnea. No orthopnea. No lightheadedness or dizziness. No syncopal episodes. Abdominal: No abdominal pain. No nausea, vomiting. No diarrhea. No constipation. No bloody or tarry stools. No loss of appetite. Genitourinary: No dysuria, increased frequency, urgency. No urinary retention. Musculoskeletal: No myalgias. No muscle weakness, no gait dysfunction, no frequent falls. Reports thoracic back discomfort. No neck pain. Integumentary: No wounds, positive healing surgical wound to his back no lesions. No rash or pruritus. No unusual bruising. No change in hair or nails. Neurologic: No aphasia. No facial droop. Noted mild change in mentationimproved. No head injury. No headache. No paralysis. No paresthesia. Psychiatric: No depression. No anxiety. No mood swings. Endocrine: No abnormal blood sugars. No weight change. No excessive sweating or thirst. No cold intolerance. PHYSICAL EXAMINATION Gen: This is an obese 67-year-old male. He is resting in ICU and appears to be comfortable. HEENT: Head is atraumatic, normocephalic. Pupils equal, round. Sclerae is anicteric. NECK: Supple. No JVD. No lymphadenopathy. No thyromegaly. LUNGS: Diminished breath sounds at the bases. No intercostal retractions. HEART: Regular rate and rhythm. No murmur. ABDOMEN: Soft. Bowel sounds are present. No masses. No tenderness. Darby catheter in place. EXTREMITIES: No pedal edema. No calf tenderness. Skin tears to the bilateral elbows. BACK: Nitza in place to the low thoracic and also mid lumbar regions with wound edges well approximated, no erythema, no drainage. NEUROLOGICAL: Patient is awake, alert and oriented. Cranial nerves 2 through 12 are grossly intact. ASSESSMENT AND PLAN 1. Severe hyponatremia most likely hypovolemic hyponatremic. Continue care in the intensive care unit. Consult in place with inventory auditor and nephrology appreciated. Continue to monitor electrolytes closely and continue plan per nephrology. Patient is on oral sodium chloride tablets, fluid restriction 2. T 12 compression fracture status post kyphoplasty and T11-L1 stabilization. Consult Dr. Tidwell. Continue current pain management with [place] 7.5 one every 4 hours, gabapentin 300 mg every 8 hours, Flexeril 5 mg 1 every 8 hours. 3. Adrenal insufficiency. Continue patient on Solu Cortef. 4. Metabolic encephalopathy secondary to severe hyponatremia. Continue to monitor closely. 5. Hypertension. Continue metoprolol tartrate 25 mg twice daily, losartan 25 mg daily, Aldactone and Lasix discontinued 6. Constipation. Patient started on Senokot S2 tablets daily, MiraLAX 17 g daily. 7. Hyperlipidemia. Continue atorvastatin 10 mg daily. 8. History of coronary artery disease with previous stent. Continue aspirin 81 mg daily, metoprolol tartrate 25 mg daily. 9. Chronic hypoxic respiratory failure on home O2. Continue oxygen therapy. 10. COPD without exacerbation. 11. Hypothyroidism. Continue levothyroxine 50 g daily. 12. Obstructive sleep apnea. Continue CPAP machine. 13. Gastroesophageal reflux disease. Continue Protonix 40 mg mg daily. 14. History of CVA. Continue patient on aspirin, Lipitor. 15. Seasonal ALLERGIES. Continue Zyrtec 10 mg daily. CODE STATUS: No code DISCHARGE PLANNING Return to [facility] for subacute rehab Impression and plan of care have been directed as dictated by the signing physician. Kira Jara nurse practitioner acting as scribe for signing physician. Objective - Vital Signs Vital signs: Vital Signs Temp 97.0 F L 12/15/22 08:00 Pulse 88 12/15/22 08:00 Resp 19 12/15/22 08:00 BP 127/78 12/15/22 08:00 Pulse Ox 96 12/15/22 08:00 FiO2 50 12/11/22 12:12 Intake & Output 12/14/22 12/15/22 12/15/22 18:59 06:59 18:59 Intake Total 600 540 Output Total 335 660 165 Balance 265 -660 375 Weight 108.7 kg 108.7 kg Intake: Oral 540 Tube Feeding 600 Output: Urine 335 660 165 Other: Voiding Method Indwelling Catheter Indwelling Catheter Indwelling Catheter # Bowel Movements 1 1 - Labs CBC & Chem 7: 12/14/22 05:40 12/15/22 14:20 Labs: Abnormal Lab Results - Last 24 Hours (Table) 12/14/22 12/15/22 Range/Units 14:43 05:39 Sodium 127 L 128 L (137-145) mmol/L Chloride 96 L (98-107) mmol/L Carbon Dioxide 34 H (22-30) mmol/L Creatinine 0.56 L (0.66-1.25) mg/dL Glucose 109 H (74-99) mg/dL Calcium 8.1 L (8.4-10.2) mg/dL
[2022-12-15] MEDS: ATORVASTATIN 10 MG TAB PO SCH (21:35)
[2022-12-15] MEDS: LORATADINE 10 MG TAB PO SCH (21:35)
[2022-12-15] MEDS: AMMONIUM LACTATE 12% CREAM 140 GM TUBE TOPICAL SCH (21:37)
[2022-12-16] MEDS: HYDROCORTISONE SUCCINATE 100 MG/2 ML VIAL IV SCH (00:42)
[2022-12-16] MEDS: SODIUM CHLORIDE 0.9% 1,000 ML IV SCH ×2 (01:38→15:00)
[2022-12-16] MEDS: CYCLOBENZAPRINE 5 MG TAB PO SCH ×3 (05:34→21:39)
[2022-12-16] MEDS: LEVOTHYROXINE 50 MCG TAB PO SCH (05:34)
[2022-12-16] MEDS: PANTOPRAZOLE 40 MG TABLET PO SCH (05:34)
[2022-12-16] MEDS: GABAPENTIN 300 MG CAP PO SCH ×3 (05:34→21:39)
[2022-12-16 10:21] LABS: African American GFR (CKD) >90 (>60 ml/min/1.73 sqM); Anion Gap 1 mmol/L; Blood Urea Nitrogen 21 mg/dL (9-20); Calcium 8.1 mg/dL (8.4-10.2); Carbon Dioxide 31 mmol/L (22-30); Chloride 96 mmol/L (98-107); Glucose 135 mg/dL (74-99); Non-African American GFR(CKD) >90 (>60 ml/min/1.73 sqM); Potassium 3.9 mmol/L (3.5-5.1); Sodium 128 mmol/L (137-145)
[2022-12-16] MEDS: METOPROLOL TARTRATE 25 MG TAB PO SCH ×2 (10:36→21:39)
[2022-12-16] MEDS: polyethylene glycoL 3350 17 GM POWD.PACK PO SCH (10:36)
[2022-12-16] MEDS: LOSARTAN 25 MG TAB PO SCH (10:36)
[2022-12-16] MEDS: ASPIRIN 81 MG PO SCH (10:36)
[2022-12-16] MEDS: ENOXAPARIN 40 MG/0.4 ML SYRINGE SQ SCH (10:36)
[2022-12-16] MEDS: SODIUM CHLORIDE TAB 1 GM TAB PO SCH (10:36)
[2022-12-16] MEDS: MICONAZOLE NITRATE 2% CREAM 14 GM TUBE TOPICAL SCH ×2 (10:37→21:39)
--- NOTE | 2022-12-16 11:17 | P.PN ---
Subjective Progress Note Date: 12/16/22 Principal diagnosis: Hyponatremia this is a 67-year-old white male with history of multiple medical problems including hypertension, degenerative joint disease, hypothyroidism,previous CVA,recent T11-T12 fracture for which she had surgery, and he was sent to rehabilitation patient is maintained on 3 L oxygen on outpatient basis, has been refusing to use his CPAP at this facility. Brought in to the ER yesterday for recurrent falls, and he was noted to have low sodium as low as 105.urine osmolality was high at 592, urine sodium was 62,patient was placed on 3% saline, I was notified by the ER physician about the patient, and considering his low sodium, I recommended admission to the ICU and to continue 3% saline. His follow-up sodium today is 113, hence most likely the patient will be off 3% saline in the next few hours. Patient has been on diuretics including Aldactone and Lasix on outpatient basis, this is likely a picture of hypovolemic hyponatremia,mostly because of the clinical history being on diuretics. although euvolemic hyponatremia is not entirely ruled out,SIADH is a possibility, again his sodium is being addressed by nephrology on the case.chest x-ray showed mostly by basilar atelectasis. No clear-cut evidence of pneumonia or malignancy.CT of the brain showed no suspicious acute intracranial change. reevaluated today , patient remains in the ICU, remains on 3% saline, his sodium today is 117. Surprisingly his cortisol level is 4 today., that by itself considering the presentation is consistent with adrenal insufficiency.patient needs to be on Solu-Cortef, however considering the dispatch supervisor went ahead and ordered a Cortrosyn stimulation test, will wait until the Cortrosyn stimulation test is done, nonetheless the patient will need to be on Solu-Cortef 100 mg IV push 3 times a day for now, and will likely need to be on Cortef on outpatient basis.his CBC is relatively unremarkable, his potassium is normal. His sodium is 119 this morning, and will need to come off 3% saline. Patient was reevaluated today on 12/13/22, patient is doing great today, he is definitely more awake, he is more perked up, his initial serum cortisol level was low, 30 minutes after his initial cortisol level, repeat serum cortisol after given ACTH, showed slight increase, but not enough to call the test as normal, the rise in serum cortisol was actually less than 9, and that basically diagnostic of adrenal insufficiency. Patient is responding extremely well clinically to his Solu-Cortef which I will continue, his repeat sodium level today was low, and I believe nephrology is planning to place him back on 3% saline, and maintain him on 1500 mL fluid restriction.overall the patient is doing well, and once he is off the 3% saline , could be transferred to a regular medical floor Reevaluated today on 12/14/22, patient is doing well, relatively asymptomatic, his sodium is up to 126. Remains on Solu-Cortef and I'm cutting down the dose to 50 mg IV push 3 times a day, will eventually need to be changed to Cortef orally and should have follow-up on outpatient basis with endocrinology. Clinically however the patient has made a significant improvement since his Solu-Cortef was started. Patient is hemodynamically stable, and he is off the 3% saline, he remains on fluid restrictions, I believe the patient could be transferred out of the ICU to a regular medical floor today in the meantime on cutting down his Solu-Cortef to 50 mg IV push 3 times a day and eventually transition to oral Cortef Evaluating this patient on 12/15/2022 in follow-up in the intensive care unit as a MedSurg overflow patient. Patient is sitting up in bed, on 3 liters nasal cannula, in no acute distress. Patient was originally admitted 10/19/2023 with a sodium of 105, and the patient's sodium is up to 128 today. he continues to receive Solu-Cortef 50 mg 3 times a day and sodium chloride tablets. no IV maintenance fluids infusing. patient has a 1500 ML oral fluid restriction. nephrology is following the case. no new chest x-ray to review today. patient's BMP from today shows a sodium of 128, potassium 4.6, chloride 96, serum CO2 34, BUN 20, creatinine 0.56, glucose 109. No new CBC today. vital signs remain stable. Patient will be transferred to a general medical floor once bed available. I'm reevaluating this patient today on 12/16/2022 in follow-up in the intensive care unit as a MedSurg overflow. Patient is sitting up in bed, on 3 L nasal cannula, in no acute distress. No new chest x-ray to review today. Patient continues to receive Solu-Cortef 50 mg 3 times a day. Patient's sodium level is up to 128 today. The rest of the patient's BMP from today shows a potassium of 3.9, chloride 96, serum CO2 31, BUN 21, creatinine 0.68, glucose 135. Patient has no IV maintenance fluids infusing, and he is on a 1500 ML oral fluid res triction. Patient is receiving Lovenox for DVT prophylaxis, and Protonix for GI prophylaxis. Patient's vital signs remain stable. Objective - Vital Signs Vital signs: Vital Signs Temp 97.5 F L 12/16/22 08:00 Pulse 79 12/16/22 08:00 Resp 12 12/16/22 08:00 BP 128/76 12/16/22 08:00 Pulse Ox 99 12/16/22 08:00 FiO2 50 12/11/22 12:12 Intake & Output 12/15/22 12/16/22 12/16/22 18:59 06:59 18:59 Intake Total 840 450 Output Total 365 1000 Balance 475 -550 Weight 108.7 kg 109.3 kg Intake: Oral 840 450 Output: Urine 365 1000 Other: Voiding Method Indwelling Catheter Indwelling Catheter # Bowel Movements 1 - Exam Physical Exam: Revealed a 67-year-old, white male, in no distress HEENT:Neck is supple. No neck masses. No thyromegaly. No JVD. Chest: diminished breath sounds at the bases no crackles or rhonchi or wheezes. on 3 L nasal cannula. No conversational dyspnea or accessory muscle use Cardiac Exam: Normal S1 and S2, no S3 gallop, no murmur. no extra heart sounds Abdomen: Soft, nontender, no megaly, no rebound, no guarding, normal bowel sounds. Extremities: No clubbing, no edema, no cyanosis. Neurological Exam: No focal neurologic deficit. alert and oriented 3 Psychiatric: Normal mood affect and normal mental status examination. Skin: Multiple circular erythematous lesions noted on both lower extremities, with clearance in the center of the lesions. - Labs CBC & Chem 7: 12/14/22 05:40 12/16/22 09:55 Labs: Abnormal Lab Results - Last 24 Hours (Table) 12/15/22 12/16/22 Range/Units 14:20 09:55 Sodium 128 L 128 L (137-145) mmol/L Chloride 96 L (98-107) mmol/L Carbon Dioxide 31 H (22-30) mmol/L BUN 21 H (9-20) mg/dL Glucose 135 H (74-99) mg/dL Calcium 8.1 L (8.4-10.2) mg/dL Assessment and Plan Assessment: Severe hyponatremia, seems to be most likely secondary to acute adrenal insufficiency Patient was found to have extremely low serum cortisol, and his Cortrosyn stimulation test is equivocal, however 30 minutes after the ACTH giv en, the cortisol level did not go up enough which is above 9 hence I recommended that the patient remain on Solu-Cortef. not to mention the clinical improvement noted with Solu-Cortef since this was started. Patient's most recent cortisol level was 24. We will transition the patient to daily oral prednisone. Will need follow-up outpatient Benign essential hypertension possible ringworm dermatitis involving lower extremities. no apparent improvement as yet, we will continue with miconazole Cream for now History of T11 to L1 stabilization and T12 kyphoplasty back in October of 2022 history of CVA. Degenerative joint disease. History of hypothyroidism. Dyslipidemia. Benign essential hypertension. chronic hypercapnic respiratory failure with obstructive sleep apnea syndrome, noncompliant with his CPAP at home. Plan: Discontinue Solu-Cortef IV push. Start prednisone 20 mg by mouth daily Continue to monitor sodium, his sodium today is 128, patient remains on fluid restriction. nephrology continues to follow continue supplemental oxygen to maintain oxygen saturation of 92% or greater. Likely discharge in the next 24-48 hours We will continue to follow I have personally seen and examined the patient, performed the documentation and the assessment and plan as written. Number of minutes spent on the visit: . 10 Time with Patient: Less than 30
[2022-12-16] MEDS ORDERED: TOLVAPTAN 15 MG 1/2 TABLET PO ONE (12:00)
--- NOTE | 2022-12-16 12:00 | P.PN ---
Subjective Patient is seen for follow-up for hyponatremia secondary to SIADH. Status post 3% saline. Sodium level has been slowly increasing. Patient is maintained on sodium chloride tabs 2 g every 8 hours. No significant complaints today Sodium is staying at 128 since yesterday Blood pressure is not elevated No shortness of breath. Objective - Vital Signs Vital signs: Vital Signs Temp 97.5 F L 12/16/22 08:00 Pulse 79 12/16/22 08:00 Resp 12 12/16/22 08:00 BP 128/76 12/16/22 08:00 Pulse Ox 99 12/16/22 08:00 FiO2 50 12/11/22 12:12 Intake & Output 12/15/22 12/16/22 12/16/22 18:59 06:59 18:59 Intake Total 840 450 Output Total 365 1000 Balance 475 -550 Weight 108.7 kg 109.3 kg Intake: Oral 840 450 Output: Urine 365 1000 Other: Voiding Method Indwelling Catheter Indwelling Catheter # Bowel Movements 1 - Exam Awake, comfortable, in no acute distress Examination of the heart S1 and S2 Examination of the lungs bilateral breath sounds are heard Abdomen is soft nontender Examination of lower extremities shows 1+ edema DOUBLE NEEDLE STITCHER exam grossly intact - Labs CBC & Chem 7: 12/14/22 05:40 12/16/22 09:55 Labs: Abnormal Lab Results - Last 24 Hours (Table) 12/15/22 12/16/22 Range/Units 14:20 09:55 Sodium 128 L 128 L (137-145) mmol/L Chloride 96 L (98-107) mmol/L Carbon Dioxide 31 H (22-30) mmol/L BUN 21 H (9-20) mg/dL Glucose 135 H (74-99) mg/dL Calcium 8.1 L (8.4-10.2) mg/dL Assessment and Plan Assessment: 1. 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 Status post 3% saline. Sodium is staying at 128. Maintained on sodium chloride tabs. And fluid restriction. The cosyntropin test is normal therefore no adrenal insufficiency and cortisol level was 13 and went up to 24 2. Blood pressure slightly low on metoprolol and losartan, improved with discontinuation of losartan 3. Hypothyroidism maintained on supplementation Plan: Hold sodium chloride tabs as patient is becoming mildly hypervolemic. 1 dose of tolvaptan Continue with fluid restriction for now Repeat sodium in a.m.
--- NOTE | 2022-12-16 14:25 | P.PN ---
Subjective Progress Note Date: 12/16/22 HISTORY OF PRESENT ILLNESS This is a 67-year-old male patient of Dr. Urena with past medical history of hypertension, hyperlipidemia, coronary artery disease with stent in the mid circumflex 2020, chronic hypoxic respiratory failure on home O2, right lacunar CVA in 2019, seasonal ALLERGIES, COPD, obstructive sleep apnea on CPAP, hypothyroidism, gastroesophageal reflux disease. Patient gives history of a fall 3 or more weeks ago in the bathtub when he heard a pop in his back. He also had a second injury picking up a bag of trash and twisted with significant increase in pain. He had sharp pain in the lower thoracic area into his legs and buttocks. He initially presented to emergency center on 10/29 and was treated for constipation. He has subsequently followed up with Dr. Tidwell. CT of the spine revealed a T12 vertebral compression fracture. Patient was brought into the hospital and underwent ORIF and stabilization of T12 fracture. T11-L1 stabilization and fusion for T12 fracture and T12 kyphoplasty with biopsy. During his hospitalization, sodium was 130 and patient was on a fluid restriction. Patient was discharged to [facility] on 11/28. [facility] and adjustments were made to decrease his Lasix and Aldactone and repeat blood work was ordered for this week. Nursing staff noted the patient had a drop in his pulse ox and encourage patient to utilize his CPAP. Patient had mild changes in mental status. Sodium surprisingly came back at 107. Patient was then transferred to [facility] for further evaluation. On arrival, sodium 105. Potassium 5.8, chloride 70, CO2 31, BUN 19 creatinine 0.74. WBC 13.5, hemoglobin 13.2 platelet count 351. Liver function tests were elevated with AST is 65, ALT 70 and alkaline phosphatase 145. Troponin negative 1. Blood sugar 116. Albumin 3.7. Urinalysis negative. CAT scan of the brain revealed no suspicious acute intracranial changes. Chest x-ray reveals bilateral areas of subsegmental atelectasis favored over pneumonia. Patient was admitted into the intensive care unit and consult in place with nephrology, wrapper cashier and orthopedic spine. Patient was provided 2-1/2 liters of IV fluids in the emergency center. Subsequently, IV fluids changed to 3%. 12/11: Patient remains in the intensive care unit. He is on 3% saline at 35 mL per hour per nephrology. He did receive 1 dose of IV Lasix 20 mg this morning. Patient is followed by pulmonary medicine, nephrology and orthopedic spine. Patient was on BiPAP during the night. Repeat blood work today reveals sodium o f 110, potassium 5.2, chloride 78, CO2 29, BUN 5 and creatinine 0.61. WBC 8.4 and hemoglobin 12.1. Urine osmolality 592. Urine sodium 62. Serum osmolality 231. 12/12: Patient remains in the intensive care unit. Sodium level is slowly improving. He had low urine output last night and received a dose of IV Lasix with improvement. Sodium is 119. Nephrology has discontinued saline 3%. Cosyntropin stimulation test has been ordered. Cuff Setter has added Solu- Cortef to start following cosyntropin stimulation testing. natural resources engineer sinus rhythm. Patient noted to have mental status changes today. Left shoulder x-ray no acute osseous pathology Chest x-ray: No acute cardio pulmonary process. Thoracic and lumbar junction x-rays reveals postsurgical changes to the spine with hardware in appropriate position. Alignment appears satisfactory. 12/13: Patient is sitting up in bed in no apparent distress, answering a lot better today, he continues to have significant distention in his abdomen, he has not had a bowel movement, is passing some gas, he would receive a Dulcolax suppository, we will obtain abdominal x-rays 2 views to rule out any ileus, his sodium level is 122, he is feeling better. 12/15: Patient remains in the intensive care unit but he is now waiting for a MedSur room. Sodium is at 128. Potassium 4.6, chloride 96, CO2 34, BUN 20 creatinine 0.56. He is continued on SoluCortef, sodium chloride tablets and fluid restriction per nephrology. Patient has been seen by physical therapy with recommendations for subacute rehab. Consult for OT added. Social work is following for discharge planning. 12/16: Patient remains in the ICU waiting for a bed on med-surg floor. Nephrology has ordered Samsca x1 today, discontinued sodium tabs and continued patient on fuid restriction. Sodium today is 128. Darby catheter will be discontinued today with anticipation of discharge back to [facility] tomorrow. Patient states his back pain is controlled he has a brace in place. Patient has been afebrile, heart rate 79, blood pressure 128/76 and pulse ox 99% on 3 L nasal cannula. REVIEW OF SYSTEMS Constitutional: No fever, no chills, no night sweats. No weight change. Noted weakness, noted fatigue no lethargy. Noted daytime sleepiness. EENT: No headache. No loss of vision. No loss of Hearing, no ringing in the ears, no dizziness. No nasal drainage or congestion. No epistaxis. No sore throat. Lungs: No shortness of breath, cough, no sputum production. No wheezing. Chronic oxygen use. Cardiovascular: No chest pain, no lower extremity edema. No palpitations. No paroxysmal nocturnal dyspnea. No orthopnea. No lightheadedness or dizziness. No syncopal episodes. Abdominal: No abdominal pain. No nausea, vomiting. No diarrhea. No constipation. No bloody or tarry stools. No loss of appetite. Genitourinary: No dysuria, increased frequency, urgency. No urinary retention. Musculoskeletal: No myalgias. No muscle weakness, no gait dysfunction, no frequent falls. Reports thoracic back discomfort. No neck pain. Integumentary: No wounds, positive healing surgical wound to his back no lesions. No rash or pruritus. No unusual bruising. No change in hair or nails. Neurologic: No aphasia. No facial droop. Noted mild change in mentationimprov ed. No head injury. No headache. No paralysis. No paresthesia. Psychiatric: No depression. No anxiety. No mood swings. Endocrine: No abnormal blood sugars. No weight change. No excessive sweating or thirst. No cold intolerance. PHYSICAL EXAMINATION Gen: This is an obese 67-year-old male. He is resting in chair and appears to be comfortable. HEENT: Head is atraumatic, normocephalic. Pupils equal, round. Sclerae is anicteric. NECK: Supple. No JVD. No lymphadenopathy. No thyromegaly. LUNGS: Diminished breath sounds at the bases. No intercostal retractions. HEART: Regular rate and rhythm. No murmur. ABDOMEN: Soft. Bowel sounds are present. No masses. No tenderness. Darby catheter in place. EXTREMITIES: No pedal edema. No calf tenderness. Skin tears to the bilateral e lbows. BACK: Nitza in place to the low thoracic and also mid lumbar regions with wound edges well approximated, no erythema, no drainage. NEUROLOGICAL: Patient is awake, alert and oriented 3. ASSESSMENT AND PLAN 1. Severe hyponatremia most likely hypovolemic hyponatremic. Continue care in the intensive care unit. Consult in place with wrapper cashier and nephrology appreciated. Continue to monitor electrolytes closely and continue plan per nephrology. Discontinue sodium chloride tablets, continue fluid restriction. Patient is status post 1 dose of Samsca 2. T 12 compression fracture status post kyphoplasty and T11-L1 stabilization. Consult Dr. Tidwell. Continue current pain management with [place] 7.5 one every 4 hours, gabapentin 300 mg every 8 hours, Flexeril 5 mg 1 every 8 hours. 3. Adrenal insufficiency. Solu-Cortef transitioned to oral prednisone 4. Metabolic encephalopathy secondary to severe hyponatremia. Continue to monitor closely. 5. Hypertension. Continue metoprolol tartrate 25 mg twice daily, losartan 25 mg daily, Aldactone and Lasix discontinued 6. Constipation. Patient started on Senokot S2 tablets daily, MiraLAX 17 g daily. 7. Hyperlipidemia. Continue atorvastatin 10 mg daily. 8. History of coronary artery disease with previous stent. Continue aspirin 81 mg daily, metoprolol tartrate 25 mg daily. 9. Chronic hypoxic respiratory failure on home O2. Continue oxygen therapy. 10. COPD without exacerbation. 11. Hypothyroidism. Continue levothyroxine 50 g daily. 12. Obstructive sleep apnea. Continue CPAP machine. 13. Gastroesophageal reflux disease. Continue Protonix 40 mg mg daily. 14. History of CVA. Continue patient on aspirin, Lipitor. 15. Seasonal ALLERGIES. Continue Zyrtec 10 mg daily. CODE STATUS: No code DISCHARGE PLANNING Return to [facility] for subacute rehab on Thursday Impression and plan of care have been directed as dictated by the signing physician. Kira Jara nurse practitioner acting as scribe for signing physician. Objective - Vital Signs Vital signs: Vital Signs Temp 97.5 F L 12/16/22 08:00 Pulse 79 12/16/22 08:00 Resp 12 12/16/22 08:00 BP 128/76 12/16/22 08:00 Pulse Ox 99 12/16/22 08:00 FiO2 50 12/11/22 12:12 Intake & Output 12/15/22 12/16/22 12/16/22 18:59 06:59 18:59 Intake Total 840 450 Output Total 365 1000 Balance 475 -550 Weight 108.7 kg 109.3 kg Intake: Oral 840 450 Output: Urine 365 1000 Other: Voiding Method Indwelling Catheter Indwelling Catheter # Bowel Movements 1 - Labs CBC & Chem 7: 12/14/22 05:40 12/16/22 09:55 Labs: Abnormal Lab Results - Last 24 Hours (Table) 12/15/22 12/16/22 Range/Units 14:20 09:55 Sodium 128 L 128 L (137-145) mmol/L Chloride 96 L (98-107) mmol/L Carbon Dioxide 31 H (22-30) mmol/L BUN 21 H (9-20) mg/dL Glucose 135 H (74-99) mg/dL Calcium 8.1 L (8.4-10.2) mg/dL
[2022-12-16] MEDS: ATORVASTATIN 10 MG TAB PO SCH (21:39)
[2022-12-16] MEDS: AMMONIUM LACTATE 12% CREAM 140 GM TUBE TOPICAL SCH (21:39)
[2022-12-16] MEDS: LORATADINE 10 MG TAB PO SCH (21:39)
[2022-12-17] MEDS: CYCLOBENZAPRINE 5 MG TAB PO SCH ×2 (06:12→14:38)
[2022-12-17] MEDS: PANTOPRAZOLE 40 MG TABLET PO SCH (06:12)
[2022-12-17] MEDS: LEVOTHYROXINE 50 MCG TAB PO SCH (06:12)
[2022-12-17] MEDS: GABAPENTIN 300 MG CAP PO SCH ×2 (06:12→14:38)
--- NOTE | 2022-12-17 07:44 | P.DS ---
Providers Date of admission: 12/10/22 15:06 Expected date of discharge: 12/17/22 Attending physician: Christine Meléndez Consults: 12/10/22 15:06 Consult Physician Stat Consulting Provider: Eliot Smith Consult Reason/Comments: Hyponatremia, hypochloremia, dehydration Do you want consulting provider notified?: Already Contacted Consult Physician Urgent Consulting Provider: Rj Jang Consult Reason/Comments: ICU management for hyponatremia Do you want consulting provider notified?: Already Contacted 12/10/22 15:15 Consult Physician Routine Consulting Provider: Asif Tidwell Consult Reason/Comments: Follow-up from back surgery, staple removal Do you want consulting provider notified?: Yes Primary care physician: [facility] Course: HISTORY OF PRESENT ILLNESS This is a 67-year-old male patient of Dr. Urena with past medical history of hypertension, hyperlipidemia, coronary artery disease with stent in the mid circumflex 2020, chronic hypoxic respiratory failure on home O2, right lacunar CVA in 2019, seasonal ALLERGIES, COPD, obstructive sleep apnea on CPAP, hypothyroidism, gastroesophageal reflux disease. Patient gives history of a fall 3 or more weeks ago in the bathtub when he heard a pop in his back. He also had a second injury picking up a bag of trash and twisted with significant increase in pain. He had sharp pain in the lower thoracic area into his legs and buttocks. He initially presented to emergency center on 10/29 and was treated for constipation. He has subsequently followed up with Dr. Tidwell. CT of the spine revealed a T12 vertebral compression fracture. Patient was brought into the hospital and underwent ORIF and stabilization of T12 fracture. T11-L1 stabilization and fusion for T12 fracture and T12 kyphoplasty with biopsy. During his hospitalization, sodium was 130 and patient was on a fluid restriction. Patient was discharged to [facility] on 11/28. Patient was seen on the rehab unit and adjustments were made to decrease his Lasix and Aldactone and repeat blood work was ordered for this week. Nursing staff noted the patient had a drop in his pulse ox and encourage patient to utilize his CPAP. Patient had mild changes in mental status. Sodium surprisingly came back at 107. Patient was then transferred to [facility] for further evaluation. On arrival, sodium 105. Potassium 5.8, chloride 70, CO2 31, BUN 19 creatinine 0.74. WBC 13.5, hemoglobin 13.2 platelet count 351. Liver function tests were elevated with AST is 65, ALT 70 and alkaline phosphatase 145. Troponin negative 1. Blood sugar 116. Albumin 3.7. Urinalysis negative. CAT scan of the brain revealed no suspicious acute intracranial changes. Chest x-ray reveals bilateral areas of subsegmental atelectasis favored over pneumonia. Patient was admitted into the intensive care unit and consult in place with nephrology, rn unit manager and orthopedic spine. Patient was provided 2-1/2 liters of IV fluids in the emergency center. Subsequently, IV fluids changed to 3%. 12/11: Patient remains in the intensive care unit. He is on 3% saline at 35 mL per hour per nephrology. He did receive 1 dose of IV Lasix 20 mg this morning. Patient is followed by pulmonary medicine, nephrology and orthopedic spine. Patient was on BiPAP during the night. Repeat blood work today reveals sodium of 110, potassium 5.2, chloride 78, CO2 29, BUN 5 and creatinine 0.61. WBC 8.4 and hemoglobin 12.1. Urine osmolality 592. Urine sodium 62. Serum osmolality 231. 12/12: Patient remains in the intensive care unit. Sodium level is slowly improving. He had low urine output last night and received a dose of IV Lasix with improvement. Sodium is 119. Nephrology has discontinued saline 3%. Cosyntropin stimulation test has been ordered. Greenhouse Instructor has added Solu- Cortef to start following cosyntropin stimulation testing. sagger maker sinus rhythm. Patient noted to have mental status changes today. Left shoulder x-ray no acute osseous pathology Chest x-ray: No acute cardio pulmonary process. Thoracic and lumbar junction x-rays reveals postsurgical changes to the spine with hardware in appropriate position. Alignment appears satisfactory. 12/13: Patient is sitting up in bed in no apparent distress, answering a lot better today, he continues to have significant distention in his abdomen, he has not had a bowel movement, is passing some gas, he would receive a Dulcolax suppository, we will obtain abdominal x-rays 2 views to rule out any ileus, his sodium level is 122, he is feeling better. 12/15: Patient remains in the intensive care unit but he is now waiting for a MedSur room. Sodium is at 128. Potassium 4.6, chloride 96, CO2 34, BUN 20 creatinine 0.56. He is continued on SoluCortef, sodium chloride tablets and fluid restriction per nephrology. Patient has been seen by physical therapy with recommendations for subacute rehab. Consult for OT added. Social work is following for discharge planning. 12/16: Patient remains in the ICU waiting for a bed on [facility] floor. Nephrology has ordered Samsca x1 today, discontinued sodium tabs and continued patient on fuid restriction. Sodium today is 128. Darby catheter will be discontinued today with anticipation of discharge back to [facility] tomorrow. Patient states his back pain is controlled he has a brace in place. Patient has been afebrile, heart rate 79, blood pressure 128/76 and pulse ox 99% on 3 L nasal cannula. 12/17: Patient remains in the ICU waiting for a bed on the [facility] floor. He has been afebrile, heart rate 99, blood pressure 112/68, pulse ox 97% on 3 L nasal cannula. Repeat lab work reveals 12/18: Patient remains in the intensive care unit waiting for a bed on the [facility] floor. He has been hemodynamically stable. He is currently on oxygen at 3 L nasal cannula which is his baseline. Repeat blood work today reveals a sodium of 131, potassium 3.9, BUN 23 creatinine 0.64. Discharge diagnoses 1. Severe hyponatremia most likely hypovolemic hyponatremic. 2. T 12 compression fracture status post kyphoplasty and T11-L1 stabilization. 3. Adrenal insufficiency. 4. Metabolic encephalopathy secondary to severe hyponatremia. 5. Hypertension. 6. Constipation. 7. Hyperlipidemia. 8. History of coronary artery disease with previous stent. 9. Chronic hypoxic respiratory failure on home O2. 10. COPD without exacerbation. 11. Hypothyroidism. 12. Obstructive sleep apnea. 13. Gastroesophageal reflux disease. 14. History of CVA. 15. Seasonal ALLERGIES. DISCHARGE PLANNING Return to [facility] for subacute rehab Greater than 35 minutes was utilized and coordinating patient's discharge. Impression and plan of care have been directed as dictated by the signing p tima. Kira Jara nurse practitioner acting as scribe for signing physician. Patient Condition at Discharge: Stable Plan - Discharge Summary New Discharge Prescriptions: Continue Levothyroxine Sodium [Synthroid] 50 mcg PO DAILY@0600 Losartan [Cozaar] 25 mg PO DAILY Cetirizine HCl [Zyrtec] 10 mg PO HS Nitroglycerin Sl Tabs [Nitrostat] 0.4 mg SUBLINGUAL Q5M PRN 15 Days #15 tab PRN Reason: Chest Pain Furosemide [Lasix] 20 mg PO DAILY Clotrimazole Cream [Lotrimin Cream] 1 applic TOPICAL BID Hydrocortisone Cream 0.5% 1 applic TOPICAL BID Triad Cream 1 applic TOPICAL Q12H Sennosides/Docusate Sodium [Senna Plus 8.6-50 mg Tablet] 1 tab PO DAILY PRN PRN Reason: Constipation Sennosides/Docusate Sodium [Senna Plus 8.6-50 mg Tablet] 2 tab PO DAILY polyethylene glycoL 3350 [Miralax] 17 gm PO DAILY Omeprazole [PriLOSEC] 20 mg PO DAILY@0600 Spironolactone [Aldactone] 50 mg PO DAILY Aspirin 81 mg PO DAILY chew Metoprolol Tartrate [Lopressor] 25 mg PO BID Potassium Chloride ER [K-Dur 20] 20 meq PO BID Ammonium Lactate Cream [Lac-Hydrin 12% Cream] 1 applic TOPICAL HS bisacodyL [Dulcolax] 10 mg RECTAL DAILY PRN PRN Reason: Constipation Cyclobenzaprine [Flexeril] 5 mg PO TID@0600,1400,2200 Atorvastatin [Lipitor] 10 mg PO HS Triad Cream 1 applic TOPICAL DAILY PRN PRN Reason: wound care Changed Gabapentin 300 mg PO TID@0600,1400,2200 #9 cap HYDROcodone/APAP 7.5-325MG [[place] 7.5-325] 1 tab PO Q4H PRN #18 tab PRN Reason: Pain Discharge Medication List Levothyroxine Sodium [Synthroid] 50 mcg PO DAILY@0600 03/14/15 [History] Losartan [Cozaar] 25 mg PO DAILY 08/08/20 [History] Cetirizine HCl [Zyrtec] 10 mg PO HS 07/03/21 [History] Aspirin 81 mg PO DAILY chew 07/09/21 [Rx] Nitroglycerin Sl Tabs [Nitrostat] 0.4 mg SUBLINGUAL Q5M PRN 15 Days #15 tab 07/09/21 [Rx] Furosemide [Lasix] 20 mg PO DAILY 10/29/22 [History] Metoprolol Tartrate [Lopressor] 25 mg PO BID 10/29/22 [History] Potassium Chloride ER [K-Dur 20] 20 meq PO BID 10/29/22 [History] Ammonium Lactate Cream [Lac-Hydrin 12% Cream] 1 applic TOPICAL HS 12/10/22 [History] Atorvastatin [Lipitor] 10 mg PO HS 12/10/22 [History] Clotrimazole Cream [Lotrimin Cream] 1 applic TOPICAL BID 12/10/22 [History] Cyclobenzaprine [Flexeril] 5 mg PO TID@0600,1400,2200 12/10/22 [History] Hydrocortisone Cream 0.5% 1 applic TOPICAL BID 12/10/22 [History] Omeprazole [PriLOSEC] 20 mg PO DAILY@0600 12/10/22 [History] Sennosides/Docusate Sodium [Senna Plus 8.6-50 mg Tablet] 1 tab PO DAILY PRN 12/10/22 [History] Sennosides/Docusate Sodium [Senna Plus 8.6-50 mg Tablet] 2 tab PO DAILY 12/10/22 [History] Spironolactone [Aldactone] 50 mg PO DAILY 12/10/22 [History] Triad Cream 1 applic TOPICAL DAILY PRN 12/10/22 [History] Triad Cream 1 applic TOPICAL Q12H 12/10/22 [History] bisacodyL [Dulcolax] 10 mg RECTAL DAILY PRN 12/10/22 [History] polyethylene glycoL 3350 [Miralax] 17 gm PO DAILY 12/10/22 [History] Gabapentin 300 mg PO TID@0600,1400,2200 #9 cap 12/17/22 [Rx] HYDROcodone/APAP 7.5-325MG [[place] 7.5-325] 1 tab PO Q4H PRN #18 tab 12/17/22 [Rx] Follow up Appointment(s)/Referral(s): Umberto Urena DO [Primary Care Provider] - 1 Week (after discharge from [facility]) Shyann Sierra MD [STAFF PHYSICIAN] - 1 Week Asif Tidwell DO [Doctor of Osteopathic Medicine] - 2 Weeks Ambulatory/Diagnostic Orders: Basic Metabolic Panel [LAB.AMB] Location: None Selected Discharge Disposition: TRANSFER TO /[facility]
[2022-12-17 08:13] LABS: African American GFR (CKD) >90 (>60 ml/min/1.73 sqM); Anion Gap 2 mmol/L; Blood Urea Nitrogen 23 mg/dL (9-20); Calcium 7.8 mg/dL (8.4-10.2); Carbon Dioxide 30 mmol/L (22-30); Chloride 99 mmol/L (98-107); Glucose 84 mg/dL (74-99); Non-African American GFR(CKD) >90 (>60 ml/min/1.73 sqM); Potassium 3.9 mmol/L (3.5-5.1); Sodium 131 mmol/L (137-145)
[2022-12-17] MEDS ORDERED: predniSONE 20 MG TAB PO SCH (09:00)
[2022-12-17] MEDS: LOSARTAN 25 MG TAB PO SCH (09:06)
[2022-12-17] MEDS: METOPROLOL TARTRATE 25 MG TAB PO SCH (09:06)
[2022-12-17] MEDS: polyethylene glycoL 3350 17 GM POWD.PACK PO SCH (09:07)
[2022-12-17] MEDS: ASPIRIN 81 MG PO SCH (09:07)
[2022-12-17] MEDS: ENOXAPARIN 40 MG/0.4 ML SYRINGE SQ SCH (09:07)
[2022-12-17] MEDS: MICONAZOLE NITRATE 2% CREAM 14 GM TUBE TOPICAL SCH (09:08)
--- NOTE | 2022-12-17 10:56 | P.PN ---
Subjective Progress Note Date: 12/17/22 Principal diagnosis: Hyponatremia this is a 67-year-old white male with history of multiple medical problems including hypertension, degenerative joint disease, hypothyroidism,previous CVA,recent T11-T12 fracture for which she had surgery, and he was sent to rehabilitation patient is maintained on 3 L oxygen on outpatient basis, has been refusing to use his CPAP at this facility. Brought in to the ER yesterday for recurrent falls, and he was noted to have low sodium as low as 105.urine osmolality was high at 592, urine sodium was 62,patient was placed on 3% saline, I was notified by the ER physician about the patient, and considering his low sodium, I recommended admission to the ICU and to continue 3% saline. His follow-up sodium today is 113, hence most likely the patient will be off 3% saline in the next few hours. Patient has been on diuretics including Aldactone and Lasix on outpatient basis, this is likely a picture of hypovolemic hyponatremia,mostly because of the clinical history being on diuretics. although euvolemic hyponatremia is not entirely ruled out,SIADH is a possibility, again his sodium is being addressed by nephrology on the case.chest x-ray showed mostly by basilar atelectasis. No clear-cut evidence of pneumonia or malignancy.CT of the brain showed no suspicious acute intracranial change. reevaluated today , patient remains in the ICU, remains on 3% saline, his sodium today is 117. Surprisingly his cortisol level is 4 today., that by itself considering the presentation is consistent with adrenal insufficiency.patient needs to be on Solu-Cortef, however considering the after school tutor went ahead and ordered a Cortrosyn stimulation test, will wait until the Cortrosyn stimulation test is done, nonetheless the patient will need to be on Solu-Cortef 100 mg IV push 3 times a day for now, and will likely need to be on Cortef on outpatient basis.his CBC is relatively unremarkable, his potassium is normal. His sodium is 119 this morning, and will need to come off 3% saline. Patient was reevaluated today on 12/13/22, patient is doing great today, he is definitely more awake, he is more perked up, his initial serum cortisol level was low, 30 minutes after his initial cortisol level, repeat serum cortisol after given ACTH, showed slight increase, but not enough to call the test as normal, the rise in serum cortisol was actually less than 9, and that basically diagnostic of adrenal insufficiency. Patient is responding extremely well clinically to his Solu-Cortef which I will continue, his repeat sodium level today was low, and I believe nephrology is planning to place him back on 3% saline, and maintain him on 1500 mL fluid restriction.overall the patient is doing well, and once he is off the 3% saline , could be transferred to a regular medical floor Reevaluated today on 12/14/22, patient is doing well, relatively asymptomatic, his sodium is up to 126. Remains on Solu-Cortef and I'm cutting down the dose to 50 mg IV push 3 times a day, will eventually need to be changed to Cortef orally and should have follow-up on outpatient basis with endocrinology. Clinically however the patient has made a significant improvement since his Solu-Cortef was started. Patient is hemodynamically stable, and he is off the 3% saline, he remains on fluid restrictions, I believe the patient could be transferred out of the ICU to a regular medical floor today in the meantime on cutting down his Solu-Cortef to 50 mg IV push 3 times a day and eventually transition to oral Cortef Evaluating this patient on 12/15/2022 in follow-up in the intensive care unit as a MedSurg overflow patient. Patient is sitting up in bed, on 3 liters nasal cannula, in no acute distress. Patient was originally admitted 10/19/2023 with a sodium of 105, and the patient's sodium is up to 128 today. he continues to receive Solu-Cortef 50 mg 3 times a day and sodium chloride tablets. no IV maintenance fluids infusing. patient has a 1500 ML oral fluid restriction. nephrology is following the case. no new chest x-ray to review today. patient's BMP from today shows a sodium of 128, potassium 4.6, chloride 96, serum CO2 34, BUN 20, creatinine 0.56, glucose 109. No new CBC today. vital signs remain stable. Patient will be transferred to a general medical floor once bed available. I'm reevaluating this patient today on 12/16/2022 in follow-up in the intensive care unit as a MedSurg overflow. Patient is sitting up in bed, on 3 L nasal cannula, in no acute distress. No new chest x-ray to review today. Patient continues to receive Solu-Cortef 50 mg 3 times a day. Patient's sodium level is up to 128 today. The rest of the patient's BMP from today shows a potassium of 3.9, chloride 96, serum CO2 31, BUN 21, creatinine 0.68, glucose 135. Patient has no IV maintenance fluids infusing, and he is on a 1500 ML oral fluid res triction. Patient is receiving Lovenox for DVT prophylaxis, and Protonix for GI prophylaxis. Patient's vital signs remain stable. Reevaluating this patient 12/17/2022 in follow-up in the intensive care unit as a MedSurg overflow. Patient is sitting up in bed, on 3 L nasal cannula, in no acute distress. No new chest x-ray to review today. Patient's sodium has improved to 131. The rest of the patient's BMP is stable. Patient has no IV maintenance fluids infusing. Patient is continuing to receive oral prednisone. Patient is receiving Lovenox for DVT prophylaxis, and Protonix for GI pro phylaxis. Patient's vital signs remained stable, and the patient could potentially be discharged home. Objective - Vital Signs Vital signs: Vital Signs Temp 99.8 F H 12/17/22 02:00 Pulse 102 H 12/17/22 08:00 Resp 14 12/17/22 08:00 BP 134/74 12/17/22 08:00 Pulse Ox 95 12/17/22 08:00 FiO2 50 12/11/22 12:12 Intake & Output 12/16/22 12/17/22 12/17/22 18:59 06:59 18:59 Intake Total 200 Output Total 240 400 Balance -240 -200 Weight 109.3 kg Intake: Oral 200 Output: Urine 240 400 Other: Voiding Method Indwelling Catheter Urinal # Bowel Movements 1 - Exam Physical Exam: Revealed a 67-year-old, white male, in no distress HEENT:Neck is supple. No neck masses. No thyromegaly. No JVD. Chest: diminished breath sounds at the bases no crackles or rhonchi or wheezes. on 3 L nasal cannula. No conversational dyspnea or accessory muscle use Cardiac Exam: Normal S1 and S2, no S3 gallop, no murmur. no extra heart sounds Abdomen: Soft, nontender, no megaly, no rebound, no guarding, normal bowel sounds. Extremities: No clubbing, no edema, no cyanosis. Neurological Exam: No focal neurologic deficit. alert and oriented 3 Psychiatric: Normal mood affect and normal mental status examination. Skin: Multiple circular erythematous lesions noted on both lower extremities, with clearance in the center of the lesions. - Labs CBC & Chem 7: 12/14/22 05:40 12/17/22 07:35 Labs: Abnormal Lab Results - Last 24 Hours (Table) 12/17/22 Range/Units 07:35 Sodium 131 L (137-145) mmol/L BUN 23 H (9-20) mg/dL Creatinine 0.64 L (0.66-1.25) mg/dL Calcium 7.8 L (8.4-10.2) mg/dL Assessment and Plan Assessment: Severe hyponatremia, seems to be most likely secondary to acute adrenal insu fficiency Patient was found to have extremely low serum cortisol, and his Cortrosyn stimulation test is equivocal, however 30 minutes after the ACTH given, the cortisol level did not go up enough which is above 9 hence I recommended that the patient remain on Solu-Cortef. not to mention the clinical improvement noted with Solu-Cortef since this was started. Patient's most recent cortisol level was 24. We will transition the patient to daily oral prednisone. Will need follow-up outpatient. sodium has improved today to 131. Benign essential hypertension possible ringworm dermatitis involving lower extremities. no apparent improvement as yet, we will continue with miconazole Cream for now History of T11 to L1 stabilization and T12 kyphoplasty back in October of 2022 history of CVA. Degenerative joint disease. History of hypothyroidism. Dyslipidemia. Benign essential hypertension. chronic hypercapnic respiratory failure with obstructive sleep apnea syndrome, noncompliant with his CPAP at home. Plan: Patient's medications, labs were reviewed Continue prednisone 20 mg by mouth daily continue supplemental oxygen to maintain oxygen saturation of 92% or greater. From a pulmonary standpoint, patient is cleared for discharge on home O2 . I have personally seen and examined the patient, performed the documentation and the assessment and plan as written. Number of minutes spent on the visit: . 10 Time with Patient: Less than 30
--- NOTE | 2022-12-17 11:00 | P.PN ---
Subjective Patient is seen for follow-up for hyponatremia secondary to SIADH. Status post 3% saline. Sodium level has been slowly increasing. Patient is maintained on sodium chloride tabs 2 g every 8 hours. No significant complaints today Sodium improved to 131 today. Patient received Samsca 15 mg yesterday. Currently maintained on fluid restriction at 1500 mL for 24 hours. Diuretics on hold Objective - Vital Signs Vital signs: Vital Signs Temp 99.8 F H 12/17/22 02:00 Pulse 99 12/17/22 08:00 Resp 14 12/17/22 08:00 BP 134/74 12/17/22 08:00 Pulse Ox 95 12/17/22 08:00 FiO2 50 12/11/22 12:12 Intake & Output 12/16/22 12/17/22 12/17/22 18:59 06:59 18:59 Intake Total 200 Output Total 240 400 Balance -240 -200 Weight 109.3 kg Intake: Oral 200 Output: Urine 240 400 Other: Voiding Method Indwelling Catheter Urinal Urinal # Bowel Movements 1 - Exam Awake, comfortable, in no acute distress Examination of the heart S1 and S2 Examination of the lungs bilateral breath sounds are heard Abdomen is soft nontender Examination of lower extremities shows 1+ edema MEL[employer] SUPERINTENDANT exam grossly intact - Labs CBC & Chem 7: 12/14/22 05:40 12/17/22 07:35 Labs: Abnormal Lab Results - Last 24 Hours (Table) 12/17/22 Range/Units 07:35 Sodium 131 L (137-145) mmol/L BUN 23 H (9-20) mg/dL Creatinine 0.64 L (0.66-1.25) mg/dL Calcium 7.8 L (8.4-10.2) mg/dL Assessment and Plan Assessment: 1. 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 Status post 3% saline. Sodium is staying at 128. Status post sodium chloride tabs And fluid restriction. The cosyntropin test is normal therefore no adrenal insufficiency and cortisol level was 13 and went up to 24. Status post Samsca yesterday with improvement in sodium to 131 today. 2. Blood pressure slightly low on metoprolol and losartan, improved with discontinuation of losartan 3. Hypothyroidism maintained on supplementation Plan: Recheck sodium later this afternoon Continue with fluid restriction Patient will need close monitoring of sodium as outpatient with repeat labs to be done in about 1-2 days post discharge. Patient is also encouraged to increase oral intake of protein.
[2022-12-17 14:52] VITALS: BP 129/81; PULSE 105; RESP 13; TEMP 98.7
[2022-12-17 14:58] LABS: African American GFR (CKD) >90 (>60 ml/min/1.73 sqM); Anion Gap 2 mmol/L; Blood Urea Nitrogen 21 mg/dL (9-20); Carbon Dioxide 31 mmol/L (22-30); Chloride 97 mmol/L (98-107); Glucose 239 mg/dL (74-99); Non-African American GFR(CKD) >90 (>60 ml/min/1.73 sqM); Potassium 4.2 mmol/L (3.5-5.1); Sodium 130 mmol/L (137-145)
== END 2022-12-17 17:19 | DRG 643 ==
LOC: EC 09:30 → 2SICU 15:06
PROVIDERS: ADMIT Internal Medicine; ATTEND Internal Medicine
DX: E22.2 Syndrome of inappropriate secretion of antidiuretic hormone (principal); G93.41 Metabolic encephalopathy; J96.12 Chronic respiratory failure with hypercapnia; J96.11 Chronic respiratory failure with hypoxia; E27.40 Unspecified adrenocortical insufficiency; M48.54XA Collapsed vertebra, not elsewhere classified, thoracic region, initial encounter for fracture; J98.11 Atelectasis; E87.8 Other disorders of electrolyte and fluid balance, not elsewhere classified; Z99.81 Dependence on supplemental oxygen; I10 Essential (primary) hypertension; J44.9 Chronic obstructive pulmonary disease, unspecified; E03.9 Hypothyroidism, unspecified; I69.392 Facial weakness following cerebral infarction; E86.0 Dehydration; G47.33 Obstructive sleep apnea (adult) (pediatric); K21.9 Gastro-esophageal reflux disease without esophagitis; E78.5 Hyperlipidemia, unspecified; Z77.090 Contact with and (suspected) exposure to asbestos; E86.1 Hypovolemia; K59.00 Constipation, unspecified; J30.2 Other seasonal allergic rhinitis; M19.90 Unspecified osteoarthritis, unspecified site; B35.8 Other dermatophytoses; R29.6 Repeated falls; Z87.891 Personal history of nicotine dependence; Z79.899 Other long term (current) drug therapy; Z79.890 Hormone replacement therapy; Z79.82 Long term (current) use of aspirin; Z91.030 Bee allergy status; Z89.421 Acquired absence of other right toe(s); Z95.5 Presence of coronary angioplasty implant and graft; Z98.1 Arthrodesis status; Z95.818 Presence of other cardiac implants and grafts; Z91.81 History of falling; Z91.199 Patient's noncompliance with other medical treatment and regimen due to unspecified reason
CPT/HCPCS: 36415; 36600; 70450; 71045; 71046; 72080; 74019; 80048; 80053; 81003; 82533; 83605; 83735; 83880; 83930; 83935; 84295; 84300; 84443; 84484; 85025; 85027; 85610; 85730; 93005; 94660; 96360; 96361; 99291

== ENCOUNTER → 2023-03-24 | Outpatient (CLI) | payer MEDICARE ==
--- NOTE | 2023-03-24 12:43 | XR ---
EXAMINATION TYPE: XR chest 2V DATE OF EXAM: 03/24/2023 COMPARISON: 12/11/2022 TECHNIQUE: PA and lateral views submitted. HISTORY: A loop recorder FINDINGS: The lungs are clear and there is no pneumothorax, pleural effusion, or focal pneumonia. Heart size normal and no overt failure. A loop recorder is seen and there are bilateral linear changes most typi ana m of scarring or atelectasis. Surgical changes involving vertebral column. There is limited inspira tion. IMPRESSION: 1. Chronic scarring or atelectasis. 2. Loop recorder seen overlying the left hemithorax..
== END | disposition home or self-care (01) ==
LOC: RADXRMAIN 12:05
PROVIDERS: ATTEND Family Medicine
DX: J18.9 Pneumonia, unspecified organism (principal)
CPT/HCPCS: 71046

== ENCOUNTER 2023-11-16 21:22 | Emergency (ER) | payer MEDICARE ==
--- NOTE | 2023-11-16 21:37 | ED ---
General Adult HPI - General Stated complaint: Nose Bleed Time Seen by Provider: 11/16/23 21:35 Source: patient, RN notes reviewed - History of Present Illness Initial comments: 68 year old male presents to the emergency department for chief complaint of nose bleed x45 min. He states he believes it is coming from the right nostril. Patient reports that he has been having frequent nose bleeds recently. Patient is not currently on blood thinners. Patient does use 2 L of oxygen at home. - Related Data Home Medications Medication Instructions Recorded Confirmed Levothyroxine Sodium [Synthroid] 50 mcg PO DAILY@0600 03/14/15 05/12/23 Losartan [Cozaar] 25 mg PO DAILY 08/08/20 05/12/23 Cetirizine HCl [Zyrtec] 10 mg PO HS 07/03/21 05/12/23 Furosemide [Lasix] 20 mg PO DAILY 10/29/22 05/12/23 Metoprolol Tartrate [Lopressor] 25 mg PO BID 10/29/22 05/12/23 Potassium Chloride ER [K-Dur 20] 20 meq PO BID 10/29/22 05/12/23 Ammonium Lactate Cream [Lac-Hydrin 1 applic TOPICAL HS 12/10/22 05/12/23 12% Cream] Atorvastatin [Lipitor] 10 mg PO HS 12/10/22 05/12/23 Clotrimazole Cream [Lotrimin Cream] 1 applic TOPICAL BID 12/10/22 05/12/23 Cyclobenzaprine [Flexeril] 5 mg PO TID@0600,1400,2200 12/10/22 05/12/23 Hydrocortisone Cream 0.5% 1 applic TOPICAL BID 12/10/22 05/12/23 Omeprazole [PriLOSEC] 20 mg PO DAILY@0600 12/10/22 05/12/23 Sennosides/Docusate Sodium [Senna 1 tab PO DAILY PRN 12/10/22 05/12/23 Plus 8.6-50 mg Tablet] Sennosides/Docusate Sodium [Senna 2 tab PO DAILY 12/10/22 05/12/23 Plus 8.6-50 mg Tablet] Spironolactone [Aldactone] 50 mg PO DAILY 12/10/22 05/12/23 Triad Cream 1 applic TOPICAL DAILY PRN 12/10/22 05/12/23 Triad Cream 1 applic TOPICAL Q12H 12/10/22 05/12/23 bisacodyL [Dulcolax] 10 mg RECTAL DAILY PRN 12/10/22 05/12/23 polyethylene glycoL 3350 [Miralax] 17 gm PO DAILY 12/10/22 05/12/23 Previous Rx's Medication Instructions Recorded Aspirin 81 mg PO DAILY chew 07/09/21 Nitroglycerin Sl Tabs [Nitrostat] 0.4 mg SUBLINGUAL Q5M PRN 15 Days 07/09/21 #15 tab Gabapentin 300 mg PO TID@0600,1400,2200 #9 cap 12/17/22 HYDROcodone/APAP 7.5-325MG [[place] 1 tab PO Q4H PRN #18 tab 12/17/22 7.5-325] Amoxicillin 875 mg PO Q12HR #14 tablet 11/17/23 Allergies Allergy/AdvReac Type Severity Reaction Status Date / Time bee venom protein (honey bee) Allergy Anaphylaxis Verified 05/12/23 11:58 Review of Systems ROS Statement: Those systems with pertinent positive or pertinent negative responses have been documented in the HPI. ROS Other: All systems not noted in ROS Statement are negative. 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 2LNC home O2 around the clock, r/t unknown lung disease. Hx of fx ribs, lung "collapsed" states no chest tube History of Any Multi-Drug Resistant Organisms: None Reported Past Surgical History: Appendectomy, Hernia Repair, Orthopedic Surgery Additional Past Surgical History / Comment(s): rotator cuff x2 left shoulder, uvula removed Past Anesthesia/Blood Transfusion Reactions: Previous Problems w/ Anesthesia Additional Past Anesthesia/Blood Transfusion Reaction / Comment(s): woke up once during surgery, clausterphobia-had to be sedated for mri Date of Last Stent Placement:: Jun 2021 Smoking Status: Former smoker - Past Family History Father Family Medical History: Diabetes Mellitus, Hyperlipidemia, Hypertension Additional Family Medical History / Comment(s): at age 86 Mother Family Medical History: Cancer, Diabetes Mellitus, Hyperlipidemia, Hypertension, Thyroid Disorder Additional Family Medical History / Comment(s): Mother is from either a stomach or colon cancer. Brother(s) Additional Family Medical History / Comment(s): Patient has 2 brothers that have from's cystic fibrosis. One brother is alive with no major medical problems. Sister(s) Additional Family Medical History / Comment(s): Patient has 2 sisters with no major medical problems. Daughter(s) Additional Family Medical History / Comment(s): Patient is total of 4 children with no major medical problems. General Exam - General Exam Comments Initial Comments: Visual Physical Exam Vital signs reviewed General: Well-appearing, nontoxic, no acute distress. Head: Normocephalic, atraumatic Eyes: PERRLA, EOMI ENT: Airway patent Chest: Nonlabored breathing Skin: No visual rash, normal skin tone Neuro: Alert and oriented 3 Musculoskeletal: No gross abnormalities Limitations: no limitations General appearance: alert, in no apparent distress Course Vital Signs 11/16/23 11/17/23 21:36 00:00 Temperature 97.7 F 98.1 F Pulse Rate 110 H 92 Respiratory 20 24 Rate Blood Pressure 143/89 119/92 O2 Sat by Pulse 94 L 92 L Oximetry Medical Decision Making - Medical Decision Making Quick note preformed by Chiquita Funes PA-C Was pt. sent in by a medical professional or institution ([facility], [facility], urgent care, hospital, or retirement...) When possible be specific @ -No Did you speak to anyone other than the patient for history (EMS, parent, family, police, friend...)? What history was obtained from this source @ -No Did you review nursing and triage notes (agree or disagree)? Why? @ -I reviewed and agree with nursing and triage notes Were old charts reviewed (outside hosp., previous admission, EMS record, old EKG, old radiological studies, urgent care reports/EKG's, retirement records)? Report findings @ -No old charts were reviewed Differential Diagnosis (chest pain, altered mental status, abdominal pain women, abdominal pain men, vaginal bleeding, weakness, fever, dyspnea, syncope, headache, dizziness, GI bleed, back pain, seizure, CVA, palpatations, mental health, musculoskeletal)? @ - anterior nosebleed, posterior nosebleed, this list is not all inclusive EKG interpreted by me (3pts min.). @ -none X-rays interpreted by me (1pt min.). @ -None done CT interpreted by me (1pt min.). @ -None done U/S interpreted by me (1pt. min.). @ -None done What testing was considered but not performed or refused? (CT, X-rays, U/S, labs)? Why? @ -None What meds were considered but not given or refused? Why? @ -None Did you discuss the management of the patient with other professionals (professionals i.e. , PA, [facility], lab, RT, psych nurse, certified social workers in health care, heart doctor, teacher, police liaison officer, nurse outreach case manager)? Give summary @ -No Was smoking cessation discussed for >3mins.? @ -No Was critical care preformed (if so, how long)? @ -No Were there social determinants of health that impacted care today? How? (Homelessness, low income, unemployed, alcoholism, drug addiction, transportation, low edu. Level, literacy, decrease access to med. care, long-term, rehab)? @ -No Was there de-escalation of care discussed even if they declined (Discuss DNR or withdrawal of care, Hospice)? DNR status @ -No What co-morbidities impacted this encounter? (DM, HTN, Smoking, COPD, CAD, Cancer, CVA, ARF, Chemo, Hep., AIDS, mental health diagnosis, sleep apnea, morbid obesity)? @ -None Was patient admitted / discharged? Hospital course, mention meds given and route, prescriptions, significant lab abnormalities, going to OR and other pertinent info. @ -discharged. Patient presented to emergency department chief complaint of nosebleed. This appears to be right-sided. Afrin was attempted with direct pressure 20 minutes with no improvement. The nose was packed with a Rhino Rocket. Bleeding improved. Patient advised to have packing removed by ENT within 3 days. Patient is agreeable with plan. Patient stable at time of discharge. Case discussed with Dr. Barnard. Undiagnosed new problem with uncertain prognosis? @ -No Drug Therapy requiring intensive monitoring for toxicity (Heparin, Nitro, Insulin, Cardizem)? @ -No Were any procedures done? @ -rhino rocket nasal packing Diagnosis/symptom? @ -Anterior epistaxis Acute, or Chronic, or Acute on Chronic? @ -Acute Uncomplicated (without systemic symptoms) or Complicated (systemic symptoms)? @ -Uncomplicated Side effects of treatment? @ -No Exacerbation, Progression, or Severe Exacerbation? @ -No Poses a threat to life or bodily function? How? (Chest pain, USA, PA, pneumonia, PE, COPD, DKA, ARF, appy, cholecystitis, CVA, Diverticulitis, Homicidal, Suicidal, threat to staff... and all critical care pts) @ -No Disposition Clinical Impression: Epistaxis Disposition: HOME SELF-CARE Condition: Stable Instructions (If sedation given, give patient instructions): Nosebleed (ED) Additional Instructions: Please follow up with ENT within 3 days for removal of nasal packing. Return to the emergency department for new or worsening symptoms. Is patient prescribed a controlled substance at d/c from ED?: No Referrals: Umberto Urena DO [Primary Care Provider] - 1-2 days Jeremias Zuleta MD [STAFF PHYSICIAN] - 1-2 days
[2023-11-16] MEDS ORDERED: OXYMETAZOLINE 0.05% NASL SPRAY 1 SPRAY BOTTLE NASAL STA (21:49)
[2023-11-17 00:22] VITALS: BP 119/92; PULSE 92; RESP 24; TEMP 98.1
== END 2023-11-17 00:05 | disposition home or self-care (01) ==
LOC: EC 21:22
DX: R04.0 Epistaxis (principal); I10 Essential (primary) hypertension; E78.5 Hyperlipidemia, unspecified; K21.9 Gastro-esophageal reflux disease without esophagitis; M19.90 Unspecified osteoarthritis, unspecified site; E07.9 Disorder of thyroid, unspecified; Z79.899 Other long term (current) drug therapy; Z86.73 Personal history of transient ischemic attack (TIA), and cerebral infarction without residual deficits; Z91.030 Bee allergy status; Z90.49 Acquired absence of other specified parts of digestive tract; Z87.891 Personal history of nicotine dependence
CPT/HCPCS: 30903; 99283

== ENCOUNTER 2024-06-29 13:14 | Inpatient (IN) | payer MEDICARE ==
--- NOTE | 2024-06-29 14:40 | XR ---
EXAMINATION TYPE: XR chest 2V DATE OF EXAM: 06/29/2024 2:05 PM CLINICAL INDICATION:Male, 69 years old with history of Weakness; COMPARISON: Chest radiographs from 03/24/2023 TECHNIQUE: XR chest 2V Frontal view of the chest. FINDINGS: Lungs/Pleura: There is no evidence of pleural effusion, focal consolidation, or pneumothorax. Pulmonary vascularity: Unremarkable. Heart/mediastinum: Cardiomediastinal silhouette is unremarkable. A loop recorder projects over the le ft thorax over the heart. Musculoskeletal: No acute osseous pathology. Other findings: None IMPRESSION: No acute cardiopulmonary disease/process.
--- NOTE | 2024-06-29 14:44 | CT ---
EXAMINATION TYPE: CT brain nakiaine wo con DATE OF EXAM: 06/29/2024 COMPARISON: Brain 12/10/2022 HISTORY: 69-year-old male with fall, altered mental status, confusion CT DLP: 1703.6 mGycm Automated exposure control for dose reduction was used. Technique: Examination of the head was done in axial plane without intravenous contrast. Coronal and sagittal reconstructions performed. CT of the cervical spine was obtained in axial plane without intravenous injection of contrast mater ial. Coronal and sagittal reformatted images were obtained from the axial views for evaluation of f ractures, spinal alignment and canal. FINDINGS: Head: There is no evidence of acute intracranial hemorrhage, acute ischemic changes, mass, mass-effect, or extra-axial fluid collection. There is no effacement of cerebral sulci or basal subarachnoid cister ns. There is no hydrocephalus. There is no midline shift. Rod-white matter distinction is preserv ed. Trace mucosal thickening floors of the maxillary sinuses. Near complete opacification right mastoid a ir cells. Orbits and globes are intact. Cervical spine: Extensive scattered periodontal disease. No cranial cervical junction abnormality, predental space widening, or prevertebral soft tissue swell ing. No acute fracture seen of the cervical spine. Alignment is maintained. Scattered mild to moderate facet arthropathy especially towards the right and mild uncovertebral join t arthropathy mid to lower cervical spine. No evident canal compromise by CT. Sagittal and coronal reformatted images confirm above findings. COMBINED IMPRESSION: 1. No acute intracranial abnormality seen. 2. No acute fracture or malalignment of the cervical spine. Mild spondylotic change. 3. Near complete opacification right mastoid air cells. Correlate for any mastoid pain to exclude mas toiditis. 4. Incidental: Extensive periodontal disease.
--- NOTE | 2024-06-29 14:50 | ED ---
Weakness HPI - General Chief complaint: Weakness Stated complaint: weakness Time Seen by Provider: 06/29/24 13:16 Source: patient, family, EMS, RN notes reviewed Mode of arrival: EMS Limitations: physical limitation - History of Present Illness Initial comments: 69-year-old male presents emerged part via EMS to complain of increasing confusion, weakness. Patient is here with who states that he had a fall last night unwitnessed but they were unable to get him off the ground. EMS had to come pick him up and get him back to the living room in which patient slept without getting up and remains to be very fatigued, confused. Patient reportedly was started on some antibiotics for possible lung infection for . Patient states he hurts all over from the fall but no specific location. Patient noted to have leg swelling which is reported chronic on spironolactone and Lasix. Denies any chest pain states that he has been having some feldman llucinations unsure if is related to an infection - Related Data Home Medications Medication Instructions Recorded Confirmed Levothyroxine Sodium [Synthroid] 50 mcg PO DAILY 03/14/15 06/29/24 Cetirizine HCl [Zyrtec] 10 mg PO HS 07/03/21 06/29/24 Furosemide [Lasix] 20 mg PO DAILY 10/29/22 06/29/24 Metoprolol Tartrate [Lopressor] 25 mg PO BID 10/29/22 06/29/24 Potassium Chloride ER [K-Dur 20] 20 meq PO DAILY 10/29/22 06/29/24 Azithromycin [Zithromax Z Pack] See Taper PO DAILY 06/29/24 06/29/24 Furosemide [Lasix] 20 mg PO DAILY PRN 06/29/24 06/29/24 Nitroglycerin Sl Tabs [Nitrostat] 0.4 mg SL Q5M PRN 06/29/24 06/29/24 Pantoprazole [Protonix] 40 mg PO DAILY 06/29/24 06/29/24 Rosuvastatin Calcium [Crestor] 5 mg PO HS 06/29/24 06/29/24 Spironolactone [Aldactone] 100 mg PO DAILY 06/29/24 06/29/24 predniSONE See Taper PO DIRECTED 06/29/24 06/29/24 Previous Rx's Medication Instructions Recorded Aspirin 81 mg PO DAILY chew 07/09/21 Allergies Allergy/AdvReac Type Severity Reaction Status Date / Time bee venom protein (honey bee) Allergy Anaphylaxis Verified 06/29/24 14:39 Review of Systems ROS Statement: Those systems with pertinent positive or pertinent negative responses have been documented in the HPI. ROS Other: All systems not noted in ROS Statement are negative. 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 2L[employer] home O2 around the clock, r/t unknown lung disease. Hx of fx ribs, lung "collapsed" states no chest tube History of Any Multi-Drug Resistant Organisms: None Reported Past Surgical History: Appendectomy, Hernia Repair, Orthopedic Surgery Additional Past Surgical History / Comment(s): rotator cuff x2 left shoulder, uvula removed Past Anesthesia/Blood Transfusion Reactions: Previous Problems w/ Anesthesia Additional Past Anesthesia/Blood Transfusion Reaction / Comment(s): woke up once during surgery, clausterphobia-had to be sedated for mri Date of Last Stent Placement:: Jun 2021 Past Psychological History: No Psychological Hx Reported Smoking Status: Former smoker - Past Family History Father Family Medical History: Diabetes Mellitus, Hyperlipidemia, Hypertension Additional Family Medical History / Comment(s): at age 86 Mother Family Medical History: Cancer, Diabetes Mellitus, Hyperlipidemia, Hypertension, Thyroid Disorder Additional Family Medical History / Comment(s): Mother is from either a stomach or colon cancer. Brother(s) Additional Family Medical History / Comment(s): Patient has 2 brothers that have from's cystic fibrosis. One brother is alive with no major medical problems. Sister(s) Additional Family Medical History / Comment(s): Patient has 2 sisters with no major medical problems. Daughter(s) Additional Family Medical History / Comment(s): Patient is total of 4 children with no major medical problems. General Exam Limitations: physical limitation General appearance: alert, in no apparent distress Head exam: Present: atraumatic, normocephalic, normal inspection Eye exam: Present: normal appearance, PERRL, EOMI. Absent: scleral icterus, conjunctival injection, periorbital swelling Respiratory exam: Present: normal lung sounds bilaterally. Absent: respiratory distress, wheezes, rales, rhonchi, stridor Cardiovascular Exam: Present: regular rate, normal rhythm, normal heart sounds. Absent: systolic murmur, diastolic murmur, rubs, gallop, clicks GI/Abdominal exam: Present: soft, normal bowel sounds. Absent: distended, tenderness, guarding, rebound, rigid Extremities exam: Present: normal inspection, full ROM, normal capillary refill, pedal edema. Absent: tenderness, joint swelling, calf tenderness Back exam: Present: full ROM, paraspinal tenderness. Absent: tenderness Neurological exam: Present: alert, CN II-XII intact Skin exam: Present: warm, dry, intact, normal color. Absent: rash Course Vital Signs 06/29/24 13:18 Pulse Rate 94 Respiratory 20 Rate Blood Pressure 144/80 O2 Sat by Pulse 97 Oximetry EKG Findings - EKG Comments: EKG Findings:: EKG performed at 14: 20 sinus rhythm rate 98 PA 152 QRS 90 QT/QTc 336 385 - EKG Results: EKG: interpreted by JHOANA Medical Decision Making - Medical Decision Making Was pt. sent in by a medical professional or institution (, PA, LEGAL ENTITY CONTROLLER, urgent care, hospital, or usp...) When possible be specific @ -No Did you speak to anyone other than the patient for history (EMS, parent, family, police, friend...)? What history was obtained from this source @ -White writing past medical history and current complaint Did you review nursing and triage notes (agree or disagree)? Why? @ -I reviewed and agree with nursing and triage notes Were old charts reviewed (outside hosp., previous admission, EMS record, old EKG, old radiological studies, urgent care reports/EKG's, usp records)? Report findings @ -No old charts were reviewed Differential Diagnosis (chest pain, altered mental status, abdominal pain women, abdominal pain men, vaginal bleeding, weakness, fever, dyspnea, syncope, headache, dizziness, GI bleed, back pain, seizure, CVA, palpatations, mental health, musculoskeletal)? @ -Differential Altered Mental Status: Hypoglycemia, DKA, hypercapnia, ETOH, overdose, CO poisoning, trauma, myxedema coma, HTN encephalopathy, infection, encephalitis, psychosis, intercranial hemorrhage, hepatic encephalopathy, meningitis, CVA, this is not meant to be an all-inclusive list EKG interpreted by me (3pts min.). @ -as above X-rays interpreted by me (1pt min.). @ -Chest x-ray shows no acute cardiopulmonary process CT interpreted by me (1pt min.). @ -CT brain, C-spine no acute intracranial hemorrhage or mass effect U/S interpreted by me (1pt. min.). @ -None done What testing was considered but not performed or refused? (CT, X-rays, U/S, labs)? Why? @ -None What meds were considered but not given or refused? Why? @ -None Did you discuss the management of the patient with other professionals (professionals i.e. , PA, LEGAL ENTITY CONTROLLER, lab, RT, psych nurse, psych social worker, body rolling machine tender, teacher, security police officer, therapeutic case manager)? Give summary @ -EMH for admission Was smoking cessation discussed for >3mins.? @ -No Was critical care preformed (if so, how long)? @ -No Were there social determinants of health that impacted care today? How? (Homelessness, low income, unemployed, alcoholism, drug addiction, transportation, low edu. Level, literacy, decrease access to med. care, usp, rehab)? @ -No Was there de-escalation of care discussed even if they declined (Discuss DNR or withdrawal of care, Hospice)? DNR status @ -No What co-morbidities impacted this encounter? (DM, HTN, Smoking, COPD, CAD, Cancer, CVA, ARF, Chemo, Hep., AIDS, mental health diagnosis, sleep apnea, morbid obesity)? @ -None Was patient admitted / discharged? Hospital course, mention meds given and route, prescriptions, significant lab abnormalities, going to OR and other pertinent info. @ -[Admitted patient presenting for altered mental status, hallucinations, decreased mobility. Patient unable to care for himself, unable to ambulate. Patient be admitted for further evaluation, neuroconsult Undiagnosed new problem with uncertain prognosis? @ -No Drug Therapy requiring intensive monitoring for toxicity (Heparin, Nitro, Insulin, Cardizem)? @ -No Were any procedures done? @ -No Diagnosis/symptom? @ -Altered mental status, debility hallucinations Acute, or Chronic, or Acute on Chronic? @ -Acute Uncomplicated (without systemic symptoms) or Complicated (systemic symptoms)? @ -complicated Side effects of treatment? @ -No Exacerbation, Progression, or Severe Exacerbation? @ -No Poses a threat to life or bodily function? How? (Chest pain, USA, LA, pneumonia, PE, COPD, DKA, ARF, appy, cholecystitis, CVA, Diverticulitis, Homicidal, Suicidal, threat to staff... and all critical care pts) @ -No - Lab Data Result diagrams: 06/29/24 14:13 06/29/24 14:13 Lab Results 06/29/24 06/29/24 06/29/24 Range/Units 14:13 14:13 14:13 WBC 12.8 H (3.8-10.6) k/uL RBC 4.40 (4.30-5.90) m/uL Hgb 13.5 (13.0-17.5) gm/dL Hct 43.0 (39.0-53.0) % MCV 97.6 (80.0-100.0) fL MCH 30.7 (25.0-35.0) pg MCHC 31.5 (31.0-37.0) g/dL RDW 14.9 (11.5-15.5) % Plt Count 441 (150-450) k/uL MPV 6.9 Neutrophils % 57 % Lymphocytes % 34 % Monocytes % 6 % Eosinophils % 3 % Basophils % 1 % Neutrophils # 7.3 (1.3-7.7) k/uL Lymphocytes # 4.3 (1.0-4.8) k/uL Monocytes # 0.7 (0-1.0) k/uL Eosinophils # 0.3 (0-0.7) k/uL Basophils # 0.1 (0-0.2) k/uL Hypochromasia Moderate PT 10.6 (10.0-12.5) sec INR 1.0 (<1.2) APTT 23.0 (22.0-30.0) sec Sodium (137-145) mmol/L Potassium (3.5-5.1) mmol/L Chloride (98-107) mmol/L Carbon Dioxide (22-30) mmol/L Anion Gap mmol/L BUN (9-20) mg/dL Creatinine (0.66-1.25) mg/dL Est GFR (CKD-EPI)AfAm (>60 ml/min/1.73 sqM) Est GFR (CKD-EPI)NonAf (>60 ml/min/1.73 sqM) Glucose (74-99) mg/dL Plasma Lactic Acid Joseph (0.7-2.0) mmol/L Calcium (8.4-10.2) mg/dL Magnesium (1.6-2.3) mg/dL Total Bilirubin (0.2-1.3) mg/dL AST (17-59) U/L ALT (4-49) U/L Alkaline Phosphatase (38-126) U/L Troponin I (0.000-0.034) ng/mL NT-Pro-B Natriuret Pep pg/mL Total Protein (6.3-8.2) g/dL Albumin (3.5-5.0) g/dL Urine Color Colorless Urine Appearance Clear (Clear) Urine pH 5.0 (5.0-8.0) Ur Specific Slaughter 1.007 (1.001-1.035) Urine Protein Negative (Negative) Urine Glucose (UA) Negative (Negative) Urine Ketones Negative (Negative) Urine Blood Negative (Negative) Urine Nitrite Negative (Negative) Urine Bilirubin Negative (Negative) Urine Urobilinogen <2.0 (<2.0) mg/dL Ur Leukocyte Esterase Negative (Negative) 06/29/24 06/29/24 06/29/24 Range/Units 14:13 14:13 14:13 WBC (3.8-10.6) k/uL RBC (4.30-5.90) m/uL Hgb (13.0-17.5) gm/dL Hct (39.0-53.0) % MCV (80.0-100.0) fL MCH (25.0-35.0) pg MCHC (31.0-37.0) g/dL RDW (11.5-15.5) % Plt Count (150-450) k/uL MPV Neutrophils % % Lymphocytes % % Monocytes % % Eosinophils % % Basophils % % Neutrophils # (1.3-7.7) k/uL Lymphocytes # (1.0-4.8) k/uL Monocytes # (0-1.0) k/uL Eosinophils # (0-0.7) k/uL Basophils # (0-0.2) k/uL Hypochromasia PT (10.0-12.5) sec INR (<1.2) APTT (22.0-30.0) sec Sodium 138 (137-145) mmol/L Potassium 4.1 (3.5-5.1) mmol/L Chloride 100 (98-107) mmol/L Carbon Dioxide 28 (22-30) mmol/L Anion Gap 10 mmol/L BUN 16 (9-20) mg/dL Creatinine 0.95 (0.66-1.25) mg/dL Est GFR (CKD-EPI)AfAm >90 (>60 ml/min/1.73 sqM) Est GFR (CKD-EPI)NonAf 82 (>60 ml/min/1.73 sqM) Glucose 128 H (74-99) mg/dL Plasma Lactic Acid Joseph 4.8 H* (0.7-2.0) mmol/L Calcium 9.1 (8.4-10.2) mg/dL Magnesium 1.5 L (1.6-2.3) mg/dL Total Bilirubin 0.5 (0.2-1.3) mg/dL AST 42 (17-59) U/L ALT 38 (4-49) U/L Alkaline Phosphatase 61 (38-126) U/L Troponin I <0.012 (0.000-0.034) ng/mL NT-Pro-B Natriuret Pep 73 pg/mL Total Protein 6.1 L (6.3-8.2) g/dL Albumin 3.9 (3.5-5.0) g/dL Urine Color Urine Appearance (Clear) Urine pH (5.0-8.0) Ur Specific Slaughter (1.001-1.035) Urine Protein (Negative) Urine Glucose (UA) (Negative) Urine Ketones (Negative) Urine Blood (Negative) Urine Nitrite (Negative) Urine Bilirubin (Negative) Urine Urobilinogen (<2.0) mg/dL Ur Leukocyte Esterase (Negative) Disposition Clinical Impression: Altered mental status, Hallucinations, Physical debility Disposition: ADMITTED IP TO THIS [facility] Referrals: Umberto Urena DO [Primary Care Provider] - 1-2 days Time of Disposition: 15:40
[2024-06-29 14:52] LABS: Basophils # (A) 0.1 k/uL (0-0.2); Basophils % (A) 1 %; Eosinophils # (A) 0.3 k/uL (0-0.7); Eosinophils % (A) 3 %; HGB 13.5 gm/dL (13.0-17.5); Hypochromasia Moderate; Lymphocytes # (A) 4.3 k/uL (1.0-4.8); Lymphocytes % (A) 34 %; MCH 30.7 pg (25.0-35.0); MCHC 31.5 g/dL (31.0-37.0); MCV 97.6 fL (80.0-100.0); Mean Platelet Volume 6.9; Monocytes # (A) 0.7 k/uL (0-1.0); Monocytes % (A) 6 %; Neutrophils # (A) 7.3 k/uL (1.3-7.7); Neutrophils % (A) 57 %; Platelet Count 441 k/uL (150-450); RDW 14.9 % (11.5-15.5); WBC 12.8 k/uL (3.8-10.6)
[2024-06-29 14:56] LABS: Appearance,Urine Clear (Clear); Bilirubin,Urine Negative (Negative); Blood,Urine Negative (Negative); Color,Urine Colorless; Glucose,Urine (UA) Negative (Negative); Ketones,Urine Negative (Negative); Leukocyte Esterase,Urine Negative (Negative); Nitrite,Urine Negative (Negative); Protein,Urine Negative (Negative); Specific Gravity,Urine 1.007 (1.001-1.035); Urobilinogen,Urine <2.0 mg/dL (<2.0)
[2024-06-29 15:05] LABS: Prothrombin Time 10.6 sec (10.0-12.5)
[2024-06-29 15:12] LABS: ALT 38 U/L (4-49); AST 42 U/L (17-59); African American GFR (CKD) >90 (>60 ml/min/1.73 sqM); Albumin 3.9 g/dL (3.5-5.0); Alkaline Phosphatase 61 U/L (38-126); Anion Gap 10 mmol/L; Blood Urea Nitrogen 16 mg/dL (9-20); Calcium 9.1 mg/dL (8.4-10.2); Carbon Dioxide 28 mmol/L (22-30); Chloride 100 mmol/L (98-107); Glucose 128 mg/dL (74-99); Magnesium 1.5 mg/dL (1.6-2.3); Non-African American GFR(CKD) 82 (>60 ml/min/1.73 sqM); Potassium 4.1 mmol/L (3.5-5.1); Sodium 138 mmol/L (137-145); Total Bilirubin 0.5 mg/dL (0.2-1.3); Total Protein 6.1 g/dL (6.3-8.2)
[2024-06-29 15:19] LABS: NT-Pro-B-Type Natriuretic Pept 73 pg/mL
[2024-06-29] MEDS ORDERED: NALOXONE 0.4 MG/ML 1 ML VIAL IV PRN (15:42)
[2024-06-29] MEDS: SODIUM CHLORIDE 0.9% 1,000 ML IV STA (16:22)
--- NOTE | 2024-06-29 20:43 | P.CNNES ---
History of Present Illness Consult date: 06/29/24 Requesting physician: Bashir Munson Reason for Consult: ams History of Present Illness: This is a 69-year-old gentleman who present emergency department because of altered mental status generalized weakness. The history is obtained from medical record. Stated that he had a recent fall and it seems it was unwitnessed and he is unable how he fell but in the last maybe few weeks he has been feeling generalized weak does not have energy. Patient denies of any focal weakness, any difficulty swallowing, he stated that he has been having swelling of bilateral feet recently as a result has been having numbness. He denies any numbness traveling up his extremities. Denies any double vision. Denies of any headache. He stated that he has been not acting himself and his family feels he is acting strange. He does have a history of stroke in remote past. The ED team seems patient has been more sleepy. He was started on antibiotic for possible lung infection according to family members he has been on spironolact one and Lasix for a while. Seems that he has been having also some hallucination and per the she is unsure if that is due to his infection. Denies any history of seizure Some of the workup during this hospital visit consisted of: Patient is afebrile White blood cells 12.8 thousand otherwise the rest of CBC with differential is unremarkable Plasma lactic acid is 4.8 and the repeat is 1.3. Serum glucose is 128, sodium, calcium BUN/creatinine are within normal limits. AST ALT is within normal limits I reviewed the rest of the lab workup next CT of the head and cervical spine is reported as no acute intracranial abnormality seen. No acute fracture or malalignment of the cervical spine. Mild spondylitic change. Near complete opacification right mastoid air cell. Correlate for any mastoid pain to exclude mastoiditis. Incidental extensive periodontal disease. I personally reviewed the CT of the head and I agree there is no acute or subacute ischemia. Review of Systems The positive and negative as per HPI. 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 2L[employer] home O2 around the clock, r/t unknown lung disease. Hx of fx ribs, lung "collapsed" states no chest tube History of Any Multi-Drug Resistant Organisms: None Reported Past Surgical History: Appendectomy, Hernia Repair, Orthopedic Surgery Additional Past Surgical History / Comment(s): rotator cuff x2 left shoulder, uvula removed Past Anesthesia/Blood Transfusion Reactions: Previous Problems w/ Anesthesia Additional Past Anesthesia/Blood Transfusion Reaction / Comment(s): woke up once during surgery, clausterphobia-had to be sedated for mri Date of Last Stent Placement:: Jun 2021 Past Psychological History: No Psychological Hx Reported Smoking Status: Former smoker - Past Family History Father Family Medical History: Diabetes Mellitus, Hyperlipidemia, Hypertension Additional Family Medical History / Comment(s): at age 86 Mother Family Medical History: Cancer, Diabetes Mellitus, Hyperlipidemia, Hypertension, Thyroid Disorder Additional Family Medical History / Comment(s): Mother is from either a stomach or colon cancer. Brother(s) Additional Family Medical History / Comment(s): Patient has 2 brothers that have from's cystic fibrosis. One brother is alive with no major medical problems. Sister(s) Additional Family Medical History / Comment(s): Patient has 2 sisters with no major medical problems. Daughter(s) Additional Family Medical History / Comment(s): Patient is total of 4 children with no major medical problems. Medications and Allergies Home Medications Medication Instructions Recorded Confirmed Type Levothyroxine Sodium [Synthroid] 50 mcg PO DAILY 03/14/15 06/29/24 History Cetirizine HCl [Zyrtec] 10 mg PO HS 07/03/21 06/29/24 History Aspirin 81 mg PO DAILY chew 07/09/21 06/29/24 Rx Furosemide [Lasix] 20 mg PO DAILY 10/29/22 06/29/24 History Metoprolol Tartrate [Lopressor] 25 mg PO BID 10/29/22 06/29/24 History Potassium Chloride ER [K-Dur 20] 20 meq PO DAILY 10/29/22 06/29/24 History Azithromycin [Zithromax Z Pack] See Taper PO DAILY 06/29/24 06/29/24 History Furosemide [Lasix] 20 mg PO DAILY PRN 06/29/24 06/29/24 History Nitroglycerin Sl Tabs [Nitrostat] 0.4 mg SL Q5M PRN 06/29/24 06/29/24 History Pantoprazole [Protonix] 40 mg PO DAILY 06/29/24 06/29/24 History Rosuvastatin Calcium [Crestor] 5 mg PO HS 06/29/24 06/29/24 History Spironolactone [Aldactone] 100 mg PO DAILY 06/29/24 06/29/24 History predniSONE See Taper PO DIRECTED 06/29/24 06/29/24 History Allergies Allergy/AdvReac Type Severity Reaction Status Date / Time bee venom protein (honey bee) Allergy Anaphylaxis Verified 06/29/24 14:39 Physical Examination - Vital Signs Vital Signs: Vital Signs Temp Pulse Resp BP Pulse Ox 06/29/24 15:45 97.5 F L 06/29/24 13:18 94 20 144/80 97 Intake and Output 06/29/24 06/29/24 06/29/24 06:59 14:59 22:59 Other: Weight 105.37 kg GENERAL: The patient is lying in bed and is not in acute distress. LUNG: Appears dyspneic and having some shortness of breath. NEUROLOGICAL: Higher mental function: The patient is drowsy but is awake both voice. Is oriented to self, place and time. Patient is following simple commands. At times I had to notify patient of the command twice to follow it since she was a bit drowsy no aphasia. Cranial nerves: The pupils are round, equal and reactive to light. Has ptosis of bilateral eyes. Visual porter are full to confrontation throughout. Extraocular movement is intact no nystagmus is noted. Facial sensation is normal to touch throughout. The facial strength is limited in assessment Hearing is is mildly decreased to hand rub. Tongue is midline and moved [id number] without any difficulty. No dysarthria is noted. Shoulder shrug is normal bilaterally. Motor: The strength is hard to assess individual muscle because of his cooperation. Is lifting all extremities above gravity. Normal tone and bulk. Cerebellum: Normal finger to nose bilaterally. Sensation: Sensation is normal to touch throughout. Reflexes (right/left): 1+ in uppers. Patellar are 2+ bilaterally and ankles are 1+ bilaterally. Plantars are mute bilaterally. Results - Laboratory Findings CBC and BMP: 06/29/24 14:13 06/29/24 14:13 Abnormal Lab Findings: Abnormal Labs 06/29/24 06/29/24 06/29/24 14:13 14:13 14:13 WBC 12.8 H Glucose 128 H Plasma Lactic Acid Joseph 4.8 H* Magnesium 1.5 L Total Protein 6.1 L Assessment and Plan Assessment: This is a 69-year-old gentleman who has been having generalized weakness for the past 3 weeks with recent fall and confusion and it seems that he had some hallucination. Patient had a recent lung infection and was started on antibiotic as well as having swelling in his feet. Examination patient had ptosis of bilateral eyes and was mildly drowsy but was oriented x 3. Per medical record it seems the patient has old ptosis of the eyes patient had elevated lactic acid level but is afebrile with normal white blood cell Recent generalized weakness with confusion recent fall. Unsure exact cause. The patient is oriented x 3 Recent history of lung infection History of stroke in 2019 History of hypertension Hyperlipidemia Plan: I ordered TSH, vitamin B-12, ammonia. Ordered MRI of the brain with and without Ordered routine EEG I ordered CK level, myoglobin, acetylcholine esterase antibody PT and OT are consulted Will defer the rest of the medical management the primary and other specialist The plan is discussed with patient and his nurse. Thank you for the consultation. Time with Patient: Greater than 30
[2024-06-29] MEDS ORDERED: NITROGLYCERIN SL TABS 0.4 MG TAB SUBLINGUAL PRN (23:23)
[2024-06-29] MEDS: METOPROLOL TARTRATE 25 MG TAB PO SCH (23:35)
[2024-06-29] MEDS: ACETAMINOPHEN TAB 325 MG TAB PO PRN (23:35)
[2024-06-30 06:09] LABS: VBG PH 7.34 (7.31-7.41)
[2024-06-30] MEDS: LEVOTHYROXINE 50 MCG TAB PO SCH (08:08)
[2024-06-30] MEDS: ASPIRIN 81 MG PO SCH (08:08)
[2024-06-30] MEDS: PANTOPRAZOLE 40 MG TABLET PO SCH (08:08)
[2024-06-30] MEDS: SPIRONOLACTONE 25 MG TAB PO SCH (08:08)
[2024-06-30 09:13] LABS: HCT 39.6 % (39.6-50.0); HGB 12.1 g/dL (13.0-17.0); Lymphocytes % (A) 27.2 %; MCH 30.7 pg (27.0-32.0); MCHC 30.6 g/dL (32.0-37.0); MCV 100.5 FL (80.0-97.0); Mean Platelet Volume 9.7 FL (9.5-12.2); NRBC Per 100 WBC 0 X 10*3/uL (0.00-0.01); Neutrophils % (A) 58.6 %; Platelet Count 378 X 10*3/uL (140-440); RBC 3.94 X 10*6/uL (4.40-5.60); RDW 15.1 % (11.5-14.5); WBC 9.52 X 10*3/uL (4.50-10.00)
[2024-06-30 09:14] LABS: Basophils # (A) 0.06 X 10*3/uL (0.00-0.10); Basophils % (A) 0.6 %; Eosinophils # (A) 0.36 X 10*3/uL (0.04-0.35); Eosinophils % (A) 3.8 %; Lymphocytes # (A) 2.59 X 10*3/uL (0.90-5.00); Monocytes # (A) 0.88 X 10*3/uL (0.20-1.00); Monocytes % (A) 9.2 %; Neutrophils # (A) 5.57 X 10*3/uL (1.80-7.70)
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
[2024-06-30] MEDS: predniSONE 20 MG TAB PO SCH (10:50)
[2024-06-30 10:58] LABS: BUN/Creat Ratio 14.78 Ratio (12.00-20.00); Blood Urea Nitrogen 13.3 mg/dL (9.0-27.0); Calcium 8.7 mg/dL (8.7-10.3); Carbon Dioxide 31.5 mmol/L (21.6-31.8); Chloride 100 mmol/L (96-109); Glucose 117 mg/dL (70-110); Potassium 4.3 mmol/L (3.5-5.5); Sodium 141 mmol/L (135-145)
[2024-06-30] MEDS: IPRATROPIUM-ALBUTEROL 3 ML NEB INHALATION STA (12:10)
[2024-06-30] MEDS: BUDESONIDE 1 MG/2 ML NEBU INHALATION SCH (12:11)
[2024-06-30] MEDS: FORMOTEROL FUMARATE 20 MCG/2 ML NEBU INHALATION SCH (12:11)
--- NOTE | 2024-06-30 14:08 | P.PN ---
Subjective Progress Note Date: 06/30/24 I am following up with the patient and he is accompanied with his . His stated that yesterday he was confused but she feels he is more awake couple and making more sense today compared to yesterday. Regarding his ptosis she could not provide exact details but she thinks when he is getting tired he has ptosis. Today he is getting breathing treatments upon seeing him. Objective - Vital Signs Vital signs: Vital Signs Temp 98.2 F 06/30/24 07:01 Pulse 76 06/30/24 12:22 Resp 16 06/30/24 07:01 BP 132/79 06/30/24 07:01 Pulse Ox 96 06/30/24 07:01 FiO2 Intake & Output 06/29/24 06/30/24 06/30/24 18:59 06:59 18:59 Weight 105.37 kg 105.37 kg Other: Voiding Method Toilet Urinal # Voids 2 - Exam General: Lying in bed and does not appear in acute distress. Neuro: But it since he is getting breathing treatment. Patient is awake alert oriented to self and place. He has ptosis of both eyes but not as dramatic as yesterday. Patient is following simple commands. Some of the workup during this hospital visit consisted of: Patient is afebrile White blood cells 12.8 thousand otherwise the rest of CBC with differential is unremarkable repeat white blood cell is normalized Plasma lactic acid is 4.8 and the repeat is 1.3. Serum glucose is 128, sodium, calcium BUN/creatinine are within normal limits. AST ALT is within normal limits Vitamin B12 is 467 Serum folate is 9.90 TSH is 1.560 Ammonia is less than 9 CK level is 100 [address] of the head and cervical spine is reported as no acute intracranial abnormality seen. No acute fracture or malalignment of the cervical spine. Mild spondylitic change. Near complete opacification right mastoid air cell. Correlate for any mastoid pain to exclude mastoiditis. Incidental extensive per iodontal disease. I personally reviewed the CT of the head and I agree there is no acute or subacute ischemia. - Labs CBC & Chem 7: 06/30/24 05:21 06/30/24 05:21 Labs: Abnormal Lab Results - Last 24 Hours (Table) 06/29/24 06/29/24 06/29/24 Range/Units 14:13 14:13 14:13 WBC 12.8 H (3.8-10.6) k/uL RBC (4.40-5.60) X 10*6/uL Hgb (13.0-17.0) g/dL MCV (80.0-97.0) FL MCHC (32.0-37.0) g/dL RDW (11.5-14.5) % Immature Gran # (0.00-0.04) X 10*3/uL Eosinophils # (0.04-0.35) X 10*3/uL VBG pCO2 (37-51) mmHg VBG HCO3 (24-28) mmol/L Glucose 128 H (74-99) mg/dL Plasma Lactic Acid Joseph 4.8 H* (0.7-2.0) mmol/L Magnesium 1.5 L (1.6-2.3) mg/dL Total Protein 6.1 L (6.3-8.2) g/dL 06/30/24 06/30/24 06/30/24 Range/Units 05:21 05:21 05:21 WBC (3.8-10.6) k/uL RBC 3.94 L (4.40-5.60) X 10*6/uL Hgb 12.1 L (13.0-17.0) g/dL MCV 100.5 H (80.0-97.0) FL MCHC 30.6 L (32.0-37.0) g/dL RDW 15.1 H (11.5-14.5) % Immature Gran # 0.06 H (0.00-0.04) X 10*3/uL Eosinophils # 0.36 H (0.04-0.35) X 10*3/uL VBG pCO2 63 H (37-51) mmHg VBG HCO3 34 H (24-28) mmol/L Glucose 117 H (74-99) mg/dL Plasma Lactic Acid Joseph (0.7-2.0) mmol/L Magnesium (1.6-2.3) mg/dL Total Protein (6.3-8.2) g/dL Assessment and Plan Assessment: This is a 69-year-old gentleman who has been having generalized weakness for the past 3 weeks with recent fall and confusion and it seems that he had some hallucination. Patient had a recent lung infection and was started on antibiotic as well as having swelling in his feet. Examination patient had ptosis of bilateral eyes and was mildly drowsy but was oriented x 3. Per medical record it seems the patient has old ptosis of the eyes patient had elevated lactic acid level but is afebrile with normal white blood cell Recent generalized weakness with confusion recent fall. Patient has ptosis of both eyes and he feels it is worse when he tire. Mentation is improved. and I felt his ptosis is better than yesterday. Unsure cause. Rule out Myasthenia Gravis. Recent history of lung infection History of stroke in 2019 History of hypertension Hyperlipidemia Plan: Pending MRI of the brain with and without Pending routine EEG Pending myoglobin, acetylcholine esterase antibody PT and OT are consulted Will defer the rest of the medical management the primary and other specialist The plan is discussed with patient and his who is at bedside. Time with Patient: Less than 30
--- NOTE | 2024-06-30 20:03 | EEG ---
ELECTROENCEPHALOGRAM REPORT CLINICAL HISTORY: This is a 69-year-old gentleman with altered mental status. The video EEG is obtained to evaluate for seizure epileptiform activity. RELEVANT MEDICATIONS: The patient is not on any antiepileptic drugs. EEG TYPE: This is a routine 21-channel EEG with video using the 10/20 electrode placement system. DESCRIPTION: Wakefulness is only obtained. During awake state, the posterior-dominant rhythm consists of [id number] voltage of 8.5 hertz activity that is well modulated and well sustained. There is no physiological stage 2 sleep architecture. There is no focal slowing. Interictal and ictal is none. ACTIVATION PROCEDURE: Photic stimulation did not evoke a posterior driving response. There is no abnormality during the photic stimulation. Hyperventilation is not performed. CLINICAL INTERPRETATION: This is a normal routine EEG. There is no focal slowing, epileptiform discharges or seizure on the study. A normal routine EEG does not rule out any underlying epilepsy. Clinical correlation is recommended. MMCYNTHIA / REILLY: [id number] /
[2024-06-30] MEDS: HEPARIN SODIUM,PORCINE 5,000 UNIT/ML 1 ML VIAL SQ SCH (20:08)
[2024-06-30] MEDS: ATORVASTATIN 10 MG TAB PO SCH (20:08)
[2024-06-30] MEDS: FAMOTIDINE 20 MG/2 ML VIAL IV SCH (20:08)
[2024-06-30] MEDS: LORATADINE 10 MG TAB PO SCH (20:08)
[2024-06-30] MEDS: IPRATROPIUM-ALBUTEROL 3 ML NEB INHALATION PRN (20:52)
[2024-07-01] MEDS ORDERED: LORazepam 2 MG/ML INJ IV PRN (08:51)
[2024-07-01] MEDS: KETOROLAC 15 MG/ML 1 ML VIAL IVP STA (09:52)
--- NOTE | 2024-07-01 13:12 | P.PN ---
Subjective Progress Note Date: 07/01/24 I am following-up with patient and he feels he is doing better. Denies of any new neurological issues. Pending MRI Brain. Objective - Vital Signs Vital signs: Vital Signs Temp 98.0 F 07/01/24 07:36 Pulse 80 07/01/24 10:04 Resp 16 07/01/24 07:36 BP 127/85 07/01/24 07:36 Pulse Ox 95 07/01/24 07:36 FiO2 Intake & Output 06/30/24 07/01/24 07/01/24 18:59 06:59 18:59 Other: Voiding Method Toilet # Voids 2 2 - Exam General: Sitting up in chair and is not in acute distress. Neuro: Patient is awake alert oriented to self, time and place. Subtle to mild ptosis of both eyes. With sustained upward gaze for 60 second no worsening of pstosis. Patient is following simple commands. No facial weakness. No dysarthria. Motor: Lifting all extremities symmetrically. Some of the workup during this hospital visit consisted of: Patient is afebrile White blood cells 12.8 thousand otherwise the rest of CBC with differential is unremarkable repeat white blood cell is normalized Plasma lactic acid is 4.8 and the repeat is 1.3. Serum glucose is 128, sodium, calcium BUN/creatinine are within normal limits. AST ALT is within normal limits Vitamin B12 is 467 Serum folate is 9.90 TSH is 1.560 Ammonia is less than 9 CK level is 100 [address] of the head and cervical spine is reported as no acute intracranial abnormality seen. No acute fracture or malalignment of the cervical spine. Mild spondylitic change. Near complete opacification right mastoid air cell. Correlate for any mastoid pain to exclude mastoiditis. Incidental extensive periodontal disease. I personally reviewed the CT of the head and I agree there is no acute or subacute ischemia. Routine EEG: Normal. - Labs CBC & Chem 7: 06/30/24 05:21 06/30/24 05:21 Assessment and Plan Assessment: This is a 69-year-old gentleman who has been having generalized weakness for the past 3 weeks with recent fall and confusion and it seems that he had some hallucination. Patient had a recent lung infection and was started on antibiotic as well as having swelling in his feet. Examination patient had ptosis of bilateral eyes and was mildly drowsy but was oriented x 3. Per medical record it seems the patient has old ptosis of the eyes patient had elevated lactic acid level but is afebrile with normal white blood cell Recent generalized weakness with confusion recent fall. Patient has ptosis of both eyes and he feels it is worse when he tire. Mentation is improved. and I felt his ptosis is better than yesterday. Unsure cause. Rule out Myasthenia Gravis. Recent history of lung infection History of stroke in 2019 History of hypertension Hyperlipidemia Plan: Pending MRI of the brain with and without Pending myoglobin, acetylcholine esterase antibody (can follow-up with those result with primary attending or neurologist if he has one) PT and OT are consulted Will defer the rest of the medical management the primary and other specialist Upon discharge, recommend the patient to follow-up with neurologist as outpatient within 1-2 weeks. The plan is discussed with patient. Time with Patient: Less than 30
--- NOTE | 2024-07-01 16:53 | P.PN ---
Subjective Progress Note Date: 07/01/24 69 years old male with past medical history of multiple medical problems including stroke and right-sided hemiparesis in 2020, COPD with chronic oxygen use 2 L. Last week he went to his PCP Dr. Urena for his breathing he was marked off and he prescribed him prednisone and antibiotics. Yesterday patient he does not remember what happened but he was on the floor and he was confused was trying to help him they called EMS for him. He improved slightly but they sent him to emergency room for further check Patient states that he has chronic sinus headache. However he denies dizziness, no new weakness or tingling. He has chronic Celestino paresis from an old stroke in 2019. No more weakness than usual as he explains No chest pain he has occasional dry cough and He denies abdominal pain vomiting or diarrhea, no urinary complaint. He denies smoking alcohol or illicit drugs. Patient received 1 L of normal saline emergency room and admitted for further evaluation with neurology consult pt Is afebrile He has unremarkable CBC except for mild leukocytosis 12.8 but also patient was on steroids at home. This morning came back to normal at 9.5. Hemoglobin 12.1. Unremarkable INR, BMP and liver enzymes High lactic acid 4.8 came back to 1.3 Ammonia is low, proBNP 73 and creatinine kinase 100 Urine analysis negative for infection Chest x-ray showing cardiomegaly pH is normal but pCO2 is high TSH is checked which was unremarkable at 1.5 B12 467. Folate 9.9. Urinalysis negative for infection Objective - Vital Signs Vital signs: Vital Signs Temp 98.0 F 07/01/24 07:36 Pulse 80 07/01/24 10:04 Resp 16 07/01/24 07:36 BP 127/85 07/01/24 07:36 Pulse Ox 95 07/01/24 07:36 FiO2 Intake & Output 06/30/24 07/01/24 07/01/24 18:59 06:59 18:59 Other: Voiding Method Toilet # Voids 2 2 - Exam -GENERAL: The patient is alert and oriented x3, not in any acute distress. Well developed, well nourished. Obese HEENT: Pupils are round and equally reacting to light. EOMI. No scleral icterus. No conjunctival pallor. Normocephalic, atraumatic. No pharyngeal erythema. No thyromegaly. CARDIOVASCULAR: S1 and S2 present. No murmurs, rubs, or gallops. -PULMONARY: Chest is clear to auscultation, bilateral scattered wheezing , no crackles. ABDOMEN: Soft, nontender, nondistended, normoactive bowel sounds. No palpable organomegaly. MUSCULOSKELETAL: No joint swelling or deformity. EXTREMITIES: No cyanosis, clubbing, or pedal edema. -NEUROLOGICAL: Cranial nerves are grossly intact. Right-sided mildly weak. Otherwise strength is 5/5. Sensation is intact SKIN: No rashes. no petechiae. - Labs CBC & Chem 7: 06/30/24 05:21 06/30/24 05:21 Assessment and Plan Assessment: Altered mental status, improved. Rule out stroke. Could be related to his COPD metabolic encephalopathy. Acute COPD exacerbation Chronic hypoxic respiratory failure Morbid obesity Degenerative disc disease status post back surgery Sinusitis with headache, chronic Hypertension Plan: Patient is status post 1 L of normal saline in Emergency room, Continue with aspirin 81 mg, continue with Lipitor Neurology consult on the case Brain MRI and EEG pending Will start steroids and breathing treatment Patient will benefit from sleep study as an outpatient Labs and medication were reviewed.. Continue same treatment. Continue with symptomatic treatment. Resume home medication. Monitor labs and vitals. DVT and GI prophylaxis. Further recommendations as per clinical course of the patient DVT prophylaxis: Subcutaneous heparin GI Prophylaxis: Pepcid PT/OT: Pending
[2024-07-02 08:58] LABS: Basophils % (A) 0 %; Eosinophils % (A) 0 %; HCT 39.8 % (39.0-53.0); HGB 12.4 gm/dL (13.0-17.5); Hypochromasia Moderate; Lymphocytes # (A) 2.3 k/uL (1.0-4.8); Lymphocytes % (A) 21 %; MCH 30.6 pg (25.0-35.0); MCHC 31.2 g/dL (31.0-37.0); MCV 97.9 fL (80.0-100.0); Mean Platelet Volume 6.9; Monocytes # (A) 0.5 k/uL (0-1.0); Monocytes % (A) 5 %; Neutrophils # (A) 8.2 k/uL (1.3-7.7); Neutrophils % (A) 74 %; Platelet Count 431 k/uL (150-450); RBC 4.06 m/uL (4.30-5.90); RDW 14.6 % (11.5-15.5); WBC 11.1 k/uL (3.8-10.6)
[2024-07-02 09:15] LABS: African American GFR (CKD) >90 (>60 ml/min/1.73 sqM); Anion Gap 2 mmol/L; Blood Urea Nitrogen 23 mg/dL (9-20); Calcium 8.9 mg/dL (8.4-10.2); Carbon Dioxide 33 mmol/L (22-30); Chloride 100 mmol/L (98-107); Glucose 143 mg/dL (74-99); Non-African American GFR(CKD) 89 (>60 ml/min/1.73 sqM); Potassium 4.1 mmol/L (3.5-5.1); Sodium 135 mmol/L (137-145)
[2024-07-02] MEDS: LORazepam 2 MG/ML INJ IV PRN (12:38)
--- NOTE | 2024-07-02 15:02 | MR ---
INDICATION: Patient age:Male; 69 years old; Reason for study: confusion; PHH. COMPARISON: CT brain C-spine 06/29/2024, CT brain 12/10/2022, 06/11/2021, CT mastoid 03/31/2028, MRI brain 03/30/2020. TECHNIQUE: Multi planar, multi sequence imaging was performed through the brain. The patient was then given 10 cc of Gadavist intravenously and multi planar, T1 fat-saturation images were obtained. Fast protocol utilized due to patient condition. FINDINGS: The ventricular system and basal cisterns appear unremarkable. Diffusion-weighted imaging shows no ev idence of restricted diffusion to suggest acute/subacute infarct. Intracranial arterial flow voids ar e maintained. Midline structures show no abnormality. Decrease size of a 3 mm FLAIR signal hyperinten se focus along the leroy-white matter interface of the right posterior parietal lobe related to prior punctate lacunar infarct. Previously measured up to 6 mm. Impression a few periventricular and subcor tical white matter foci is stable. No new FLAIR signal abnormality identified. Remaining leroy-white j unction interface is unremarkable. After administration of gadolinium, no abnormal enhancement is see n. Age-appropriate cerebral volume loss. The bone marrow signal is within normal limits. The paranasal sinuses are unremarkable. Bilateral ap hakia. Complete right mastoid and minimal left T2 hyperintense opacification redemonstrated. IMPRESSION: 1. No evidence of intracranial mass, acute/subacute infarct, or abnormal enhancement. 2. Nonspecific white matter changes, likely related to small vessel ischemic disease. 3. Similar complete right mastoid effusion with minimal left mastoid effusion. Correlate for mastoidi tis.
--- NOTE | 2024-07-02 15:24 | P.PN ---
Subjective Progress Note Date: 07/02/24 I am following-up with patient and he feels he is doing well. Denies any new neurological issues. He stated, he thought his ptosis is due to TIA. He denies any history of cancer. Objective - Vital Signs Vital signs: Vital Signs Temp 97.6 F 07/02/24 13:30 Pulse 86 07/02/24 13:30 Resp 16 07/02/24 13:30 BP 117/74 07/02/24 13:30 Pulse Ox 93 L 07/02/24 13:30 FiO2 Intake & Output 07/01/24 07/02/24 07/02/24 18:59 06:59 18:59 Other: Voiding Method Toilet Toilet # Voids 6 1 # Bowel Movements 2 - Exam General: Sitting up in chair and is not in acute distress. Neuro: Patient is awake alert oriented to self, time and place. Subtle to mild to moderate ptosis of both eyes. Patient is following simple commands. No facial weakness. No dysarthria. Motor: Lifting all extremities symmetrically. Some of the workup during this hospital visit consisted of: Patient is afebrile White blood cells 12.8 thousand otherwise the rest of CBC with differential is unremarkable repeat white blood cell is normalized Plasma lactic acid is 4.8 and the repeat is 1.3. Serum glucose is 128, sodium, calcium BUN/creatinine are within normal limits. AST ALT is within normal limits Vitamin B12 is 467 Serum folate is 9.90 TSH is 1.560 Ammonia is less than 9 CK level is [address] of the head and cervical spine is reported as no acute intracranial abnormality seen. No acute fracture or malalignment of the cervical spine. Mild spondylitic change. Near complete opacification right mastoid air cell. Correlate for any mastoid pain to exclude mastoiditis. Incidental extensive periodontal disease. I personally reviewed the CT of the head and I agree there is no acute or subacute ischemia. Routine EEG: Normal. MRI Brain: It is reported as no evidence of intracranial mass, acute/subacute infarct or abnormal enhancement. Nonspecific white matter changes, likely related to small vessel ischemic disease. Similar complete right mastoid effusion with minimal left mastoid effusion. - Labs CBC & Chem 7: 07/02/24 08:33 07/02/24 08:33 Labs: Abnormal Lab Results - Last 24 Hours (Table) 07/02/24 07/02/24 Range/Units 08:33 08:33 WBC 11.1 H (3.8-10.6) k/uL RBC 4.06 L (4.30-5.90) m/uL Hgb 12.4 L (13.0-17.5) gm/dL Neutrophils # 8.2 H (1.3-7.7) k/uL Sodium 135 L (137-145) mmol/L Carbon Dioxide 33 H (22-30) mmol/L BUN 23 H (9-20) mg/dL Glucose 143 H (74-99) mg/dL Assessment and Plan Assessment: This is a 69-year-old gentleman who has been having generalized weakness for the past 3 weeks with recent fall and confusion and it seems that he had some hallucination. Patient had a recent lung infection and was started on antibiotic as well as having swelling in his feet. Examination patient had ptosis of bilateral eyes and was mildly drowsy but was oriented x 3. Per medical record it seems the patient has old ptosis of the eyes patient had elevated lactic acid level but is afebrile with normal white blood cell Recent generalized weakness with confusion recent fall. Patient has ptosis of both eyes and he feels it is worse when he tire. Mentation is improved. and I felt his ptosis is better than yesterday. Unsure cause. Rule out Myasthenia Gravis. MRI of the brain is negative for any acute or subacute stroke or any mass. Recent history of lung infection History of stroke in 2020 History of hypertension Hyperlipidemia Plan: Pending myoglobin, acetylcholine esterase antibody (can follow-up with those result with primary attending or neurologist if he has one). Also recommend the patient to be followed up with the quill reamer for further evaluation of the ptosis as well as neurologist. Can consider musk antibody if acetylcholine receptor antibody is negative and that can be considered as an outpatient. PT and OT are consulted Will defer the rest of the medical management the primary and other specialist Upon discharge, recommend the patient to follow-up with neurologist as outpatient within 1-2 weeks. The plan is discussed with patient. There is no further neurological workup. Will sign off. Please reconsult if needed. Time with Patient: Less than 30
--- NOTE | 2024-07-02 17:12 | P.PN ---
Subjective 69 years old male with past medical history of multiple medical problems including stroke and right-sided hemiparesis in 2019, COPD with chronic oxygen use 2 L. Last week he went to his PCP Dr. Urena for his breathing he was marked off and he prescribed him prednisone and antibiotics. Yesterday patient he does not remember what happened but he was on the floor and he was confused was trying to help him they called EMS for him. He im proved slightly but they sent him to emergency room for further check Patient states that he has chronic sinus headache. However he denies dizziness, no new weakness or tingling. He has chronic Celestino paresis from an old stroke in 2019. No more weakness than usual as he explains No chest pain he has occasional dry cough and He denies abdominal pain vomiting or diarrhea, no urinary complaint. He denies smoking alcohol or illicit drugs. Patient received 1 L of normal saline emergency room and admitted for further evaluation with neurology consult pt Is afebrile He has unremarkable CBC except for mild leukocytosis 12.8 but also patient was on steroids at home. This morning came back to normal at 9.5. Hemoglobin 12.1. Unremarkable INR, BMP and liver enzymes High lactic acid 4.8 came back to 1.3 Ammonia is low, proBNP 73 and creatinine kinase 100 Urine analysis negative for infection Chest x-ray showing cardiomegaly pH is normal but pCO2 is high TSH is checked which was unremarkable at 1.5 B12 467. Folate 9.9. Urinalysis negative for infection 24-hour interval change 07/02/2024 Patient seen and evaluated in room at bedside; family is present in the room; patient reports he feels he is back to his baseline self but little bit slower Vital signs are reviewed and remained stable Patient has had CT of the head and EEG completed which have been unremarkable; M RI of the brain is ordered and pending; neurology on board and concerned about possible myasthenia gravis -Acetylcholine esterase and myoglobin has been ordered -Patient steroids and nebulizer treatments for COPD exacerbation Objective - Vital Signs Vital signs: Vital Signs Temp 98.3 F 07/02/24 07:15 Pulse 82 07/02/24 09:27 Resp 16 07/02/24 07:15 BP 135/88 07/02/24 07:15 Pulse Ox 95 07/02/24 09:09 FiO2 Intake & Output 07/01/24 07/02/24 07/02/24 18:59 06:59 18:59 Other: Voiding Method Toilet Toilet # Voids 6 1 # Bowel Movements 2 - Exam -GENERAL: The patient is alert and oriented x3, not in any acute distress. Well developed, well nourished. Obese HEENT: Pupils are round and equally reacting to light. EOMI. No scleral icterus. No conjunctival pallor. Normocephalic, atraumatic. No pharyngeal erythema. No thyromegaly. CARDIOVASCULAR: S1 and S2 present. No murmurs, rubs, or gallops. -PULMONARY: Chest is clear to auscultation, bilateral scattered wheezing , no crackles. ABDOMEN: Soft, nontender, nondistended, normoactive bowel sounds. No palpable organomegaly. MUSCULOSKELETAL: No joint swelling or deformity. EXTREMITIES: No cyanosis, clubbing, or pedal edema. -NEUROLOGICAL: Cranial nerves are grossly intact. Right-sided mildly weak. Otherwise strength is 5/5. Sensation is intact SKIN: No rashes. no petechiae. - Labs CBC & Chem 7: 07/02/24 08:33 07/02/24 08:33 Labs: Abnormal Lab Results - Last 24 Hours (Table) 07/02/24 07/02/24 Range/Units 08:33 08:33 WBC 11.1 H (3.8-10.6) k/uL RBC 4.06 L (4.30-5.90) m/uL Hgb 12.4 L (13.0-17.5) gm/dL Neutrophils # 8.2 H (1.3-7.7) k/uL Sodium 135 L (137-145) mmol/L Carbon Dioxide 33 H (22-30) mmol/L BUN 23 H (9-20) mg/dL Glucose 143 H (74-99) mg/dL Assessment and Plan Assessment: Altered mental status, improved. Rule out stroke. Could be related to his COPD metabolic encephalopathy. Acute COPD exacerbation Chronic hypoxic respiratory failure Morbid obesity Degenerative disc disease status post back surgery Sinusitis with headache, chronic Hypertension Plan: Patient is status post 1 L of normal saline in Emergency room, Continue with aspirin 81 mg, continue with Lipitor Neurology consult on the case Brain MRI and EEG pending Will start steroids and breathing treatment Patient will benefit from sleep study as an outpatient Labs and medication were reviewed.. Continue same treatment. Continue with symptomatic treatment. Resume home medication. Monitor labs and vitals. DVT and GI prophylaxis. Further recommendations as per clinical course of the pat ient DVT prophylaxis: Subcutaneous heparin GI Prophylaxis: Pepcid PT/OT: Pending
[2024-07-02 20:41] LABS: Myoglobin 64 ng/mL (<=72)
[2024-07-03 07:24] VITALS: BP 118/78; RESP 17; TEMP 97.8
[2024-07-03 08:32] VITALS: PULSE 76
[2024-07-03 09:39] LABS: Blood Urea Nitrogen 20.4 mg/dL (9.0-27.0); Calcium 9.3 mg/dL (8.7-10.3); Carbon Dioxide 29.4 mmol/L (21.6-31.8); Chloride 101 mmol/L (96-109); Glucose 115 mg/dL (70-110); Potassium 4.9 mmol/L (3.5-5.5); Sodium 140 mmol/L (135-145)
== END 2024-07-03 14:09 | disposition home health service (06) | DRG 880 ==
LOC: EC 13:14 → 4SSUR 16:18
PROVIDERS: ADMIT Internal Medicine; ATTEND Internal Medicine
PROC: 4A10X4Z Monitoring of Central Nervous Electrical Activity, External Approach (ICD-10-PCS; principal; 2024-06-30)
DX: R44.3 Hallucinations, unspecified (principal); G93.41 Metabolic encephalopathy; I69.351 Hemiplegia and hemiparesis following cerebral infarction affecting right dominant side; J44.1 Chronic obstructive pulmonary disease with (acute) exacerbation; J96.11 Chronic respiratory failure with hypoxia; R41.82 Altered mental status, unspecified; R53.81 Other malaise; H02.409 Unspecified ptosis of unspecified eyelid; D72.829 Elevated white blood cell count, unspecified; K05.6 Periodontal disease, unspecified; M47.892 Other spondylosis, cervical region; E66.01 Morbid (severe) obesity due to excess calories; E78.5 Hyperlipidemia, unspecified; H02.403 Unspecified ptosis of bilateral eyelids; Z79.890 Hormone replacement therapy; Z79.82 Long term (current) use of aspirin; Z79.899 Other long term (current) drug therapy; Z82.49 Family history of ischemic heart disease and other diseases of the circulatory system; Z87.891 Personal history of nicotine dependence; Z91.030 Bee allergy status; Z80.0 Family history of malignant neoplasm of digestive organs; Z91.041 Radiographic dye allergy status; Z89.421 Acquired absence of other right toe(s)
CPT/HCPCS: 36415; 70450; 70553; 71046; 72125; 80048; 80053; 81003; 82140; 82550; 82607; 82746; 82803; 83605; 83735; 83874; 83880; 84443; 84484; 85025; 85610; 85730; 86041; 93005; 94640; 94760; 95816